=== PATIENT | female | born 1990 | race Caucasian/White ===

== ENCOUNTER → 2024-07-01 | Outpatient (CLI) | payer MEDICARE, SELFPAY ==
[2024-07-01 14:45] LABS: Erythrocyte Sedimentation Rate 20 mm/hr (0-30)
[2024-07-01 14:47] LABS: Absolute Lymphocyte Count 0.88 X10^3/uL (0.83-4.51); Absolute Neutrophil Count 3.1 X10^3/uL (2.0-7.7); Basophil# 0.04 X10^3/uL; Basophil% 0.9 % (0-1); Eosinophil# 0.11 X10^3/uL; Eosinophils% 2.4 % (0-5); Hematocrit 39.8 % (37-47); Hemoglobin 11.9 g/dL (12.0-15.0); Lymphocyte # 0.88 X10^3/ul (0.83-4.51); Lymphocyte % 19.1 % (19-41); Mean Corp Hgb Conc 29.9 g/dL (32-36); Mean Corpuscular Volume 70.3 fL (81-99); Mean Platelet Vol. 9.4 fl (6.2-12.0); Monocyte# 0.49 X10^3/uL; Monocyte% 10.7 % (0-10); NRBC Flagged by Analyzer 0 % (0-5); Neutrophil # 3.06 X10^3/uL (2.7-7.7); Neutrophil % 66.5 % (47-70); Platelet Count 249 K/mm3 (150-450); RBC Distribution Width CV 17.9 % (11.6-14.6); RBC Distribution Width SD 43.8 fl (35.1-43.9); Red Blood Count 5.66 M/mm3 (4.2-5.4); White Blood Count 4.6 K/mm3 (4.4-11.0)
[2024-07-01 15:19] LABS: ALB/GLOB Ratio 0.8 RATIO (0.9-2.4); AST(SGOT) 54 U/L (15-37); Alanine Aminotransfer ALT/SGPT 99 U/L (13-56); Albumin, Serum 3.7 g/dL (3.2-5.0); Alkaline Phosphatase 159 U/L (45-117); Anion Gap 6 (5-15); BUN 7 mg/dL (7-18); BUN/Creat Ratio 9.5 RATIO (10-20); CRP 9.76 mg/L (0.0-3.0); Calcium,Total 8.9 mg/dL (8.5-10.1); Chloride 107 mmol/L (98-107); Creatinine, Serum 0.74 mg/dL (0.55-1.02); EST Glomerular Filtration Rate 95 mL/min (>60); Est Glom Filt Rate - Afr Amer 115 mL/min (>60); Globulin 4.5 g/dL (2.2-4.2); Glucose 96 mg/dL (74-106); LDH 149 U/L (84-246); Potassium 3.4 mmol/L (3.5-5.1); Protein, Total 8.2 g/dL (6.4-8.2); Sodium Level 140 mmol/L (136-145)
--- OUTSIDE RECORDS SUMMARY | 2024-07-01 15:21 | XMS RPT_ITS | CCD ---
Author Organization [facility] Care Team Providers Care Lab Tech Name Role Phone Anita Herrera Bessy Unavailable Unava ilable Keyur, Lucita Escalante Unavailable U navailable FREE, TEXT ENTRY Unavailable Unavailable GLENDA GARCIA Unavailable Unavailable REFERRING, KISHA VERDIN ID Unavailable Unavailable SANDERS, JASON S Unavailable Unavailable PCP, NONE Unavailable Unavailable SANDERS, JASON S Unavailable Unavailable PCP, NONE Unavailable Unavailable SANDERS, JASON S Unavailable Unavailable SANDERS, JASON S Unavailable Unavailable UP, CLARI Unavailable Unavailable UP, CLARI Unavailable Unavailable FREE, TEXT ENTRY Unavailable Unavailable UP, CLARI Unavailable Unavailable UP, CLARI Unavailable Unavailable FREE, TEXT ENTRY Unavailable Unavailable Jonelle Tilley Unavailable Unavailable FREE, TEXT ENTRY Unavailable Unavailable UP, CLARI Unavailable Unavailable UP, CLARI Unavailable Unavailable FREE, TEXT ENTRY Unavailable Unavailable NOEL PERRY Primary Care Physician [phone] Klever Betancourt CNP Terese Primary Care Provi vamsi TERESE PERES Primary Care Physi edgar Klever Betancourt CNP Terese Primary Care Provi vamsi Ana Curiel Primary Care Provider [phone] FANNY GARZA Attending Unavailable KAYLA, JAIMEE Referring Unavailable TERESE ERNST Primary Care Unavailable CORIE GARZAITA Attending Unavailable TERESE ERNST Primary Care Unavailable FANNY GARZA Attending Unavailable TERESE ERNST Primary Care Unavailable FANNY GARZA Attending Unavailable TERESE ERNST Primary Care Unavailable TERESE ERNST Primary Care Unavailable SERGEY TEE Attending Unavailable NOEL WALTERS Referring Unavailable JAIMEE GARZA Attending Unavailable ANA CURIEL Primary Care Unavailable Klever PETROLEUM REFINERY LABORER, Terese A Primary Care Provider Fanny Garza PA-C Unavailable [phone] KLEVER, TERESE A Primary Care Unavailable GONCALVES, KEISHA Referring Unavailable KLEVER, TERESE A Primary Care Unavailable KLEVER, TERESE A Referring Unavailable GONCALVES, KEISHA Attending Unavailable JORGE DEAN Attending Unavailable ANN SOTO (FRESH FOODS CLERK) Referring Unavailabl e KLEVER, TERESE A Primary Care Unavailable JEFF HOWARD Attending Unavailable KLEVER, TERESE A Primary Care Unavailable KLEVER CAR REFINISHER-PETROLEUM REFINERY LABORER, TERESE A Attending Un available KLEVER CAR REFINISHER-PETROLEUM REFINERY LABORER, TERESE A Primary Care Un available KLEVER CAR REFINISHER-PETROLEUM REFINERY LABORER, TERESE A Attending Un available KLEVER CAR REFINISHER-PETROLEUM REFINERY LABORER, TERESE A Primary Care Un available KLEVER CAR REFINISHER-PETROLEUM REFINERY LABORER, TERESE A Primary Care Un available SEFFENS CAR REFINISHER-PETROLEUM REFINERY LABORER, KEVIN Attending Unavai lable RIDJULIO CESAR DO, DR EDILIA Goodman Attending Unavailable KLEVER CAR REFINISHER-PETROLEUM REFINERY LABORER, TERESE A Primary Care Un available LÁZARO WELLS, CHRISTIANO Attending Unavailable KLEVER CAR REFINISHER-PETROLEUM REFINERY LABORER, TERESE A Primary Care Un available TOMMY DO, YIFAN Salazar Attending Unavailable KLEVER CAR REFINISHER-PETROLEUM REFINERY LABORER, TERESE A Primary Care Un available KLEVER CAR REFINISHER-PETROLEUM REFINERY LABORER, TERESE A Primary Care Un available THIAGO PERRY, DR SANTHOSH Roberson Attending Unavai lable KLEVER CAR REFINISHER-PETROLEUM REFINERY LABORER, TERESE A Attending Un available KLEVER CAR REFINISHER-PETROLEUM REFINERY LABORER, ETRESE A Primary Care Un available KLEVER CAR REFINISHER-PETROLEUM REFINERY LABORER, TERESE A Attending Un available KLEVER CAR REFINISHER-PETROLEUM REFINERY LABORER, TERESE A Primary Care Un available KLEVER CAR REFINISHER-PETROLEUM REFINERY LABORER, TERESE A Attending Un available KLEVER CAR REFINISHER-PETROLEUM REFINERY LABORER, TERESE A Primary Care Un available IRIS PERRY, DR RONQUILLO Attending Unavailab le KLEVER CAR REFINISHER-PETROLEUM REFINERY LABORER, TERESE A Primary Care Un available KLEVER CAR REFINISHER-PETROLEUM REFINERY LABORER, TERESE A Primary Care Un available KLEVER CAR REFINISHER-PETROLEUM REFINERY LABORER, TERESE A Attending Un available NORM PETROLEUM REFINERY LABORER, MADAY Hammond Attending Unavailab le KLEVER CAR REFINISHER-PETROLEUM REFINERY LABORER, TERESE A Primary Care Un available KLEVER CAR REFINISHER-PETROLEUM REFINERY LABORER, TERESE A Primary Care Un available TAVO MAHER PA-C Attending Unavailab le MAST CAR REFINISHER-PETROLEUM REFINERY LABORER, SANTA Attending Unavailabl e KLEVER CAR REFINISHER-PETROLEUM REFINERY LABORER, TERESE A Primary Care Un available KLEVER CAR REFINISHER-PETROLEUM REFINERY LABORER, TERESE A Primary Care Un available DELMY PERRY, TANG Lopez Attending Unavail able KLEVER CAR REFINISHER-PETROLEUM REFINERY LABORER, TERESE A Primary Care Un available GABRIEL PERRY, DR BEE Attending Unavailab le KLEVER CAR REFINISHER-PETROLEUM REFINERY LABORER, TERESE A Primary Care Un available SAGAR WELLS, MARY LOU Attending Unavailable MAST CAR REFINISHER-PETROLEUM REFINERY LABORER, SANTA Attending Unavailabl e KLEVER CAR REFINISHER-PETROLEUM REFINERY LABORER, TERESE A Primary Care Un available KLEVER CAR REFINISHER-PETROLEUM REFINERY LABORER, TERESE A Primary Care Un available GABRIEL PERRY, DR BEE Attending Unavailab le NORM PETROLEUM REFINERY LABORER, MADAY Hammond Attending Unavailab le KLEVER CAR REFINISHER-PETROLEUM REFINERY LABORER, TERESE A Primary Care Un available IRIS PERRY, DR RONQUILLO Attending Unavailab le KLEVER CAR REFINISHER-PETROLEUM REFINERY LABORER, TERESE A Primary Care Un available Allergies Allergy Classification Reported Allergen(s) Allergy Type Date of Onset Reaction(s) Facility (20 sources) Ciprofloxacin; Translations: [CIPROFLOXACIN] Drug Allergy 8 [facility] Repository (20 sources) Clindamycin; Translations: [clindamycin] Drug Allergy 3 Weal (disorder), Hives, Other: See Comments [facility] (20 sources) OXcarbazepine; Translations: [oxcarbazepine] Drug Allergy 3 Other: See Clara, [facility] (10 sources) azaTHIOprine; Translations: [AZATHIOPRINE] Drug Allergy 8 Other: See Comments [facility] (9 sources) Lamotrigine; Translations: [LAMOTRIGINE] Propensity to adverse reactions 9 Hives, Rash [facility] (10 sources) Crary; Translations: [LITHIUM] Drug Allergy 3 Hives [facility] (8 sources) Oxcarbazepine Allergy to substance 3 Fever, Hives [facility] (18 sources) lamoTRIgine; Translations: [lamotrigine] Drug Allergy 9 Weal (disorder), Hives, Mental Status Change, Other: See Clara, Alcira Kaur [facility] [place] Medications Current Medications Medication Drug Class(es) Dates Sig (Normalized) Sig (Original) acetaminophen 500 mg oral tablet (9 sources) Start: 06-22-2022 acetaminophen 500 mg oral tablet Dose : 1,000 mg = 2 tab(s), Oral, TID, PRN pain or fever, 0 Refill(s) Start Date: 06/22/22 Status: Ordered acetaminophen 325 mg / HYDROcodone bitartrate 5 mg oral tablet (1 source) Opioid Agonist Start: 08-05-2021 End: 08-08-2021 take 1 tablet by mouth every six hours as needed for pain acetaminophen-hydr ocodone 325 mg-5 mg oral tablet Dose = 1 tab(s), Oral, q6h, PRN for pain, X 3 day(s), # 12 tab(s), 0 Refill(s), Cellulitis, face, 100.8 Start Date: 08/05/21 Stop Date: 08/08/21 Status: Ordered amoxicillin 875 mg oral tablet (4 sources) Penicillin-class Antibacterial Start: 07-22-2023 End: 07-29-2023 amoxicillin 875 mg oral tablet Dose : 875 mg = 1 tab(s), Oral, BID, Take with a probiotic, X 7 day(s), # 14 tab(s), 0 Refill(s), 07/29/23 7:53:00 PM EST Start Date: 07/22/23 Stop Date: 07/29/23 Status: Ordered Start: 08-05-2021 amoxicillin 0 Refill(s), 100.8 Start Date: 08/05/21 Status: Ordered amoxicillin 875 mg / clavulanate 125 mg oral tablet (1 source) Penicillin-class Antibacterial Start: 08-03-2023 End: 08-13-2023 take 1 tablet by mouth every twelve hours amoxicillin-clavulanate 875 mg-125 mg oral tablet 1 tab(s), Oral, q12h, X 10 day(s), # 20 tab(s), 0 Refill(s), 08/13/23 4:23:00 PM EST, Pharmacy: [facility] #[id number], Left otitis media Left otitis externa, 170.2, cm, 08/03/23 15:51:00 EST, Height, 113, kg, 08/03/23 15:51:00 EST, Dosing Weight Start Date: 08/03/23 Stop Date: 08/13/23 Status: Ordered breath-actuated 120 actuat beclomethasone dipropionate 0.04 mg/actuat metered dose inhaler (2 sources) Corticosteroid Start: 03-19-2024 End: 04-18-2024 take 1 dose by inhalation twice daily Qvar Redihaler 40 mcg/inh inhalation aerosol Dose = 1 puff(s), Inhalation, BID, # 10.6 gram(s), 0 Refill(s), Pharmacy: [facility] #[id number], 171.5, cm, 03/19/24 14:48:00 EDT, Height, kg, 03/19/24 14:48:00 EDT, Dosing Weight Start Date: 03/19/24 Stop Date: 04/18/24 Status: Ordered Vraylar (20 sources) Atypical Antipsychotic Start: 05-30-2024 Vraylar Oral, qDay, 0 Refill(s) Start Date: 05/30/24 Status: Ordered Start: 08-22-2023 take 1 capsule by mouth once V RAYLAR 3 mg capsule Take 1 capsule by mouth every afternoon. 0 08/22/2023 Active Start: 06-22-2021 End: 07-22-2021 Vraylar 4.5 mg oral capsule Dose : 4.5 mg = 1 cap(s), Oral, qDay, # 30 cap(s), 0 Refill(s), Pharmacy: [facility] 170.6, cm, 06/22/21 10:26:00 EDT, Height, kg, 06/22/21 10:26:00 EDT, Dosing Weight Start Date: 06/22/21 Stop Date: 07/22/21 Status: Ordered Start: 05-12-2021 End: 11-08-2021 Vraylar 3 mg oral capsule Do se : 3 mg = 1 cap(s), Oral, qDay, # 30 cap(s), 5 Refill(s), Pharmacy: [facility]/pharmacy #[id number], 170, cm, 05/12/21 13:54:00 EDT, Height, kg, 05/12/21 13:54:00 EDT, Dosing Weight Start Date: 05/12/21 Stop Date: 11/08/21 Status: Ordered Comment on above: Take 1 capsule by mo ut every afternoon. Take 4.5 mg by mouth once daily. cephalexin 500 mg oral capsule (4 sources) Cephalosporin Antibacterial Start: 06-22-2024 End: 07-02-2024 cephalexin 500 mg oral capsule Dose : 500 mg = 1 cap(s), Oral, QID, X 10 day(s), # 40 cap(s), 0 Refill(s), 07/02/24 8:00:00 AM EDT, 109.1 Start Date: 06/22/24 Stop Date: 07/02/24 Status: Ordered clindamycin 150 mg oral capsule (1 source) Lincosamide Antibacterial Start: 08-05-2021 End: 08-15-2021 Cleocin HCl 150 mg oral capsule Dose : 300 mg = 2 cap(s), PO, q6hr, X 10 day(s), # 80 cap(s), 0 Refill(s), 08/15/21 15:12:00 EST, 100.8 Start Date: 08/05/21 Stop Date: 08/15/21 Status: Ordered clobetasol propionate 0.5 mg/ml topical solution (20 sources) Corticosteroid Start: 10-15-2023 clobetasol (Temovate) 0.05 % external solution Indications: Seborrheic dermatitis Apply to affected areas on scalp BID x 6 weeks Stop using when clear. Repeat as needed for flares. Do not use on face, armpits, groin. 50 mL 2 10/15/2023 Active Start: 12-13-2022 clobetasol (TE MOVATE) 0.05 % ointment Apply to affected areas BID x 2 weeks Stop using when clear. Repeat as needed for flares. Do not use on face, armpits, groin. 0 12/13/2022 Active Start: 12-13-2022 clobetasol (Te movate) 0.05 % ointment Indications: Subacute cutaneous lupus erythematosus , Seborrheic dermatitis Apply to affected areas BID x 2 weeks Stop using when clear. Repeat as needed for flares. Do not use on face, armpits, groin. 60 g 3 12/13/2022 Active Start: 03-21-2022 Temovate 0.05% topical cream See Instructions, apply a thin film 2-3 times per week., # 45 gram(s), 1 Refill(s), Pharmacy: [facility] [address] Cream, 170.2, cm, 03/13/22 8:04:00 EDT, Height, 109.4 Start Date: 03/21/22 Status: Ordered Start: 03-09-2022 Temovate 0.05% topical cream Apply 1 gifty, Topical, BID, apply a thin film apply twice per day for two weeks Do not apply to open skin, # 15 gram(s), 0 Refill(s), Pharmacy: [facility] [address] Cream, 170.2, cm, 03/09/22 13:49:00 EDT, Height, 108.7 Start Date: 03/09/22 Status: Ordered Comment on above: Apply to affected ar eas BID x 2 weeks Stop using when clear. Repeat as needed for flares. Do not use on face, armpits, groin. doxycycline hyclate 100 mg oral capsule (2 sources) Tetracycline-class Drug Start: 02-02-2023 End: 02-12-2023 doxycycline hyclate 100 mg oral capsule Dose : 100 mg = 1 cap(s), Oral, BID, X 10 day(s), # 20 cap(s), 0 Refill(s), 02/12/23 14:10:00 EDT, Pharmacy: [facility] #[id number], Cutaneous lupus erythematosus, 170.2, cm, 02/02/23 13:28:00 EDT, Height, 114.8 Start Date: 02/02/23 Stop Date: 02/12/23 Status: Ordered take 1 tablet by mouth twice robbi ly Doxycycline Hyclate 100 mg EC tablet Take 100 mg by mouth twice daily. 0 Active Comment on above: Take 100 mg by mouth twice daily. ferrous sulfate 325 mg delayed release oral tablet (12 sources) Start: 4 End: 5 ferrous sulfate 325 mg (65 mg elemental iron) oral delayed release tablet Dose : 325 mg = 1 tab(s), Oral, qDay, # 90 tab(s), 1 Refill(s), Pharmacy: [facility]/pharmacy #[id number], Iron deficiency anemia, 170.2, cm, 04/02/24 9:28:00 EDT, Height, kg, 04/02/24 9:28:00 EDT, Dosing Weight Start Date: 04/02/24 Stop Date: 09/29/24 Status: Ordered fluconazole 100 mg oral tablet (1 source) Azole Antifungal Start: 3 End: 3 fluconazole 100 mg oral tablet Dose : 100 mg = 1 tab(s), Oral, Every other day, X 7 day(s), # 4 tab(s), 0 Refill(s), 02/09/23 14:11:00 EDT, [facility]acy: [id number], Vaginal maikel, 170.2, cm, 02/02/23 13:28:00 EDT, Height, 114.8 Start Date: 02/02/23 Stop Date: 02/09/23 Status: Ordered FLUoxetine 20 mg oral capsule (20 sources) Serotonin Reuptake Inhibitor Start: 3 take 1 capsule by mouth once daily FLUoxetine 20 mg oral capsule take 1 capsule by mouth once daily Start Date: 07/25/23 Status: Ordered Start: 04-05-2022 FLUoxetine 20 mg oral capsule Dose : 60 mg = 3 cap(s), Oral, qDay, # 45 cap(s), 0 Refill(s), Pharmacy: [facility] #[id number], 170.2, cm, 04/03/22 6:39:00 EDT, Height Start Date: 04/05/22 Status: Ordered Start: 05-12-2021 take 1 capsule by mo ut once daily FLUoxetine 40 mg oral capsule take 1 capsule by mouth once daily Start Date: 07/25/23 Status: Ordered hydrocortisone 25 mg/ml topical cream (4 sources) Corticosteroid Start: 06-16-2022 End: 06-29-2022 hydrocortisone 2.5% topical cream See Instructions, Topical BID to affected area x14 days apply in a thin film to the affected skin and rub in gently and completely, # 20 gram(s), 0 Refill(s), [facility]: [facility][id number], 168.91, cm, 06/16/22 11:00:00 EDT, Height, 112.8 Start Date: 06/16/22 Stop Date: 06/29/22 Status: Ordered hydrocortisone 10 mg/ml / neomycin 3.5 mg/ml / polymyxin b 53786 unt/ml otic solution (1 source) Aminoglycoside Antibacterial, Polymyxin-class Antibacterial, Corticosteroid Start: 06-25-2022 End: 07-02-2022 hydrocortisone/neomy shelby/polymyxin B 1%-0.35%-10,000 units/mL otic solution Dose = 4 drop(s), Ear, left, TID, X 7 day(s), # 10 mL, 0 Refill(s) Start Date: 06/25/22 Stop Date: 07/02/22 Status: Ordered hydroxychloroquine sulfate 200 mg oral tablet (13 sources) Antimalarial, Antirheumatic Agent Start: 01-25-2023 Plaquenil 200 mg oral tablet Dose : 400 mg = 2 tab(s), Oral, qDay, # 180 tab(s), 0 Refill(s) Start Date: 01/25/23 Status: Ordered Start: 12-21-2022 hydroxychloroq uine (Plaquenil) 200 MG tablet Indications: Subacute cutaneous lupus erythematosus 400 mg daily 60 tablet 4 12/21/2022 Active levocetirizine dihydrochloride 5 mg oral tablet (2 sources) Histamine-1 Receptor Antagonist Start: 05-24-2022 End: 11-20-2022 levocetirizine 5 mg oral tablet Dose : 2.5 mg = 0.5 tab(s), Oral, qHS, # 45 tab(s), 0 Refill(s) Start Date: 06/24/22 Status: Ordered methylPREDNISolone 4 mg oral tablet (1 source) Corticosteroid Start: 08-15-2021 End: 08-21-2021 Medrol 4 mg oral tablet 6-5-4-3-2-1 tab(s), Oral, Daily, 24mg day 1, 20mg day 2, 16mg day 3, 12 mg day 4, 8mg day 5, 4mg day 6, X 6 day(s), # 21 tab(s), 0 Refill(s), 08/21/21 8:11:00 EST, [facility] 171, cm, 08/15/21 7:51:00 EST, Height, kg, 08/15/21... Start Date: 08/15/21 Stop Date: 08/21/21 Status: Ordered 24 hr metoprolol succinate 50 mg extended release oral tablet (14 sources) beta-Adrenergic Preet Start: 06-27-2024 metoprolol succinate 50 mg oral TABLET extended release Dose : 75 mg = 1.5 tab(s), Oral, qDay, Do not crush or chew (controlled release), # 45 tab(s), 6 Refill(s), [id number], 170.2, cm, 06/27/24 10:40:00 EDT, Height, kg, 06/27/24 10:40:00 EDT, Dosing Weight Start Date: 06/27/24 Status: Ordered Start: 04-02-2024 End: 12-03-2024 Metoprolol Tartrate 25 mg or al tablet Dose : 25 mg = 1 tab(s), Oral, BID, # 180 tab(s), 1 Refill(s), Pharmacy: [facility]/pharmacy #[id number], Tachycardia, 170.2, cm, 06/06/24 13:08:00 EDT, Height, kg, 06/06/24 13:08:00 EDT, Dosing Weight Start Date: 06/06/24 Stop Date: 12/03/24 Status: Ordered Start: 03-21-2024 Metoprolol Tar trate 25 mg oral tablet Dose : 25 mg = 1 tab(s), Oral, BID, # 60 tab(s), 0 Refill(s), Pharmacy: [facility] #[id number], Tachycardia Chest pain, 171.5, cm, 03/21/24 12:59:00 EDT, Height, kg, 03/21/24 12:59:00 EDT, Dosing Weight Start Date: 03/21/24 Status: Ordered Nitrofurantoin (1 source) Nitrofuran Antibacterial Start: 05-30-2024 nitrofurantoin Oral, 0 Refill(s), 111.6 Start Date: 05/30/24 Status: Ordered ofloxacin 3 mg/ml otic solution (1 source) Quinolone Antimicrobial Start: 06-24-2022 End: 07-04-2022 ofloxacin 0.3% otic solution Dose = 5 drop(s), Ear, left, BID, X 10 day(s), # 10 mL, 0 Refill(s), Otitis externa Start Date: 06/24/22 Stop Date: 07/04/22 Status: Ordered Omeprazole (13 sources) Proton Pump Inhibitor Start: 05-30-2024 omeprazo le Oral, qDay, 0 Refill(s) Start Date: 05/30/24 Status: Ordered Start: 12-15-2021 End: 01-14-2022 omeprazole 40 mg oral delaye d release capsule Dose : 40 mg = 1 cap(s), Oral, qDay, # 30 cap(s), 0 Refill(s), [facility] [place] [id number] [address] [facility], 170.6, cm, 12/15/21 8:36:00 EDT, Height Start Date: 12/15/21 Stop Date: 01/14/22 Status: Ordered ondansetron 4 mg disintegrating oral tablet (3 sources) Serotonin-3 Receptor Antagonist Start: 07-21-2023 End: 07-24-2023 take 1 tablet by mouth every eight hours ondansetron 4 mg oral tablet, disintegrating dissolve 1 tablet ON TONGUE every 8 hours if needed Start Date: 07/25/23 Status: Ordered OXcarbazepine 300 mg oral tablet (1 source) Anti-epileptic Agent Start: 04-03-2022 OXcarbazepine 300 mg oral tablet Dose : 300 mg = 1 tab(s), Oral, qHS, 0 Refill(s) Start Date: 04/03/22 Status: Ordered potassium chloride 20 meq oral tablet (11 sources) Start: 06-27-2024 potassium chloride 20 mEq oral tablet, extended release Dose : 20 mEq = 1 tab(s), Oral, qDay, Take with food, # 30 tab(s), 1 Refill(s), Pharmacy: [facility]/pharmacy #[id number], 170.2, cm, 06/27/24 10:40:00 EDT, Height, kg, 06/27/24 10:40:00 EDT, Dosing Weight Start Date: 06/27/24 Status: Ordered Start: 06-06-2024 End: 06-11-2024 potassium chloride 20 mEq or al tablet, extended release Dose : 20 mEq = 1 tab(s), Oral, qDay, # 5 packet(s), 0 Refill(s) Start Date: 06/06/24 Stop Date: 06/11/24 Status: Ordered predniSONE 10 mg oral tablet (6 sources) Start: 08-03-2023 End: 08-15-2023 prednisone 10mg tab (TAPER) Taper 40-30-20-10 x 3 days each dose, Oral, qDay, Take with food/meal, # 30 tab(s), 0 Refill(s), Pharmacy: [facility] #[id number], Left otitis media Left otitis externa, 170.2, cm, 08/03/23 15:51:00 EST, Height, kg, 08/03/23 15:51:00 EST, Dosing Weight Start Date: 08/03/23 Stop Date: 08/15/23 Status: Ordered Start: 02-02-2023 End: 02-14-2023 prednisone 10mg tab (TAPER) Taper 40-30-20-10 x 3 days each dose, Oral, qDay, Take with food/meal, # 30 tab(s), 0 Refill(s), Pharmacy: [facility] #[id number], Cutaneous lupus erythematosus, 170.2, cm, 02/02/23 13:28:00 EDT, Height Start Date: 02/02/23 Stop Date: 02/14/23 Status: Ordered Probiotic (12 sources) Start: 05-30-2024 Probiotic 0 Refill(s) Start Date: 05/30/24 Status: Ordered propranolol hydrochloride 10 mg oral tablet (1 source) beta-Adrenergic Preet Start: 01-12-2022 End: 07-11-2022 propranolol 10 mg oral tablet Dose : 10 mg = 1 tab(s), Oral, BID, # 60 tab(s), 5 Refill(s), [facility]: [facility] 171, cm, 01/12/22 15:01:00 EDT, Height Start Date: 01/12/22 Stop Date: 07/11/22 Status: Ordered QUEtiapine 50 mg oral tablet (5 sources) Atypical Antipsychotic Start: 11-24-2021 QUEtiapine 50 mg oral tablet Dose : 50 mg = 1 tab(s), Oral, BID, # 180 tab(s), 0 Refill(s) Start Date: 11/24/21 Status: Ordered sulfamethoxazole 800 mg / trimethoprim 160 mg oral tablet (3 sources) Dihydrofolate Reductase Inhibitor Antibacterial, Sulfonamide Antimicrobial Start: 06-16-2022 End: 06-23-2022 take 1 tablet by mouth twice daily Bactrim DS 800 mg-160 mg oral tablet Dose = 1 tab(s), Oral, BID, X 7 day(s), # 14 tab(s), 0 Refill(s), [facility]: [facility] #[id number], 168.91, cm, 06/16/22 11:00:00 EDT, Height, 112.8 Start Date: 06/16/22 Stop Date: 06/23/22 Status: Ordered Completed/Discontinued Medications Medication Drug Class(es) Dates Sig (Normalized) Sig (Original) albuterol MDI (90 mcg/inh) CFC free inhalation aerosol (5 sources) Start: 03-19-2024 End: 04-02-2024 take 2 puff(s) by inhalation every six hours as needed for wheezing albuterol MDI (90 mcg/inh) CFC free inhalation aerosol 2 puff(s), Inhalation, q6hr, PRN as needed for wheezing, # 18 gram(s), 0 Refill(s), [facility]: [facility] #[id number], 171.5, cm, 03/19/24 14:48:00 EDT, Height, kg, 03/19/24 14:48:00 EDT, Dosing Weight Start Date: 03/19/24 Stop Date: 04/02/24 Status: Ordered Aquaphor Healing for Baby topical ointment (2 sources) Start: 08-15-2021 End: 08-29-2021 Aquaphor Healing for Baby topical ointment Apply 1 gifty, Topical, BID, PRN as needed for dry skin, # 1 EA, 0 Refill(s), [facility]: [facility] Ointment, 171, cm, 08/15/21 7:51:00 EST, Height, 104.5, kg, 08/15/21 7:51:00 EST, Dosing Weight Start Date: 08/15/21 Stop Date: 08/29/21 Status: Ordered busPIRone hydrochloride 7.5 mg oral tablet (20 sources) Start: 06-22-2021 End: 12-19-2021 busPIRone 7.5 mg oral tablet Dose : 7.5 mg = 1 tab(s), Oral, BID, # 60 tab(s), 5 Refill(s), [facility]: [facility] 170.6, cm, 06/22/21 10:26:00 EDT, Height, kg, 06/22/21 10:26:00 EDT, Dosing Weight Start Date: 06/22/21 Stop Date: 12/19/21 Status: Ordered cholecalciferol 0.025 mg oral capsule (1 source) Vitamin D Cholecalciferol, Vitamin D3, 25 mcg (1,000 unit) cap Take by mouth as directed. 0 Active Comment on above: Take by mouth as dir ected. sugar-free cholestyramine resin 4000 mg powder for oral suspension (1 source) Bile Acid Sequestrant Cholestyramine-As partame (CHOLESTYRAMINE LIGHT) 4 gram powder Take by mouth three times daily with meals. 0 Active Comment on above: Take by mouth three times daily with meals. dicyclomine hydrochloride 10 mg oral capsule (5 sources) Anticholinergic Start: 06-11-2024 End: 06-18-2024 dicyclomine 10 mg oral capsule Dose : 10 mg = 1 cap(s), Oral, QID, # 28 cap(s), 0 Refill(s), Pharmacy: [facility]/pharmacy #[id number], 171, cm, 06/11/24 13:31:00 EDT, Height, kg, 06/11/24 13:31:00 EDT, Dosing Weight Start Date: 06/11/24 Stop Date: 06/18/24 Status: Ordered enteric contrast (will be provided with radiology test) (1 source) Start: 03-07-2018 enteric contrast (will be provided with radiology test) For CT ENTEROGRAPHY W IVCON order Administer, As Directed One Time Only, via Oral, Rectal, both Oral and Rectal, Enteric Tube, Stoma or Indwelling Catheter, Enteric Contrast as designated per enteric contrast guidelines. 1 Each 0 03/07/2018 Active Comment on above: For CT ENTEROGRAPHY W IVCON order Administer, As Directed One Time Only, via Oral, Rectal, both Oral and Rectal, Enteric Tube, Stoma or Indwelling Catheter, Enteric Contrast as designated per enteric contrast guidelines. fluticasone propionate 0.05 mg/actuat metered dose nasal spray (20 sources) Corticosteroid Start: 03-04-2024 End: 04-03-2024 take 100 ug nasal route once daily fluticasone 50 mcg/inh NASAL spray 100 mcg Dose = 2 spray(s), Nostril, each, qDay, shake well before using, # 16 gram(s), 0 Refill(s), Pharmacy: [facility] #[id number], Bilateral serous otitis media, 170.8, cm, 03/04/24 9:54:00 EDT, Height, kg, 03/04/24 9:54:00 EDT, Dosing Weight Start Date: 03/04/24 Stop Date: 04/03/24 Status: Ordered Start: 02-02-2023 fluticasone (F LONASE) 50 mcg/actuation nasal spray Start: 02-02-2023 take 1 dose nasal ro louise once daily in the morning fluticasone proprionate NASAL 50 mcg/ spray Dose = 2 spray(s), Nostril, each, qAM, 0 Refill(s) Start Date: 02/02/23 Status: Ordered gabapentin 300 mg oral capsule (18 sources) Anti-epileptic Agent Start: 06-16-2022 gabapenti n 300 mg oral capsule Dose : 300 mg = 1 cap(s), Oral, BID, 0 Refill(s), 109.8 Start Date: 06/16/22 Status: Ordered iv contrast (will be provided with radiology test) (1 source) Start: 03-07-2018 iv contrast (w ill be provided with radiology test) CT Enterography W Inject, intravenously, once for 1 dose.No IV access, insert saline lock prior to the beginning of sedation, infusion, injection of imaging exam. Discontinue saline lock post exam. If Pt. has a central line or IVAD, may access for administration according to line specific nursing protocol. Once exam is complete flush line and de-access according to line specific nursing protocol in the CT contrast administration guidelines link. 1 Each 0 03/07/2018 Active Comment on above: CT Enterography W In ject, intravenously, once for 1 dose.No IV access, insert saline lock prior to the beginning of sedation, infusion, injection of imaging exam. Discontinue saline lock post exam. If Pt. has a central line or IVAD, may access for administration according to line specific nursing protocol. Once exam is complete flush line and de-access according to line specific nursing protocol in the CT contrast administration guidelines link. ketoconazole 20 mg/ml medicated shampoo (10 sources) Azole Antifungal Start: 12-13-2022 ketoconazole (NIZORAL) 2 % shampoo WASH SCALP 3 TO 4 TIMES PER WEEK. ALLOW TO SIT FOR 3 MINUTES BEFO... (REFER TO PRESCRIPTION NOTES). 0 12/13/2022 Active Start: 12-13-2022 End: 10-15-2023 ketoconazole (NIZOral) 2 % s hampoo Indications: Seborrheic dermatitis Use to wash the scalp 3 to 4 times weekly allowing to sit 3 minutes before rinsing. May use regular shampoo and condition after. 120 mL 3 10/15/2023 Active Comment on above: WASH SCALP 3 TO 4 TI MES PER WEEK. ALLOW TO SIT FOR 3 MINUTES BEFO... (REFER TO PRESCRIPTION NOTES). L. rhamnosus GG/inulin (CULTURELLE PROBIOTICS ORAL) (1 source) L. rhamnosus GG/ inulin (CULTURELLE PROBIOTICS ORAL) Take by mouth. 0 Active Comment on above: Take by mouth. multivit,thx,calcium,iron,m ins (MULTIVITAMIN AND MINERAL ORAL) (1 source) multivit,thx,papito cium,iron, mins (MULTIVITAMIN AND MINERAL ORAL) Take by mouth. 0 Active Comment on above: Take by mouth. Problems Active Problems Problem Classification Problem Date Documented Da te Episodic/Chronic Administrative/social admission (4 sources) Dietary counseling and surveillance; Translations: [Patient encounter status] Onset: 11-21-2022 Episodic Anxiety disorders (20 sources) Anxiety 06-15-2021 Chronic Biliary tract disease (3 sources) Cholecystitis 01-02-2018 Episodic Cardiac dysrhythmias (2 sources) Tachyarrhythmia ; Translations: [Tachycardia, unspecified] Onset: 04-03-2022 Episodic Deficiency and other anemia (12 sources) Iron deficiency anemia 04-02-2024 Episodic Diabetes mellitus without complication (12 sources) Prediabetes 04-02-2024 Episodic E Codes: Adverse effects of medical drugs (1 source) Adverse reaction to biological substance; Translations: [Adverse effect of unspecified drugs, medicaments and biological substances, initial encounter] Onset: 04-03-2022 Episodic Fluid and electrolyte disorders (5 sources) Dehydration; Translations: [Dehydration] Onset: 05-30-2024 Episodic Headache; including migraine (2 sources) Headache; including migraine; Translations: [Headache, unspecified] Onset: 08-03-2023 Immunizations and screening for infectious disease (16 sources) Anti-nuclear factor positive; Translations: [Other specified abnormal immunological findings in serum] Onset: 04-19-2018 06-22-2022 Episodic Mood disorders (20 sources) Bipolar disorder 05-24-2022 Chronic Mood disorders (2 sources) Mood disorders; Translations: [Depression, unspecified] Onset: 11-21-2022 Nonspecific chest pain (20 sources) Chest discomfort; Translations: [Chest pain] Onset: 03-19-2024 01-12-2022 Episodic Nutritional deficiencies (2 sources) Vitamin D deficiency, unspecified; Translations: [Vitamin D deficiency, unspecified] Onset: 11-21-2022 Chronic Other aftercare (1 source) Follow-up status; Translations: [Encounter for follow-up examination after completed treatment for conditions other than malignant neoplasm] Episodic Other ear and sense organ disorders (20 sources) Otitis externa; Translations: [Unspecified otitis externa, unspecified ear] Onset: 06-24-2022 02-22-2022 Chronic Other ear and sense organ disorders (1 source) Chronic eczema of external auditory canal; Translations: [Other otitis externa, bilateral] Onset: 09-03-2023 09-03-2023 Chronic Other ear and sense organ disorders (1 source) Other otitis externa, bilateral; Translations: [Chronic eczematoid otitis externa of both ears] Onset: 08-30-2023 Chronic Other ear and sense organ disorders (16 sources) Eczema of external auditory canal 03-04-2024 Episodic Other gastrointestinal disorders (3 sources) Diarrhea, unspecified; Translations: [Diarrhea, unspecified] Onset: 03-01-2018 Episodic Other gastrointestinal disorders (2 sources) Diarrhea; Translations: [Diarrhea, unspecified] Onset: 06-06-2024 Episodic Other gastrointestinal disorders (1 source) Swollen abdomen; Translations: [Abdominal distension (gaseous)] Episodic Other gastrointestinal disorders (1 source) Abdominal wind pain; Translations: [Gas pain] Episodic Other gastrointestinal disorders (2 sources) Abdominal distension (gaseous); Translations: [Abdominal distension (gaseous)] Onset: 06-12-2024 Episodic Other gastrointestinal disorders (2 sources) Gas pain; Translations: [Gas pain] Onset: 06-12-2024 Episodic Other inflammatory condition of skin (17 sources) Lupus erythematosus 02-22-2022 Chronic Other inflammatory condition of skin (17 sources) Subacute cutaneous lupus erythematosus; Translations: [Subacute cutaneous lupus erythematosus] Onset: 04-19-2018 Chronic Other inflammatory condition of skin (1 source) Subacute cutaneous lupus erythematosus; Translations: [Subacute cutaneous lupus erythematosus] Onset: 06-22-2022 Chronic Other inflammatory condition of skin (13 sources) Cutaneous lupus erythematosus; Translations: [Other local lupus erythematosus] 11-21-2023 Chronic Other inflammatory condition of skin (1 source) Other local lupus erythematosus; Translations: [Cutaneous lupus erythematosus] Onset: 11-21-2023 Chronic Other inflammatory condition of skin (3 sources) Seborrheic dermatitis; Translations: [Seborrheic dermatitis, unspecified] Episodic Other nutritional; endocrine; and metabolic disorders (2 sources) Body mass index (BMI) 40.0-44.9, adult; Translations: [Body mass index (BMI) 40.0-44.9, adult ([facility])] Onset: 11-21-2022 Chronic Other nutritional; endocrine; and metabolic disorders (2 sources) Hypomagnesemia 06-27-2024 Chronic Other nutritional; endocrine; and metabolic disorders (1 source) Abnormal weight loss; Translations: [Abnormal weight loss] Onset: 01-21-2018 Episodic Other skin disorders (10 sources) Eruption; Translations: [Rash and other nonspecific skin eruption] Onset: 03-28-2018 Episodic Other skin disorders (1 source) Rash and other nonspecific skin eruption; Translations: [Rash and nonspecific skin eruption] Onset: 10-15-2023 Episodic Other upper respiratory disease (2 sources) Other specified disorders of nose and nasal sinuses; Translations: [Nasal vestibulitis] Onset: 08-30-2023 Episodic Otitis media and related conditions (19 sources) Otitis media of left ear; Translations: [Otitis media, unspecified, bilateral] Onset: 08-03-2023 08-03-2023 Episodic Residual codes; unclassified (12 sources) Flushing 04-02-2024 Episodic Skin and subcutaneous tissue infections (1 source) Cellulitis of face; Translations: [Cellulitis of face] Onset: 08-05-2021 Episodic Substance-related disorders (2 sources) Cocaine abuse; Translations: [Cocaine abuse, uncomplicated] Onset: 03-19-2024 Chronic Systemic lupus erythematosus and connective tissue disorders (15 sources) Acute systemic lupus erythematosus 02-22-2022 Chronic Unclassified (1 source) Candidiasis of vulva and vagina / B37.3(ICD-10) Onset: 09-29-2017 Unclassified (1 source) Nicotine dependence, unspecified, uncomplicated / F17.200(ICD-10) Onset: 09-29-2017 Unclassified (1 source) Other specified noninflammatory disorders of vagina / N89.8(ICD-10) Onset: 09-29-2017 Unclassified (1 source) Pruritus vulvae / L29.2(ICD-10) Onset: 09-29-2017 Unclassified (1 source) Pelvic and perineal pain / R10.2(ICD-10) Onset: 09-29-2017 Unclassified (2 sources) Acute vaginitis / N76.0(ICD-10) Onset: 09-06-2017 Unclassified (1 source) Dysuria / R30.0(ICD-10) Onset: 09-06-2017 Unclassified (1 source) Person w feared th complaint in whom no diagnosis is made / Z71.1(ICD-10) Onset: 09-06-2017 Unclassified (1 source) Unknown / UNK(Unknown) Onset: 03-19-2017 Unclassified (1 source) Diarrhea, unspecified / R19.7(ICD-10) Onset: 03-22-2018 Unclassified (1 source) Epigastric pain / R10.13(ICD-10) Onset: 01-21-2018 Unclassified (1 source) Abnormal weight loss / R63.4(ICD-10) Onset: 01-21-2018 Unclassified (2 sources) Unspecified abdominal pain / R10.9(ICD-10) Onset: 01-07-2018 Urinary tract infections (2 sources) Urinary tract infectious disease; Translations: [Urinary tract infection, site not specified] Onset: 04-03-2022 Episodic Past or Other Problems Problem Classification Problem Date Documented Da te Episodic/Chronic Abdominal pain (2 sources) Epigastric pain; Translations: [Unspecified abdominal pain] Onset: 01-07-2018 Episodic Malaise and fatigue (2 sources) Other fatigue; Translations: [Other fatigue] Onset: 08-03-2023 Episodic Other inflammatory condition of skin (2 sources) Seborrheic dermatitis, unspecified; Translations: [Seborrheic dermatitis, unspecified] Onset: 12-13-2022 Episodic Other skin disorders (2 sources) Hidradenitis suppurativa; Translations: [Hidradenitis suppurativa] Onset: 12-13-2022 Episodic Unclassified (1 source) ABDOMINAL PAIN WHEN EATING, RADIATING TO BACK Onset: 03-19-2017 Unclassified (1 source) Diarrhea, unspecified; Translations: [Diarrhea, unspecified] Onset: 03-22-2018 Results Test Name Value Interpretation Reference Range Facility .GFRon 06-27-2024 GFR 86 ml/min/1.73sqm Normal [facility] Comment on above: Result Comment: GFR Population mean for , Non- Americans Ages 20-29 = 116 mL/min/1.73 sq.m. Ages 30-39 = 107 mL/min/1.73 sq.m. Ages 40-49 = 99 mL/min/1.73 sq.m. Ages 50-59 = 93 mL/min/1.73 sq.m. Ages 60-69 = 85 mL/min/1.73 sq.m. Ages 70+ = 75 mL/min/1.73 sq.m. Chronic Kidney Disease: Less than 60 mL/min/1.73 square meters End Stage Renal Disease: Less than 15 mL/min/1.73 square meters Performed By: #### B MP, GFR ####[facility] [place] [id number] GFR Non- 71 ml/min/1.73sqm Normal [facility] Comment on above: Result Comment: GFR Population mean for , Non- Americans Ages 20-29 = 116 mL/min/1.73 sq.m. Ages 30-39 = 107 mL/min/1.73 sq.m. Ages 40-49 = 99 mL/min/1.73 sq.m. Ages 50-59 = 93 mL/min/1.73 sq.m. Ages 60-69 = 85 mL/min/1.73 sq.m. Ages 70+ = 75 mL/min/1.73 sq.m. Chronic Kidney Disease: Less than 60 mL/min/1.73 square meters End Stage Renal Disease: Less than 15 mL/min/1.73 square meters Performed By: #### B MP, GFR ####[address] [place], [place] [address] [facility] BUN/Creatinine Ratio 16 ratio Normal 7-27 [facility] Comment on above: Performed By: #### B MP, GFR ####[address] [place], [place] [address] Calcium [Mass/Vol] 8.9 mg/dL Normal 8.4-10.2 [facility] Comment on above: Performed By: #### B MP, GFR ####[place] [address] [place], [place] [address] Chloride [Moles/Vol] 102 mmol/L Normal 98-107 [facility] Comment on above: Performed By: #### B MP, GFR ####[place] [address] [place], [place] [address] CO2 [Moles/Vol] 30 mmol/L High 22-29 [facility] Comment on above: Performed By: #### B MP, GFR ####[place] [address] [place], [place] [address] Creatinine [Mass/Vol] 0.90 mg/dL Normal 0.55-1.02 [facility] Comment on above: Result Comment: Test ing performed on Siemens Dimension EXL analyzer using a modified kinetic Jacki technique. Performed By: #### B MP, GFR ####[place] [address] [place], [place] [address] Electrolyte Balance 8.0 mEq/L Normal 4.0-15.0 [facility] Comment on above: Performed By: #### B MP, GFR ####[place] [address] [place], [place] [address] Glucose [Mass/Vol] 103 mg/dL Normal 70-105 [facility] Comment on above: Performed By: #### B MP, GFR ####[place] [address] [place], [place] [address] Potassium [Moles/Vol] 4.0 mmol/L Normal 3.5-5.1 [facility] Comment on above: Performed By: #### B MP, GFR ####[place] [address] [place], [place] [address] Sodium [Moles/Vol] 140 mmol/L Normal 136-145 [facility] Comment on above: Performed By: #### B MP, GFR ####[place] [address] [place], [place] [address] Urea nitrogen [Mass/Vol] 14 mg/dL Normal 7-18 [facility] Comment on above: Performed By: #### B MP, GFR ####[address] [address] CRPon 06-27-2024 C-Reactive Protein 1.4 mg/dL High 0.0-0.3 [facility] Comment on above: Performed By: #### P HOS, MG, ESR, CRP ####[place] [address] [address] ESRon 06-27-2024 Erythrocyte Sed Rate 33 mm/hr High 0-20 [facility] Comment on above: Performed By: #### P HOS, MG, ESR, CRP ####[place] [address] [place], [place] [address] LABORATORYOrdered By: SYSTEM SYSTEM on 06-27-2024 CRP [Mass/Vol] 1.4 mg/dL High 0.0 - 0.3 mg/dL AO ADM SS Magnesium [Mass/Vol] 2.0 mg/dL Normal 1.8 - 2.4 mg/dL AO ADM SS Phosphate [Mass/Vol] 3.2 mg/dL Normal 2.7 - 4.5 mg/dL AO ADM SS Calcium [Mass/Vol] 8.9 mg/dL Normal 8.4 - 10. 2 mg/dL AO ADM SS Chloride [Moles/Vol] 102 mmol/L Normal 98 - 107 mmol/L AO ADM SS CO2 [Moles/Vol] 30 mmol/L High 22 - 29 mmol/L AO ADM SS Creatinine [Mass/Vol] 0.90 mg/dL Normal 0.55 - 1.02 mg/dL AO ADM SS Comment on above: Interpretive Data: T esting performed on Siemens Dimension EXL analyzer using a modified kinetic Jacki technique. Electrolyte Balance 8.0 mEq/L Normal 4.0 - 15 .0 mEq/L AO ADM SS GFR/1.73 sq M.predicted among blacks MDRD (S/P/Bld) [Vol rate/Area] 86 ml/min/1.73sqm Invalid Interpretation Code AO Chemistry S Comment on above: Interpretive Data: GFR Population mean for , Non- Americans Ages 20-29 = 116 mL/min/1.73 sq.m. Ages 30-39 = 107 mL/min/1.73 sq.m. Ages 40-49 = 99 mL/min/1.73 sq.m. Ages 50-59 = 93 mL/min/1.73 sq.m. Ages 60-69 = 85 mL/min/1.73 sq.m. Ages 70+ = 75 mL/min/1.73 sq.m. Chronic Kidney Disease: Less than 60 mL/min/1.73 square meters End Stage Renal Disease: Less than 15 mL/min/1.73 square meters GFR/1.73 sq M.predicted among non-blacks MDRD (S/P/Bld) [Vol rate/Area] 71 ml/min/1.73sqm Invalid Interpretation Code AO Chemistry S Comment on above: Interpretive Data: GFR Population mean for , Non- Americans Ages 20-29 = 116 mL/min/1.73 sq.m. Ages 30-39 = 107 mL/min/1.73 sq.m. Ages 40-49 = 99 mL/min/1.73 sq.m. Ages 50-59 = 93 mL/min/1.73 sq.m. Ages 60-69 = 85 mL/min/1.73 sq.m. Ages 70+ = 75 mL/min/1.73 sq.m. Chronic Kidney Disease: Less than 60 mL/min/1.73 square meters End Stage Renal Disease: Less than 15 mL/min/1.73 square meters Glucose [Mass/Vol] 103 mg/dL Normal 70 - 105 mg/dL AO ADM SS Potassium [Moles/Vol] 4.0 mmol/L Normal 3.5 - 5.1 mmol/L AO ADM SS Sodium [Moles/Vol] 140 mmol/L Normal 136 - 145 mmol/L AO ADM SS Urea nitrogen [Mass/Vol] 14 mg/dL Normal 7 - 18 mg/dL AO ADM SS Urea nitrogen/Creatinine [Mass ratio] 16 ratio Normal 7 - 27 ratio AO ADM SS LABORATORYOrdered By: Dariusz White on 06-27-2024 ESR Photometric method (Bld) [Velocity] 33 mm/hr High 0 - 20 mm/hr AO Man Heme SS MGon 06-27-2024 Magnesium [Mass/Vol] 2.0 mg/dL Normal 1.8-2.4 [facility] Comment on above: Performed By: #### P HOS, MG, ESR, CRP ####[facility] [place] [address] PHOSon 06-27-2024 Phosphate [Mass/Vol] 3.2 mg/dL Normal 2.7-4.5 [facility] Comment on above: Performed By: #### P HOS, MG, ESR, CRP ####[place] [address] [place] [address] CORTon 06-26-2024 Cortisol Level 21.3 mcg/dL Normal [facility] Comment on above: Result Comment: Massimo isol AM Reference Range 6.5-26.0 mcg/dL Cortisol PM Reference Range 3.5-15.0 mcg/dL Performed By: #### C ORT ####[place] [address] LABORATORYOrdered By: SYSTEM SYSTEM on 06-26-2024 Cortisol [Mass/Vol] 21.3 ug/dL Invalid Interpretation Code AH ADM SS Comment on above: Interpretive Data: C ortisol AM Reference Range 6.5-26.0 mcg/dL Cortisol PM Reference Range 3.5-15.0 mcg/dL .GFRon 06-21-2024 GFR 99 ml/min/1.73sqm Normal [facility] Comment on above: Result Comment: GFR Population mean for , Non- Americans Ages 20-29 = 116 mL/min/1.73 sq.m. Ages 30-39 = 107 mL/min/1.73 sq.m. Ages 40-49 = 99 mL/min/1.73 sq.m. Ages 50-59 = 93 mL/min/1.73 sq.m. Ages 60-69 = 85 mL/min/1.73 sq.m. Ages 70+ = 75 mL/min/1.73 sq.m. Chronic Kidney Disease: Less than 60 mL/min/1.73 square meters End Stage Renal Disease: Less than 15 mL/min/1.73 square meters Performed By: #### D IFF, CBC, MORPH, BMP, LAC, DIMER, MDW, TROPHS, GFR, PBNP ####[place] [address] [place], [place] [address] GFR Non- 82 ml/min/1.73sqm Normal [facility] Comment on above: Result Comment: GFR Population mean for , Non- Americans Ages 20-29 = 116 mL/min/1.73 sq.m. Ages 30-39 = 107 mL/min/1.73 sq.m. Ages 40-49 = 99 mL/min/1.73 sq.m. Ages 50-59 = 93 mL/min/1.73 sq.m. Ages 60-69 = 85 mL/min/1.73 sq.m. Ages 70+ = 75 mL/min/1.73 sq.m. Chronic Kidney Disease: Less than 60 mL/min/1.73 square meters End Stage Renal Disease: Less than 15 mL/min/1.73 square meters Performed By: #### D IFF, CBC, MORPH, BMP, LAC, DIMER, MDW, TROPHS, GFR, PBNP ####[place] [address] [place], [place] [address] .MDWon 06-21-2024 Monocyte Distribution Width 21.04 High 0.00-20.00 [facility] Comment on above: Result Comment: For adults in ED, MDW>20.0 may be associated with a higher risk of sepsis during the first 12hrs of hospital admission Performed By: #### D IFF, CBC, MORPH, BMP, LAC, DIMER, MDW, TROPHS, GFR, PBNP ####[place] [address] [place], [place] [address] .Manual Diffon 06-21-2024 Basophil %, Manual 0.0 % Normal 0.0-2.5 [facility] Comment on above: Performed By: #### D IFF, CBC, MORPH, BMP, LAC, DIMER, MDW, TROPHS, GFR, PBNP ####[place] [address] [place] [address] Basophil, Abs Manual 0.0 10 3/mcL Normal 0.0-0.2 [facility] Comment on above: Performed By: #### D IFF, CBC, MORPH, BMP, LAC, DIMER, MDW, TROPHS, GFR, PBNP ####[place] [address] [place], [place] [address] Eosinophil %, Manual 2.0 % Normal 0.0-7.0 [facility] Comment on above: Performed By: #### D IFF, CBC, MORPH, BMP, LAC, DIMER, MDW, TROPHS, GFR, PBNP ####[place] [address] [place], [place] [address] Eosinophil, Abs Manual 0.1 10 3/mcL Normal 0.0-0.7 [facility] Comment on above: Performed By: #### D IFF, CBC, MORPH, BMP, LAC, DIMER, MDW, TROPHS, GFR, PBNP ####[place] [address] [place] [address] Lymphocyte %, Manual 28.0 % Normal 20.0-40.0 [facility] Comment on above: Performed By: #### D IFF, CBC, MORPH, BMP, LAC, DIMER, MDW, TROPHS, GFR, PBNP ####[place] [address] [place] [address] Lymphocyte, Abs Manual 2.2 10 3/mcL Normal 0.9-4.3 [facility] Comment on above: Performed By: #### D IFF, CBC, MORPH, BMP, LAC, DIMER, MDW, TROPHS, GFR, PBNP ####[place] [address] [place], [place] [address] Monocyte %, Manual 14.0 % High 2.0-13.0 [facility] Comment on above: Performed By: #### D IFF, CBC, MORPH, BMP, LAC, DIMER, MDW, TROPHS, GFR, PBNP ####[place] [address] [place], [place] [address] Monocyte, Abs Manual 1.1 10 3/mcL Normal 0.1-1.4 [facility] Comment on above: Performed By: #### D IFF, CBC, MORPH, BMP, LAC, DIMER, MDW, TROPHS, GFR, PBNP ####[place] [address] [place], [place] [address] Neutrophil %, Manual 56.0 % Normal 50.0-75.0 [facility] Comment on above: Performed By: #### D IFF, CBC, MORPH, BMP, LAC, DIMER, MDW, TROPHS, GFR, PBNP ####[place] [address] [place], [place] [address] Neutrophil, Abs Manual 4.3 10 3/mcL Normal 2.3-8.1 [facility] Comment on above: Performed By: #### D IFF, CBC, MORPH, BMP, LAC, DIMER, MDW, TROPHS, GFR, PBNP ####[place] [address] [place], [place] [address] Nucleated RBC 0.0 /100 WBC Normal [facility] Comment on above: Performed By: #### D IFF, CBC, MORPH, BMP, LAC, DIMER, MDW, TROPHS, GFR, PBNP ####[place] [address] [place], [place] [address] .Morphon 06-21-2024 Anisocytosis Ql (Bld) 1+ Normal [facility] Comment on above: Performed By: #### D IFF, CBC, MORPH, BMP, LAC, DIMER, MDW, TROPHS, GFR, PBNP ####[place] [address] [place] [address] Microcytosis 2+ Normal [facility] Comment on above: Performed By: #### D IFF, CBC, MORPH, BMP, LAC, DIMER, MDW, TROPHS, GFR, PBNP ####[place] [address] [place] [address] Ovalocytes 1+ Normal [facility] Comment on above: Performed By: #### D IFF, CBC, MORPH, BMP, LAC, DIMER, MDW, TROPHS, GFR, PBNP ####[place] [address] [place] [address] Platelet Estimate Normal Normal [facility] Comment on above: Performed By: #### D IFF, CBC, MORPH, BMP, LAC, DIMER, MDW, TROPHS, GFR, PBNP ####[place] [address] [place] [address] .Urinalysis Microscopic (AO) on 06-21-2024 UA Bacteria 2+ /hpf Abnormal [facility] Comment on above: Performed By: #### U A, UAMICAO ####[place] [address] UA RBC 0-5 Abnormal None Seen [facility] Comment on above: Performed By: #### U A, UAMICAO ####[place] [address] UA Squam Epithelial 5-10 Abnormal None Seen [facility] Comment on above: Performed By: #### U A, UAMICAO ####[place] [address] [place] [address] UA WBC LOADED Abnormal None Seen [facility] Comment on above: Performed By: #### U A, UAMICAO ####[place] [address] [place] [address] BMPon 06-21-2024 BUN/Creatinine Ratio 11 ratio Normal 7-27 [facility] Comment on above: Performed By: #### D IFF, CBC, MORPH, BMP, LAC, DIMER, MDW, TROPHS, GFR, PBNP ####[place] [address] [place], [place] [address] Calcium [Mass/Vol] 9.0 mg/dL Normal 8.4-10.2 [facility] Comment on above: Performed By: #### D IFF, CBC, MORPH, BMP, LAC, DIMER, MDW, TROPHS, GFR, PBNP ####[place] [address] [place], [place] [address] Chloride [Moles/Vol] 101 mmol/L Normal 98-107 [facility] Comment on above: Performed By: #### D IFF, CBC, MORPH, BMP, LAC, DIMER, MDW, TROPHS, GFR, PBNP ####[place] [address] [place], [place] [address] CO2 [Moles/Vol] 27 mmol/L Normal 22-29 [facility] Comment on above: Performed By: #### D IFF, CBC, MORPH, BMP, LAC, DIMER, MDW, TROPHS, GFR, PBNP ####[place] [place], [place] [address] Creatinine [Mass/Vol] 0.80 mg/dL Normal 0.55-1.02 [facility] Comment on above: Result Comment: Test ing performed on Siemens Dimension EXL analyzer using a modified kinetic Jacki technique. Performed By: #### D IFF, CBC, MORPH, BMP, LAC, DIMER, MDW, TROPHS, GFR, PBNP ####[address] [place], [place] [address] Electrolyte Balance 8.0 mEq/L Normal 4.0-15.0 [facility] Comment on above: Performed By: #### D IFF, CBC, MORPH, BMP, LAC, DIMER, MDW, TROPHS, GFR, PBNP ####[address] [place], [place] [address] Glucose [Mass/Vol] 141 mg/dL High 70-105 [facility] Comment on above: Performed By: #### D IFF, CBC, MORPH, BMP, LAC, DIMER, MDW, TROPHS, GFR, PBNP ####[address] [place], [place] [address] Potassium [Moles/Vol] 3.1 mmol/L Low 3.5-5.1 [facility] Comment on above: Performed By: #### D IFF, CBC, MORPH, BMP, LAC, DIMER, MDW, TROPHS, GFR, PBNP ####[address] [address] Sodium [Moles/Vol] 136 mmol/L Normal 136-145 [facility] Comment on above: Performed By: #### D IFF, CBC, MORPH, BMP, LAC, DIMER, MDW, TROPHS, GFR, PBNP ####[address] [place], [place] [address] Urea nitrogen [Mass/Vol] 9 mg/dL Normal 7-18 [facility] Comment on above: Performed By: #### D IFF, CBC, MORPH, BMP, LAC, DIMER, MDW, TROPHS, GFR, PBNP ####[address] [address] CBCon 06-21-2024 Erythrocyte distribution width (RBC) [Ratio] 18.6 % High 11.5-15.5 [facility] Comment on above: Performed By: #### D IFF, CBC, MORPH, BMP, LAC, DIMER, MDW, TROPHS, GFR, PBNP ####[address] [address] Hematocrit (Bld) [Volume fraction] 39.1 % Normal 34.0-46.0 [facility] Comment on above: Performed By: #### D IFF, CBC, MORPH, BMP, LAC, DIMER, MDW, TROPHS, GFR, PBNP ####[address] [place], [place] [address] Hgb 12.5 G/dL Normal 12.0-16.0 [facility] Comment on above: Performed By: #### D IFF, CBC, MORPH, BMP, LAC, DIMER, MDW, TROPHS, GFR, PBNP ####[facility] [place], [place] [address] MCH (RBC) [Entitic mass] 21.8 pg Low 27.0-33.0 [facility] Comment on above: Performed By: #### D IFF, CBC, MORPH, BMP, LAC, DIMER, MDW, TROPHS, GFR, PBNP ####[address] [place], [place] [address] MCHC 31.9 G/dL Low 32.0-36.0 [facility] Comment on above: Performed By: #### D IFF, CBC, MORPH, BMP, LAC, DIMER, MDW, TROPHS, GFR, PBNP ####[address] [place], [place] [address] MCV (RBC) [Entitic vol] 68.3 fL Low 80.0-99.0 [facility] Comment on above: Performed By: #### D IFF, CBC, MORPH, BMP, LAC, DIMER, MDW, TROPHS, GFR, PBNP ####[facility] [place], [place] [address] Platelet 265 10 3/mcL Normal 150-450 [facility] Comment on above: Performed By: #### D IFF, CBC, MORPH, BMP, LAC, DIMER, MDW, TROPHS, GFR, PBNP ####[facility] [place], [place] [address] Platelet mean volume (Bld) [Entitic vol] 7.6 fL Normal 6.6-10.5 [facility] Comment on above: Performed By: #### D IFF, CBC, MORPH, BMP, LAC, DIMER, MDW, TROPHS, GFR, PBNP ####[facility] [place], [place] [address] RBC 5.73 10 6/mcL High 4.10-5.30 [facility] Comment on above: Performed By: #### D IFF, CBC, MORPH, BMP, LAC, DIMER, MDW, TROPHS, GFR, PBNP ####[address] [place] [address] WBC 7.7 10 3/mcL Normal 4.5-10.8 [facility] Comment on above: Performed By: #### D IFF, CBC, MORPH, BMP, LAC, DIMER, MDW, TROPHS, GFR, PBNP ####[address] [place] [address] CVFLURVon 06-21-2024 FLU A PCR Negative Normal Negative [facility] Comment on above: Performed By: #### C VFLURV #### [place] [address] FLU B PCR Negative Normal Negative [facility] Comment on above: Performed By: #### C VFLURV #### [place] [address] RSV PCR Negative Normal Negative [facility] Comment on above: Performed By: #### C VFLURV #### [place] [address] SARS-CoV-2 (COVID-19) RNA JESIKA+probe Ql (Unsp spec) Negative Normal Negative [facility] Comment on above: Result Comment: Resu lts from the Xpert Xpress CoV-2/Flu/RSV plus test should be correlated with the clinical history, epidemiological data, and other data available to the clinical evaluating the patient. Performance of the Xpert Xpress CoV-2/Flu/RSV plus test has only been established in nasopharyngeal swab specimen. Erroneous test results might occur from improper specimen collection, failure to follow the recommended sample collection, handling and storage procedures, technical error, or sample mix-up. False negative results may occur if a virus is present at a level below the analytical limit of detection. Viral nucleic acid may persist in vivo, independent of virus viability. Detection of analyte target(s) does not imply that the corresponding virus(es) are infectious or are the causative agents for clinical symptoms. Recent patient exposure to FluMist or other live attenuated influenza vaccines may cause inaccurate positive results. Performed By: #### C VFLURV #### [place] [address] DIMERon 06-21-2024 D-Dimer <200 Normal 0-230 [facility] Comment on above: Result Comment: DDN: Results reported in D-DU ng/mL. Negative for D-dimer. DVT/PE is highly unlikely. Note: False negative results may be seen in patients on anticoagulant therapy. The result of the D-Dimer test should be evaluated in the context of all the clinical and laboratory data available. In those instances where the laboratory result does not agree with the clinical evaluation, additional tests should be performed accordingly. If the D-Dimer result is used to exclude DVT or PE, the recommended cutoff value is less than 230 ng/mL. The D-Dimer result should not be used alone to rule in DVT/PE, but should be used in conjunction with a clinical pretest probability (PTP)assessment model to exclude venous thromboembolism (VTE) in outpatients suspected of deep venous thrombosis (DVT) and pulmonary embolism (PE). Performed By: #### D IFF, CBC, MORPH, BMP, LAC, DIMER, MDW, TROPHS, GFR, PBNP ####[address] [address] LABORATORYOrdered By: SYSTEM SYSTEM on 06-21-2024 Troponin I.cardiac DL <= 0.01 ng/mL [Mass/Vol] ng/L Normal 0 - 51 ng/L AO ADM SS Comment on above: Interpretive Data: H igh Sensitive Troponin I Reference Ranges: Female: 0-51 ng/L Male: 0-76 ng/L Testing performed on [employer] using a homogeneous sandwich chemiluminescent immunoassay based on [facility] technology. Lactate [Moles/Vol] 1.6 mmol/L Normal 0.4 - 2. 0 mmol/L AO ADM SS Anisocytosis Ql (Bld) 1+ *NA* (06/21/24 7:49 PM) Invalid Interpretation Code AO Workflow SS Basophil %, Manual 0.0 % Normal 0.0 - 2.5 % AO Wo rkflow SS Basophils (Bld) [#/Vol] 0.0 103/mcL Normal 0.0 - 0.2 10^3/mcL AO Workflow SS Calcium [Mass/Vol] 9.0 mg/dL Normal 8.4 - 10. 2 mg/dL AO ADM SS Chloride [Moles/Vol] 101 mmol/L Normal 98 - 107 mmol/L AO ADM SS CO2 [Moles/Vol] 27 mmol/L Normal 22 - 29 mmol/L AO ADM SS Creatinine [Mass/Vol] 0.80 mg/dL Normal 0.55 - 1.02 mg/dL AO ADM SS Comment on above: Interpretive Data: T esting performed on Siemens Dimension EXL analyzer using a modified kinetic Jacki technique. Electrolyte Balance 8.0 mEq/L Normal 4.0 - 15 .0 mEq/L AO ADM SS Eosinophil %, Manual 2.0 % Normal 0.0 - 7.0 % AO Workflow SS Eosinophils (Bld) [#/Vol] 0.1 103/mcL Normal 0.0 - 0.7 10^3/mcL AO Workflow SS Erythrocyte distribution width (RBC) [Ratio] 18.6 % High 11.5 - 15.5 % AO Workflow SS Fibrin D-dimer DDU (PPP) [Mass/Vol] ng/mL D-DU Normal 0 - 230 ng/mL D-DU AO [facility] SS Comment on above: Result Comment: DDN: Results reported in D-DU ng/mL. Negative for D-dimer. DVT/PE is highly unlikely. Note: False negative results may be seen in patients on anticoagulant therapy. Interpretive Data: T he result of the D-Dimer test should be evaluated in the context of all the clinical and laboratory data available. In those instances where the laboratory result does not agree with the clinical evaluation, additional tests should be performed accordingly. If the D-Dimer result is used to exclude DVT or PE, the recommended cutoff value is less than 230 ng/mL. The D-Dimer result should not be used alone to rule in DVT/PE, but should be used in conjunction with a clinical pretest probability (PTP)assessment model to exclude venous thromboembolism (VTE) in outpatients suspected of deep venous thrombosis (DVT) and pulmonary embolism (PE). GFR/1.73 sq M.predicted among blacks MDRD (S/P/Bld) [Vol rate/Area] 99 ml/min/1.73sqm Invalid Interpretation Code AO Chemistry S Comment on above: Interpretive Data: GFR Population mean for , Non- Americans Ages 20-29 = 116 mL/min/1.73 sq.m. Ages 30-39 = 107 mL/min/1.73 sq.m. Ages 40-49 = 99 mL/min/1.73 sq.m. Ages 50-59 = 93 mL/min/1.73 sq.m. Ages 60-69 = 85 mL/min/1.73 sq.m. Ages 70+ = 75 mL/min/1.73 sq.m. Chronic Kidney Disease: Less than 60 mL/min/1.73 square meters End Stage Renal Disease: Less than 15 mL/min/1.73 square meters GFR/1.73 sq M.predicted among non-blacks MDRD (S/P/Bld) [Vol rate/Area] 82 ml/min/1.73sqm Invalid Interpretation Code AO Chemistry S Comment on above: Interpretive Data: GFR Population mean for , Non- Americans Ages 20-29 = 116 mL/min/1.73 sq.m. Ages 30-39 = 107 mL/min/1.73 sq.m. Ages 40-49 = 99 mL/min/1.73 sq.m. Ages 50-59 = 93 mL/min/1.73 sq.m. Ages 60-69 = 85 mL/min/1.73 sq.m. Ages 70+ = 75 mL/min/1.73 sq.m. Chronic Kidney Disease: Less than 60 mL/min/1.73 square meters End Stage Renal Disease: Less than 15 mL/min/1.73 square meters Glucose [Mass/Vol] 141 mg/dL High 70 - 105 mg/dL AO ADM SS Hematocrit (Bld) [Volume fraction] 39.1 % Normal 34.0 - 46.0 % AO Workflow SS Hemoglobin (Bld) [Mass/Vol] 12.5 G/dL Normal 12.0 - 16.0 G/dL AO Workflow SS Lymphocytes (Bld) [#/Vol] 2.2 103/mcL Normal 0.9 - 4.3 10^3/mcL AO Workflow SS Lymphocytes/100 WBC (Bld) 28.0 % Normal 20.0 - 40.0 % AO Workflow SS MCH (RBC) [Entitic mass] 21.8 pg Low 27.0 - 33.0 pg AO Workflow SS MCHC 31.9 G/dL Low 32.0 - 36.0 G/dL AO Workflow SS MCV (RBC) [Entitic vol] 68.3 fL Low 80.0 - 99.0 fL AO Workflow SS Microcytes Ql (Bld) 2+ *NA* (06/21/24 7:49 PM) Invalid Interpretation Code AO Workflow SS Monocyte distribution width Auto (Bld) [Entitic vol] 21.04 1 High 0.00 - 20.00 AO Workflow SS Comment on above: Result Comment: For adults in ED, MDW>20.0 may be associated with a higher risk of sepsis during the first 12hrs of hospital admission Monocytes (Bld) [#/Vol] 1.1 103/mcL Normal 0.1 - 1.4 10^3/mcL AO Workflow SS Monocytes/100 WBC (Bld) 14.0 % High 2.0 - 13.0 % AO Workflow SS Natriuretic peptide.B prohormone N-Terminal [Mass/Vol] 33 pg/mL Normal 0 - 125 pg/mL AO ADM SS Comment on above: Interpretive Data: N T-proBNP results of less than 300 pg/mL effectively rules out acute congestive heart failure with 99% negative predictive value. Neutrophils (Bld) [#/Vol] 4.3 103/mcL Normal 2.3 - 8.1 10^3/mcL AO Workflow SS Neutrophils/100 WBC (Bld) 56.0 % Normal 50.0 - 75.0 % AO Workflow SS Nucleated RBC 0.0 /100 WBC Invalid Interpretation Code AO Workflow SS Ovalocytes LM Ql (Bld) 1+ *NA* (06/21/24 7:49 PM) Invalid Interpretation Code AO Workflow SS Platelet mean volume (Bld) [Entitic vol] 7.6 fL Normal 6.6 - 10.5 fL AO Workflow SS Platelets (Bld) [#/Vol] 265 103/mcL Normal 150 - 450 10^3/mcL AO Workflow SS Platelets LM Ql (Bld) Normal *NA* (06/21/24 7:49 PM) Invalid Interpretation Code AO Workflow SS Potassium [Moles/Vol] 3.1 mmol/L Low 3.5 - 5.1 mmol/L AO ADM SS RBC (Bld) [#/Vol] 5.73 106/mcL High 4.10 - 5.3 0 10^6/mcL AO Workflow SS Sodium [Moles/Vol] 136 mmol/L Normal 136 - 145 mmol/L AO ADM SS Troponin I.cardiac DL <= 0.01 ng/mL [Mass/Vol] ng/L Normal 0 - 51 ng/L AO ADM SS Comment on above: Interpretive Data: H igh Sensitive Troponin I Reference Ranges: Female: 0-51 ng/L Male: 0-76 ng/L Testing performed on [employer] using a homogeneous sandwich chemiluminescent immunoassay based on [facility] technology. Urea nitrogen [Mass/Vol] 9 mg/dL Normal 7 - 18 mg/dL AO ADM SS Urea nitrogen/Creatinine [Mass ratio] 11 ratio Normal 7 - 27 ratio AO ADM SS WBC (Bld) [#/Vol] 7.7 103/mcL Normal 4.5 - 10.8 10^3/mcL AO Workflow SS LABORATORYOrdered By: Poonam Kerr on 06-21-2024 Appearance (U) Slightly Cloudy *ABN* (06/21/24 8:14 PM) Invalid Interpretation Code Clear AO Auto Urine SS Bacteria LM.HPF (Urine sed) [#/Area] 2 /[HPF] Invalid Interpretation Code AO Auto Urine SS Bilirubin Ql (U) Negative (06/21/24 8:14 PM) Normal Negative AO Auto Urine SS Color (U) Yellow (06/21/24 8:14 PM) Normal AO Auto Urine SS Glucose Test strip (U) [Mass/Vol] Negative Normal Negative AO Auto Urine SS HCG ( test) Ql Negative (06/21/24 8:14 PM) Normal AO Manual Urine SS Hemoglobin Auto test strip (U) [Mass/Vol] Trace *ABN* (06/21/24 8:14 PM) Invalid Interpretation Code Negative AO Auto Urine SS Ketones Ql (U) Negative Normal Negative AO Auto Ur ine SS test (u) int Not detected Invalid Interpretation Code AO Manual Urine SS UA Leuk Est Moderate *ABN* (06/21/24 8:14 PM) Invalid Interpretation Code Negative AO Auto Urine SS UA Nitrite Negative (06/21/24 8:14 PM) Normal Negative AO Auto Urine SS UA pH 6.0 (06/21/24 8:14 PM) Normal 5.0 - 8.0 AO Auto Urine SS UA Protein Negative Normal Negative AO Auto Urine SS UA RBC 0-5 /HPF Invalid Interpretation Code None Seen AO Auto Urine SS UA Spec Grav >=1.030 *ABN* (06/21/24 8:14 PM) Invalid Interpretation Code 1.015-1.025 AO Auto Urine SS UA Specimen Type Clean Catch (06/21/24 8:14 PM) Normal AO Auto Urine SS UA Squam Epithelial 5-10 /HPF Invalid Interpretation Code None Seen AO Auto Urine SS UA Urobilinogen 0.2 E.U./dL Normal 0.2-1.0 AO Auto Urine SS WBC LM.HPF (Urine sed) [#/Area] LOADED /HPF Invalid Interpretation Code None Seen AO Auto Urine SS FLUAV RNA JESIKA+probe Ql (Resp) Negative (06/21/24 7:56 PM) Normal Negative AO Auto Urine SS FLUBV RNA JESIKA+probe Ql (Resp) Negative (06/21/24 7:56 PM) Normal Negative AO Auto Urine SS RSV RNA JESIKA+probe Ql (Resp) Negative (06/21/24 7:56 PM) Normal Negative AO Auto Urine SS SARS-CoV-2 (COVID-19) RNA JESIKA+probe Ql (Resp) Negative 8 (06/21/24 7:56 PM) Normal Negative AO Auto Urine SS Comment on above: Interpretive Data: R esults from the Xpert Xpress CoV-2/Flu/RSV plus test should be correlated with the clinical history, epidemiological data, and other data available to the clinical evaluating the patient. Performance of the Xpert Xpress CoV-2/Flu/RSV plus test has only been established in nasopharyngeal swab specimen. Erroneous test results might occur from improper specimen collection, failure to follow the recommended sample collection, handling and storage procedures, technical error, or sample mix-up. False negative results may occur if a virus is present at a level below the analytical limit of detection. Viral nucleic acid may persist in vivo, independent of virus viability. Detection of analyte target(s) does not imply that the corresponding virus(es) are infectious or are the causative agents for clinical symptoms. Recent patient exposure to FluMist or other live attenuated influenza vaccines may cause inaccurate positive results. LACon 06-21-2024 Lactic Acid Lvl 1.6 mmol/L Normal 0.4-2.0 [facility] Comment on above: Performed By: #### D IFF, CBC, MORPH, BMP, LAC, DIMER, MDW, TROPHS, GFR, PBNP ####[facility] [place], [place] [address] PBNPon 06-21-2024 Natriuretic peptide B (Bld) [Mass/Vol] 33 pg/mL Normal 0-125 [facility] Comment on above: Result Comment: NT-p roBNP results of less than 300 pg/mL effectively rules out acute congestive heart failure with 99% negative predictive value. Performed By: #### D IFF, CBC, MORPH, BMP, LAC, DIMER, MDW, TROPHS, GFR, PBNP ####[address] [place], [place] [address] PREGUon 06-21-2024 HCG ( test) Ql (U) Negative Normal [facility] Comment on above: Performed By: #### P REGU ####[address] [place], [place] [address] test (u) int Not detected Invalid Interpretation Code [facility] Comment on above: Performed By: #### P REGU ####[address] [place], [place] [address] TROPHSon 06-21-2024 High Sensitivity Troponin I <4 Normal [address] [place] [address] Comment on above: Result Comment: High Sensitive Troponin I Reference Ranges: Female: 0-51 ng/L Male: 0-76 ng/L Testing performed on [employer] using a homogeneous sandwich chemiluminescent immunoassay based on [facility] technology. Performed By: #### T ROPHS ####[address] [place] [address] High Sensitivity Troponin I <4 Normal [address] [place] [address] Comment on above: Result Comment: High Sensitive Troponin I Reference Ranges: Female: 0-51 ng/L Male: 0-76 ng/L Testing performed on [employer] using a homogeneous sandwich chemiluminescent immunoassay based on [facility] technology. Performed By: #### D IFF, CBC, MORPH, BMP, LAC, DIMER, MDW, TROPHS, GFR, PBNP ####[address] [place], [place] [address] UAon 06-21-2024 Color (U) Yellow Normal [facility] Comment on above: Performed By: #### U A, UAMICAO ####[address] [place], [place] [address] Glucose (U) [Mass/Vol] Negative Normal Negative [facility] Comment on above: Performed By: #### U A, UAMICAO ####[address] [place] [address] Ketones Ql (U) Negative Normal Negative [facility] Comment on above: Performed By: #### U A, UAMICAO ####[address] [place] [address] UA Appear Slightly Cloudy Abnormal Clear [facility] Comment on above: Performed By: #### U A, UAMICAO ####[address] [place] [address] UA Blood Trace Abnormal Negative [facility] Comment on above: Performed By: #### U A, UAMICAO ####[address] [place] [address] UA Leuk Est Moderate Abnormal Negative [facility] Comment on above: Performed By: #### U A, UAMICAO ####[address] [place] [address] UA Nitrite Negative Normal Negative [facility] Comment on above: Performed By: #### U A, UAMICAO ####[address] [place] [address] UA pH 6.0 Normal 5.0 - 8.0 [facility] Comment on above: Performed By: #### U A, UAMICAO ####[address] [place] [address] UA Protein Negative Normal Negative [facility] Comment on above: Performed By: #### U A, UAMICAO ####[address] [place] [address] UA Spec Grav >=1.030 Abnormal 1.015-1.025 [facility] Comment on above: Performed By: #### U A, UAMICAO ####[address] [place] [address] UA Specimen Type Clean Catch Normal [facility] Comment on above: Performed By: #### U A, UAMICAO ####[address] [place] [address] UA Urobilinogen 0.2 E.U./dL Normal 0.2-1.0 [facility] Comment on above: Performed By: #### U JOHN Hammond ####[address] [place], [place] [address] Urobilinogen (U) [Mass/Vol] Negative Normal Negative [facility] Comment on above: Performed By: #### U JOHN Hammond ####[address] [place], [place] [address] XR CHEST 1 VIEWon 06-21-2024 XR CHEST 1 VIEW ORIGINAL EXAMINATION: ONE XRAY VIEW OF THE CHEST06/21/2024 8:37 pm CHEST ONE VIEW AP/PA EXAM DESCRIPTION: COMPARISON: Chest, March 27, 2024 HISTORY: ORDERING SYSTEM PROVIDED HISTORY: Reason for Exam: chest pain FINDINGS: Single AP radiograph of the chest was obtained. The lungs are clear without evidence of focal consolidation, mass, pleural effusion, or pneumothorax. The cardiomediastinal silhouette is unremarkable. The bones and soft tissues are unremarkable. IMPRESSION: No radiographic evidence of acute cardiopulmonary disease. Interpreted by: Darren Abbott MD Preliminary Report By: Darren Abbott MD Electronically signed By Darren Abbott MD Dictated Date: 06/21/2024 8:41:55 PM Prelim Date: 06/21/2024 8:42:07 PM Sign Date: 06/21/2024 8:42:07 PM Ordering Provider: MARY LOU KEITH [facility] .O and P [id number] 06-17-2024 O and P 1 Comment Normal [facility] Comment on above: Result Comment: No o va, cysts, or parasites seen. One negative specimen does not rule out the possibility of a parasitic infection. Performed At: [facility] [address] [place], [place] [id number] Rah Rodírguez PhD Ph:[phone] Performed By: #### [facility], [id number] ####[address] [address]#### [id number] ####[address] [place], [place] [address] OVAPon 06-17-2024 Ova + Parasite Status Final report [facility] Comment on above: Result Comment: Thes e results were obtained using wet preparation(s) and trichrome stained smear. This test does not include testing for Cryptosporidium parvum, Cyclospora, or Microsporidia. Performed At: [address] [id number] Rah Rodríguez PhD Ph:[phone] Performed By: #### S TGIP, [id number] ####[address] [address]#### [id number] ####[place] [address] CDIFPCRon 06-12-2024 Clostridium difficile PCR Negative Normal Negative [facility] Comment on above: Performed By: #### C DIFPCR #### [place] [address] Clostridium difficile PCR Int Normal [facility] Comment on above: Result Comment: No t cdB gene DNA detected. Negative test results may occur from improper collection, handling or storage of specimen, technical error, or extremely low levels of target below the limit of detection of the assay. See Below Performed By: #### C DIFPCR #### [place] [address] LABORATORYOrdered By: Esteban Crow on 06-12-2024 Clostridium difficile PCR Negative (06/12/24 8:15 AM) Normal Negative AO Auto Urine SS Clostridium difficile PCR Int No tcdB gene DNA detected. Negative test results may occur from improper collection, handling or storage of specimen, technical error, or extremely low levels of target below the limit of detection of the assay. Invalid Interpretation Code AO Auto Urine SS Trever 06-11-2024 Potassium [Moles/Vol] 4.3 mmol/L Normal 3.5-5.1 [facility] Comment on above: Performed By: #### K #### [place] [address] LABORATORYOrdered By: SYSTEM SYSTEM on 06-11-2024 Potassium [Moles/Vol] 4.3 mmol/L Normal 3.5 - 5.1 mmol/L AO ADM SS FT4on 06-09-2024 Free T4 [Mass/Vol] 0.88 ng/dL Normal 0.76-1.46 [facility] Comment on above: Performed By: #### T , FT4 ####[address] [address] LABORATORYOrdered By: Ewelina Chávez on 06-09-2024 Cholesterol [Mass/Vol] 164 mg/dL Normal 0 - 200 mg/dL AO ADM SS Comment on above: Interpretive Data: C holesterol Reference Interval: Less than 200 Desirable 200-239 Borderline high risk 240 and above High risk Cholesterol in HDL [Mass/Vol] 44 mg/dL Normal 40 - 60 mg/dL AO ADM SS Cholesterol in LDL [Mass/Vol] 98 mg/dL Normal 0 - 130 mg/dL AO ADM SS Triglyceride [Mass/Vol] 109 mg/dL Normal 0 - 150 mg/dL AO ADM SS Comment on above: Interpretive Data: T riglyceride Reference Interval: Less than 150 Normal 150-199 Borderline high risk 200-499 High risk 500 or higher Very high risk LABORATORYOrdered By: SYSTEM SYSTEM on 06-09-2024 Free T4 [Mass/Vol] 0.88 ng/dL Normal 0.76 - 1. 46 ng/dL AO ADM SS TSH Qn 1.83 m[IU]/L Normal 0.36 - 3.74 mcIU/mL AO ADM SS LIPIDon 06-09-2024 Cholesterol [Mass/Vol] 164 mg/dL Normal 0-200 [facility] Comment on above: Result Comment: Chol esterol Reference Interval: Less than 200 Desirable 200-239 Borderline high risk 240 and above High risk Performed By: #### L IPID #### [address] [address] Cholesterol in HDL [Mass/Vol] 44 mg/dL Normal 40-60 [facility] Comment on above: Performed By: #### L IPID #### [address] [address] Cholesterol in LDL [Mass/Vol] 98 mg/dL Normal 0-130 [facility] Comment on above: Performed By: #### L IPID #### [address] [address] Triglyceride [Mass/Vol] 109 mg/dL Normal 0-150 [facility] Comment on above: Result Comment: Trig lyceride Reference Interval: Less than 150 Normal 150-199 Borderline high risk 200-499 High risk 500 or higher Very high risk Performed By: #### L IPID #### [facility] [address] [place], [place] [address] TSHon 06-09-2024 TSH Qn 1.83 m[IU]/L Normal 0.36-3.74 [facility] Comment on above: Performed By: #### T SH, FT4 ####[facility] [place], [place] [address] US ABDOMEN COMPLETEon 2023 US ABDOMEN COMPLETE ORIGINAL EXAMINATION: COMPLETE ABDOMINAL ULTRASOUND 06/09/2024 7:11 am COMPARISON: None. HISTORY: ORDERING SYSTEM PROVIDED HISTORY: Reason for Exam: chronic diarrhea, nausea, elevated heart rate and blood pressures. FINDINGS: LIVER: The liver demonstrates diffuse increased echogenicity without evidence of intrahepatic biliary ductal dilatation. BILIARY SYSTEM: The gallbladder surgically absent. Common bile duct is within normal limits measuring 4.0 mm. KIDNEYS: The kidneys are unremarkable in appearance without evidence of hydronephrosis. Right and left kidneys measure 10.7 x 5.7 x 4.2 cm, and 11.8 x 5.3 x 5.3 cm respectively. There is appropriate renal cortical thickness and echotexture without shadowing stone or hydronephrosis. PANCREAS: Visualized portions of the pancreas are unremarkable. SPLEEN: The spleen is unremarkable in appearance. Spleen is within normal limits in size. IVC: The IVC is patent. AORTA: Aorta is patent without aneurysm. OTHER: No evidence of ascites. IMPRESSION: 1. Previous cholecystectomy. 2. Fatty infiltration of the liver. Interpreted by: Sam Dodge DO Preliminary Report By: Sam Dodge DO Electronically signed By Sam Dodge DO Dictated Date: 06/09/2024 10:38:56 AM Prelim Date: 06/09/2024 10:40:14 AM Sign Date: 06/09/2024 10:40:14 AM Ordering Provider: TERESE ERNST Normal [facility] LABORATORYOrdered By: Ewelina Grant on 06-07-2024 Adenovirus 40+41 DNA JESIKA+non-probe Ql (Stl) Not Detected *NA* (06/07/24 11:33 AM) Invalid Interpretation Code Auto Microbiology GL SS Astrovirus subtypes 1-8 RNA JESIKA+non-probe Ql (Stl) Not Detected *NA* (06/07/24 11:33 AM) Invalid Interpretation Code Auto Microbiology GL SS C. cayetanensis DNA JESIKA+non-probe Ql (Stl) Not Detected *NA* (06/07/24 11:33 AM) Invalid Interpretation Code Auto Microbiology GL SS C. coli+jejuni+upsalie nsis DNA JESIKA+non-probe Ql (Stl) Not Detected *NA* (06/07/24 11:33 AM) Invalid Interpretation Code Auto Microbiology GL SS Cryptosporidium sp DNA JESIKA+non-probe Ql (Stl) Not Detected *NA* (06/07/24 11:33 AM) Invalid Interpretation Code [facility] Microbiology GL SS E. coli enteroaggregative Bibi plasmid aggR+aatA genes JESIKA+non-probe Ql (Stl) Not Detected *NA* (06/07/24 11:33 AM) Invalid Interpretation Code Auto Microbiology GL SS E. coli enteropathogenic eae gene JESIKA+non-probe Ql (Stl) Not Detected *NA* (06/07/24 11:33 AM) Invalid Interpretation Code Auto Microbiology GL SS E. coli enterotoxigenic ltA+st1a+st1b genes JESIKA+non-probe Ql (Stl) Not Detected *NA* (06/07/24 11:33 AM) Invalid Interpretation Code Auto Microbiology GL SS E. coli O157 DNA JESIKA+non-probe Ql (Stl) Not Applicable (06/07/24 11:33 AM) Normal Auto Microbiology GL SS E. coli stx1+stx2 genes JESIKA+non-probe Ql (Stl) Not Detected *NA* (06/07/24 11:33 AM) Invalid Interpretation Code Auto Microbiology GL SS E. histolytica DNA JESIKA+non-probe Ql (Stl) Not Detected *NA* (06/07/24 11:33 AM) Invalid Interpretation Code Auto Microbiology GL SS G. lamblia DNA JESIKA+non-probe Ql (Stl) Not Detected *NA* (06/07/24 11:33 AM) Invalid Interpretation Code Auto Microbiology GL SS Norovirus genogroup I+II RNA JESIKA+non-probe Ql (Stl) see below Invalid Interpretation Code [facility] Microbiology [facility] Comment on above: Result Comment: T he hoop flaring machine operator helper of the Stool GI PCR panel has identified an increase of potential false positive results for Norovirus. A Norovirus positive result should correlate with the patient s clinical history and presentation, along with travel history and disease severity. Plesiomonas shigelloides Not Detected *NA* (06/07/24 11:33 AM) Invalid Interpretation Code [facility] Microbiology [facility] Rotavirus A RNA JESIKA+non-probe Ql (Stl) Not Detected *NA* (06/07/24 11:33 AM) Invalid Interpretation Code [facility] Microbiology [facility] S. enterica+bongori DNA JESIKA+non-probe Ql (Stl) Not Detected *NA* (06/07/24 11:33 AM) Invalid Interpretation Code [facility] Sapovirus genogroups I+II+IV+V RNA JESIKA+non-probe Ql (Stl) Not Detected *NA* (06/07/24 11:33 AM) Invalid Interpretation Code [facility] Shigella species+EIEC invasion plasmid antigen H ipaH gene JESIKA+non-probe Ql (Stl) Not Detected *NA* (06/07/24 11:33 AM) Invalid Interpretation Code [facility] Microbiology [facility] Stool GI Comment See Comment 2 (06/07/24 11:33 AM) Normal [facility] Microbiology [facility] Comment on above: Interpretive Data: V irus, bacteria, and parasite nucleic acid may persist in vivo independently of organism viability. Negative Film Array GI panel results in the setting of clinical illness compatible with gastroenteritis may be due to infection by pathogens that are not detected by this test. False negatives may occur due to genetic variability in the region targeted by the primers. V. cholerae DNA JESIKA+non-probe Ql (Stl) Not Detected *NA* (06/07/24 11:33 AM) Invalid Interpretation Code [facility] Microbiology [facility] V. cholerae+parahaemol yticus+vulnificus DNA JESIKA+non-probe Ql (Stl) Not Detected *NA* (06/07/24 11:33 AM) Invalid Interpretation Code [facility] Microbiology [facility] Y. enterocolitica DNA JESIKA+non-probe Ql (Stl) Not Detected *NA* (06/07/24 11:33 AM) Invalid Interpretation Code AH Auto Microbiology GL SS No Panel Informationon 06-07 Fecal Leukocytes Microscopy: Fecal Leukocytes Absent From our data, approximately 50% of enteroinvasive bacterial pathogens will not be associated with stool WBC's. [facility] STGIPCRon 06-07-2024 Adenovirus F 40/41 Not detected Normal Not Detected [facility] Comment on above: Performed By: #### S TGIPCR, [id number] ####[place] [address]#### [id number] ####[place] [address] Astrovirus Not detected Normal Not Detected [facility] Comment on above: Performed By: #### S TGIPCR, [id number] ####[place] [address]#### [id number] ####[place] [address] Campy (jejuni/coli/ups) Not detected Normal Not Detected [facility] Comment on above: Performed By: #### S TGIPCR, [id number] ####[place] [address]#### [id number] ####[place] [address] Cryptosporidium Not detected Normal Not Detected [facility] Comment on above: Performed By: #### S TGIPCR, [id number] ####[place] [address]#### [id number] ####[place] [address] Cyclospora Not detected Normal Not Detected [facility] Comment on above: Performed By: #### S TGIPCR, [id number] ####[place] [address]#### [id number] ####[place] [address] [place] [address] E. coli (ETEC) Not detected Normal Not Detected [facility] Comment on above: Performed By: #### S TGIPCR, [id number] ####[place] [address] [place] [address]#### [id number] ####[facility] [place], [place] [address] E. coli O157 Not Applicable Normal Not Detected [facility] Comment on above: Performed By: #### S TGIPCR, [id number] ####[place] [address]#### [id number] ####[facility] [place], [place] [address] Entamoeba histolytica Not detected Normal Not Detected [facility] Comment on above: Performed By: #### S TGIPCR, [id number] ####[place] [address]#### [id number] ####[facility] [place] [address] Enteroaggregative E. coli (EAEC) Not detected Normal Not Detected [facility] Comment on above: Performed By: #### S TGIPCR, [id number] ####[place] [address]#### [id number] ####[facility] [place], [place] [address] Enteropathogenic E. coli (EPEC) Not detected Normal Not Detected [facility] Comment on above: Performed By: #### S TGIPCR, [id number] ####[place] [address]#### [id number] ####[facility] [place], [place] [address] Giardia lamblia Not detected Normal Not Detected [facility] Comment on above: Performed By: #### S TGIPCR, [id number] ####[place] [address]#### [id number] ####[facility] [place], [place] [address] Norovirus GI/GII see below Normal Not Detected [facility] Comment on above: Result Comment: T he hoop flaring machine operator helper of the Stool GI PCR panel has identified an increase of potential false positive results for Norovirus. A Norovirus positive result should correlate with the patient?s clinical history and presentation, along with travel history and disease severity. Performed By: #### S TGIPCR, [id number] ####[place] [address]#### [id number] ####[place] [address] Plesiomonas shigelloides Not detected Normal Not Detected [facility] Comment on above: Performed By: #### S TGIPCR, [id number] ####[place] [address]#### [id number] ####[place] [address] Rotavirus A Not detected Normal Not Detected [facility] Comment on above: Performed By: #### S TGIPCR, [id number] ####[place] [address]#### [id number] ####[place] [address] [place] [address] Salmonella species, stool Not detected Normal Not Detected [facility] Comment on above: Performed By: #### S TGIPCR, [id number] ####[place] [address]#### [id number] ####[place] [address] [place] [address] Sapovirus I,II,IV,V Not detected Normal Not Detected A [facility] Comment on above: Performed By: #### S TGIPCR, [id number] ####[place] [address]#### [id number] ####[place] [address] [place] [address] Shig Tox E. coli (STEC) Not detected Normal Not Detected [facility] Comment on above: Performed By: #### S TGIPCR, [id number] ####[place] [address]#### [id number] ####[place] [address] Shigella/Enteroinva sive E. coli (EIEC) Not detected Normal Not Detected [facility] Comment on above: Performed By: #### S TGIPCR, [id number] ####[place] [address]#### [id number] ####[place] [address] Stool GI Comment See Comment Normal [facility] Comment on above: Result Comment: Viru s, bacteria, and parasite nucleic acid may persist in vivo independently of organism viability. Negative Film Array GI panel results in the setting of clinical illness compatible with gastroenteritis may be due to infection by pathogens that are not detected by this test. False negatives may occur due to genetic variability in the region targeted by the primers. Performed By: #### S TGIPCR, [id number] ####[place] [address]#### [id number] ####[place] [address] Vibrio cholerae Not detected Normal Not Detected [facility] Comment on above: Performed By: #### S TGIPCR, [id number] ####[place] [address]#### [id number] ####[place] [address] [place] [address] Vibrio par/vul/chol Not detected Normal Not Detected A [facility] Comment on above: Performed By: #### S TGIPCR, [id number] ####[place] [address]#### [id number] ####[place] [address] [place] [address] Yersinia enterocolitica Not detected Normal Not Detected [facility] Comment on above: Performed By: #### S TGIPCR, [id number] ####[place] [address]#### [id number] ####[place] [address] [place], [place] [address] .GFRon 06-06-2024 GFR 108 ml/min/1.73sqm Normal [facility] Comment on above: Result Comment: GFR Population mean for , Non- Americans Ages 20-29 = 116 mL/min/1.73 sq.m. Ages 30-39 = 107 mL/min/1.73 sq.m. Ages 40-49 = 99 mL/min/1.73 sq.m. Ages 50-59 = 93 mL/min/1.73 sq.m. Ages 60-69 = 85 mL/min/1.73 sq.m. Ages 70+ = 75 mL/min/1.73 sq.m. Chronic Kidney Disease: Less than 60 mL/min/1.73 square meters End Stage Renal Disease: Less than 15 mL/min/1.73 square meters Performed By: #### C MP, MORPH, CBC, DIFF, LIP, GFR, MDW ####[place] [place], [place] [address] GFR Non- 89 ml/min/1.73sqm Normal [facility] Comment on above: Result Comment: GFR Population mean for , Non- Americans Ages 20-29 = 116 mL/min/1.73 sq.m. Ages 30-39 = 107 mL/min/1.73 sq.m. Ages 40-49 = 99 mL/min/1.73 sq.m. Ages 50-59 = 93 mL/min/1.73 sq.m. Ages 60-69 = 85 mL/min/1.73 sq.m. Ages 70+ = 75 mL/min/1.73 sq.m. Chronic Kidney Disease: Less than 60 mL/min/1.73 square meters End Stage Renal Disease: Less than 15 mL/min/1.73 square meters Performed By: #### C MP, MORPH, CBC, DIFF, LIP, GFR, MDW ####[place] [place], [place] [address] .MDWon 06-06-2024 Monocyte Distribution Width 17.60 Normal 0.00-20.00 [facility] Comment on above: Result Comment: For ED adult patients suspected of sepsis, MDW<=20.0 does not rule out sepsis or risk of sepsis Performed By: #### C MP, MORPH, CBC, DIFF, LIP, GFR, W ####[place] [address] [place], [place] [address] .Manual Diffon 06-06-2024 Bands 1.0 % Normal 0.0-5.0 [facility] Comment on above: Performed By: #### C MP, MORPH, CBC, DIFF, LIP, GFR, MDW ####[place] [address] [place], [place] [address] Basophil %, Manual 0.0 % Normal 0.0-2.5 [facility] Comment on above: Performed By: #### C MP, MORPH, CBC, DIFF, LIP, GFR, MDW ####[place] [address] [place], [place] [address] Basophil, Abs Manual 0.0 10 3/mcL Normal 0.0-0.2 [facility] Comment on above: Performed By: #### C MP, MORPH, CBC, DIFF, LIP, GFR, MDW ####[place] [place], [place] [address] Eosinophil %, Manual 1.0 % Normal 0.0-7.0 [facility] Comment on above: Performed By: #### C MP, MORPH, CBC, DIFF, LIP, GFR, MDW ####[place] [place], [place] [address] Eosinophil, Abs Manual 0.1 10 3/mcL Normal 0.0-0.7 [facility] Comment on above: Performed By: #### C MP, MORPH, CBC, DIFF, LIP, GFR, MDW ####[place] [place], [place] [address] Lymphocyte %, Manual 24.0 % Normal 20.0-40.0 [facility] Comment on above: Performed By: #### C MP, MORPH, CBC, DIFF, LIP, GFR, MDW ####[place] [place] [address] Lymphocyte, Abs Manual 1.6 10 3/mcL Normal 0.9-4.3 [facility] Comment on above: Performed By: #### C MP, MORPH, CBC, DIFF, LIP, GFR, MDW ####[place] [place], [place] [address] Monocyte %, Manual 4.0 % Normal 2.0-13.0 [facility] Comment on above: Performed By: #### C MP, MORPH, CBC, DIFF, LIP, GFR, MDW ####[place] [address] [place], [place] [address] Monocyte, Abs Manual 0.2 10 3/mcL Normal 0.1-1.4 [facility] Comment on above: Performed By: #### C MP, MORPH, CBC, DIFF, LIP, GFR, MDW ####[place] [place], [place] [address] Neutrophil %, Manual 70.0 % Normal 50.0-75.0 [facility] Comment on above: Performed By: #### C MP, MORPH, CBC, DIFF, LIP, GFR, MDW ####[place] [address] [place], [place] [address] Neutrophil, Abs Manual 4.6 10 3/mcL Normal 2.3-8.1 [facility] Comment on above: Performed By: #### C MP, MORPH, CBC, DIFF, LIP, GFR, MDW ####[place] [address] [place], [place] [address] Nucleated RBC 0.0 /100 WBC Normal [facility] Comment on above: Performed By: #### C MP, MORPH, CBC, DIFF, LIP, GFR, MDW ####[place] [address] [place], [place] [address] .Morphon 06-06-2024 Anisocytosis Ql (Bld) 1+ Normal [facility] Comment on above: Performed By: #### C MP, MORPH, CBC, DIFF, LIP, GFR, MDW ####[place] [address] [place], [place] [address] Microcytosis 1+ Normal [facility] Comment on above: Performed By: #### C MP, MORPH, CBC, DIFF, LIP, GFR, MDW ####[place] [address] [place] [address] Ovalocytes 1+ Normal [facility] Comment on above: Performed By: #### C MP, MORPH, CBC, DIFF, LIP, GFR, MDW ####[place] [address] [place], [place] [address] Platelet Estimate Normal Normal [facility] Comment on above: Performed By: #### C MP, MORPH, CBC, DIFF, LIP, GFR, MDW ####[place] [address] [place], [place] [address] .Urinalysis Microscopic (AO) on 06-06-2024 UA RBC 0-5 Abnormal None Seen [facility] Comment on above: Performed By: #### U AMICAO, UA, PREGU ####[place] [address] [place] [address] UA Squam Epithelial 0-5 Abnormal None Seen [facility] Comment on above: Performed By: #### U AMICAO, UA, PREGU ####[place] [address] [place] [address] UA WBC 0-5 Abnormal None Seen [facility] Comment on above: Performed By: #### U AMICAO, UA, PREGU ####[place] [address] [place] [address] CBCon 06-06-2024 Erythrocyte distribution width (RBC) [Ratio] 18.0 % High 11.5-15.5 [facility] Comment on above: Performed By: #### C MP, MORPH, CBC, DIFF, LIP, GFR, MDW ####[place] [address] [place] [address] Hematocrit (Bld) [Volume fraction] 36.9 % Normal 34.0-46.0 [facility] Comment on above: Performed By: #### C MP, MORPH, CBC, DIFF, LIP, GFR, MDW ####[place] [address] [place] [address] Hgb 11.7 G/dL Low 12.0-16.0 [facility] Comment on above: Performed By: #### C MP, MORPH, CBC, DIFF, LIP, GFR, MDW ####[place] [address] [place], [place] [address] MCH (RBC) [Entitic mass] 21.4 pg Low 27.0-33.0 [facility] Comment on above: Performed By: #### C MP, MORPH, CBC, DIFF, LIP, GFR, MDW ####[place] [address] [place], [place] [address] MCHC 31.8 G/dL Low 32.0-36.0 [facility] Comment on above: Performed By: #### C MP, MORPH, CBC, DIFF, LIP, GFR, MDW ####[place] [place], [place] [address] MCV (RBC) [Entitic vol] 67.4 fL Low 80.0-99.0 [facility] Comment on above: Performed By: #### C MP, MORPH, CBC, DIFF, LIP, GFR, MDW ####[place] [address] [place], [place] [address] Platelet 261 10 3/mcL Normal 150-450 [facility] Comment on above: Performed By: #### C MP, MORPH, CBC, DIFF, LIP, GFR, MDW ####[place] [address] [place], [place] [address] Platelet mean volume (Bld) [Entitic vol] 7.1 fL Normal 6.6-10.5 [facility] Comment on above: Performed By: #### C MP, MORPH, CBC, DIFF, LIP, GFR, MDW ####[facility] [place], [place] [address] RBC 5.47 10 6/mcL High 4.10-5.30 [facility] Comment on above: Performed By: #### C MP, MORPH, CBC, DIFF, LIP, GFR, MDW ####[place] [address] [place], [place] [address] WBC 6.5 10 3/mcL Normal 4.5-10.8 [facility] Comment on above: Performed By: #### C MP, MORPH, CBC, DIFF, LIP, GFR, W ####[place] [address] [place], [place] [address] CMPon 06-06-2024 Albumin Level 3.5 G/dL Normal 3.5-5.0 [facility] Comment on above: Performed By: #### C MP, MORPH, CBC, DIFF, LIP, GFR, MDW ####[place] [place], [place] [address] Albumin/Globulin [Mass ratio] 0.9 {ratio} Low 1.1-2.5 [facility] Comment on above: Performed By: #### C MP, MORPH, CBC, DIFF, LIP, GFR, MDW ####[place] [place], [place] [address] ALP [Catalytic activity/Vol] 127 U/L Normal 40-135 [facility] Comment on above: Performed By: #### C MP, MORPH, CBC, DIFF, LIP, GFR, MDW ####[place] [address] [place], [place] [address] ALT [Catalytic activity/Vol] 39 U/L Normal 14-59 [facility] Comment on above: Performed By: #### C MP, MORPH, CBC, DIFF, LIP, GFR, MDW ####[place] [address] [place], [place] [address] AST [Catalytic activity/Vol] 21 U/L Normal 10-40 [facility] Comment on above: Performed By: #### C MP, MORPH, CBC, DIFF, LIP, GFR, MDW ####[place] [address] [place], [place] [address] Bili Total 0.2 mg/dL Normal 0.2-1.0 [facility] Comment on above: Result Comment: Use of this assay is not recommended for patients undergoing treatment with eltrombopag due to the potential for falsely elevated results. Performed By: #### C MP, MORPH, CBC, DIFF, LIP, GFR, MDW ####[place] [address] [place], [place] [address] BUN/Creatinine Ratio 11 ratio Normal 7-27 [facility] Comment on above: Performed By: #### C MP, MORPH, CBC, DIFF, LIP, GFR, MDW ####[place] [place], [place] [address] Calcium [Mass/Vol] 8.4 mg/dL Normal 8.4-10.2 [facility] Comment on above: Performed By: #### C MP, MORPH, CBC, DIFF, LIP, GFR, MDW ####[place] [place], [place] [address] Chloride [Moles/Vol] 100 mmol/L Normal 98-107 [facility] Comment on above: Performed By: #### C MP, MORPH, CBC, DIFF, LIP, GFR, MDW ####[place] [address] [place] [address] CO2 [Moles/Vol] 28 mmol/L Normal 22-29 [facility] Comment on above: Performed By: #### C MP, MORPH, CBC, DIFF, LIP, GFR, MDW ####[place] [address] [place] [id number] Creatinine [Mass/Vol] 0.74 mg/dL Normal 0.55-1.02 [facility] Comment on above: Result Comment: Test ing performed on Siemens Dimension EXL analyzer using a modified kinetic Jacki technique. Performed By: #### C MP, MORPH, CBC, DIFF, LIP, GFR, W ####[place] [address] [place], [place] [address] Electrolyte Balance 8.0 mEq/L Normal 4.0-15.0 [facility] Comment on above: Performed By: #### C MP, MORPH, CBC, DIFF, LIP, GFR, W ####[place] [address] [place], [place] [address] Globulin 3.9 G/dL Normal [facility] Comment on above: Performed By: #### C MP, MORPH, CBC, DIFF, LIP, GFR, W ####[facility] [place], [place] [address] Glucose [Mass/Vol] 131 mg/dL High 70-105 [facility] Comment on above: Performed By: #### C MP, MORPH, CBC, DIFF, LIP, GFR, MDW ####[place] [address] [place], [place] [address] Potassium [Moles/Vol] 3.1 mmol/L Low 3.5-5.1 [facility] Comment on above: Performed By: #### C MP, MORPH, CBC, DIFF, LIP, GFR, MDW ####[place] [address] [place], [place] [address] Sodium [Moles/Vol] 136 mmol/L Normal 136-145 [facility] Comment on above: Performed By: #### C MP, MORPH, CBC, DIFF, LIP, GFR, MDW ####[facility] [place], [place] [address] Total Protein 7.4 G/dL Normal 6.4-8.2 [facility] Comment on above: Performed By: #### C MP, MORPH, CBC, DIFF, LIP, GFR, MDW ####[facility] [place], [place] [address] Urea nitrogen [Mass/Vol] 8 mg/dL Normal 7-18 [facility] Comment on above: Performed By: #### C MP, MORPH, CBC, DIFF, LIP, GFR, MDW ####[facility] [place], [place] [address] CT ABD/PELVIS W/ IV CONTRAST ONLYon 06-06-2024 CT ABD/PELVIS W/ IV CONTRAST ONLY ORIGINAL EXAMINATION: CT OF THE ABDOMEN AND PELVIS WITH CONTRAST 06/06/2024 10:09 pm TECHNIQUE: CT of the abdomen and pelvis was performed with the administration of intravenous contrast. Multiplanar reformatted images are provided for review. Automated exposure control, iterative reconstruction, and/or weight based adjustment of the mA/kV was utilized to reduce the radiation dose to as low as reasonably achievable. COMPARISON: None. HISTORY: ORDERING SYSTEM PROVIDED HISTORY: Reason for Exam: Tachycardia, fever, diarrhea, abdominal discomfort pain FINDINGS: Lower Chest: No focal consolidation. Organs: No acute findings. Cholecystectomy. GI/Bowel: Fluid in the proximal colon. Nondilated appendix. Pelvis: Unremarkable. Peritoneum/Retroperitoneum : Nonaneurysmal abdominal aorta. No enlarged lymph nodes. Bones/Soft Tissues: No acute osseous abnormality. IMPRESSION: Fluid in the proximal colon, which can be seen in diarrhea. Interpreted by: Abdiaziz Blanchard Preliminary Report By: Abdiaziz Blanchard Electronically signed By Abdiaziz Blanchard Dictated Date: 06/06/2024 10:20:12 PM Prelim Date: 06/06/2024 10:24:18 PM Sign Date: 06/06/2024 10:24:18 PM Ordering Provider: ROHIT Melendez [facility] LABORATORYOrdered By: SYSTEM SYSTEM on 06-06-2024 Albumin BCP dye [Mass/Vol] 3.5 G/dL Normal 3.5 - 5.0 G/dL AO ADM SS Albumin/Globulin [Mass ratio] 0.9 {ratio} Low 1.1 - 2.5 ratio AO ADM SS ALP [Catalytic activity/Vol] 127 U/L Normal 40 - 135 U/L AO ADM SS ALT With P-5'-P [Catalytic activity/Vol] 39 U/L Normal 14 - 59 U/L AO ADM SS Anisocytosis Ql (Bld) 1+ *NA* (06/06/24 9:36 PM) Invalid Interpretation Code AO Workflow SS AST With P-5'-P [Catalytic activity/Vol] 21 U/L Normal 10 - 40 U/L AO ADM SS Band form neutrophils/100 WBC (Bld) 1.0 % Normal 0.0 - 5.0 % AO Workflow SS Basophil %, Manual 0.0 % Normal 0.0 - 2.5 % AO Wo rkflow SS Basophils (Bld) [#/Vol] 0.0 103/mcL Normal 0.0 - 0.2 10^3/mcL AO Workflow SS Bilirubin [Mass/Vol] 0.2 mg/dL Normal 0.2 - 1.0 mg/dL AO ADM SS Comment on above: Interpretive Data: U se of this assay is not recommended for patients undergoing treatment with eltrombopag due to the potential for falsely elevated results. Calcium [Mass/Vol] 8.4 mg/dL Normal 8.4 - 10. 2 mg/dL AO ADM SS Chloride [Moles/Vol] 100 mmol/L Normal 98 - 107 mmol/L AO ADM SS CO2 [Moles/Vol] 28 mmol/L Normal 22 - 29 mmol/L AO ADM SS Creatinine [Mass/Vol] 0.74 mg/dL Normal 0.55 - 1.02 mg/dL AO ADM SS Comment on above: Interpretive Data: T esting performed on Siemens Dimension EXL analyzer using a modified kinetic Jacki technique. Electrolyte Balance 8.0 mEq/L Normal 4.0 - 15 .0 mEq/L AO ADM SS Eosinophil %, Manual 1.0 % Normal 0.0 - 7.0 % AO Workflow SS Eosinophils (Bld) [#/Vol] 0.1 103/mcL Normal 0.0 - 0.7 10^3/mcL AO Workflow SS Erythrocyte distribution width (RBC) [Ratio] 18.0 % High 11.5 - 15.5 % AO Workflow SS GFR/1.73 sq M.predicted among blacks MDRD (S/P/Bld) [Vol rate/Area] 108 ml/min/1.73sqm Invalid Interpretation Code AO Chemistry S Comment on above: Interpretive Data: GFR Population mean for , Non- Americans Ages 20-29 = 116 mL/min/1.73 sq.m. Ages 30-39 = 107 mL/min/1.73 sq.m. Ages 40-49 = 99 mL/min/1.73 sq.m. Ages 50-59 = 93 mL/min/1.73 sq.m. Ages 60-69 = 85 mL/min/1.73 sq.m. Ages 70+ = 75 mL/min/1.73 sq.m. Chronic Kidney Disease: Less than 60 mL/min/1.73 square meters End Stage Renal Disease: Less than 15 mL/min/1.73 square meters GFR/1.73 sq M.predicted among non-blacks MDRD (S/P/Bld) [Vol rate/Area] 89 ml/min/1.73sqm Invalid Interpretation Code AO Chemistry S Comment on above: Interpretive Data: GFR Population mean for , Non- Americans Ages 20-29 = 116 mL/min/1.73 sq.m. Ages 30-39 = 107 mL/min/1.73 sq.m. Ages 40-49 = 99 mL/min/1.73 sq.m. Ages 50-59 = 93 mL/min/1.73 sq.m. Ages 60-69 = 85 mL/min/1.73 sq.m. Ages 70+ = 75 mL/min/1.73 sq.m. Chronic Kidney Disease: Less than 60 mL/min/1.73 square meters End Stage Renal Disease: Less than 15 mL/min/1.73 square meters Globulin 3.9 G/dL Invalid Interpretation Code AO ADM SS Glucose [Mass/Vol] 131 mg/dL High 70 - 105 mg/dL AO ADM SS Hematocrit (Bld) [Volume fraction] 36.9 % Normal 34.0 - 46.0 % AO Workflow SS Hemoglobin (Bld) [Mass/Vol] 11.7 G/dL Low 12.0 - 16.0 G/dL AO Workflow SS Lipase [Catalytic activity/Vol] 25 U/L Normal 16 - 77 U/L AO ADM SS Lymphocytes (Bld) [#/Vol] 1.6 103/mcL Normal 0.9 - 4.3 10^3/mcL AO Workflow SS Lymphocytes/100 WBC (Bld) 24.0 % Normal 20.0 - 40.0 % AO Workflow SS MCH (RBC) [Entitic mass] 21.4 pg Low 27.0 - 33.0 pg AO Workflow SS MCHC 31.8 G/dL Low 32.0 - 36.0 G/dL AO Workflow SS MCV (RBC) [Entitic vol] 67.4 fL Low 80.0 - 99.0 fL AO Workflow SS Microcytes Ql (Bld) 1+ *NA* (06/06/24 9:36 PM) Invalid Interpretation Code AO Workflow SS Monocyte distribution width Auto (Bld) [Entitic vol] 17.60 1 Normal 0.00 - 20.00 AO Workflow SS Comment on above: Result Comment: For ED adult patients suspected of sepsis, MDW<=20.0 does not rule out sepsis or risk of sepsis Monocytes (Bld) [#/Vol] 0.2 103/mcL Normal 0.1 - 1.4 10^3/mcL AO Workflow SS Monocytes/100 WBC (Bld) 4.0 % Normal 2.0 - 13.0 % AO Workflow SS Neutrophils (Bld) [#/Vol] 4.6 103/mcL Normal 2.3 - 8.1 10^3/mcL AO Workflow SS Neutrophils/100 WBC (Bld) 70.0 % Normal 50.0 - 75.0 % AO Workflow SS Nucleated RBC 0.0 /100 WBC Invalid Interpretation Code AO Workflow SS Ovalocytes LM Ql (Bld) 1+ *NA* (06/06/24 9:36 PM) Invalid Interpretation Code AO Workflow SS Platelet mean volume (Bld) [Entitic vol] 7.1 fL Normal 6.6 - 10.5 fL AO Workflow SS Platelets (Bld) [#/Vol] 261 103/mcL Normal 150 - 450 10^3/mcL AO Workflow SS Platelets LM Ql (Bld) Normal *NA* (06/06/24 9:36 PM) Invalid Interpretation Code AO Workflow SS Potassium [Moles/Vol] 3.1 mmol/L Low 3.5 - 5.1 mmol/L AO ADM SS Protein [Mass/Vol] 7.4 G/dL Normal 6.4 - 8.2 G/dL AO ADM SS RBC (Bld) [#/Vol] 5.47 106/mcL High 4.10 - 5.3 0 10^6/mcL AO Workflow SS Sodium [Moles/Vol] 136 mmol/L Normal 136 - 145 mmol/L AO ADM SS Urea nitrogen [Mass/Vol] 8 mg/dL Normal 7 - 18 mg/dL AO ADM SS Urea nitrogen/Creatinine [Mass ratio] 11 ratio Normal 7 - 27 ratio AO ADM SS WBC (Bld) [#/Vol] 6.5 103/mcL Normal 4.5 - 10.8 10^3/mcL AO Workflow SS LABORATORYOrdered By: Bertrand Gilbert on 06-06-2024 Appearance (U) Slightly Cloudy *ABN* (06/06/24 9:36 PM) Invalid Interpretation Code Clear AO Auto Urine SS Bilirubin Ql (U) Negative (06/06/24 9:36 PM) Normal Negative AO Auto Urine SS Color (U) Yellow (06/06/24 9:36 PM) Normal AO Auto Urine SS Glucose Test strip (U) [Mass/Vol] Negative Normal Negative AO Auto Urine SS HCG ( test) Ql Negative (06/06/24 9:36 PM) Normal AO Manual Urine SS Hemoglobin Auto test strip (U) [Mass/Vol] Trace *ABN* (06/06/24 9:36 PM) Invalid Interpretation Code Negative AO Auto Urine SS Ketones Ql (U) Negative Normal Negative AO Auto Ur ine SS test (u) int Not detected Invalid Interpretation Code AO Manual Urine SS UA Leuk Est Small *ABN* (06/06/24 9:36 PM) Invalid Interpretation Code Negative AO Auto Urine SS UA Nitrite Negative (06/06/24 9:36 PM) Normal Negative AO Auto Urine SS UA pH 6.0 (06/06/24 9:36 PM) Normal 5.0 - 8.0 AO Auto Urine SS UA Protein Negative Normal Negative AO Auto Urine SS UA RBC 0-5 /HPF Invalid Interpretation Code None Seen AO Auto Urine SS UA Spec Grav 1.025 (06/06/24 9:36 PM) Normal 1.015-1.025 AO Auto Urine SS UA Specimen Type Clean Catch (06/06/24 9:36 PM) Normal AO Auto Urine SS UA Squam Epithelial 0-5 /HPF Invalid Interpretation Code None Seen AO Auto Urine SS UA Urobilinogen 0.2 E.U./dL Normal 0.2-1.0 AO Auto Urine SS WBC LM.HPF (Urine sed) [#/Area] 0-5 /HPF Invalid Interpretation Code None Seen AO Auto Urine SS LIPon 06-06-2024 Lipase Level 25 U/L Normal 16-77 [facility] Comment on above: Performed By: #### C MP, MORPH, CBC, DIFF, LIP, GFR, MDW ####[address] [place], [place] [address] PREGUon 06-06-2024 HCG ( test) Ql (U) Negative Normal [facility] Comment on above: Performed By: #### U AMICAO, UA, PREGU ####[address] [place], [place] [address] test (u) int Not detected Invalid Interpretation Code [facility] Comment on above: Performed By: #### U AMICAO, UA, PREGU ####[address] [place], [place] [address] UAon 06-06-2024 Color (U) Yellow Normal [facility] Comment on above: Performed By: #### U AMICAO, UA, PREGU ####[address] [place], [place] [address] Glucose (U) [Mass/Vol] Negative Normal Negative [facility] Comment on above: Performed By: #### U AMICAO, UA, PREGU ####[address] [place] [address] Ketones Ql (U) Negative Normal Negative [facility] Comment on above: Performed By: #### U AMICAO, UA, PREGU ####[address] [place] [address] UA Appear Slightly Cloudy Abnormal Clear [facility] Comment on above: Performed By: #### U AMICAO, UA, PREGU ####[address] [place] [address] UA Blood Trace Abnormal Negative [facility] Comment on above: Performed By: #### U AMICAO, UA, PREGU ####[address] [place] [address] UA Leuk Est Small Abnormal Negative [facility] Comment on above: Performed By: #### U AMICAO, UA, PREGU ####[address] [place] [address] UA Nitrite Negative Normal Negative [facility] Comment on above: Performed By: #### U AMICAO, UA, PREGU ####[address] [place] [address] UA pH 6.0 Normal 5.0 - 8.0 [facility] Comment on above: Performed By: #### U AMICAO, UA, PREGU ####[address] [place] [address] UA Protein Negative Normal Negative [facility] Comment on above: Performed By: #### U AMICAO, UA, PREGU ####[address] [place] [address] UA Spec Grav 1.025 Normal 1.015-1.025 [facility] Comment on above: Performed By: #### U AMICAO, UA, PREGU ####[address] [place] [address] UA Specimen Type Clean Catch Normal [facility] Comment on above: Performed By: #### U AMICAHowie UA, PREGU ####[address] [place], [place] [address] UA Urobilinogen 0.2 E.U./dL Normal 0.2-1.0 [facility] Comment on above: Performed By: #### U AMICAO UA, PREGU ####[address] [place], [place] [address] Urobilinogen (U) [Mass/Vol] Negative Normal Negative [facility] Comment on above: Performed By: #### U SEBASTIAN UA, PREGU ####[address] [place], [place] [address] .Auto Diffon 05-30-2024 Basophil, Absolute 0.0 10 3/mcL Normal 0.0-0.2 [facility] Comment on above: Performed By: #### M ORPH, CBC, MDW, TROPHS, GFR, BMP, ADIFF, ANEU ####[address] [place], [place] [address] Basophils/100 WBC (Bld) 0.3 % Normal 0.0-2.5 [facility] Comment on above: Performed By: #### M ORPH, CBC, MDW, TROPHS, GFR, BMP, ADIFF, ANEU ####[address] [place], [place] [address] Eosinophil, Absolute 0.0 10 3/mcL Normal 0.0-0.7 [facility] Comment on above: Performed By: #### M ORPH, CBC, MDW, TROPHS, GFR, BMP, ADIFF, ANEU ####[address] [place], [place] [address] Eosinophils/100 WBC (Bld) 0.3 % Normal 0.0-7.0 [facility] Comment on above: Performed By: #### M ORPH, CBC, MDW, TROPHS, GFR, BMP, ADIFF, ANEU ####[address] [place], [place] [address] Lymphocyte, Absolute 0.9 10 3/mcL Normal 0.9-4.3 [facility] Comment on above: Performed By: #### M ORPH, CBC, MDW, TROPHS, GFR, BMP, ADIFF, ANEU ####[place] [address] [place], [place] [address] Lymphocytes/100 WBC (Bld) 10.3 % Low 20.0-40.0 [facility] Comment on above: Performed By: #### M ORPH, CBC, MDW, TROPHS, GFR, BMP, ADIFF, ANEU ####[facility] [place], [place] [address] Monocyte, Absolute 0.6 10 3/mcL Normal 0.1-1.4 [facility] Comment on above: Performed By: #### M ORPH, CBC, MDW, TROPHS, GFR, BMP, ADIFF, ANEU ####[address] [place], [place] [address] Monocytes/100 WBC (Bld) 6.7 % Normal 2.0-13.0 [facility] Comment on above: Performed By: #### M ORPH, CBC, MDW, TROPHS, GFR, BMP, ADIFF, ANEU ####[address] [place], [place] [address] Neutrophils/100 WBC (Bld) 82.4 % High 50.0-75.0 [facility] Comment on above: Performed By: #### M ORPH, CBC, MDW, TROPHS, GFR, BMP, ADIFF, ANEU ####[facility] [place], [place] [address] .GFRon 05-30-2024 GFR 96 ml/min/1.73sqm Normal [facility] Comment on above: Result Comment: GFR Population mean for , Non- Americans Ages 20-29 = 116 mL/min/1.73 sq.m. Ages 30-39 = 107 mL/min/1.73 sq.m. Ages 40-49 = 99 mL/min/1.73 sq.m. Ages 50-59 = 93 mL/min/1.73 sq.m. Ages 60-69 = 85 mL/min/1.73 sq.m. Ages 70+ = 75 mL/min/1.73 sq.m. Chronic Kidney Disease: Less than 60 mL/min/1.73 square meters End Stage Renal Disease: Less than 15 mL/min/1.73 square meters Performed By: #### M ORPH, CBC, MDW, TROPHS, GFR, BMP, ADIFF, ANEU ####[address] [place], [place] [address] GFR Non- 79 ml/min/1.73sqm Normal [facility] Comment on above: Result Comment: GFR Population mean for , Non- Americans Ages 20-29 = 116 mL/min/1.73 sq.m. Ages 30-39 = 107 mL/min/1.73 sq.m. Ages 40-49 = 99 mL/min/1.73 sq.m. Ages 50-59 = 93 mL/min/1.73 sq.m. Ages 60-69 = 85 mL/min/1.73 sq.m. Ages 70+ = 75 mL/min/1.73 sq.m. Chronic Kidney Disease: Less than 60 mL/min/1.73 square meters End Stage Renal Disease: Less than 15 mL/min/1.73 square meters Performed By: #### M ORPH, CBC, MDW, TROPHS, GFR, BMP, ADIFF, ANEU ####[address] [place], [place] [address] .MDWon 05-30-2024 Monocyte Distribution Width 19.58 Normal 0.00-20.00 [facility] Comment on above: Result Comment: For ED adult patients suspected of sepsis, MDW<=20.0 does not rule out sepsis or risk of sepsis Performed By: #### M ORPH, CBC, MDW, TROPHS, GFR, BMP, ADIFF, ANEU ####[address] [place], [place] [address] .Morphon 05-30-2024 Anisocytosis Ql (Bld) 1+ Normal [facility] Comment on above: Performed By: #### M ORPH, CBC, MDW, TROPHS, GFR, BMP, ADIFF, ANEU ####[address] [place], [place] [address] Microcytosis 1+ Normal [facility] Comment on above: Performed By: #### M ORPH, CBC, MDW, TROPHS, GFR, BMP, ADIFF, ANEU ####[address] [place], [place] [address] Ovalocytes 1+ Normal [facility] Comment on above: Performed By: #### M ORPH, CBC, MDW, TROPHS, GFR, BMP, ADIFF, ANEU ####[address] [place], [place] [address] Platelet Estimate Normal Normal [facility] Comment on above: Performed By: #### M ORPH, CBC, MDW, TROPHS, GFR, BMP, ADIFF, ANEU ####[place] [address] [place], [place] [address] .NEUABSon 05-30-2024 Neutrophil, Absolute 7.6 10 3/mcL Normal 2.3-8.1 [facility] Comment on above: Performed By: #### M ORPH, CBC, MDW, TROPHS, GFR, BMP, ADIFF, ANEU ####[address] [place], [place] [address] BMPon 05-30-2024 BUN/Creatinine Ratio 10 ratio Normal 7-27 [facility] Comment on above: Performed By: #### M ORPH, CBC, MDW, TROPHS, GFR, BMP, ADIFF, ANEU ####[place] [address] [place], [place] [address] Calcium [Mass/Vol] 9.0 mg/dL Normal 8.4-10.2 [facility] Comment on above: Performed By: #### M ORPH, CBC, MDW, TROPHS, GFR, BMP, ADIFF, ANEU ####[address] [place], [place] [address] Chloride [Moles/Vol] 103 mmol/L Normal 98-107 [facility] Comment on above: Performed By: #### M ORPH, CBC, MDW, TROPHS, GFR, BMP, ADIFF, ANEU ####[facility] [place], [place] [address] CO2 [Moles/Vol] 26 mmol/L Normal 22-29 [facility] Comment on above: Performed By: #### M ORPH, CBC, MDW, TROPHS, GFR, BMP, ADIFF, ANEU ####[facility] [place], [place] [address] Creatinine [Mass/Vol] 0.82 mg/dL Normal 0.55-1.02 [facility] Comment on above: Result Comment: Test ing performed on Siemens Dimension EXL analyzer using a modified kinetic Jacki technique. Performed By: #### M ORPH, CBC, MDW, TROPHS, GFR, BMP, ADIFF, ANEU ####[address] [place], [place] [address] Electrolyte Balance 12.0 mEq/L Normal 4.0-15.0 [facility] Comment on above: Performed By: #### M ORPH, CBC, MDW, TROPHS, GFR, BMP, ADIFF, ANEU ####[place] [address] [place], [place] [address] Glucose [Mass/Vol] 168 mg/dL High 70-105 [facility] Comment on above: Performed By: #### M ORPH, CBC, MDW, TROPHS, GFR, BMP, ADIFF, ANEU ####[place] [address] [place], [place] [address] Potassium [Moles/Vol] 3.9 mmol/L Normal 3.5-5.1 [facility] Comment on above: Performed By: #### M ORPH, CBC, MDW, TROPHS, GFR, BMP, ADIFF, ANEU ####[facility] [place], [place] [address] Sodium [Moles/Vol] 141 mmol/L Normal 136-145 [facility] Comment on above: Performed By: #### M ORPH, CBC, MDW, TROPHS, GFR, BMP, ADIFF, ANEU ####[place] [address] [place], [place] [address] Urea nitrogen [Mass/Vol] 8 mg/dL Normal 7-18 [facility] Comment on above: Performed By: #### M ORPH, CBC, MDW, TROPHS, GFR, BMP, ADIFF, ANEU ####[address] [place] [address] CBCon 05-30-2024 Erythrocyte distribution width (RBC) [Ratio] 17.6 % High 11.5-15.5 [facility] Comment on above: Performed By: #### M ORPH, CBC, MDW, TROPHS, GFR, BMP, ADIFF, ANEU ####[place] [place] [address] Hematocrit (Bld) [Volume fraction] 37.4 % Normal 34.0-46.0 [facility] Comment on above: Performed By: #### M ORPH, CBC, MDW, TROPHS, GFR, BMP, ADIFF, ANEU ####[place] [address] Hgb 11.8 G/dL Low 12.0-16.0 [facility] Comment on above: Performed By: #### M ORPH, CBC, MDW, TROPHS, GFR, BMP, ADIFF, ANEU ####[place] [address] MCH (RBC) [Entitic mass] 21.2 pg Low 27.0-33.0 [facility] Comment on above: Performed By: #### M ORPH, CBC, MDW, TROPHS, GFR, BMP, ADIFF, ANEU ####[place] [address] [address] MCHC 31.5 G/dL Low 32.0-36.0 [facility] Comment on above: Performed By: #### M ORPH, CBC, MDW, TROPHS, GFR, BMP, ADIFF, ANEU ####[place] [place] [address] MCV (RBC) [Entitic vol] 67.3 fL Low 80.0-99.0 [facility] Comment on above: Performed By: #### M ORPH, CBC, MDW, TROPHS, GFR, BMP, ADIFF, ANEU ####[address] [place], [place] [address] Platelet 264 10 3/mcL Normal 150-450 [facility] Comment on above: Performed By: #### M ORPH, CBC, MDW, TROPHS, GFR, BMP, ADIFF, ANEU ####[place] [address] [place], [place] [address] Platelet mean volume (Bld) [Entitic vol] 7.1 fL Normal 6.6-10.5 [facility] Comment on above: Performed By: #### M ORPH, CBC, MDW, TROPHS, GFR, BMP, ADIFF, ANEU ####[address] [place], [place] [address] RBC 5.56 10 6/mcL High 4.10-5.30 [facility] Comment on above: Performed By: #### M ORPH, CBC, MDW, TROPHS, GFR, BMP, ADIFF, ANEU ####[place] [address] [place], [place] [address] WBC 9.2 10 3/mcL Normal 4.5-10.8 [facility] Comment on above: Performed By: #### M ORPH, CBC, MDW, TROPHS, GFR, BMP, ADIFF, ANEU ####[place] [address] [place], [place] [address] LABORATORYOrdered By: Dariusz White on 05-30-2024 Amphetamines Screen Ql (U) Negative *NA* (05/30/24 2:05 PM) Invalid Interpretation Code Negative AO ADM SS Barbiturates Screen Ql (U) Negative *NA* (05/30/24 2:05 PM) Invalid Interpretation Code Negative AO ADM SS Benzodiazepines Ql (U) Negative *NA* (05/30/24 2:05 PM) Invalid Interpretation Code Negative AO ADM SS Benzoylecgonine Screen Ql (U) Negative *NA* (05/30/24 2:05 PM) Invalid Interpretation Code Negative AO ADM SS Cannabinoids Screen Ql (U) Negative *NA* (05/30/24 2:05 PM) Invalid Interpretation Code Negative AO ADM SS Methadone Screen Ql (U) Negative *NA* (05/30/24 2:05 PM) Invalid Interpretation Code Negative AO ADM SS Opiates Screen Ql (U) Negative *NA* (05/30/24 2:05 PM) Invalid Interpretation Code Negative AO ADM SS Phencyclidine Ql (U) Negative *NA* (05/30/24 2:05 PM) Invalid Interpretation Code Negative AO ADM SS Urine Drugs screened: See Below 4 (05/30/24 2:05 PM) Normal AO Chemistry S Comment on above: Interpretive Data: T his drug screen is a presumptive screening only. No confirmation will be performed unless requested. Drugs screened include: Threshold Amphetamines/Methamphetamines 1,000 ng/mL Barbiturates 200 ng/mL Benzodiazepine metabolites 200 ng/mL Cannabinoids (THC metabolites) 50 ng/mL Cocaine 300 ng/mL Opiates 300 ng/mL Methadone 300 ng/mL Phencyclidine (PCP) 25 ng/mL Testing has been performed FOR MEDICAL PURPOSES ONLY. LABORATORYOrdered By: SYSTEM SYSTEM on 05-30-2024 Anisocytosis Ql (Bld) 1+ *NA* (05/30/24 1:13 PM) Invalid Interpretation Code AO Workflow SS Basophils (Bld) [#/Vol] 0.0 103/mcL Normal 0.0 - 0.2 10^3/mcL AO Workflow SS Basophils/100 WBC (Bld) 0.3 % Normal 0.0 - 2.5 % AO Workflow SS Calcium [Mass/Vol] 9.0 mg/dL Normal 8.4 - 10. 2 mg/dL AO ADM SS Chloride [Moles/Vol] 103 mmol/L Normal 98 - 107 mmol/L AO ADM SS CO2 [Moles/Vol] 26 mmol/L Normal 22 - 29 mmol/L AO ADM SS Creatinine [Mass/Vol] 0.82 mg/dL Normal 0.55 - 1.02 mg/dL AO ADM SS Comment on above: Interpretive Data: T esting performed on [employer] Dimension EXL analyzer using a modified kinetic Jacki technique. Electrolyte Balance 12.0 mEq/L Normal 4.0 - 15 .0 mEq/L AO ADM SS Eosinophil, Absolute 0.0 103/mcL Normal 0.0 - 0.7 10^3/mcL AO Workflow SS Eosinophils/100 WBC (Bld) 0.3 % Normal 0.0 - 7.0 % AO Workflow SS Erythrocyte distribution width (RBC) [Ratio] 17.6 % High 11.5 - 15.5 % AO Workflow SS GFR/1.73 sq M.predicted among blacks MDRD (S/P/Bld) [Vol rate/Area] 96 ml/min/1.73sqm Invalid Interpretation Code AO Chemistry S Comment on above: Interpretive Data: GFR Population mean for , Non- Americans Ages 20-29 = 116 mL/min/1.73 sq.m. Ages 30-39 = 107 mL/min/1.73 sq.m. Ages 40-49 = 99 mL/min/1.73 sq.m. Ages 50-59 = 93 mL/min/1.73 sq.m. Ages 60-69 = 85 mL/min/1.73 sq.m. Ages 70+ = 75 mL/min/1.73 sq.m. Chronic Kidney Disease: Less than 60 mL/min/1.73 square meters End Stage Renal Disease: Less than 15 mL/min/1.73 square meters GFR/1.73 sq M.predicted among non-blacks MDRD (S/P/Bld) [Vol rate/Area] 79 ml/min/1.73sqm Invalid Interpretation Code AO Chemistry S Comment on above: Interpretive Data: GFR Population mean for , Non- Americans Ages 20-29 = 116 mL/min/1.73 sq.m. Ages 30-39 = 107 mL/min/1.73 sq.m. Ages 40-49 = 99 mL/min/1.73 sq.m. Ages 50-59 = 93 mL/min/1.73 sq.m. Ages 60-69 = 85 mL/min/1.73 sq.m. Ages 70+ = 75 mL/min/1.73 sq.m. Chronic Kidney Disease: Less than 60 mL/min/1.73 square meters End Stage Renal Disease: Less than 15 mL/min/1.73 square meters Glucose [Mass/Vol] 168 mg/dL High 70 - 105 mg/dL AO ADM SS Hematocrit (Bld) [Volume fraction] 37.4 % Normal 34.0 - 46.0 % AO Workflow SS Hemoglobin (Bld) [Mass/Vol] 11.8 G/dL Low 12.0 - 16.0 G/dL AO Workflow SS Lymphocytes (Bld) [#/Vol] 0.9 103/mcL Normal 0.9 - 4.3 10^3/mcL AO Workflow SS Lymphocytes/100 WBC (Bld) 10.3 % Low 20.0 - 40.0 % AO Workflow SS MCH (RBC) [Entitic mass] 21.2 pg Low 27.0 - 33.0 pg AO Workflow SS MCHC 31.5 G/dL Low 32.0 - 36.0 G/dL AO Workflow SS MCV (RBC) [Entitic vol] 67.3 fL Low 80.0 - 99.0 fL AO Workflow SS Microcytes Ql (Bld) 1+ *NA* (05/30/24 1:13 PM) Invalid Interpretation Code AO Workflow SS Monocyte distribution width Auto (Bld) [Entitic vol] 19.58 1 Normal 0.00 - 20.00 AO Workflow SS Comment on above: Result Comment: For ED adult patients suspected of sepsis, MDW<=20.0 does not rule out sepsis or risk of sepsis Monocytes (Bld) [#/Vol] 0.6 103/mcL Normal 0.1 - 1.4 10^3/mcL AO Workflow SS Monocytes/100 WBC (Bld) 6.7 % Normal 2.0 - 13.0 % AO Workflow SS Neutrophils (Bld) [#/Vol] 7.6 103/mcL Normal 2.3 - 8.1 10^3/mcL AO Workflow SS Neutrophils/100 WBC (Bld) 82.4 % High 50.0 - 75.0 % AO Workflow SS Ovalocytes LM Ql (Bld) 1+ *NA* (05/30/24 1:13 PM) Invalid Interpretation Code AO Workflow SS Platelet mean volume (Bld) [Entitic vol] 7.1 fL Normal 6.6 - 10.5 fL AO Workflow SS Platelets (Bld) [#/Vol] 264 103/mcL Normal 150 - 450 10^3/mcL AO Workflow SS Platelets LM Ql (Bld) Normal *NA* (05/30/24 1:13 PM) Invalid Interpretation Code AO Workflow SS Potassium [Moles/Vol] 3.9 mmol/L Normal 3.5 - 5.1 mmol/L AO ADM SS RBC (Bld) [#/Vol] 5.56 106/mcL High 4.10 - 5.3 0 10^6/mcL AO Workflow SS Sodium [Moles/Vol] 141 mmol/L Normal 136 - 145 mmol/L AO ADM SS Troponin I.cardiac DL <= 0.01 ng/mL [Mass/Vol] ng/L Normal 0 - 51 ng/L AO ADM SS Comment on above: Interpretive Data: H igh Sensitive Troponin I Reference Ranges: Female: 0-51 ng/L Male: 0-76 ng/L Testing performed on [employer] using a homogeneous sandwich chemiluminescent immunoassay based on [facility] technology. Urea nitrogen [Mass/Vol] 8 mg/dL Normal 7 - 18 mg/dL AO ADM SS Urea nitrogen/Creatinine [Mass ratio] 10 ratio Normal 7 - 27 ratio AO ADM SS WBC (Bld) [#/Vol] 9.2 103/mcL Normal 4.5 - 10.8 10^3/mcL AO Workflow SS [facility] High Sensitivity Troponin I <4 Normal 0-51 [facility] Comment on above: Result Comment: High Sensitive Troponin I Reference Ranges: Female: 0-51 ng/L Male: 0-76 ng/L Testing performed on [employer] using a homogeneous sandwich chemiluminescent immunoassay based on [facility] technology. Performed By: #### M ORPH, CBC, MDW, TROPHS, GFR, BMP, ADIFF, ANEU ####[address] [place], [place] [address] UDRUGon 05-30-2024 Amphetamine (u) Negative Normal Negative [facility] Comment on above: Performed By: #### U DRUG ####[address] [place], [place] [address] Barbiturate (u) Negative Normal Negative [facility] Comment on above: Performed By: #### U DRUG ####[address] [place], [place] [address] Benzodiazepine (u) Negative Normal Negative [facility] Comment on above: Performed By: #### U DRUG ####[address] [place], [place] [address] Cannabinoid (u) Negative Normal Negative [facility] Comment on above: Performed By: #### U DRUG ####[address] [place], [place] [address] Cocaine Ql (U) Negative Normal Negative [facility] Comment on above: Performed By: #### U DRUG ####[address] [place], [place] [address] Methadone Ql (U) Negative Normal Negative [facility] Comment on above: Performed By: #### U DRUG ####[address] [place], [place] [address] Opiate (u) Negative Normal Negative [facility] Comment on above: Performed By: #### U DRUG ####[address] [place], [place] [address] PCP (u) Negative Normal Negative [facility] Comment on above: Performed By: #### U DRUG ####[address] [place], [place] [address] Urine Drugs screened: See Below Normal [facility] Comment on above: Result Comment: This drug screen is a presumptive screening only. No confirmation will be performed unless requested. Drugs screened include: Threshold Amphetamines/Methamphetamines 1,000 ng/mL Barbiturates 200 ng/mL Benzodiazepine metabolites 200 ng/mL Cannabinoids (THC metabolites) 50 ng/mL Cocaine 300 ng/mL Opiates 300 ng/mL Methadone 300 ng/mL Phencyclidine (PCP) 25 ng/mL Testing has been performed FOR MEDICAL PURPOSES ONLY. Performed By: #### U DRUG ####[address] [place], [place] [address] .GFRon 03-27-2024 GFR 87 ml/min/1.73sqm Normal [facility] ([place] Comment on above: Result Comment: GFR Population mean for , Non- Americans Ages 20-29 = 116 mL/min/1.73 sq.m. Ages 30-39 = 107 mL/min/1.73 sq.m. Ages 40-49 = 99 mL/min/1.73 sq.m. Ages 50-59 = 93 mL/min/1.73 sq.m. Ages 60-69 = 85 mL/min/1.73 sq.m. Ages 70+ = 75 mL/min/1.73 sq.m. Chronic Kidney Disease: Less than 60 mL/min/1.73 square meters End Stage Renal Disease: Less than 15 mL/min/1.73 square meters Performed By: #### T SKIP #### [address] [address] GFR Non- 72 ml/min/1.73sqm Normal [facility] ([place] Comment on above: Result Comment: GFR Population mean for , Non- Americans Ages 20-29 = 116 mL/min/1.73 sq.m. Ages 30-39 = 107 mL/min/1.73 sq.m. Ages 40-49 = 99 mL/min/1.73 sq.m. Ages 50-59 = 93 mL/min/1.73 sq.m. Ages 60-69 = 85 mL/min/1.73 sq.m. Ages 70+ = 75 mL/min/1.73 sq.m. Chronic Kidney Disease: Less than 60 mL/min/1.73 square meters End Stage Renal Disease: Less than 15 mL/min/1.73 square meters Performed By: #### T SKIP #### [place] [address] .MDWon 03-27-2024 Monocyte Distribution Width 19.85 Normal 0.00-20.00 [facility] ([place] Comment on above: Result Comment: For ED adult patients suspected of sepsis, MDW<=20.0 does not rule out sepsis or risk of sepsis Performed By: #### T SKIP #### [address] [address] .Manual Diffon 03-27-2024 Basophil %, Manual 0.0 % Normal 0.0-2.5 [facility] Comment on above: Performed By: #### T SKIP #### [address] [address] Basophil, Abs Manual 0.0 10 3/mcL Normal 0.0-0.2 [facility] ([place] Comment on above: Performed By: #### T SKIP #### [place] [address] Eosinophil %, Manual 1.0 % Normal 0.0-7.0 [facility] [place] Comment on above: Performed By: #### T SKIP #### [address] [address] Eosinophil, Abs Manual 0.1 10 3/mcL Normal 0.0-0.4 [facility] ([place] Comment on above: Performed By: #### T SKIP #### [address] [address] Lymphocyte %, Manual 40.0 % Normal 10.0-50.0 [facility] [place] Comment on above: Performed By: #### T SKIP #### [address] [address] Lymphocyte, Abs Manual 2.0 10 3/mcL Normal 0.8-3.9 [facility] ([place] Comment on above: Performed By: #### T SKIP #### [address] [address] Monocyte %, Manual 2.0 % Normal 1.7-13.0 [facility] Comment on above: Performed By: #### T SKIP #### [address] [address] Monocyte, Abs Manual 0.1 10 3/mcL Low 0.2-1.0 [facility] [place] Comment on above: Performed By: #### T SKIP #### [address] [address] Neutrophil %, Manual 57.0 % Normal 37.0-80.0 [facility] [place] Comment on above: Performed By: #### T SKIP #### [address] [address] Neutrophil, Abs Manual 2.8 10 3/mcL Low 2.9-6.2 [facility] [place] Comment on above: Performed By: #### T SKIP #### [address] [address] Nucleated RBC 0.0 /100 WBC Normal [facility] ([place] Comment on above: Performed By: #### T SKIP #### [address] [address] .Morphon 03-27-2024 Microcytosis 1+ Normal [facility] ([place] Comment on above: Performed By: #### T SKIP #### Mar[address] [address] Ovalocytes 1+ Normal [facility] ([place] Comment on above: Performed By: #### T SKIP #### [address] [address] Platelet Estimate Normal Normal [facility] ([place] Comment on above: Performed By: #### T SKIP #### [address] [address] BMPon 03-27-2024 BUN/Creatinine Ratio 11 ratio Normal 7-27 [facility] [place] Comment on above: Performed By: #### T SKIP #### [address] [address] Calcium [Mass/Vol] 8.9 mg/dL Normal 8.4-10.2 [facility] Comment on above: Performed By: #### T SKIP #### [address] [address] Chloride [Moles/Vol] 101 mmol/L Normal 98-107 [facility] [place] Comment on above: Performed By: #### T SKIP #### [address] [address] CO2 [Moles/Vol] 31 mmol/L High 22-29 [facility] [place] Comment on above: Performed By: #### T SKIP #### [address] [address] Creatinine [Mass/Vol] 0.89 mg/dL Normal 0.55-1.02 [facility] ([place] Comment on above: Performed By: #### T SKIP #### [address] [address] Electrolyte Balance 8.0 mEq/L Normal 4.0-15.0 [facility] ([place] Comment on above: Performed By: #### T SKIP #### [address] [address] Glucose [Mass/Vol] 116 mg/dL High 70-105 [facility] [place] Comment on above: Performed By: #### T SKIP #### [address] [address] Potassium [Moles/Vol] 3.6 mmol/L Normal 3.5-5.1 [facility] ([place] Comment on above: Performed By: #### T SKIP #### [address] [address] Sodium [Moles/Vol] 140 mmol/L Normal 136-145 [facility] [place] Comment on above: Performed By: #### T SKIP #### [address] [address] Urea nitrogen [Mass/Vol] 10 mg/dL Normal 7-18 [facility] ([place] Comment on above: Performed By: #### T SKIP #### [address] [address] CBCon 03-27-2024 Erythrocyte distribution width (RBC) [Ratio] 17.0 % High 11.5-14.5 [facility] ([place] Comment on above: Performed By: #### T SKIP #### [address] [address] Hematocrit (Bld) [Volume fraction] 36.3 % Low 37.0-47.0 [facility] [place] Comment on above: Performed By: #### T SKIP #### [address] [address] Hgb 11.7 G/dL Low 12.0-16.0 [facility] [place] Comment on above: Performed By: #### T SKIP #### [address] [address] MCH (RBC) [Entitic mass] 21.4 pg Low 27.0-31.2 [facility] ([place] Comment on above: Performed By: #### T SKIP #### [address] [address] MCHC 32.1 G/dL Low 33.0-37.0 [facility] ([place] Comment on above: Performed By: #### T SKIP #### [address] [address] MCV (RBC) [Entitic vol] 66.8 fL Low 80.0-94.0 [facility] ([place] Comment on above: Performed By: #### T SKIP #### [address] [address] Platelet 247 10 3/mcL Normal 130-400 [facility] ([place] Comment on above: Performed By: #### T SKIP #### [address] [address] Platelet mean volume (Bld) [Entitic vol] 7.0 fL Low 7.4-10.4 [facility] [place] Comment on above: Performed By: #### T SKIP #### [address] [address] RBC 5.44 10 6/mcL High 4.20-5.40 [facility] ([place] Comment on above: Performed By: #### T SKIP #### [address] [address] WBC 5.0 10 3/mcL Normal 4.6-10.8 [facility] ([place] Comment on above: Performed By: #### Ana VALDIVIA #### [address] [address] LABORATORYOrdered By: SYSTEM SYSTEM on 03-27-2024 Troponin I.cardiac DL <= 0.01 ng/mL [Mass/Vol] ng/L Normal 0 - 51 ng/L AO ADM SS Comment on above: Interpretive Data: H igh Sensitive Troponin I Reference Ranges: Female: 0-51 ng/L Male: 0-76 ng/L Testing performed on [employer] using a homogeneous sandwich chemiluminescent immunoassay based on [facility] technology. Basophil %, Manual 0.0 % Normal 0.0 - 2.5 % AO Wo rkflow SS Basophil, Abs Manual 0.0 103/mcL Normal 0.0 - 0.2 10^3/mcL AO Workflow SS Calcium [Mass/Vol] 8.9 mg/dL Normal 8.4 - 10. 2 mg/dL AO ADM SS Chloride [Moles/Vol] 101 mmol/L Normal 98 - 107 mmol/L AO ADM SS CO2 [Moles/Vol] 31 mmol/L High 22 - 29 mmol/L AO ADM SS Creatinine [Mass/Vol] 0.89 mg/dL Normal 0.55 - 1.02 mg/dL AO ADM SS Electrolyte Balance 8.0 mEq/L Normal 4.0 - 15 .0 mEq/L AO ADM SS Eosinophil %, Manual 1.0 % Normal 0.0 - 7.0 % AO Workflow SS Eosinophils (Bld) [#/Vol] 0.1 103/mcL Normal 0.0 - 0.4 10^3/mcL AO Workflow SS Erythrocyte distribution width (RBC) [Ratio] 17.0 % High 11.5 - 14.5 % AO Workflow SS GFR/1.73 sq M.predicted among blacks MDRD (S/P/Bld) [Vol rate/Area] 87 ml/min/1.73sqm Invalid Interpretation Code AO Chemistry S Comment on above: Interpretive Data: GFR Population mean for , Non- Americans Ages 20-29 = 116 mL/min/1.73 sq.m. Ages 30-39 = 107 mL/min/1.73 sq.m. Ages 40-49 = 99 mL/min/1.73 sq.m. Ages 50-59 = 93 mL/min/1.73 sq.m. Ages 60-69 = 85 mL/min/1.73 sq.m. Ages 70+ = 75 mL/min/1.73 sq.m. Chronic Kidney Disease: Less than 60 mL/min/1.73 square meters End Stage Renal Disease: Less than 15 mL/min/1.73 square meters GFR/1.73 sq M.predicted among non-blacks MDRD (S/P/Bld) [Vol rate/Area] 72 ml/min/1.73sqm Invalid Interpretation Code AO Chemistry S Comment on above: Interpretive Data: GFR Population mean for , Non- Americans Ages 20-29 = 116 mL/min/1.73 sq.m. Ages 30-39 = 107 mL/min/1.73 sq.m. Ages 40-49 = 99 mL/min/1.73 sq.m. Ages 50-59 = 93 mL/min/1.73 sq.m. Ages 60-69 = 85 mL/min/1.73 sq.m. Ages 70+ = 75 mL/min/1.73 sq.m. Chronic Kidney Disease: Less than 60 mL/min/1.73 square meters End Stage Renal Disease: Less than 15 mL/min/1.73 square meters Glucose [Mass/Vol] 116 mg/dL High 70 - 105 mg/dL AO ADM SS Hematocrit (Bld) [Volume fraction] 36.3 % Low 37.0 - 47.0 % AO Workflow SS Hemoglobin (Bld) [Mass/Vol] 11.7 G/dL Low 12.0 - 16.0 G/dL AO Workflow SS Lymphocyte %, Manual 40.0 % Normal 10.0 - 50.0 % AO Workflow SS Lymphocyte, Abs Manual 2.0 103/mcL Normal 0.8 - 3.9 10^3/mcL AO Workflow SS MCH (RBC) [Entitic mass] 21.4 pg Low 27.0 - 31.2 pg AO Workflow SS MCHC 32.1 G/dL Low 33.0 - 37.0 G/dL AO Workflow SS MCV (RBC) [Entitic vol] 66.8 fL Low 80.0 - 94.0 fL AO Workflow SS Microcytes Ql (Bld) 1+ *NA* (03/27/24 1:16 AM) Invalid Interpretation Code AO Workflow SS Monocyte %, Manual 2.0 % Normal 1.7 - 13.0 % AO W orkflow SS Monocyte distribution width Auto (Bld) [Entitic vol] 19.85 1 Normal 0.00 - 20.00 AO Workflow SS Comment on above: Result Comment: For ED adult patients suspected of sepsis, MDW<=20.0 does not rule out sepsis or risk of sepsis Monocyte, Abs Manual 0.1 103/mcL Low 0.2 - 1.0 10^3/mcL AO Workflow SS Neutrophil %, Manual 57.0 % Normal 37.0 - 80.0 % AO Workflow SS Neutrophil, Abs Manual 2.8 103/mcL Low 2.9 - 6.2 10^3/mcL AO Workflow SS Nucleated RBC 0.0 /100 WBC Invalid Interpretation Code AO Workflow SS Ovalocytes LM Ql (Bld) 1+ *NA* (03/27/24 1:16 AM) Invalid Interpretation Code AO Workflow SS Platelet Estimate Normal *NA* (03/27/24 1:16 AM) Invalid Interpretation Code AO Workflow SS Platelet mean volume (Bld) [Entitic vol] 7.0 fL Low 7.4 - 10.4 fL AO Workflow SS Platelets (Bld) [#/Vol] 247 103/mcL Normal 130 - 400 10^3/mcL AO Workflow SS Potassium [Moles/Vol] 3.6 mmol/L Normal 3.5 - 5.1 mmol/L AO ADM SS RBC (Bld) [#/Vol] 5.44 106/mcL High 4.20 - 5.4 0 10^6/mcL AO Workflow SS Sodium [Moles/Vol] 140 mmol/L Normal 136 - 145 mmol/L AO ADM SS Troponin I.cardiac DL <= 0.01 ng/mL [Mass/Vol] ng/L Normal 0 - 51 ng/L AO ADM SS Comment on above: Interpretive Data: H igh Sensitive Troponin I Reference Ranges: Female: 0-51 ng/L Male: 0-76 ng/L Testing performed on [employer] using a homogeneous sandwich chemiluminescent immunoassay based on [facility] technology. Urea nitrogen [Mass/Vol] 10 mg/dL Normal 7 - 18 mg/dL AO ADM SS Urea nitrogen/Creatinine [Mass ratio] 11 ratio Normal 7 - 27 ratio AO ADM SS WBC (Bld) [#/Vol] 5.0 103/mcL Normal 4.6 - 10.8 10^3/mcL AO Workflow SS TROPHSon 03-27-2024 High Sensitivity Troponin I <4 Normal 0-51 [facility] [place] Comment on above: Result Comment: High Sensitive Troponin I Reference Ranges: Female: 0-51 ng/L Male: 0-76 ng/L Testing performed on [employer] using a homogeneous sandwich chemiluminescent immunoassay based on [facility] technology. Performed By: #### T [facility] #### [address] [address] High Sensitivity Troponin I <4 Normal 0-51 [facility] ([place] Comment on above: Result Comment: High Sensitive Troponin I Reference Ranges: Female: 0-51 ng/L Male: 0-76 ng/L Testing performed on [employer] using a homogeneous sandwich chemiluminescent immunoassay based on [facility] technology. Performed By: #### T [facility] #### [address] [address] XR CHEST 1 VIEWon 03-27-2024 XR CHEST 1 VIEW ORIGINAL EXAMINATION: ONE XRAY VIEW OF THE CHEST03/27/2024 2:15 am COMPARISON: Chest x-ray 03/19/2024 HISTORY: ORDERING SYSTEM PROVIDED HISTORY: Reason for Exam: chest pain FINDINGS: The cardiomediastinal silhouette is within normal limits. No focal consolidation or pulmonary edema. No pleural effusion or visible pneumothorax. No acute osseous abnormality. IMPRESSION: No acute radiographic finding. Preliminary Report was Dictated by a Resident Interpreted by: Farshad Mitchell MD Preliminary Report By: Diego Blake Electronically signed By Farshad Mitchell MD Dictated Date: 03/27/2024 2:20:44 AM Prelim Date: 03/27/2024 2:21:30 AM Sign Date: 03/27/2024 3:15:47 AM Ordering Provider: YIFAN SANDERS [facility] ([place]) .GFRon 03-19-2024 GFR 115 ml/min/1.73sqm Normal [facility] ([place] Comment on above: Result Comment: GFR Population mean for , Non- Americans Ages 20-29 = 116 mL/min/1.73 sq.m. Ages 30-39 = 107 mL/min/1.73 sq.m. Ages 40-49 = 99 mL/min/1.73 sq.m. Ages 50-59 = 93 mL/min/1.73 sq.m. Ages 60-69 = 85 mL/min/1.73 sq.m. Ages 70+ = 75 mL/min/1.73 sq.m. Chronic Kidney Disease: Less than 60 mL/min/1.73 square meters End Stage Renal Disease: Less than 15 mL/min/1.73 square meters Performed By: #### C MP, MORPH, DIFF, GFR, CBC, DIMER #### [address] [id number] [place], [place] [address] GFR Non- 95 ml/min/1.73sqm Normal [facility] ([place] Comment on above: Result Comment: GFR Population mean for , Non- Americans Ages 20-29 = 116 mL/min/1.73 sq.m. Ages 30-39 = 107 mL/min/1.73 sq.m. Ages 40-49 = 99 mL/min/1.73 sq.m. Ages 50-59 = 93 mL/min/1.73 sq.m. Ages 60-69 = 85 mL/min/1.73 sq.m. Ages 70+ = 75 mL/min/1.73 sq.m. Chronic Kidney Disease: Less than 60 mL/min/1.73 square meters End Stage Renal Disease: Less than 15 mL/min/1.73 square meters Performed By: #### C MP, MORPH, DIFF, GFR, CBC, DIMER #### [address] [address] .Manual Diffon 03-19-2024 Basophil %, Manual 0.0 % Normal 0.0-2.5 [facility] [place] Comment on above: Performed By: #### C MP, MORPH, DIFF, GFR, CBC, DIMER #### [address] [address] Basophil, Abs Manual 0.0 10 3/mcL Normal 0.0-0.2 [facility] ([place] Comment on above: Performed By: #### C MP, MORPH, DIFF, GFR, CBC, DIMER #### [address] [address] Eosinophil %, Manual 2.0 % Normal 0.0-7.0 [facility] ([place] Comment on above: Performed By: #### C MP, MORPH, DIFF, GFR, CBC, DIMER #### [address] [address] Eosinophil, Abs Manual 0.1 10 3/mcL Normal 0.0-0.4 [facility] ([place] Comment on above: Performed By: #### C MP, MORPH, DIFF, GFR, CBC, DIMER #### [address] [address] Lymphocyte %, Manual 21.0 % Normal 10.0-50.0 [facility] ([place] Comment on above: Performed By: #### C MP, MORPH, DIFF, GFR, CBC, DIMER #### [address] [address] Lymphocyte, Abs Manual 1.4 10 3/mcL Normal 0.8-3.9 [facility] ([place] Comment on above: Performed By: #### C MP, MORPH, DIFF, GFR, CBC, DIMER #### [address] [address] Monocyte %, Manual 13.0 % Normal 1.7-13.0 [facility] [place] Comment on above: Performed By: #### C MP, MORPH, DIFF, GFR, CBC, DIMER #### [address] [address] Monocyte, Abs Manual 0.9 10 3/mcL Normal 0.2-1.0 [facility] [place] Comment on above: Performed By: #### C MP, MORPH, DIFF, GFR, CBC, DIMER #### [address] [address] Neutrophil %, Manual 64.0 % Normal 37.0-80.0 [facility] [place] Comment on above: Performed By: #### C MP, MORPH, DIFF, GFR, CBC, DIMER #### [address] [address] Neutrophil, Abs Manual 4.2 10 3/mcL Normal 2.9-6.2 [facility] [place] Comment on above: Performed By: #### C MP, MORPH, DIFF, GFR, CBC, DIMER #### [address] [address] Nucleated RBC 0.0 /100 WBC Normal [facility] ([place] Comment on above: Performed By: #### C MP, MORPH, DIFF, GFR, CBC, DIMER #### [address] [address] .Morphon 03-19-2024 Anisocytosis Ql (Bld) 2+ Normal [facility] ([place] Comment on above: Performed By: #### C MP, MORPH, DIFF, GFR, CBC, DIMER #### [address] [address] Microcytosis 2+ Normal [facility] ([place] Comment on above: Performed By: #### C MP, MORPH, DIFF, GFR, CBC, DIMER #### [address] [address] Ovalocytes 1+ Normal [facility] ([place] Comment on above: Performed By: #### C MP, MORPH, DIFF, GFR, CBC, DIMER #### [address] [address] Platelet Estimate Normal Normal [facility] ([place] Comment on above: Performed By: #### C MP, MORPH, DIFF, GFR, CBC, DIMER #### [address] [address] CBCon 03-19-2024 Erythrocyte distribution width (RBC) [Ratio] 17.4 % High 11.5-14.5 [facility] ([place] Comment on above: Performed By: #### T SKIP #### [address] [address] Hematocrit (Bld) [Volume fraction] 37.3 % Normal 37.0-47.0 [facility] [place] Comment on above: Performed By: #### T SKIP #### [address] [address] Hgb 11.9 G/dL Low 12.0-16.0 [facility] [place] Comment on above: Performed By: #### T SKIP #### [address] [address] MCH (RBC) [Entitic mass] 21.5 pg Low 27.0-31.2 [facility] [place] Comment on above: Performed By: #### T SKIP #### [address] [address] MCHC 31.9 G/dL Low 33.0-37.0 [facility] [place] Comment on above: Performed By: #### T SKIP #### [address] [address] MCV (RBC) [Entitic vol] 67.3 fL Low 80.0-94.0 [facility] [place] Comment on above: Performed By: #### T SKIP #### [address] [address] Platelet 285 10 3/mcL Normal 130-400 [facility] [place] Comment on above: Performed By: #### T SKIP #### [address] [address] Platelet mean volume (Bld) [Entitic vol] 7.8 fL Normal 7.4-10.4 [facility] [place] Comment on above: Performed By: #### T SKIP #### [address] [address] RBC 5.54 10 6/mcL High 4.20-5.40 [facility] [place] Comment on above: Performed By: #### T SKIP #### [address] [address] WBC 6.7 10 3/mcL Normal 4.6-10.8 [facility] [place] Comment on above: Performed By: #### T SKIP #### [address] [address] CMPon 03-19-2024 Albumin Level 3.5 G/dL Normal 3.5-5.0 [facility] [place] Comment on above: Performed By: #### C MP, MORPH, DIFF, GFR, CBC, DIMER #### [address] [address] Albumin/Globulin [Mass ratio] 0.8 {ratio} Low 1.1-2.5 [facility] ([place] Comment on above: Performed By: #### C MP, MORPH, DIFF, GFR, CBC, DIMER #### [address] [address] ALP [Catalytic activity/Vol] 114 U/L Normal 40-135 [facility] ([place] Comment on above: Performed By: #### C MP, MORPH, DIFF, GFR, CBC, DIMER #### [address] [address] ALT [Catalytic activity/Vol] 32 U/L Normal 14-59 [facility] [place] Comment on above: Performed By: #### C MP, MORPH, DIFF, GFR, CBC, DIMER #### [address] [address] AST [Catalytic activity/Vol] 23 U/L Normal 10-40 [facility] [place] Comment on above: Performed By: #### C MP, MORPH, DIFF, GFR, CBC, DIMER #### [address] [address] Bili Total 0.2 mg/dL Normal 0.2-1.0 [facility] ([place] Comment on above: Result Comment: Use of this assay is not recommended for patients undergoing treatment with eltrombopag due to the potential for falsely elevated results. Performed By: #### C MP, MORPH, DIFF, GFR, CBC, DIMER #### [address] [address] BUN/Creatinine Ratio 10 ratio Normal 7-27 [facility] ([place] Comment on above: Performed By: #### C MP, MORPH, DIFF, GFR, CBC, DIMER #### [address] [address] Calcium [Mass/Vol] 9.0 mg/dL Normal 8.4-10.2 [facility] Comment on above: Performed By: #### C MP, MORPH, DIFF, GFR, CBC, DIMER #### [address] [address] Chloride [Moles/Vol] 102 mmol/L Normal 98-107 [facility] ([place] Comment on above: Performed By: #### C MP, MORPH, DIFF, GFR, CBC, DIMER #### [address] [address] CO2 [Moles/Vol] 30 mmol/L High 22-29 [facility] [place] Comment on above: Performed By: #### C MP, MORPH, DIFF, GFR, CBC, DIMER #### [address] [address] Creatinine [Mass/Vol] 0.70 mg/dL Normal 0.55-1.02 [facility] ([place] Comment on above: Performed By: #### C MP, MORPH, DIFF, GFR, CBC, DIMER #### [address] [address] Electrolyte Balance 8.0 mEq/L Normal 4.0-15.0 [facility] ([place]) Comment on above: Performed By: #### C MP, MORPH, DIFF, GFR, CBC, DIMER #### [address] [address] Globulin 4.2 G/dL Normal [facility] [place] Comment on above: Performed By: #### C MP, MORPH, DIFF, GFR, CBC, DIMER #### [address] [address] Glucose [Mass/Vol] 110 mg/dL High 70-105 [facility] [place] Comment on above: Performed By: #### C MP, MORPH, DIFF, GFR, CBC, DIMER #### [address] [address] Potassium [Moles/Vol] 3.9 mmol/L Normal 3.5-5.1 [facility] [place] Comment on above: Performed By: #### C MP, MORPH, DIFF, GFR, CBC, DIMER #### [address] [address] Sodium [Moles/Vol] 140 mmol/L Normal 136-145 [facility] [place] Comment on above: Performed By: #### C MP, MORPH, DIFF, GFR, CBC, DIMER #### [address] [address] Total Protein 7.7 G/dL Normal 6.4-8.2 [facility] [place] Comment on above: Performed By: #### C MP, MORPH, DIFF, GFR, CBC, DIMER #### [address] [place], [place] [address] Urea nitrogen [Mass/Vol] 7 mg/dL Normal 7-18 [facility] [place] Comment on above: Performed By: #### C MP, MORPH, DIFF, GFR, CBC, DIMER #### [address] [place], [place] [address] DIMERon 03-19-2024 D-Dimer <200 Normal 0-230 [facility] ([place] Comment on above: Result Comment: DDN: Results reported in D-DU ng/mL. Negative for D-dimer. DVT/PE is highly unlikely. Note: False negative results may be seen in patients on anticoagulant therapy. The result of the D-Dimer test should be evaluated in the context of all the clinical and laboratory data available. In those instances where the laboratory result does not agree with the clinical evaluation, additional tests should be performed accordingly. If the D-Dimer result is used to exclude DVT or PE, the recommended cutoff value is less than 230 ng/mL. The D-Dimer result should not be used alone to rule in DVT/PE, but should be used in conjunction with a clinical pretest probability (PTP)assessment model to exclude venous thromboembolism (VTE) in outpatients suspected of deep venous thrombosis (DVT) and pulmonary embolism (PE). Performed By: #### C MP, MORPH, DIFF, GFR, CBC, DIMER #### [address] [place], [place] [address] LABORATORYOrdered By: SYSTEM SYSTEM on 03-19-2024 Troponin I.cardiac DL <= 0.01 ng/mL [Mass/Vol] ng/L Normal 0 - 51 ng/L AO ADM SS Comment on above: Interpretive Data: H igh Sensitive Troponin I Reference Ranges: Female: 0-51 ng/L Male: 0-76 ng/L Testing performed on [employer] using a homogeneous sandwich chemiluminescent immunoassay based on [facility] technology. Troponin I.cardiac DL <= 0.01 ng/mL [Mass/Vol] ng/L Normal 0 - 51 ng/L AO ADM SS Comment on above: Interpretive Data: H igh Sensitive Troponin I Reference Ranges: Female: 0-51 ng/L Male: 0-76 ng/L Testing performed on [employer] using a homogeneous sandwich chemiluminescent immunoassay based on [facility] technology. Albumin BCP dye [Mass/Vol] 3.5 G/dL Normal 3.5 - 5.0 G/dL AO ADM SS Albumin/Globulin [Mass ratio] 0.8 {ratio} Low 1.1 - 2.5 ratio AO ADM SS ALP [Catalytic activity/Vol] 114 U/L Normal 40 - 135 U/L AO ADM SS ALT With P-5'-P [Catalytic activity/Vol] 32 U/L Normal 14 - 59 U/L AO ADM SS Anisocytosis Ql (Bld) 2+ *NA* (03/19/24 4:22 PM) Invalid Interpretation Code AO Workflow SS AST With P-5'-P [Catalytic activity/Vol] 23 U/L Normal 10 - 40 U/L AO ADM SS Basophil %, Manual 0.0 % Normal 0.0 - 2.5 % AO Wo rkflow SS Basophil, Abs Manual 0.0 103/mcL Normal 0.0 - 0.2 10^3/mcL AO Workflow SS Bilirubin [Mass/Vol] 0.2 mg/dL Normal 0.2 - 1.0 mg/dL AO ADM SS Comment on above: Interpretive Data: U se of this assay is not recommended for patients undergoing treatment with eltrombopag due to the potential for falsely elevated results. Calcium [Mass/Vol] 9.0 mg/dL Normal 8.4 - 10. 2 mg/dL AO ADM SS Chloride [Moles/Vol] 102 mmol/L Normal 98 - 107 mmol/L AO ADM SS CO2 [Moles/Vol] 30 mmol/L High 22 - 29 mmol/L AO ADM SS Creatinine [Mass/Vol] 0.70 mg/dL Normal 0.55 - 1.02 mg/dL AO ADM SS Electrolyte Balance 8.0 mEq/L Normal 4.0 - 15 .0 mEq/L AO ADM SS Eosinophil %, Manual 2.0 % Normal 0.0 - 7.0 % AO Workflow SS Eosinophils (Bld) [#/Vol] 0.1 103/mcL Normal 0.0 - 0.4 10^3/mcL AO Workflow SS Erythrocyte distribution width (RBC) [Ratio] 17.4 % High 11.5 - 14.5 % AO Workflow SS GFR/1.73 sq M.predicted among blacks MDRD (S/P/Bld) [Vol rate/Area] 115 ml/min/1.73sqm Invalid Interpretation Code AO Chemistry S Comment on above: Interpretive Data: GFR Population mean for , Non- Americans Ages 20-29 = 116 mL/min/1.73 sq.m. Ages 30-39 = 107 mL/min/1.73 sq.m. Ages 40-49 = 99 mL/min/1.73 sq.m. Ages 50-59 = 93 mL/min/1.73 sq.m. Ages 60-69 = 85 mL/min/1.73 sq.m. Ages 70+ = 75 mL/min/1.73 sq.m. Chronic Kidney Disease: Less than 60 mL/min/1.73 square meters End Stage Renal Disease: Less than 15 mL/min/1.73 square meters GFR/1.73 sq M.predicted among non-blacks MDRD (S/P/Bld) [Vol rate/Area] 95 ml/min/1.73sqm Invalid Interpretation Code AO Chemistry S Comment on above: Interpretive Data: GFR Population mean for , Non- Americans Ages 20-29 = 116 mL/min/1.73 sq.m. Ages 30-39 = 107 mL/min/1.73 sq.m. Ages 40-49 = 99 mL/min/1.73 sq.m. Ages 50-59 = 93 mL/min/1.73 sq.m. Ages 60-69 = 85 mL/min/1.73 sq.m. Ages 70+ = 75 mL/min/1.73 sq.m. Chronic Kidney Disease: Less than 60 mL/min/1.73 square meters End Stage Renal Disease: Less than 15 mL/min/1.73 square meters Globulin 4.2 G/dL Invalid Interpretation Code AO ADM SS Glucose [Mass/Vol] 110 mg/dL High 70 - 105 mg/dL AO ADM SS Hematocrit (Bld) [Volume fraction] 37.3 % Normal 37.0 - 47.0 % AO Workflow SS Hemoglobin (Bld) [Mass/Vol] 11.9 G/dL Low 12.0 - 16.0 G/dL AO Workflow SS Lymphocyte %, Manual 21.0 % Normal 10.0 - 50.0 % AO Workflow SS Lymphocyte, Abs Manual 1.4 103/mcL Normal 0.8 - 3.9 10^3/mcL AO Workflow SS MCH (RBC) [Entitic mass] 21.5 pg Low 27.0 - 31.2 pg AO Workflow SS MCHC 31.9 G/dL Low 33.0 - 37.0 G/dL AO Workflow SS MCV (RBC) [Entitic vol] 67.3 fL Low 80.0 - 94.0 fL AO Workflow SS Microcytes Ql (Bld) 2+ *NA* (03/19/24 4:22 PM) Invalid Interpretation Code AO Workflow SS Monocyte %, Manual 13.0 % Normal 1.7 - 13.0 % AO W orkflow SS Monocyte, Abs Manual 0.9 103/mcL Normal 0.2 - 1.0 10^3/mcL AO Workflow SS Neutrophil %, Manual 64.0 % Normal 37.0 - 80.0 % AO Workflow SS Neutrophil, Abs Manual 4.2 103/mcL Normal 2.9 - 6.2 10^3/mcL AO Workflow SS Nucleated RBC 0.0 /100 WBC Invalid Interpretation Code AO Workflow SS Ovalocytes LM Ql (Bld) 1+ *NA* (03/19/24 4:22 PM) Invalid Interpretation Code AO Workflow SS Platelet Estimate Normal *NA* (03/19/24 4:22 PM) Invalid Interpretation Code AO Workflow SS Platelet mean volume (Bld) [Entitic vol] 7.8 fL Normal 7.4 - 10.4 fL AO Workflow SS Platelets (Bld) [#/Vol] 285 103/mcL Normal 130 - 400 10^3/mcL AO Workflow SS Potassium [Moles/Vol] 3.9 mmol/L Normal 3.5 - 5.1 mmol/L AO ADM SS Protein [Mass/Vol] 7.7 G/dL Normal 6.4 - 8.2 G/dL AO ADM SS RBC (Bld) [#/Vol] 5.54 106/mcL High 4.20 - 5.4 0 10^6/mcL AO Workflow SS Sodium [Moles/Vol] 140 mmol/L Normal 136 - 145 mmol/L AO ADM SS Urea nitrogen [Mass/Vol] 7 mg/dL Normal 7 - 18 mg/dL AO ADM SS Urea nitrogen/Creatinine [Mass ratio] 10 ratio Normal 7 - 27 ratio AO ADM SS WBC (Bld) [#/Vol] 6.7 103/mcL Normal 4.6 - 10.8 10^3/mcL AO Workflow SS LABORATORYOrdered By: Yisel Escoto on 03-19-2024 Fibrin D-dimer DDU (PPP) [Mass/Vol] ng/mL D-DU Normal 0 - 230 ng/mL D-DU AO [facility] SS Comment on above: Result Comment: DDN: Results reported in D-DU ng/mL. Negative for D-dimer. DVT/PE is highly unlikely. Note: False negative results may be seen in patients on anticoagulant therapy. Interpretive Data: T he result of the D-Dimer test should be evaluated in the context of all the clinical and laboratory data available. In those instances where the laboratory result does not agree with the clinical evaluation, additional tests should be performed accordingly. If the D-Dimer result is used to exclude DVT or PE, the recommended cutoff value is less than 230 ng/mL. The D-Dimer result should not be used alone to rule in DVT/PE, but should be used in conjunction with a clinical pretest probability (PTP)assessment model to exclude venous thromboembolism (VTE) in outpatients suspected of deep venous thrombosis (DVT) and pulmonary embolism (PE). [facility] 03-19-2024 High Sensitivity Troponin I <4 Normal 0-51 [facility] ([place] Comment on above: Result Comment: High Sensitive Troponin I Reference Ranges: Female: 0-51 ng/L Male: 0-76 ng/L Testing performed on [employer] using a homogeneous sandwich chemiluminescent immunoassay based on [facility] technology. Performed By: #### F DENISE RUFF #### [place] [address] [address] High Sensitivity Troponin I <4 Normal 0-51 [facility] ([place] Comment on above: Result Comment: High Sensitive Troponin I Reference Ranges: Female: 0-51 ng/L Male: 0-76 ng/L Testing performed on [employer] using a homogeneous sandwich chemiluminescent immunoassay based on [facility] technology. Performed By: #### T DANAY #### [place] [address] [address] XR CHEST 2 VIEWSon XR CHEST 2 VIEWS ORIGINAL EXAMINATION: TWO XRAY VIEWS OF THE CHEST03/19/2024 4:10 pm COMPARISON: 04/03/2022 HISTORY: ORDERING SYSTEM PROVIDED HISTORY: Reason for Exam: cough, left chest pain post Covid FINDINGS: Cardiomediastinal contours are within normal limits. No focal consolidation or pulmonary edema. No pneumothorax or pleural effusion. No acute osseous abnormalities. IMPRESSION: No acute radiographic findings. I have personally reviewed the images of this examination and agree with the resident's findings and interpretation. Interpreted by: Sam Gar MD Preliminary Report By: Honey Valentin Electronically signed By Sam Gar MD Dictated Date: 03/19/2024 4:17:20 PM Prelim Date: 03/19/2024 4:23:34 PM Sign Date: 03/19/2024 4:23:34 PM Ordering Provider: KEVIN TATE [facility] ([place]) CNOVon 11-21-2023 CNOV Office Visit (RHBATH ) -- SANTA TAYLOR ([id number]) 1990 F Date Time Provider Department 11/21/23 9:00 AM JEFF HOWARD During your visit today, we recorded the following information about you: Temperature Pulse Respiration Blood pressure 97.9 degrees 89/minute 14/minute 131/69 Weight Height Last Period 112 kg 1.702 m 11/14/23 Jeff Howard PA-C 11/21/2023 9:41 AM Signed [facility] Jeff Howard [address] [place] [address] Subjective Last OV: 10/02/23 HPI: Santa Taylor is a 33 year old female who presents for follow up of rash, +REMA. She continues to see dermatology at [facility]. Previously was seeing [facility] rheum, but didn't like seeing them - had a bad experience there. On topical therapy with dermatology. Does help some, but doesn't control it. Has been okay over the last month or two. She is off Plaquenil, has been off for at least 6 months. She has no rashes today. Still with skin irritation, but no rashes. Redness from her very first rash on her arms resolved. Patient denies intermittent history of serositis, Raynaud?s, lymphadenopathy, pleurisy, pericarditis, inflammatory joint disease, miscarriages, DVTs, hematuria, hemoptysis, chondritis, dry eyes/mouth/vagina, ocular/oral/nasal ulcers. Rheumatologic disease history: 10/02/23 virtual Seen by jamie cortez. Diagnosed with lupus 2018 (presented with rash which started with sun burn) and been on Plaquenil. Issues with nose, scalp, groin, given steroid creams. Photosensitive. She had a skin biopsy. Not sure of the results but was told once she had SCLE. She had another biopsy in groin area inflammation . Notes reviewed from derm which also mentions - Hidradenitis suppurativa , seborrheic dermatitis. Recurrent ear infections. External usually. Saw ENT. Was told she has eczema and leads to ear infections. Denies joint pain. Other than right foot plantar fasciitis. Low vit d Family h/o autoimmune disease - grandmother and father with arthritis, father with raynaud's phenomenon, possible psoriasis Smoking - active Interval Review of Systems CONSTITUTIONAL: Recent Weight change: No Fever: No EENT: Dryness in eyes: No Dryness of mouth: No Oral ulcers: No CARDIOVASCULAR: Pain in chest: No RESPIRATORY: Shortness of breath: No Cough: No GASTROINTESTINAL: Nausea: No Vomiting: No Changes in bowel movements: No Heartburn: No MUSCULOSKELETAL: Per HPI INTEGUMENTARY: Rash: No NEUROLOGICAL SYSTEM: Headaches: No All other ROS reviewed, pertinent positives in HPI PAST MEDICAL HISTORY Diagnosis Date Depression PAST SURGICAL HISTORY Procedure Laterality Date CHOLECYSTECTOMY TONSILLECTOMY HX History Review: I have reviewed and modified as needed, the following during this visit: Allergies, Past Medical History, Past Surgical History, Past Family History, Past Social History. Physical Exam BP 131/69 Pulse 89 Temp 36.6 ?C (97.9 ?F) (Temporal) Resp 14 Ht 170.2 cm (5' 7 ) Wt 112 kg (247 lb) LMP 11/14/2023 (Approximate) BMI 38.69 kg/m? GENERAL: Well appearing, alert, comfortable, in no acute distress, well-hydrated, well nourished. HEENT: Negative for external ears normal. Canals are clear. Eye Exam normal. External nose normal, no nasal ulcer or throat ulcer. NECK: NECK Supple, no adenopathy CARDIAC: regular rate and rhythm, No murmur asculated., and Equal peripheral pulses RESPIRATORY: Lungs clear to auscultation. No wheezing, rhonchi, rales NEURO: Motor and sensory exam normal MOTOR: Normal; including tone, gait, stressed gait, power and coordination. SKIN: Negative for alopecia, skin rash, malar rash, skin lesion, skin ulcer, pits, thickening, color changes, telangiectasias, nail changes, nail ridging, nail pitting, onycholysis MUSCULOSKELETAL: no synovitis or swelling, no tenderness, full ROM of extremities Recent Lab Results: Serologies / biopsy: 10/15/2023 G6PD: 15.6 TPMT: 27.3 Hep B and Hep C - negative REMA 1:160, SSA 7.1 Neg anti ds DNA, Sm, BUSINESS SUPPORT LIAISON, C3, C4, khoa-1, APLS, QIG, hep C, ANCA, RF, CCP 06/2019 Rheum consult [facility] note: SKIN, LEFT FOREARM, PUNCH - VACUOLAR INTERFACE DERMATITIS WITH INCREASED DERMAL MUCIN Comment: This cutaneous pattern of injury is most supportive of a connective tissue disease such as systemic lupus erythematosus, subacute cutaneous lupus erythematosus, or dermatomyositis. Classic histologic features of polymorphous light eruption including a deep perivascular inflammatory infiltrate and prominent papillary dermal edema are not identified. Morphological features of porphyria are not identified. If the patient's symptoms persist or worsen, a repeat biopsy is recommended. 03/2022: [facility] [employer]AD [employer]LECT[employer] ENGINEER DIAG (more content not included)... Normal [facility] CNPNon 11-13-2023 CNPN Telephone (RHBATH) -- SANTA TAYLOR ([id number]) 1990 F Date Time Provider Department 11/13/23 KEISHA GONCALVES RHBSAMSON During your visit today, we recorded the following information about you: Keisha Goncalves MD 11/13/2023 2:36 PM Signed Just following up to see if we received her 2 skin biopsy results Lucita Clark LPN 11/21/2023 12:44 PM Signed Patient was evaluated in office today by Jeff. She was able to find the results in Care Everywhere. One of the results is cut and pasted to today's note. Lucita Clark LPN Allergies As of Date: 11/13/2023 Noted Allergy Reaction LAMOTRIGINE 04/07/2019 4 - Hives 1 - Mental Status Change 14 - Other: See Comments 2 - Rash Comments: Developed full body rash/hives 7 days after starting medication Developed full body rash/hives 7 days after starting medication AZATHIOPRINE 06/07/2018 14 - Other: See Comments Comments: Other reaction(s): Other (See Comments) Severe pain/flu like sx Severe pain/flu like sx Severe pain/flu like sx Severe pain/flu like sx CIPROFLOXACIN 01/18/2018 4 - Hives CLINDAMYCIN 11/21/2022 4 - Hives 14 - Other: See Comments Comments: Other reaction(s): Hives LITHIUM 11/21/2022 4 - Hives OXCARBAZEPINE 11/21/2022 14 - Other: See Comments 4 - Hives Date Reviewed: 08/30/2023 Reviewed by: Jorge Dean MD - Fully Assessed Reason for Visit: Results [95] Prescriptions as of 11/21/2023 - cariprazine (VRAYLAR) 4.5 mg capsule Take 4.5 mg by mouth once daily. - VRAYLAR 3 mg capsule Take 1 capsule by mouth every afternoon. - Cholecalciferol, Vitamin D3, 25 mcg (1,000 unit) cap Take by mouth as directed. - clobetasol (TEMOVATE) 0.05 % ointment Apply to affected areas BID x 2 weeks Stop using when clear. Repeat as needed for flares. Do not use on face, armpits, groin. - fluticasone (FLONASE) 50 mcg/actuation nasal spray - ketoconazole (NIZORAL) 2 % shampoo WASH SCALP 3 TO 4 TIMES PER WEEK. ALLOW TO SIT FOR 3 MINUTES BEFO... (REFER TO PRESCRIPTION NOTES). - multivit,thx,calcium,iron, mins (MULTIVITAMIN AND MINERAL ORAL) Take by mouth. Problem List As Of Date 11/13/2023 Noted Resolved Chronic eczematoid otitis externa of both ears *09/03/2023 Encounter Status:Closed by KEISHA GONCALVES on 11/13/23 Normal [facility] G-6-PD QUANTITATIVEon 2023 G6PD (RBC) [Catalytic activity/Mass] 15.6 U/g Hb High 9.8-15.5 [facility] Comment on above: Order Comment: Jyoti moreno Type: BLOOD SPECIMEN Ordering Facility: [facility] Address: [address] [place] [address] Result Comment: Ther e is no known clinical significance of G6PD activity results above the reference interval. This test was developed and its performance characteristics determined by [facility] [place] ([facility]). It has not been cleared or approved by the FDA. [facility] is regulated under CLIA as qualified to perform high-complexity testing. This test is used for clinical purposes. It should not be regarded as investigational or for research. Performed By: #### Q TG6PD #### [facility] CLIA [id number] [address] [place] [address] [place] HBV core Ab Ser Qlon 024 HBV core Ab Ql (S) Negative Normal Negative [facility] Comment on above: Order Comment: Jyoti moreno Type: BLOOD SPECIMEN Ordering Facility: [facility] Address: [address] [place] [address] Result Comment: No e vidence of current or past infection with Hepatitis B virus. Should recent infection be suspected, repeat testing may be considered 3-4 weeks after this draw. Performed By: #### 1 6933-4 #### [facility] CLIA [id number] [address] [place] [address] [place] HBV surface Ab Ql (S)on HBV surface Ab Qn (S) 3.50 mIU/mL Normal [facility] Comment on above: Order Comment: Speci men Type: BLOOD SPECIMENOrdering Facility: [facility] Address: [address] [place] [address] Result Comment: <8.5 mIU/mL: No serological evidence of immunity to Hepatitis B Virus. >/= 8.5 to <11.5 mIU/mL: No serological evidence of immunity to Hepatitis B Virus. >/= 11.5 mIU/mL: Consistent with serological evidence of immunity to Hepatitis B Virus. Performed By: #### 2 2322-2 ####[facility] LABORATORYCLIA [id number] [address] HBV surface Ab Ser Qlon HBV surface Ab Ql (S) Negative Normal [facility] Comment on above: Order Comment: [facility] Type: BLOOD SPECIMENOrdering Facility: [facility] Address: [address] [place] [address] Result Comment: No s erological evidence of immunity to Hepatitis B Virus. Performed By: #### 2 2322-2 ####[facility] [id number] [address] OF [facility] HBV surface Ag Ser Qlon HBV surface Ag Ql (S) Non-Reactive Normal Nonreactive [facility] Comment on above: Order Comment: Jyoti [facility] Type: BLOOD SPECIMENOrdering Facility: [facility] Address: [address] [place] [address] Performed By: #### 5 195-3 ####[facility] LABORATORYCLIA [id number] [address] HCV Ab Ser Qlon 10-15-2023 HCV Ab Ql (S) Non-Reactive Normal Nonreactive [facility] Comment on above: [facility]: BLOOD [facility]CIMEN Ordering Facility: [facility] Address: [address] [place] [address] Result Comment: The result suggests no evidence of active infection with Hepatitis C virus. Should recent infection be suspected, repeat testing may be considered 4-6 weeks after this draw. Performed By: #### 1 6128-1 #### [facility] CLIA [id number] [address] [place] [address] [place] Office Visiton 10-15-2023 Follow-up visit [id number] Santa Taylor 1990 F Date Provider Department Center 10/15/2023 [id number] [facility] None Family History Problem Relation Age of Onset Hearing loss Brother Family Status - Relation Status Age at Mother Alive Father Alive Brother Alive Brother Alive Level of Service:00179 HI OFFICE/OUTPATIENT ESTABLISHED MOD MDM 30 MIN Reason for Visit and Comments: Seborrheic Dermatitis [[id number]] - (LMS) [facility] Progress Noteon 10-15-2023 Progress Note DATE OF SERVICE: 10/15 PATIENT NAME: Santa Taylor : 1990 AGE: 32 y.o. CLINIC NUMBER: [id number] Visit type: Established patient Chief Complaint Patient presents with Seborrheic Dermatitis (LMS) Subjective HISTORY OF PRESENT ILLNESS: This is a 32 y.o. female who presents for evaluation of Lupus; last seen 04/12/23. Tx: Clobetasol ointment BID/prn flares and Flonase prn flares for issues inside nose. Pt was also currently taking Plaquenil 400 mg daily-Pt states she is seeing a different Client Engagement Manager who states she does not think her skin issues are Lupus, so she had her stop this a couple months ago. Pt states her skin flares come and go. Pt states her Rheum mentioned possibly starting methotrexate. Skin is currently under control with no flaring. Elan derm of scalp. Tx: Ketoconazole shampoo 3x week. Pt states she ran out if this, but feels this does help when she has it. Pt states she has been having recurrent ear infections that start on the outside of the ear and leads to an actual ear infection. Pt states she does see ENT for this who prescribed Clobetasol ointment with improvement of symptoms. Review of Systems Orders Placed This Encounter Medications ketoconazole (NIZOral) 2 % shampoo Sig: Use to wash the scalp 3 to 4 times weekly allowing to sit 3 minutes before rinsing. May use regular shampoo and condition after. Dispense: 120 mL Refill: 3 clobetasol (Temovate) 0.05 % external solution Sig: Apply to affected areas on scalp BID x 6 weeks Stop using when clear. Repeat as needed for flares. Do not use on face, armpits, groin. Dispense: 50 mL Refill: 2 There were no vitals filed for this visit. PHYSICAL EXAM GENERAL APPEARANCE: Alert & oriented x3, pleasant. Well developed, well nourished. PSYCH: appropriate mood and affect DERMATOLOGY: (all measurements are in cm, unless otherwise noted) 1. Seborrheic dermatitis Scalp No current flares [x]Chronic []Acute [x]Stable []Flaring/Exacerbation - Educated and reassured. Treatment options, risks, benefits, and expectations reviewed. Start: - Ketoconazole 2% shampoo- Use to wash the scalp 3 to 4 times weekly allowing to sit 3 minutes before rinsing. May use regular shampoo and condition after. - Clobetasol 0.05% solution- Apply to affected areas on scalp BID x 6 weeks Stop using when clear. Repeat as needed for flares. Do not use on face, armpits, groin. Related Medications clobetasol (Temovate) 0.05 % ointment Apply to affected areas BID x 2 weeks Stop using when clear. Repeat as needed for flares. Do not use on face, armpits, groin. ketoconazole (NIZOral) 2 % shampoo Use to wash the scalp 3 to 4 times weekly allowing to sit 3 minutes before rinsing. May use regular shampoo and condition after. clobetasol (Temovate) 0.05 % external solution Apply to affected areas on scalp BID x 6 weeks Stop using when clear. Repeat as needed for flares. Do not use on face, armpits, groin. 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 Treatment options, risks, benefits, and expectations reviewed. Patient advised to contact office if skin flares before next follow up in order to re-biopsy and confirm diagnosis. Recommend continuing to follow with rheumatology. Patient expresses understanding and is agreeable to plan. Continue: - Clobetasol 0.05% ointment BID/PRN flares - Flonase PRN for flares to the nostrils. Related Medications clobetasol (Temovate) 0.05 % ointment Apply to affected areas BID x 2 weeks Stop using when clear. Repeat as needed for flares. Do not use on face, armpits, groin. hydroxychloroquine (Plaquenil) 200 MG tablet 400 mg daily Follow up in about 6 months (around 04/14/2024) for Lupus f/u. Fanny Garza PA-C 10/15/23 1:58 PM REFERRING MD: [facility] TPMT PHENOTYPE/ENZYME ACTIVI Cheng 10-15-2023 TPMT ACTIVITY 27.3 U/mL Normal 24.0-44.0 [facility] Comment on above: Order Comment: Speci men Type: BLOOD SPECIMEN Ordering Facility: [facility] Address: [address] [place] [address] Result Comment: INTE RPRETIVE INFORMATION: Thiopurine Methyltransferase, RBC Normal TPMT activity: 24.0-44.0 U/mL................Individuals are predicted to be at low risk of bone marrow toxicity (myelosuppression) as a consequence of standard thiopurine therapy; no dose adjustment is recommended. Intermediate TPMT activity: 17.0-23.9 U/mL................Individuals are predicted to be at intermediate risk of bone marrow toxicity (myelosuppression) as a consequence of standard thiopurine therapy; a dose reduction and therapeutic drug management is recommended. Low TPMT activity: less than 17.0 U/mL...........Individuals are predicted to be at high risk of bone marrow toxicity (myelosuppression) as a consequence of standard thiopurine dosing. It is recommended to avoid the use of thiopurine drugs. High TPMT activity: greater than 44.0 U/mL........Individuals are not predicted to be at risk for bone marrow toxicity (myelosuppression) as a consequence of standard thiopurine dosing, but may be at risk for therapeutic failure due to excessive inactivation of thiopurine drugs. Individuals may require higher than the normal standard dose. Therapeutic drug management is recommended. The TPMT, RBC assay is used as a screen to detect individuals with low and intermediate TPMT activity who may be at risk for myelosuppression when exposed to standard doses of thiopurines, including azathioprine (Imuran) and 6-mercaptopurine (Purinethol). TPMT is the primary metabolic route for inactivation of thiopurine drugs in the bone marrow. When TPMT activity is low, it is predicted that proportionately more 6-mercaptopurine can be converted into the cytotoxic 6-thioguanine nucleotides that accumulate in the bone marrow causing excessive toxicity. The activity of TPMT is measured by the nanomoles of 6-methylmercaptopurine (inactive metabolite) produced per 1 mL of packed red blood cells, (U/mL). TPMT phenotype testing does not replace the need for clinical monitoring of patients treated with thiopurine drugs. Genotype for TPMT cannot be inferred from TPMT activity (phenotype). Phenotype testing should not be requested for patients currently treated with thiopurine drugs. Current TPMT phenotype may not reflect future TPMT phenotype, particularly in patients who received blood transfusion within 30-60 days of testing. TPMT enzyme activity can be inhibited by several drugs such as: naproxen (Aleve), ibuprofen (Advil, Motrin), ketoprofen (Orudis), furosemide (Lasix), sulfasalazine (Azulfidine), mesalamine (Asacol), olsalazine (Dipentum), mefenamic acid (Ponstel), thiazide diuretics, and benzoic acid inhibitors. TPMT inhibitors may contribute to falsely low results; patients should abstain from these drugs for at least 48 hours prior to TPMT testing. Falsely low results may also occur as a result of inappropriate specimen handling and hemolysis. This test was developed and its performance characteristics determined by [facility] It has not been cleared or approved by the [place] Food and Drug Administration. This test was performed in a CLIA certified laboratory and is intended for clinical purposes. Performed By: [facility] [address] [place] [address] Windows Software Engineer: Jaswinder Sarmiento MD, PhD CLIA Number: [id number] Performed By: #### T PMT #### [facility] [employer] CLIA [id number] [address] [place], [place] [id number] [facility] 08-30-2023 [facility] Office Visit (OTFGFL ) -- SANTA TAYLOR ([id number]) 1990 F Date Time Provider Department 08/30/23 3:15 PM JORGE DEAN OTFGFL During your visit today, we recorded the following information about you: Pulse Respiration Blood pressure Weight 112/minute 16/minute 136/88 112.9 kg Height 1.702 m Jorge Dean MD 08/30/2023 3:55 PM Addendum Use a small amount of the clobetasol ointment you have at home daily in the ears and in the nostrils. You may stop using it in the nostrils when they feel better. If the ears feel better consider using it only once a week. Use nasal saline gel and nasal saline spray for the dry nose. Jorge Dean MD 09/03/2023 4:53 PM Signed [place]: Santa Masha Krishnanazaninalexy is a 32 year old, White, female who presents, I am here about my ears . She has a couple of years of ear problems. She was seen at Dr. Brown's office and had a normal audiogram. She describes getting dry, irritated skin and sometimes fluid leakage from both ear canals. She has a similar problem with dry cracked skin in her nostrils (intermittently). She has been treated with oral antibiotics, oral steroids and occasionally eardrops. Her PCP has diagnosed her with acute otitis media. She does not have general bleeding or bruising problems and does not use aspirin or blood thinners. SUBJECTIVE: I reviewed the allergies, medications, problem list, PMH/PSH, FmHx and SocHx as documented in Epic chart. PHYSICAL EXAM: VS: BP 136/88 Pulse 112 Resp 16 Ht 170.2 cm (5' 7 ) Wt 112.9 kg (249 lb) LMP 01/14/2018 (Exact Date) BMI 39.00 kg/m? CONST/MS: The patient appears to be in NAD and has a normal voice quality. H/F/N: The facial strength is normal. There are no palpable salivary gland, thyroid or neck masses. Ears: The external ears and canals are without lesions, but the left erin has red dry skin and the left canal has red dry skin while the right canal has slightly dry skin. Each TM is intact and mobile on pneumatic otoscopy. Nose: The external nose has both nostrils with red dry cracked skin. The nasal mucosa appears slightly dry on nasal speculum exam. The septum is nonobstructive. The IT are not hypertrophic. OC/OP: The upper lip has a benign-appearing nevus. The gums are without lesions. The tongue/oral mucosa is healthy. The hard/soft palate, tonsil fossa and posterior pharynx are without lesions. The teeth have some crowns and fillings. FRESH FOODS CLERK: The mirror exam is without obvious lesion. HP/LX: The mirror exam is without obvious lesion hypopharynx but the epiglottis blocked view of the larynx. OBJECTIVE: I reviewed the PCP notes. ASSESSMENT AND PLAN: I counseled the patient about the differential diagnosis, natural course, treatment options and answered their questions for 1. Chronic eczematoid otitis externa of both ears - ICD9: 380.23, ICD10: H60.8X3 (primary diagnosis) 2. Nasal vestibulitis - ICD9: 478.19, ICD10: J34.89 3. Dry nose - ICD9: 478.19, ICD10: J34.89 She was counseled to use nasal saline gel and nasal saline spray for the dry mucosa. She was counseled to use a small amount of the clobetasol ointment she has at home daily in the ears and in the nostrils. She may stop using it in the nostrils once they feel better but should continue to use it in the ears once a week. Return in about 2 months (around 10/31/2023) for Ears, Nose. Jorge Dean MD 50 minutes Total time including preparation, obtaining/reviewing history, exam, interpreting results, ordering, counseling/education, referring/communicating and documentation. Created using voice recognition software, some errors may have occurred. Corrections may be performed at a later date. Referring Provider: ANN SOTO (FRESH FOODS CLERK) [[id number]] Allergies As of Date: 08/30/2023 Noted Allergy Reaction LAMOTRIGINE 04/07/2019 4 - Hives 1 - Mental Status Change 14 - Other: See Comments 2 - Rash Comments: Developed full body rash/hives 7 days after starting medication Developed full body rash/hives 7 days after starting medication AZATHIOPRINE 06/07/2018 14 - Other: See Comments Comments: Other reaction(s): Other (See Comments) Severe pain/flu like sx Severe pain/flu like sx Severe pain/flu like sx Severe pain/flu like sx CIPROFLOXACIN 01/18/2018 4 - Hives CLINDAMYCIN 11/21/2022 4 - Hives 14 - Other: See Comments Comments: Other reaction(s): Hives LITHIUM 11/21/2022 4 - Hives OXCARBAZEPINE 11/21/2022 14 - Other: See Comments 4 - Hives Date Reviewed: 08/30/2023 Reviewed by: Jorge Dean MD - Fully Assessed Reason for Visit: Ear Problem [38] Cmt: Reoccurring ear infections Primary Visit Diagnosis:Chronic eczematoid otitis externa of both ears [H60.8X3] Other Visit Diagnoses:Nasal vestibulitis [J34.89] Dry nose [J34.89] Prescriptions as of 09/03/2023 - VRAYLAR 3 mg capsule (more content not included)... Normal [facility] -- SANTA TAYLOR ([id number]) 1990 F Date Time Provider Department 08/17/23 ULYSSES PURVIS During your visit today, we recorded the following information about you: Ana Ontiveros 08/17/2023 1:37 PM Signed ----- Message from Sylvia Guadarrama sent at 08/17/2023 1:10 PM EST ----- Regarding: Rheu/NEW/ Lupus / wants a second opinion Contact: Patient has been identified by name and Date of (Y/N): y Patient: Santa Taylor Date of : 1990 Provider for this encounter: NEW Reason for the call/escalation: Patient Diagnosed with Lupus would like a second opinion currently a [facility] Patient / Per question we ask I am unable to schedule/ Please reach out Was Patient Referred to [facility]/Seek Emergency Treatment (Y/N): n Did Patient Agree (Y/N): n Was An Attempt Made To Transfer The Patient To The Office (Y/N): n Were You Able To Reach Someone At The Office (Y/N): n If Yes - Patient Was Transferred To (Caregivers Name): n If No - Which [facility] Leadership Lab Tech Did You Speak With Regarding This Patient: n Was an appointment scheduled (Y/N): n Reason patient was requesting visit (RFV/signs and symptoms/diagnosis) : Diagnosed with Lupus would like a second opinion Person calling if other than patient: n Return call to if other than patient: n Best contact number: [phone] Thank you, Sylvia Guadarrama August 17, 2023 1:10 PM Ana Ontiveros 08/17/2023 1:38 PM Signed Called patient and left message to call back. Ana Conner Allergies As of Date: 08/17/2023 Noted Allergy Reaction CIPROFLOXACIN 01/18/2018 4 - Hives Date Reviewed: 03/01/2018 Reviewed by: Jason Sanders - Fully Assessed Reason for Visit: Appointment [186] Prescriptions as of 08/17/2023 - iv contrast (will be provided with radiology test) CT Enterography W Inject, intravenously, once for 1 dose.No IV access, insert saline lock prior to the beginning of sedation, infusion, injection of imaging exam. Discontinue saline lock post exam. If Pt. has a central line or IVAD, may access for administration according to line specific nursing protocol. Once exam is complete flush line and de-access according to line specific nursing protocol in the CT contrast administration guidelines link. - enteric contrast (will be provided with radiology test) For CT ENTEROGRAPHY W IVCON order Administer, As Directed One Time Only, via Oral, Rectal, both Oral and Rectal, Enteric Tube, Stoma or Indwelling Catheter,? Enteric Contrast as designated per enteric contrast guidelines. - Cholestyramine-Aspartame (CHOLESTYRAMINE LIGHT) 4 gram powder Take by mouth three times daily with meals. - Doxycycline Hyclate 100 mg EC tablet Take 100 mg by mouth twice daily. - L. rhamnosus GG/inulin (CULTURELLE PROBIOTICS ORAL) Take by mouth. Problem List As Of Date: 08/17/2023 (None) Encounter Status:Closed by ANA ONTIVEROS on 08/17/23 Normal [facility] MRI BRAIN W/ + W/O CONTRASTo n 08-09-2023 MRI BRAIN W/ + W/O CONTRAST ORIGINAL EXAMINATION: MRI OF THE BRAIN WITHOUT AND WITH CONTRAST 08/09/2023 3:21 pm TECHNIQUE: Multiplanar multisequence MRI of the head/brain was performed without and with the administration of intravenous contrast. COMPARISON: CT facial 02/27/2021, CT sinuses 02/08/2023. HISTORY: ORDERING SYSTEM PROVIDED HISTORY: Reason for Exam: Worst headache of life, persistent headaches x 1 months FINDINGS: INTRACRANIAL STRUCTURES/VENTRICLES: There is no acute infarct. No mass effect or midline shift. No evidence of an acute intracranial hemorrhage. The ventricles and sulci are normal in size and configuration. The sellar/suprasellar regions appear unremarkable. The normal signal voids within the major intracranial vessels appear maintained. No abnormal focus of enhancement is seen within the brain. ORBITS: The visualized portion of the orbits demonstrate no acute abnormality. SINUSES: Mild mucosal thickening of the maxillary sinuses and ethmoidal air cells. Nonspecific opacification of the bilateral mastoid air cells, right greater than left. BONES/SOFT TISSUES: The bone marrow signal intensity appears normal. The soft tissues demonstrate no acute abnormality. IMPRESSION: No acute intracranial abnormality. Right greater than left bilateral mastoid air cell effusion. I have personally reviewed the images of this examination and agree with the resident's findings and interpretation. Interpreted by: Han Chambers MD Preliminary Report By: Arash Edmond Electronically signed By Han Chambers MD Dictated Date: 08/09/2023 3:23:34 PM Prelim Date: 08/09/2023 3:56:43 PM Sign Date: 08/09/2023 3:56:43 PM Ordering Provider: TERESE Melendez [facility] [place] .Auto Diffon 08-03-2023 Basophil, Absolute 0.0 10 3/mcL Normal 0.0-0.2 [facility] ([place] Comment on above: Performed By: #### T SKIP #### [address] [address] Basophils/100 WBC (Bld) 0.5 % Normal 0.0-2.5 [facility] [place] Comment on above: Performed By: #### T SKIP #### [address] [address] Eosinophil, Absolute 0.2 10 3/mcL Normal 0.0-0.4 [facility] [place] Comment on above: Performed By: #### T SKIP #### [address] [address] Eosinophils/100 WBC (Bld) 3.6 % Normal 0.0-7.0 [facility] [place] Comment on above: Performed By: #### T ROPMELISSA #### [address] [address] Lymphocyte, Absolute 1.8 10 3/mcL Normal 0.8-3.9 [facility] [place] Comment on above: Performed By: #### T SKIP #### [address] [address] Lymphocytes/100 WBC (Bld) 27.4 % Normal 10.0-50.0 [facility] [place] Comment on above: Performed By: #### T ROPMELISSA #### [address] [address] Monocyte, Absolute 0.7 10 3/mcL Normal 0.2-1.0 [facility] ([place] Comment on above: Performed By: #### T ROPMELISSA #### [address] [address] Monocytes/100 WBC (Bld) 10.9 % Normal 1.7-13.0 [facility] [place] Comment on above: Performed By: #### T SKIP #### [place] [address] [address] Neutrophils/100 WBC (Bld) 57.6 % Normal 37.0-80.0 [facility] [place] Comment on above: Performed By: #### T SKIP #### [place] [address] [address] .GFRon 08-03-2023 GFR Non- 83 ml/min/1.73sqm Normal [facility] [place] Comment on above: Result Comment: GFR Population mean for , Non- Americans Ages 20-29 = 116 mL/min/1.73 sq.m. Ages 30-39 = 107 mL/min/1.73 sq.m. Ages 40-49 = 99 mL/min/1.73 sq.m. Ages 50-59 = 93 mL/min/1.73 sq.m. Ages 60-69 = 85 mL/min/1.73 sq.m. Ages 70+ = 75 mL/min/1.73 sq.m. Chronic Kidney Disease: Less than 60 mL/min/1.73 square meters End Stage Renal Disease: Less than 15 mL/min/1.73 square meters Performed By: #### T SKIP #### [place] [address] [address] GFR 101 ml/min/1.73sqm Normal [facility] [place] Comment on above: Result Comment: GFR Population mean for , Non- Americans Ages 20-29 = 116 mL/min/1.73 sq.m. Ages 30-39 = 107 mL/min/1.73 sq.m. Ages 40-49 = 99 mL/min/1.73 sq.m. Ages 50-59 = 93 mL/min/1.73 sq.m. Ages 60-69 = 85 mL/min/1.73 sq.m. Ages 70+ = 75 mL/min/1.73 sq.m. Chronic Kidney Disease: Less than 60 mL/min/1.73 square meters End Stage Renal Disease: Less than 15 mL/min/1.73 square meters Performed By: #### T SKIP #### [address] [address] .Morphon 08-03-2023 Microcytosis 1+ Normal [facility] [place] Comment on above: Performed By: #### T SKIP #### [place] [address] [address] Ovalocytes 1+ Normal [facility] [place] Comment on above: Performed By: #### Ana VALDIVIA #### [address] [address] Platelet Estimate Normal Normal [facility] [place] Comment on above: Performed By: #### T SKIP #### [address] [address] .NEUABSon 08-03-2023 Neutrophil, Absolute 3.8 10 3/mcL Normal 2.9-6.2 [facility] [place] Comment on above: Performed By: #### DENISE AGUILAR #### [address] [address] A1Con 08-03-2023 HbA1c (Bld) [Mass fraction] 6.3 % Normal 4.3-6.4 [facility] [place] Comment on above: Performed By: #### T SKIP #### [address] [address] B12on 08-03-2023 Cobalamin (Vitamin B12) [Mass/Vol] 339 pg/mL Normal 211-911 [facility] [place] Comment on above: Performed By: #### T SKIP #### [address] [address] CBCon 08-03-2023 Erythrocyte distribution width (RBC) [Ratio] 18.1 % High 11.5-14.5 [facility] [place] Comment on above: Performed By: #### Ana VALDIVIA #### [address] [address] Hematocrit (Bld) [Volume fraction] 36.9 % Low 37.0-47.0 [facility] [place] Comment on above: Performed By: #### T SKIP #### [address] [address] Hgb 11.6 G/dL Low 12.0-16.0 [facility] [place] Comment on above: Performed By: #### T SKIP #### [place] [address] [address] MCH (RBC) [Entitic mass] 21.2 pg Low 27.0-31.2 [facility] [place] Comment on above: Performed By: #### T SKIP #### [place] [address] [address] MCHC 31.5 G/dL Low 33.0-37.0 [facility] [place] Comment on above: Performed By: #### T SKIP #### [place] [address] [address] MCV (RBC) [Entitic vol] 67.3 fL Low 80.0-94.0 [facility] [place] Comment on above: Performed By: #### T SKIP #### [address] [address] Platelet 298 10 3/mcL Normal 130-400 [facility] [place] Comment on above: Performed By: #### T SKIP #### [address] [address] Platelet mean volume (Bld) [Entitic vol] 7.7 fL Normal 7.4-10.4 [facility] [place] Comment on above: Performed By: #### T SKIP #### [place] [address] [address] RBC 5.48 10 6/mcL High 4.20-5.40 [facility] [place] Comment on above: Performed By: #### T SKIP #### [place] [address] [address] WBC 6.6 10 3/mcL Normal 4.6-10.8 [facility] [place] Comment on above: Performed By: #### T SKIP #### [address] [address] CMPon 08-03-2023 Albumin Level 1.7 G/dL Low 3.5-5.0 [facility] [place] Comment on above: Performed By: #### T KSIP #### [address] [address] Albumin/Globulin [Mass ratio] 0.3 {ratio} Low 1.1-2.5 [facility] [place] Comment on above: Performed By: #### T SKIP #### [address] [address] ALP [Catalytic activity/Vol] 137 U/L High 40-135 [facility] [place] Comment on above: Performed By: #### T SKIP #### [address] [address] ALT [Catalytic activity/Vol] 32 U/L Normal 14-59 [facility] [place] Comment on above: Performed By: #### T SKIP #### [address] [address] AST [Catalytic activity/Vol] 18 U/L Normal 10-40 [facility] [place] Comment on above: Performed By: #### T SKIP #### [address] [address] Bili Total 0.3 mg/dL Normal 0.2-1.0 [facility] [place] Comment on above: Result Comment: Use of this assay is not recommended for patients undergoing treatment with eltrombopag due to the potential for falsely elevated results. Performed By: #### T SKIP #### [address] [address] BUN/Creatinine Ratio 15 ratio Normal 7-27 [facility] [place] Comment on above: Performed By: #### T SKIP #### [address] [address] Calcium [Mass/Vol] 8.6 mg/dL Normal 8.4-10.2 [facility] [place] Comment on above: Performed By: #### T SKIP #### [address] [address] Chloride [Moles/Vol] 103 mmol/L Normal 98-107 [facility] [place] Comment on above: Performed By: #### T SKIP #### [address] [address] CO2 [Moles/Vol] 26 mmol/L Normal 22-29 [facility] [place] Comment on above: Performed By: #### T SKIP #### [place] [address] [address] Creatinine [Mass/Vol] 0.79 mg/dL Normal 0.55-1.02 [facility] [place] Comment on above: Performed By: #### T SKIP #### [address] [address] Electrolyte Balance 10.0 mEq/L Normal 4.0-15.0 [facility] ([place] Comment on above: Performed By: #### T SKIP #### [address] [address] Globulin 6.2 G/dL Normal [facility] [place] Comment on above: Performed By: #### T SKIP #### [address] [address] Glucose [Mass/Vol] 125 mg/dL High 70-105 [facility] [place] Comment on above: Performed By: #### T SKIP #### [address] [address] Potassium [Moles/Vol] 3.4 mmol/L Low 3.5-5.1 [facility] [place] Comment on above: Performed By: #### T SKIP #### [address] [address] Sodium [Moles/Vol] 139 mmol/L Normal 136-145 [facility] [place] Comment on above: Performed By: #### T SKIP #### [address] [address] Total Protein 7.9 G/dL Normal 6.4-8.2 [facility] [place] Comment on above: Performed By: #### T SKIP #### [address] [address] Urea nitrogen [Mass/Vol] 12 mg/dL Normal 7-18 [facility] [place] Comment on above: Performed By: #### T SKIP #### [address] [address] CRPon 08-03-2023 C-Reactive Protein 1.4 mg/dL High 0.0-0.3 [facility] [place] Comment on above: Performed By: #### T SKIP #### [address] [address] ESRon 08-03-2023 Erythrocyte Sed Rate 40 mm/hr High 0-20 [facility] ([place]) Comment on above: Performed By: #### T SKIP #### [address] [address] FOLon 08-03-2023 Folate 9.16 ng/mL Normal 5.38-24.00 [facility] ([place] Comment on above: Performed By: #### T SKIP #### [address] [address] FT4on 08-03-2023 Free T4 [Mass/Vol] 0.82 ng/dL Normal [facility]76[facility] Comment on above: Performed By: #### T SKIP #### [address] [address] TSHon 08-03-2023 TSH Qn 1.14 m[IU]/L Normal 0.36-3.74 [facility] ([place] Comment on above: Performed By: #### Ana VALDIVIA #### Mar[place] [address] [address] [id number] 07-21-2023 SARS-CoV-2 (COVID-19) RNA JESIKA+probe Ql (Unsp spec) Negative Normal Negative [facility] ([place]) Comment on above: Performed By: #### F ELZBIETA COVD19 #### [id number] [place], [place] [address] SARS-CoV-2 (COVID-19) RNA JESIKA+probe Ql (Unsp spec) Normal [facility] ([place] Comment on above: Result Comment: Nega tive results do not preclude SARS-CoV-2 infection and should not be used as the sole basis for patient management decisions. Negative results must be combined with clinical observations, patient history, and epidemiological information. There is a risk of false negative values resulting from improperly collected, transported, or handled specimens. There is a risk of false negative values due to the presence of sequence variants in the pathogen targets of the assay, procedural errors, amplification inhibitors in specimens, or inadequate numbers of organisms for amplification. NIKHIL SARS-CoV-2 Assay is a Real-Time reverse-transcriptase polymerase chain reaction (RT-PCR) based qualitative in vitro diagnostic test intended for the qualitative detection of nucleic acid from the SARS-CoV-2 in nasopharyngeal swab specimens collected from individuals suspected of COVID-19 by their healthcare provider. Testing is limited to laboratories certified under the Clinical Laboratory Improvement Amendments of 1988 (CLIA), 42 U.S.C. ?263a, to perform moderate and high complexity tests. COVID-19 Int Performed By: #### Madai ELZBIETA COVD19 #### [address] [address] FLURSVon 07-21-2023 Flu A PCR (AO) Negative Normal Negative [facility] ([place] Comment on above: Result Comment: Posi tive Results: Positive Flu A/B or RSV for by PCR. Positive test results do not rule out bacterial infection or co-infection with other pathogens. Test results should be interpreted in conjunction with other laboratory and clinical data. Negative Results: Negative for by PCR. Negative test results do not preclude influenza virus or RSV infection and should not be used as the sole basis for diagnosis, treatment, or other management decisions. There is a risk of false negative RSV results when at low concentration and in the presence of co-infection with high concentration of influenza A. Invalid Results: An Invalid result (INV) was obtained. The test was repeated with similar results. REPEAT COLLECTION AND TESTING IS RECOMMENDED. The [employer] Flu A/B & RSV Assay is a real-time polymerase chain reaction (PCR) based qualitative in vitro diagnostic test for the direct detection and differentiation of influenza A virus, influenza B virus, and respiratory syncytial virus (RSV) nucleic acid in nasopharyngeal swab (SENIOR ASIC ENGINEER) specimens from patients with signs and symptoms of respiratory infection in conjunction with clinical and laboratory findings. The test is intended for use as an aid in the differential diagnosis of influenza A virus, influenza B virus, and RSV in humans and is not intended to detect influenza C. Performed By: #### F ELZBIETA COVD19 #### [address] [address] Flu B PCR (AO) Negative Normal Negative [facility] ([place] Comment on above: Result Comment: Posi tive Results: Positive Flu A/B or RSV for by PCR. Positive test results do not rule out bacterial infection or co-infection with other pathogens. Test results should be interpreted in conjunction with other laboratory and clinical data. Negative Results: Negative for by PCR. Negative test results do not preclude influenza virus or RSV infection and should not be used as the sole basis for diagnosis, treatment, or other management decisions. There is a risk of false negative RSV results when at low concentration and in the presence of co-infection with high concentration of influenza A. Invalid Results: An Invalid result (INV) was obtained. The test was repeated with similar results. REPEAT COLLECTION AND TESTING IS RECOMMENDED. The Nikhil Flu A/B & RSV Assay is a real-time polymerase chain reaction (PCR) based qualitative in vitro diagnostic test for the direct detection and differentiation of influenza A virus, influenza B virus, and respiratory syncytial virus (RSV) nucleic acid in nasopharyngeal swab (SENIOR ASIC ENGINEER) specimens from patients with signs and symptoms of respiratory infection in conjunction with clinical and laboratory findings. The test is intended for use as an aid in the differential diagnosis of influenza A virus, influenza B virus, and RSV in humans and is not intended to detect influenza C. Performed By: #### F ELZBIETA COVD19 #### [id number] [place], [place] [address] RSV PCR (AO) Negative Normal Negative [facility] ([place] Comment on above: Result Comment: Posi tive Results: Positive Flu A/B or RSV for by PCR. Positive test results do not rule out bacterial infection or co-infection with other pathogens. Test results should be interpreted in conjunction with other laboratory and clinical data. Negative Results: Negative for by PCR. Negative test results do not preclude influenza virus or RSV infection and should not be used as the sole basis for diagnosis, treatment, or other management decisions. There is a risk of false negative RSV results when at low concentration and in the presence of co-infection with high concentration of influenza A. Invalid Results: An Invalid result (INV) was obtained. The test was repeated with similar results. REPEAT COLLECTION AND TESTING IS RECOMMENDED. The [employer] Flu A/B & RSV Assay is a real-time polymerase chain reaction (PCR) based qualitative in vitro diagnostic test for the direct detection and differentiation of influenza A virus, influenza B virus, and respiratory syncytial virus (RSV) nucleic acid in nasopharyngeal swab (SENIOR ASIC ENGINEER) specimens from patients with signs and symptoms of respiratory infection in conjunction with clinical and laboratory findings. The test is intended for use as an aid in the differential diagnosis of influenza A virus, influenza B virus, and RSV in humans and is not intended to detect influenza C. Performed By: #### F LURSV, COVD19 #### [address] [address] LABORATORYOrdered By: Bertrand Gilbert on 07-21-2023 FLUAV RNA JESIKA+probe Ql (Upper resp) Negative 1 (07/21/23 6:01 PM) Invalid Interpretation Code Negative AO Auto Urine SS Comment on above: Interpretive Data: P ositive Results: Positive Flu A/B or RSV for by PCR. Positive test results do not rule out bacterial infection or co-infection with other pathogens. Test results should be interpreted in conjunction with other laboratory and clinical data. Negative Results: Negative for by PCR. Negative test results do not preclude influenza virus or RSV infection and should not be used as the sole basis for diagnosis, treatment, or other management decisions. There is a risk of false negative RSV results when at low concentration and in the presence of co-infection with high concentration of influenza A. Invalid Results: An Invalid result (INV) was obtained. The test was repeated with similar results. REPEAT COLLECTION AND TESTING IS RECOMMENDED. The Nikhil Flu A/B & RSV Assay is a real-time polymerase chain reaction (PCR) based qualitative in vitro diagnostic test for the direct detection and differentiation of influenza A virus, influenza B virus, and respiratory syncytial virus (RSV) nucleic acid in nasopharyngeal swab (SENIOR ASIC ENGINEER) specimens from patients with signs and symptoms of respiratory infection in conjunction with clinical and laboratory findings. The test is intended for use as an aid in the differential diagnosis of influenza A virus, influenza B virus, and RSV in humans and is not intended to detect influenza C. FLUBV RNA JESIKA+probe Ql (Upper resp) Negative 2 (07/21/23 6:01 PM) Invalid Interpretation Code Negative AO Auto Urine SS Comment on above: Interpretive Data: P ositive Results: Positive Flu A/B or RSV for by PCR. Positive test results do not rule out bacterial infection or co-infection with other pathogens. Test results should be interpreted in conjunction with other laboratory and clinical data. Negative Results: Negative for by PCR. Negative test results do not preclude influenza virus or RSV infection and should not be used as the sole basis for diagnosis, treatment, or other management decisions. There is a risk of false negative RSV results when at low concentration and in the presence of co-infection with high concentration of influenza A. Invalid Results: An Invalid result (INV) was obtained. The test was repeated with similar results. REPEAT COLLECTION AND TESTING IS RECOMMENDED. The [employer] Flu A/B & RSV Assay is a real-time polymerase chain reaction (PCR) based qualitative in vitro diagnostic test for the direct detection and differentiation of influenza A virus, influenza B virus, and respiratory syncytial virus (RSV) nucleic acid in nasopharyngeal swab (SENIOR ASIC ENGINEER) specimens from patients with signs and symptoms of respiratory infection in conjunction with clinical and laboratory findings. The test is intended for use as an aid in the differential diagnosis of influenza A virus, influenza B virus, and RSV in humans and is not intended to detect influenza C. RSV RNA JESIKA+probe Ql (Upper resp) Negative 3 (07/21/23 6:01 PM) Invalid Interpretation Code Negative AO Auto Urine SS Comment on above: Interpretive Data: P ositive Results: Positive Flu A/B or RSV for by PCR. Positive test results do not rule out bacterial infection or co-infection with other pathogens. Test results should be interpreted in conjunction with other laboratory and clinical data. Negative Results: Negative for by PCR. Negative test results do not preclude influenza virus or RSV infection and should not be used as the sole basis for diagnosis, treatment, or other management decisions. There is a risk of false negative RSV results when at low concentration and in the presence of co-infection with high concentration of influenza A. Invalid Results: An Invalid result (INV) was obtained. The test was repeated with similar results. REPEAT COLLECTION AND TESTING IS RECOMMENDED. The [employer] Flu A/B & RSV Assay is a real-time polymerase chain reaction (PCR) based qualitative in vitro diagnostic test for the direct detection and differentiation of influenza A virus, influenza B virus, and respiratory syncytial virus (RSV) nucleic acid in nasopharyngeal swab (SENIOR ASIC ENGINEER) specimens from patients with signs and symptoms of respiratory infection in conjunction with clinical and laboratory findings. The test is intended for use as an aid in the differential diagnosis of influenza A virus, influenza B virus, and RSV in humans and is not intended to detect influenza C. SARS-CoV-2 (COVID-19) RNA JESIKA+probe Ql (Resp) Negative results do not preclude SARS-CoV-2 infection and should not be used as the sole basis for patient management decisions. Negative results must be combined with clinical observations, patient history, and epidemiological information.There is a risk of false negative values resulting from improperly collected, transported, or handled specimens.There is a risk of false negative values due to the presence of sequence variants in the pathogen targets of the assay, procedural errors, amplification inhibitors in specimens, or inadequate numbers of organisms for amplification.NIKHIL SARS-CoV-2 Assay is a Real-Time reverse-transcriptase polymerase chain reaction (RT-PCR) based qualitative in vitro diagnostic test intended for the qualitative detection of nucleic acid from the SARS-CoV-2 in nasopharyngeal swab specimens collected from individuals suspected of COVID-19 by their healthcare provider. Testing is limited to laboratories certified under the Clinical Laboratory Improvement Amendments of 1988 (CLIA), 42 U.S.C. 263a, to perform moderate and high complexity tests. Invalid Interpretation Code AO Auto Urine SS 36on 06-19-2023 36 Medication: hcq 200m g 2 tab qd Refills: 12/21/22 60 + 4 kayla ALBINO: 05/24/23 inna/ continue NOV: 6 months/ 11/13/23 Eye exam: med started 12/21/22, nothing on file Called, left voice message; did pt have eye exam done someplace other than [facility], we have not received results. 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 Mychart message also sent. Refill request refused. Normal [facility] 36on 05-25-2023 36 Orders entered. Normal [facility] 36 Please submit order for repeat ESR, CRP in 6 weeks Normal [facility] C-reactive proteinon 023 CRP [Mass/Vol] 28.9 mg/L High NINF - 8.0 mg/L [facility] CRP [Mass/Vol]on 05-25-2023 Interpretation and review of laboratory results Abnormal [facility] No Panel Informationon 05-25 [facility] Sedimentation rate, automate don 05-25-2023 ESR (Bld) [Velocity] 14 mm/h < OR = 20 [facility] Office Visiton 05-24-2023 Follow-up visit [id number] Santa Taylor 1990 F Date Provider Department Center 05/24/2023 [id number]-ZDURBUSERGEY TEE [facility] RHEUMAT None Family History Problem Relation Age of Onset Hearing loss Brother Family Status - Relation Status Age at Mother Alive Father Alive Brother Alive Brother Alive Level of Service:84506 HI OFFICE/OUTPATIENT ESTABLISHED MOD [facility] 30-39 MIN Reason for Visit and Comments: Follow-up [[id number]] Normal [facility] Progress Noteon 05-24-2023 Progress Note 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 Recurrent sinusitis, requiring frequent antibiotics and steroids; CT reportedly nondiagnostic and previous ANCA neg; 2. Vulvar irritation, not ulcers and not related to hidradenitis suppurativa; LE[employer] E[employer] ENGINEER evaluation negative for infection, treated with topical corticosteroids; 3. Pain/swelling lower leg and rt heel; Doppler negative for DVT ROS: + depression and anxiety Allergies Allergen Reactions Lamotrigine Hives and Rash Developed full body rash/hives 7 days after starting medication Azathioprine Other reaction(s): Other (See Comments) Severe pain/flu like sx Severe pain/flu like sx Ciprofloxacin Hives Other reaction(s): AOF Clindamycin Other reaction(s): Hives Crary Hives Oxcarbazepine Fever and Hives Current Outpatient Medications Medication Sig Dispense Refill busPIRone (Buspar) 7.5 MG tablet Take by mouth 2 times daily. Cariprazine HCl (Vraylar) 4.5 MG capsule Take by mouth daily. clobetasol (Temovate) 0.05 % ointment Apply to affected areas BID x 2 weeks Stop using when clear. Repeat as needed for flares. Do not use on face, armpits, groin. 60 g 3 FLUoxetine (PROzac) 20 MG capsule Take 20 mg by mouth daily. W/ 40mg =60mg FLUoxetine (PROzac) 40 MG capsule Take 40 mg by mouth daily. W/ 20mg = 60mg gabapentin (Neurontin) 300 MG capsule Take 300 mg by mouth 2 times daily. hydroxychloroquine (Plaquenil) 200 MG tablet 400 mg daily 60 tablet 4 ketoconazole (NIZOral) 2 % shampoo Use to wash the scalp 3 to 4 times weekly allowing to sit 3 minutes before rinsing. May use regular shampoo and condition after. 120 mL 3 No current facility-administered medications for this visit. OBJECTIVE: WT 239 lbs; no malar rash; no alopecia; no oral/nasal lesions; no parotid enlargement; no cervical lymphadenopathy; joints without swelling; rt heel is tender ; no Achilles tenderness Visit Vitals BP 137/85 (BP Location: Right arm, Patient Position: Sitting, BP Cuff Size: Large adult long) Pulse (!) 125 ASSESSMENT: 1. Subacute cutaneous lupus; extensive evaluation for systemic lupus erythematosus and other connective tissue disease markers March was negative 2. Recurrent sinusitis; ANCA negative 3. Vulvar irritation; doubt Behcet's 4. Hidradenitis suppurativa; pt reports lesions much improved 5. Rt heel pain c/w plantar fasciitis PLAN: discussed stretching and icing for plantar fasciitis; discussed good arch support; no flip flops Orders Placed This Encounter Procedures C-reactive protein Standing Status: Future Number of Occurrences: 1 Standing Expiration Date: 05/24/2024 Sedimentation rate, automated Standing Status: Future Number of Occurrences: 1 Standing Expiration Date: 05/24/2024 Normal [facility] Office Visiton 04-12-2023 Follow-up visit [id number] Santa Taylor 1990 F Date Provider Department Center 04/12/2023 [id number]-AEEBAFANNY LÓPEZ [facility] None Family History Problem Relation Age of Onset Hearing loss Brother Family Status - Relation Status Age at Mother Alive Father Alive Brother Alive Brother Alive Level of Service:35121 HI OFFICE/OUTPATIENT ESTABLISHED MOD MDM 30-39 MIN Reason for Visit and Comments: Seborrheic Dermatitis [[id number]] - (PKN) [facility] Progress Noteon 04-12-2023 Progress Note DATE OF SERVICE: 04/12 PATIENT NAME: Santa Taylor : 1990 AGE: 32 y.o. CLINIC NUMBER: [id number] Visit type: Established patient Chief Complaint Patient presents with Seborrheic Dermatitis (PKN) Subjective HISTORY OF PRESENT ILLNESS: This is a 32 y.o. female who presents for evaluation of seborrheic dermatitis; last seen 12/13/2022. F/u-seborrheic dermatitis to the scalp; Improved since last visit. Currently treating with: ketoconazole 2% shampoo 3x/week. Denies current or recent flares. Denies redness, flaking, scaling. Denies itching, burning, pain. Denies needing refills at this time. Follow up subacute cutaneous lupus erythematosus; slightly improved since last visit. Currently treating with clobetasol 0.05% ointment BID PRN. Pt states the medication helps initially when she gets a flare but the flares continue to come and go. Admits flare to the groin area. Pt is also currently taking Plaquenil 400 mg daily. C/o irritation to the bilateral nostrils x 8 months. Pt states that it becomes dry and sometimes scabs over. Pt expresses previous treatment with mupirocin ointment, oral antihistamine, clobetasol ointment with no improvement. Pt states the clobetasol calmed it down the most but it never goes away. Pt has had oral steroids in the past that temporarily clears it up. Are you , trying to become or ? No History of pacemaker/ defibrillator? No History of HIV/ Hep C? No Allergies to Lidocaine, Epinephrine, Latex or Adhesive? No Review of Systems There were no vitals filed for this visit. PHYSICAL EXAM GENERAL APPEARANCE: Alert & oriented x3, pleasant. Well developed, well nourished. PSYCH: appropriate mood and affect DERMATOLOGY: (all measurements are in cm, unless otherwise noted) 1. Subacute cutaneous lupus erythematosus Generalized, Left Nasal Vestibule, Pubic, Right Nasal Vestibule No current flaring [x]Chronic []Acute [x]Stable []Flaring/Exacerbation Educated and reassured. Treatment options, risks, benefits, and expectations reviewed. No current flaring but continues to flare frequently. Discussed possible low dose oral prednisone daily in order to better control symptoms. Will discuss with rheumatology/ PCP to initiate. Patient expresses understanding and is agreeable to plan. Continue: -clobetasol 0.05% ointment BID PRN -Flonase PRN for flares to the nostrils. Patient is already prescribed this by another provider. Related Medications clobetasol (Temovate) 0.05 % ointment Apply to affected areas BID x 2 weeks Stop using when clear. Repeat as needed for flares. Do not use on face, armpits, groin. hydroxychloroquine (Plaquenil) 200 MG tablet 400 mg daily 2. Seborrheic dermatitis Generalized, Scalp Clear on exam today [x]Chronic []Acute [x]Stable []Flaring/Exacerbation Educated and reassured. Treatment options, risks, benefits, and expectations reviewed. Continue: -ketoconazole 2% shampoo 3x/week Related Medications ketoconazole (NIZOral) 2 % shampoo Use to wash the scalp 3 to 4 times weekly allowing to sit 3 minutes before rinsing. May use regular shampoo and condition after. clobetasol (Temovate) 0.05 % ointment Apply to affected areas BID x 2 weeks Stop using when clear. Repeat as needed for flares. Do not use on face, armpits, groin. Follow up in about 6 months (around 10/13/2023) for cutaneous lupus and elan derm f/u. Fanny Garza PA-C 04/12/23 8:22 AM REFERRING MD: [facility] LABORATORYOrdered By: Bertrand Gilbert on 02-27-2023 Albumin DL <= 20 mg/L (U) [Mass/Vol] 1500 mcg/dL Invalid Interpretation Code AO ADM SS Albumin/Creatinine DL <= 20 mg/L (U) [Mass ratio] 9 mcg/mg Invalid Interpretation Code 0 - 30 mcg/mg AO ADM SS Appearance (U) Slightly Cloudy *ABN* (02/27/23 3:13 PM) Invalid Interpretation Code Clear AO Auto Urine SS Bacteria LM.HPF (Urine sed) [#/Area] Trace /HPF Invalid Interpretation Code AO Auto Urine SS Bilirubin Ql (U) Negative (02/27/23 3:13 PM) Invalid Interpretation Code Negative AO Auto Urine SS Color (U) Dark yellow Invalid Interpretation Code AO Auto Urine SS Creatinine (U) [Mass/Vol] 170.5 mg/dL Invalid Interpretation Code 28.0 - 117.0 mg/dL AO ADM SS Glucose Test strip (U) [Mass/Vol] Negative Invalid Interpretation Code Negativemg/d L AO Auto Urine SS Hemoglobin Auto test strip (U) [Mass/Vol] Trace *ABN* (02/27/23 3:13 PM) Invalid Interpretation Code Negative AO Auto Urine SS Ketones Ql (U) Negative Invalid Interpretation Code Negativemg/d L AO Auto Urine SS UA Leuk Est Large *ABN* (02/27/23 3:13 PM) Invalid Interpretation Code Negative AO Auto Urine SS UA Mucous 1+ /HPF Invalid Interpretation Code AO Auto Urine SS UA Nitrite Negative (02/27/23 3:13 PM) Invalid Interpretation Code Negative AO Auto Urine SS UA pH 6.0 (02/27/23 3:13 PM) Invalid Interpretation Code 5.0 - 8.0 AO Auto Urine SS UA Protein Trace mg/dL Invalid Interpretation Code Negativemg/d L AO Auto Urine SS UA RBC 5-10 /HPF Invalid Interpretation Code None Seen/HPF AO Auto Urine SS UA Renal Epithelial 0-5 /HPF Invalid Interpretation Code AO Auto Urine SS UA Spec Grav >=1.030 *ABN* (02/27/23 3:13 PM) Invalid Interpretation Code 1.015-1.025 AO Auto Urine SS UA Specimen Type Clean Catch (02/27/23 3:13 PM) Invalid Interpretation Code AO Auto Urine SS UA Squam Epithelial 5-10 /HPF Invalid Interpretation Code None Seen/HPF AO Auto Urine SS UA Urobilinogen 0.2 E.U./dL Invalid Interpretation Code 0.2-1.0E.U./ dL AO Auto Urine SS WBC LM.HPF (Urine sed) [#/Area] LOADED /HPF Invalid Interpretation Code None Seen/HPF AO Auto Urine SS ESR Photometric method (Bld) [Velocity] 56 mm/hr Invalid Interpretation Code 0 - 20 mm/hr AO Man Heme SS LABORATORYOrdered By: SYSTEM SYSTEM on 02-27-2023 Albumin BCP dye [Mass/Vol] 3.4 G/dL Invalid Interpretation Code 3.5 - 5.0 G/dL AO ADM SS Albumin/Globulin [Mass ratio] 0.9 {ratio} Invalid Interpretation Code 1.1 - 2.5 ratio AO ADM SS ALP [Catalytic activity/Vol] 113 U/L Invalid Interpretation Code 40 - 135 U/L AO ADM SS ALT With P-5'-P [Catalytic activity/Vol] 24 U/L Invalid Interpretation Code 14 - 59 U/L AO ADM SS AST With P-5'-P [Catalytic activity/Vol] 17 U/L Invalid Interpretation Code 10 - 40 U/L AO ADM SS Bilirubin [Mass/Vol] 0.2 mg/dL Invalid Interpretation Code 0.2 - 1.0 mg/dL AO ADM SS Calcium [Mass/Vol] 9.0 mg/dL Invalid Interpretation Code 8.4 - 10.2 mg/dL AO ADM SS Chloride [Moles/Vol] 104 mmol/L Invalid Interpretation Code 98 - 107 mmol/L AO ADM SS CO2 [Moles/Vol] 28 mmol/L Invalid Interpretation Code 22 - 29 mmol/L AO ADM SS Creatinine [Mass/Vol] 0.78 mg/dL Invalid Interpretation Code 0.55 - 1.02 mg/dL AO ADM SS CRP [Mass/Vol] 2.6 mg/dL Invalid Interpretation Code 0.0 - 0.9 mg/dL AO ADM SS Electrolyte Balance 7.0 mEq/L Invalid Interpretation Code 4.0 - 15.0 mEq/L AO ADM SS GFR/1.73 sq M.predicted among blacks MDRD (S/P/Bld) [Vol rate/Area] 102 ml/min/1.73sqm Invalid Interpretation Code AO Chemistry S GFR/1.73 sq M.predicted among non-blacks MDRD (S/P/Bld) [Vol rate/Area] 85 ml/min/1.73sqm Invalid Interpretation Code AO Chemistry S Globulin 3.8 G/dL Invalid Interpretation Code AO ADM SS Glucose [Mass/Vol] 111 mg/dL Invalid Interpretation Code 70 - 105 mg/dL AO ADM SS Potassium [Moles/Vol] 4.2 mmol/L Invalid Interpretation Code 3.5 - 5.1 mmol/L AO ADM SS Protein [Mass/Vol] 7.2 G/dL Invalid Interpretation Code 6.4 - 8.2 G/dL AO ADM SS Sodium [Moles/Vol] 139 mmol/L Invalid Interpretation Code 136 - 145 mmol/L AO ADM SS Urea nitrogen [Mass/Vol] 6 mg/dL Invalid Interpretation Code 7 - 18 mg/dL AO ADM SS Urea nitrogen/Creatinine [Mass ratio] 8 ratio Invalid Interpretation Code 7 - 27 ratio AO ADM SS LABORATORYOrdered By: Ewelina Chávez on 02-27-2023 Basophil, Absolute 0.0 103/mcL Invalid Interpretation Code 0.0 - 0.2 10^3/mcL AO Workflow SS Basophils/100 WBC (Bld) 0.6 % Invalid Interpretation Code 0.0 - 2.5 % AO Workflow SS Eosinophil, Absolute 0.3 103/mcL Invalid Interpretation Code 0.0 - 0.4 10^3/mcL AO Workflow SS Eosinophils/100 WBC (Bld) 4.0 % Invalid Interpretation Code 0.0 - 7.0 % AO Workflow SS Erythrocyte distribution width (RBC) [Ratio] 18.9 % Invalid Interpretation Code 11.5 - 14.5 % AO Workflow SS Hematocrit (Bld) [Volume fraction] 36.7 % Invalid Interpretation Code 37.0 - 47.0 % AO Workflow SS Hemoglobin (Bld) [Mass/Vol] 11.5 G/dL Invalid Interpretation Code 12.0 - 16.0 G/dL AO Workflow SS Lymphocyte, Absolute 1.9 103/mcL Invalid Interpretation Code 0.8 - 3.9 10^3/mcL AO Workflow SS Lymphocytes/100 WBC (Bld) 26.4 % Invalid Interpretation Code 10.0 - 50.0 % AO Workflow SS MCH (RBC) [Entitic mass] 20.4 pg Invalid Interpretation Code 27.0 - 31.2 pg AO Workflow SS MCHC 31.3 G/dL Invalid Interpretation Code 33.0 - 37.0 G/dL AO Workflow SS MCV (RBC) [Entitic vol] 65.2 fL Invalid Interpretation Code 80.0 - 94.0 fL AO Workflow SS Microcytes Ql (Bld) 1+ (02/27/23 3:04 PM) Invalid Interpretation Code AO Hematology S Monocyte, Absolute 0.8 103/mcL Invalid Interpretation Code 0.2 - 1.0 10^3/mcL AO Workflow SS Monocytes/100 WBC (Bld) 11.2 % Invalid Interpretation Code 1.7 - 13.0 % AO Workflow SS Neutrophil, Absolute 4.1 103/mcL Invalid Interpretation Code 2.9 - 6.2 10^3/mcL AO Workflow SS Neutrophils/100 WBC (Bld) 57.8 % Invalid Interpretation Code 37.0 - 80.0 % AO Workflow SS Ovalocytes LM Ql (Bld) 1+ (02/27/23 3:04 PM) Invalid Interpretation Code AO Hematology S Platelet Estimate Normal (02/27/23 3:04 PM) Invalid Interpretation Code AO Hematology S Platelet mean volume (Bld) [Entitic vol] 8.3 fL Invalid Interpretation Code 7.4 - 10.4 fL AO Workflow SS Platelets (Bld) [#/Vol] 285 103/mcL Invalid Interpretation Code 130 - 400 10^3/mcL AO Workflow SS RBC (Bld) [#/Vol] 5.63 106/mcL Invalid Interpretation Code 4.20 - 5.40 10^6/mcL AO Workflow SS WBC (Bld) [#/Vol] 7.0 103/mcL Invalid Interpretation Code 4.6 - 10.8 10^3/mcL AO Workflow SS Office Visiton 12-21-2022 Follow-up visit [id number] Santa Taylor 1990 F Date Provider Department Center 12/21/2022 [id number] GARZA [facility] RHEUMAT None Family History Problem Relation Age of Onset Hearing loss Brother Family Status - Relation Status Age at Mother Alive Father Alive Brother Alive Brother Alive Level of Service:37736 HI OFFICE/OUTPATIENT ESTABLISHED LOW MDM 20-29 MIN Reason for Visit and Comments: Follow-up [[id number]] - Discuss tx options [facility] PATINSon 12-21-2022 PATINS Start hydroxychloroq uine 2 tablets daily Schedule eye exam in 6 months, let your eye doctor know that you are back on the hydroxychloroquine so they can do the extra retina testing # Plaquenil counseling possible side effects of plaquenil (hydroxychloroquine). Possible side effects include: headaches, dizziness, rash, decreased appetite, cardiac arrhythmia, nausea/vomiting/diarrhea, low blood counts, liver dysfunction, allergic reaction, arrhythmia, myopathy (muscle weakness), ear ringing, eye cornea changes, eye retinal toxicity (<1% risk, this is dose related and we dose the medication safely based on patient's weight, we also recommend annual eye exams to screen for any eye changes). [facility] Progress Noteon 12-21-2022 Progress Note [facility]OLOGY[facility] Visit type: New patient Reason for Visit: Follow-up (Discuss tx options) Assessment and Plan Santa Taylor is a 32 y.o. female patient with a history of subacute cutaneous lupus, hidradenitis suppurativa, bipolar who presents for evaluation of autoimmune disease. Patient established care with me on 11-21-2022 Patient developed a skin rash in 2018. 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 The cutaneous pattern of injury is most part of connective tissue disease. I referred the patient to dermatology. she does have some signs of active cutaneous lupus on the face, especially since getting a sunburn this week. I explained to her that photoprotection is the #1 treatment for cutaneous lupus, prevention is luciano. She should be using sunblock every 2 hours. She should use sunblock even when inside and in the car when UV radiation is coming through the windows. Today I discussed with the patient about the risks and benefits of starting hydroxychloroquine Start hydroxychloroquine 400 mg daily Blood counts show mild anemia. Hemoglobin 11.5, normal is 12.0. White blood cell count and platelets normal. Kidney, liver function, normal. Vitamin D is low, patient should take 4000 units daily over the counter. REMA 1-1 60 and SSA 7.1 markers are positive, these ones are commonly associated with cutaneous lupus. Patient currently does not fulfill signs of systemic lupus though. Leal, Leal BUSINESS SUPPORT LIAISON, SSB, SCL 70, centromere, dsDNA, RF, CCP, ANCA, C3, C4 chromatin negative, Khoa 1, antiphospholipid antibodies #nutrition counseling - eat mostly whole foods and plant based foods # Plaquenil counseling possible side effects of plaquenil (hydroxychloroquine). Possible side effects include: headaches, dizziness, rash, decreased appetite, cardiac arrhythmia, nausea/vomiting/diarrhea, low blood counts, liver dysfunction, allergic reaction, arrhythmia, myopathy (muscle weakness), ear ringing, eye cornea changes, eye retinal toxicity (<1% risk, this is dose related and we dose the medication safely based on patient's weight, we also recommend annual eye exams to screen for any eye changes). Schedule eye exam in 6 months, let your eye doctor know that you are back on the hydroxychloroquine so they can do the extra retina testing Follow up Keep May follow-up. The encounter diagnosis was Subacute cutaneous lupus erythematosus. No orders of the defined types were placed in this encounter. All results were reviewed with the patient. All questions were answered. Patient stated understanding of assessment and plan. Patient in agreement with plan. Risks, benefits, treatment options discussed. Subjective HPI Patient states she went out in the sun recently got a sunburn. She was not good about the photoprotection. She has redness on her face, arms. I told her to use organic aloe vera. I discussed the importance of sun protection as the #1 treatment for cutaneous lupus. She states her heart rate has been fast since getting the sunburn. I told her it important to also use sunblock even when inside, because UV radiation comes through the windows. Patient states in the past she has been on CellCept and azathioprine, but has had side effects to those. She has previously tolerated hydroxychloroquine very well. Patient states in middle school she was told she had a murmur, an echo was normal Allergies Allergen Reactions Lamotrigine Hives and Rash Developed full body rash/hives 7 days after starting medication Azathioprine Other reaction(s): Other (See Comments) Severe pain/flu like sx Severe pain/flu like sx Ciprofloxacin Hives Other reaction(s): AOF Clindamycin Other reaction(s): Hives Crary Hives Oxcarbazepine Fever and Hives Outpatient Medications Prior to Visit Medication Sig Dispense Refill busPIRone (Buspar) 7.5 MG tablet Take by mouth 2 times daily. Cariprazine HCl (Vraylar) 4.5 MG capsule Take by mouth daily. clobetasol (Temovate) 0.05 % ointment Apply to affected areas BID x 2 weeks Stop using when clear. Repeat as needed for flares. Do not use on face, armpits, groin. 60 g 3 FLUoxetine (PROzac) 20 MG capsule Take 20 mg by mouth daily. FLUoxetine (PROzac) 40 MG capsule Take 40 mg by mouth daily. gabapentin (Neurontin) 300 MG capsule Take 300 mg by mouth 2 times daily. ketoconazole (NIZOral) 2 % shampoo Use to wash the scalp 3 to 4 times weekly allowing to sit 3 minutes before rinsing. May use regular shampoo and condition after. 120 mL 3 No facility-administered medications prior to visit. Past Medical History: Diagnosis Date Anemia Desquamative dermatitis Hidradenitis suppurativa Social History Tobacco Use Smoking status: Every Day Packs/day: 1.00 Types: Cigarettes Start date: 2006 Smokeless tobacco: Never Substance Use Topics Alcohol use: Yes Comment: (more content not included)... [facility] 36on 12-20-2022 36 Called/ spoke w/ pt to move appt up from cx list, appt skd. [facility] 36on 12-19-2022 36 Attempted to call pt from cx list. Voice mail picked up. No message left. [facility] 36 Left voice message; notified per Dr. Garza's orders. Requested a call/mychart message re: starting hcq. [facility] 36on 12-18-2022 36 Clint Perez, Please let patient know that I did speak with the physician fish hatchery assistant in dermatology. I asked if they saw any signs of cutaneous lupus, she states they did see some signs of cutaneous lupus and seborrheic dermatitis. They were concerned there may be some cutaneous lupus in the groin and nose. This would make patient a candidate for hydroxychloroquine. I am not sure if she has ever been on this before. We would recommend that she take it 2 tablets daily -it would only help with the cutaneous lupus though, not the seborrheic dermatitis. Please review potential side effects with her and see if she would like to start it. If she would like to talk about risks and benefits of the medication in person, please place her on the high-priority cancellation list # Plaquenil counseling possible side effects of plaquenil (hydroxychloroquine). Possible side effects include: headaches, dizziness, rash, decreased appetite, cardiac arrhythmia, nausea/vomiting/diarrhea, low blood counts, liver dysfunction, allergic reaction, arrhythmia, myopathy (muscle weakness), ear ringing, eye cornea changes, eye retinal toxicity (<1% risk, this is dose related and we dose the medication safely based on patient's weight, we also recommend annual eye exams to screen for any eye changes). Thank you, Dr. 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 CLINIC NUMBER: [id number] Visit type: New Chief Complaint Patient presents with 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) Subjective HISTORY OF PRESENT ILLNESS: This is a 32 y.o. female who presents for evaluation of a skin lesion. C/o-rash located on the nose and groin x one year. Patient states the rash is dry, crusty, and painful on the inside of her nostrils. It also happens to her ears, but denies flares to the ears today. Admits itching to the ears only- not flared today. Admits bleeding, pain to nose, denies itching. Denies changes in size, shape, color. Admits previous treatment- doxycyline 100 mg, mupirocin ointment, PO prednisone tapers, clobetasol ointment. Pt admits some improvement with all but it continues to come back. Pt has also tried antifungals with no improvement. Pt has biopsy proven subacute cutaneous lupus in 2018, follows with [facility] Rheumatology. Are you , trying to become or ? No History of pacemaker/ defibrillator? No History of HIV/ Hep C? No Allergies to Lidocaine, Epinephrine, Latex or Adhesive? No Social History: Born/raised in [facility]/[place]. Excessive sun exposure: Yes Boated regularly: No Worked on farmed or life skills instructor: No Used tanning beds: No Patient does wear SPF. Patient does use additional sun protection measures. REVIEW OF SYSTEMS: General/Constitutional Feels well; denies h/o fatigue, weight change, night sweats, fevers or chills. Lymphatic Denies swollen lymph nodes. Dermatologic As per HPI; denies new rashes, itching, hair loss, skin or nail changes. There were no vitals filed for this visit. GENERAL APPEARANCE:?Alert & oriented x3, pleasant. Well developed, well nourished. PSYCH: appropriate mood and affect 1. Seborrheic dermatitis Diffuse scaling [x]Chronic []Acute []Stable [x]Flaring/Exacerbation Educated and reassured. Treatment options, risks, benefits, and expectations reviewed. Start: -ketoconazole 2% shampoo: Use to wash the scalp 3 to 4 times weekly allowing to sit 3 minutes before rinsing. May use regular shampoo and condition after. Related Medications ketoconazole (NIZOral) 2 % shampoo Use to wash the scalp 3 to 4 times weekly allowing to sit 3 minutes before rinsing. May use regular shampoo and condition after. clobetasol (Temovate) 0.05 % ointment Apply to affected areas BID x 2 weeks Stop using when clear. Repeat as needed for flares. Do not use on face, armpits, groin. 2. Subacute cutaneous lupus erythematosus Erythematous patch [x]Chronic []Acute []Stable [x]Flaring/Exacerbation Educated and reassured. Treatment options, risks, benefits, and expectations reviewed. Start: -clobetasol 0.05% ointment: Apply to affected areas BID x 2 weeks Stop using when clear. Repeat as needed for flares. Do not use on face, armpits, groin. Related Procedures [facility] Dermatology Related Medications clobetasol (Temovate) 0.05 % ointment Apply to affected areas BID x 2 weeks Stop using when clear. Repeat as needed for flares. Do not use on face, armpits, groin. Orders Placed This Encounter Medications ketoconazole (NIZOral) 2 % shampoo Sig: Use to wash the scalp 3 to 4 times weekly allowing to sit 3 minutes before rinsing. May use regular shampoo and condition after. Dispense: 120 mL Refill: 3 clobetasol (Temovate) 0.05 % ointment Sig: Apply to affected areas BID x 2 weeks Stop using when clear. Repeat as needed for flares. Do not use on face, armpits, groin. Dispense: 60 g Refill: 3 Follow up in about 3 months (around 03/14/2023) for cutaneous lupus, elan derm f/u. Fanny Garza PA-C 12/13/22 4:49 PM REFERRING MD: [address] / [place] [address] [facility] 36on 12-03-2022 36 Patient will be establishing care with [facility] dermatology December 13 [facility] 36on 11-28-2022 36 Left voice message notifying pt re: test results, per Dr. Garza's orders. Please call [phone], ask for Ana if any questions. [facility] 36 ----- Message from A dilshad Garza MD sent at 11/27/2022 5:17 AM EDT ----- Blood counts show mild anemia. Hemoglobin 11.5, normal is 12.0. White blood cell count and platelets normal. Kidney, liver function, normal. Vitamin D is low, patient should take 4000 units daily over the counter. REMA and SSA markers are positive, these ones are commonly associated with cutaneous lupus, which she has a history of. I have already referred her to dermatology to see which rashes are active, and to help with treatment. After she sees dermatology, she will need to be reassessed by Rheumatology. She does have a follow up scheduled. Dr Kayla Melendez [facility] Office Visiton 11-21-2022 Follow-up visit [id number] Santa Taylor 1990 F Date Provider Department Center 11/21/2022 [id number]-HXEPRJAIMEE GARZA [facility] RHEUMAT None Family History Problem Relation Age of Onset Hearing loss Brother Family Status - Relation Status Age at Mother Alive Father Alive Brother Alive Brother Alive Level of Service:61477 HI OFFICE/OUTPATIENT NEW MODERATE MDM 45-59 MINUTES Reason for Visit and Comments: Consult [484] - SLE, [address] Jessica [facility] Progress Noteon 11-21-2022 Progress Note [facility]ATOLOGY[facility] Visit type: New patient Reason for Visit: Consult (SLE, [address] Jessica) Assessment and Plan Santa Taylor is a 32 y.o. female patient with a history of subacute cutaneous lupus, hidradenitis suppurativa, bipolar who presents for evaluation of autoimmune disease. Patient established care with me on 11-21-2022 Patient developed a skin rash in 2018. 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 The cutaneous pattern of injury is most part of connective tissue disease. I do not have the results of the skin biopsies from gynecology in summer 2021. Patient has not seen dermatology since 2018. Patient states she also has a diagnosis of hidradenitis suppurativa. Today on exam, she does have a few lesions along the groin, and redness around the right ear. I told the patient she is to reestablish care with dermatology, so she can be reassessed as to which rashes are active, which will then guide treatment plan. Referral to [facility] dermatology placed. Patient does not have any signs or symptoms of systemic autoimmune disease on history and physical, to be thorough I will recheck her full autoimmune profile. #nutrition counseling - eat mostly whole foods and plant based foods I discussed a plant based non-processed diet with the patient to decrease inflammation in all organ systems and to help minimize medications IT IS VERY IMPORTANT TO incorporate fruits, vegetables, beans, lentils, flaxseed and Miguel A seeds, whole grains such as oats and quinoa on a daily basis Avoid processed foods, and inflammatory animal products such as cow, pig, cheese 3-4 small meals a day, no snacking except fruits/veggies, and the patient should also meal prep. Patient was provided with information about plant based diet. Follow up in about 6 months (around 05/24/2023). The primary encounter diagnosis was Subacute cutaneous lupus erythematosus. Diagnoses of Positive REMA (antinuclear antibody), Hidradenitis suppurativa, BMI 40.0-44.9, adult (HCC), Dietary counseling, Vitamin D insufficiency, Depression, unspecified depression type, Special screening examination for viral disease, and Blood tests prior to treatment or procedure were also pertinent to this visit. Orders Placed This Encounter Procedures CBC auto differential Standing Status: Future Number of Occurrences: 1 Standing Expiration Date: 11/22/2023 Comprehensive metabolic panel Standing Status: Future Number of Occurrences: 1 Standing Expiration Date: 11/22/2023 Timl-0-Johabshmghzq I Antibodies (IgG, IgA, IgM) - Miscellaneous Test Luoi-3-Hvizrzwzjtve I Antibodies (IgG, IgA, IgM) Test Code 77920 Standing Status: Future Number of Occurrences: 1 Standing Expiration Date: 11/22/2023 Order Specific Question: What is the name of the test you wish to perform? Answer: Hzio-5-Ferawtvtnjud I Antibodies (IgG, IgA, IgM) Cardiolipin AB (IGG,IGM) ([facility]) Cardiolipin Antibodies (IgG, IgM) Test Code 24449 Standing Status: Future Number of Occurrences: 1 Standing Expiration Date: 11/22/2023 Lupus anticoagulant Lupus Anticoagulant Evaluation with Reflex Test Code 7079 Standing Status: Future Number of Occurrences: 1 Standing Expiration Date: 11/22/2023 REMA REMA Screen,IFA, with Reflex to Titer and Pattern Test Code 249 Standing Status: Future Number of Occurrences: 1 Standing Expiration Date: 11/22/2023 Anti-Khoa 1 antibody, IgG Standing Status: Future Number of Occurrences: 1 Standing Expiration Date: 11/22/2023 C3 complement Standing Status: Future Number of Occurrences: 1 Standing Expiration Date: 11/22/2023 C4 complement Standing Status: Future Number of Occurrences: 1 Standing Expiration Date: 11/22/2023 Centromere B Antibody ([facility]) Centromere B Antibody Test Code 71167 Standing Status: Future Number of Occurrences: 1 Standing Expiration Date: 11/22/2023 Chromatin (Nucleosomal) Antibody - Miscellaneous Test Chromatin (Nucleosomal) Antibody Test Code 19896 Standing Status: Future Number of Occurrences: 1 Standing Expiration Date: 11/22/2023 Order Specific Question: What is the name of the test you wish to perform? Answer: Chromatin (Nucleosomal) Antibody Anti-DNA antibody, double-stranded DNA (ds) Antibody Test Code 255 Standing Status: Future Number of Occurrences: 1 Standing Expiration Date: 11/22/2023 Immunoglobulins Panel, Serum - Miscellaneous Test Immunoglobulins Panel, Serum Test Code 7083 Standing Status: Future Number of Occurrences: 1 Standing Expiration Date: 11/22/2023 Order Specific Question: What is the name of the test you wish to perform? Answer: Immunoglobulins Panel, Serum BUSINESS SUPPORT LIAISON Antibody - Miscellaneous Test BUSINESS SUPPORT LIAISON Antibody Test Code 45168 Standing Status: Future Number of Occurrences: 1 Standing Expiration Date: 11/22/2023 Order Specific Question: What is the (more content not included)... [facility] 11-20-2022 36 Called/ spoke w/ pt to move appt up from cx list, appt r/s'd. [facility] 11-16-2022 36 Attempted to call pt from cx list. Voice mail picked up. No message left. [facility] 11-14-2022 36 Attempted to call pt from cx list. Voice mail picked up. No message left. [facility] 10-19-2022 36 Attempted to call pt from cx list. Voice mail picked up. No message left. [facility] 10-18-2022 36 Attempted to call pt from cx list. Voice mail picked up. No message left. [facility] LABORATORYOrdered By: Ewelina Jean Baptiste on 06-24-2022 Anisocytosis Ql (Bld) 1+ *NA* (06/24/22 4:00 AM) Invalid Interpretation Code AO Workflow SS Basophil, Absolute 0.0 103/mcL Invalid Interpretation Code 0.0 - 0.2 10^3/mcL AO Workflow SS Basophils/100 WBC (Bld) 0.5 % Invalid Interpretation Code 0.0 - 2.5 % AO Workflow SS Calcium [Mass/Vol] 8.0 mg/dL Invalid Interpretation Code 8.4 - 10.2 mg/dL AO ADM SS Chloride [Moles/Vol] 98 mmol/L Invalid Interpretation Code 98 - 107 mmol/L AO ADM SS CO2 [Moles/Vol] 27 mmol/L Invalid Interpretation Code 22 - 29 mmol/L AO ADM SS Creatinine [Mass/Vol] 1.09 mg/dL Invalid Interpretation Code 0.55 - 1.02 mg/dL AO ADM SS Electrolyte Balance 7.0 mEq/L Invalid Interpretation Code 4.0 - 15.0 mEq/L AO ADM SS Eosinophil, Absolute 0.1 103/mcL Invalid Interpretation Code 0.0 - 0.4 10^3/mcL AO Workflow SS Eosinophils/100 WBC (Bld) 3.5 % Invalid Interpretation Code 0.0 - 7.0 % AO Workflow SS Erythrocyte distribution width (RBC) [Ratio] 17.2 % Invalid Interpretation Code 11.5 - 14.5 % AO Workflow SS Glucose [Mass/Vol] 122 mg/dL Invalid Interpretation Code 70 - 105 mg/dL AO ADM SS Hematocrit (Bld) [Volume fraction] 36.3 % Invalid Interpretation Code 37.0 - 47.0 % AO Workflow SS Hemoglobin (Bld) [Mass/Vol] 12.0 G/dL Invalid Interpretation Code 12.0 - 16.0 G/dL AO Workflow SS Lymphocyte, Absolute 0.4 103/mcL Invalid Interpretation Code 0.8 - 3.9 10^3/mcL AO Workflow SS Lymphocytes/100 WBC (Bld) 11.4 % Invalid Interpretation Code 10.0 - 50.0 % AO Workflow SS MCH (RBC) [Entitic mass] 22.0 pg Invalid Interpretation Code 27.0 - 31.2 pg AO Workflow SS MCHC 33.0 G/dL Invalid Interpretation Code 33.0 - 37.0 G/dL AO Workflow SS MCV (RBC) [Entitic vol] 66.6 fL Invalid Interpretation Code 80.0 - 94.0 fL AO Workflow SS Microcytes Ql (Bld) 1+ *NA* (06/24/22 4:00 AM) Invalid Interpretation Code AO Workflow SS Monocyte distribution width Auto (Bld) [Entitic vol] 29.74 Invalid Interpretation Code 0.00 - 20.00 AO Workflow SS Comment on above: Result Comment: For adults in ED, MDW>20.0 may be associated with a higher risk of sepsis during the first 12hrs of hospital admission Monocyte, Absolute 0.4 103/mcL Invalid Interpretation Code 0.2 - 1.0 10^3/mcL AO Workflow SS Monocytes/100 WBC (Bld) 11.7 % Invalid Interpretation Code 1.7 - 13.0 % AO Workflow SS Neutrophil, Absolute 2.5 103/mcL Invalid Interpretation Code 2.9 - 6.2 10^3/mcL AO Workflow SS Neutrophils/100 WBC (Bld) 72.9 % Invalid Interpretation Code 37.0 - 80.0 % AO Workflow SS Ovalocytes LM Ql (Bld) 1+ *NA* (06/24/22 4:00 AM) Invalid Interpretation Code AO Workflow SS Platelet Estimate Normal *NA* (06/24/22 4:00 AM) Invalid Interpretation Code AO Workflow SS Platelet mean volume (Bld) [Entitic vol] 8.7 fL Invalid Interpretation Code 7.4 - 10.4 fL AO Workflow SS Platelets (Bld) [#/Vol] 147 103/mcL Invalid Interpretation Code 130 - 400 10^3/mcL AO Workflow SS Potassium [Moles/Vol] 3.4 mmol/L Invalid Interpretation Code 3.5 - 5.1 mmol/L AO ADM SS RBC (Bld) [#/Vol] 5.45 106/mcL Invalid Interpretation Code 4.20 - 5.40 10^6/mcL AO Workflow SS Sodium [Moles/Vol] 132 mmol/L Invalid Interpretation Code 136 - 145 mmol/L AO ADM SS Urea nitrogen [Mass/Vol] 10 mg/dL Invalid Interpretation Code 7 - 18 mg/dL AO ADM SS Urea nitrogen/Creatinine [Mass ratio] 9 ratio Invalid Interpretation Code 7 - 27 ratio AO ADM SS WBC (Bld) [#/Vol] 3.4 103/mcL Invalid Interpretation Code 4.6 - 10.8 10^3/mcL AO Workflow SS LABORATORYOrdered By: SYSTEM SYSTEM on 06-24-2022 GFR 70 ml/min/1.73sqm Invalid Interpretation Code AO Chemistry S GFR Non- 58 ml/min/1.73sqm Invalid Interpretation Code AO Chemistry S LABORATORYOrdered By: Antonina Wallace on 06-22-2022 Adenovirus DNA JESIKA+non-probe Ql (Nph) Not Detected *NA* (06/22/22 12:55 PM) Invalid Interpretation Code Not Detected AH Auto Viro/Sero SS ADMITTED TO INTENSIVE CARE UNIT FOR CONDITION OF INTEREST:FIND:PT:^P ATIENT:ORD: No (06/22/22 12:55 PM) Invalid Interpretation Code AH Auto Viro/Sero SS B. parapertussis [id number] DNA JESIKA+non-probe Ql (Nph) Not Detected *NA* (06/22/22 12:55 PM) Invalid Interpretation Code Not Detected AH Auto Viro/Sero SS B. pertussis toxin promoter region JESIKA+non-probe Ql (Nph) Not Detected *NA* (06/22/22 12:55 PM) Invalid Interpretation Code Not Detected AH Auto Viro/Sero SS C. pneumoniae DNA JESIKA+non-probe Ql (Nph) Not Detected *NA* (06/22/22 12:55 PM) Invalid Interpretation Code Not Detected AH Auto Viro/Sero SS EMPLOYED IN A HEALTHCARE SETTING:FIND:PT:^PA TIENT:ORD: No (06/22/22 12:55 PM) Invalid Interpretation Code AH Auto Viro/Sero SS FIRST TEST FOR CONDITION OF INTEREST:FIND:PT:^P ATIENT:ORD: No (06/22/22 12:55 PM) Invalid Interpretation Code Auto Viro/Sero SS FLUAV RNA JESIKA+non-probe Ql (Nph) Not Detected *NA* (06/22/22 12:55 PM) Invalid Interpretation Code Not Detected Auto Viro/Sero SS FLUBV RNA JESIKA+non-probe Ql (Nph) Not Detected *NA* (06/22/22 12:55 PM) Invalid Interpretation Code Not Detected AH Auto Viro/Sero SS HAS SYMPTOMS RELATED TO CONDITION OF INTEREST:FIND:PT:^P ATIENT:ORD: Yes (06/22/22 12:55 PM) Invalid Interpretation Code Auto Viro/Sero SS hMPV RNA JESIKA+non-probe Ql (Nph) Not Detected *NA* (06/22/22 12:55 PM) Invalid Interpretation Code Not Detected Auto Viro/Sero SS Illness or injury onset date and time [id number] Invalid Interpretation Code Auto Viro/Sero SS M. pneumoniae DNA JESIKA+non-probe Ql (Nph) Not Detected *NA* (06/22/22 12:55 PM) Invalid Interpretation Code Not Detected Auto Viro/Sero SS Parainfluenza virus 1 RNA JESIKA+non-probe Ql (Nph) Not Detected *NA* (06/22/22 12:55 PM) Invalid Interpretation Code Not Detected Auto Viro/Sero SS Parainfluenza virus 2 RNA JESIKA+non-probe Ql (Nph) Not Detected *NA* (06/22/22 12:55 PM) Invalid Interpretation Code Not Detected Auto Viro/Sero SS Parainfluenza virus 3 RNA JESIKA+non-probe Ql (Nph) Not Detected *NA* (06/22/22 12:55 PM) Invalid Interpretation Code Not Detected Auto Viro/Sero SS Parainfluenza virus 4 RNA JESIKA+non-probe Ql (Nph) Not Detected *NA* (06/22/22 12:55 PM) Invalid Interpretation Code Not Detected AH Auto Viro/Sero SS Patient was hospitalized because of this condition No (06/22/22 12:55 PM) Invalid Interpretation Code AH Auto Viro/Sero SS status Not (06/22/22 12:55 PM) Invalid Interpretation Code AH Auto Viro/Sero SS RESIDES IN A CONGREGATE CARE SETTING:FIND:PT:^ZHAO TIENT:ORD: No (06/22/22 12:55 PM) Invalid Interpretation Code AH Auto Viro/Sero SS Rhinovirus+Enterovi courtney RNA JESIKA+non-probe Ql (Nph) Not Detected *NA* (06/22/22 12:55 PM) Invalid Interpretation Code Not Detected AH Auto Viro/Sero SS RSV RNA JESIKA+non-probe Ql (Nph) Not Detected *NA* (06/22/22 12:55 PM) Invalid Interpretation Code Not Detected AH Auto Viro/Sero SS SARS-CoV-2 (COVID-19) RNA JESIKA+probe Ql (Resp) Not Detected *NA* (06/22/22 12:55 PM) Invalid Interpretation Code Not Detected AH Auto Viro/Sero SS LABORATORYOrdered By: Ewelina Chávez on 06-22-2022 Albumin BCP dye [Mass/Vol] 3.6 G/dL Invalid Interpretation Code 3.5 - 5.0 G/dL AO ADM SS Albumin/Globulin [Mass ratio] 0.9 {ratio} Invalid Interpretation Code 1.1 - 2.5 ratio AO ADM SS ALP [Catalytic activity/Vol] 129 U/L Invalid Interpretation Code 40 - 135 U/L AO ADM SS ALT With P-5'-P [Catalytic activity/Vol] 25 U/L Invalid Interpretation Code 14 - 59 U/L AO ADM SS AST With P-5'-P [Catalytic activity/Vol] 20 U/L Invalid Interpretation Code 10 - 40 U/L AO ADM SS Bilirubin [Mass/Vol] 0.2 mg/dL Invalid Interpretation Code 0.2 - 1.0 mg/dL AO ADM SS Calcium [Mass/Vol] 8.7 mg/dL Invalid Interpretation Code 8.4 - 10.2 mg/dL AO ADM SS Chloride [Moles/Vol] 101 mmol/L Invalid Interpretation Code 98 - 107 mmol/L AO ADM SS CO2 [Moles/Vol] 24 mmol/L Invalid Interpretation Code 22 - 29 mmol/L AO ADM SS Creatinine [Mass/Vol] 0.92 mg/dL Invalid Interpretation Code 0.55 - 1.02 mg/dL AO ADM SS Electrolyte Balance 12.0 mEq/L Invalid Interpretation Code 4.0 - 15.0 mEq/L AO ADM SS Globulin 3.9 G/dL Invalid Interpretation Code AO ADM SS Glucose [Mass/Vol] 96 mg/dL Invalid Interpretation Code 70 - 105 mg/dL AO ADM SS Potassium [Moles/Vol] 4.0 mmol/L Invalid Interpretation Code 3.5 - 5.1 mmol/L AO ADM SS Protein [Mass/Vol] 7.5 G/dL Invalid Interpretation Code 6.4 - 8.2 G/dL AO ADM SS Sodium [Moles/Vol] 137 mmol/L Invalid Interpretation Code 136 - 145 mmol/L AO ADM SS Urea nitrogen [Mass/Vol] 8 mg/dL Invalid Interpretation Code 7 - 18 mg/dL AO ADM SS Urea nitrogen/Creatinine [Mass ratio] 9 ratio Invalid Interpretation Code 7 - 27 ratio AO ADM SS LABORATORYOrdered By: Ewelina Jean Baptiste on 06-22-2022 Anisocytosis Ql (Bld) 1+ *NA* (06/22/22 12:32 PM) Invalid Interpretation Code AO Workflow SS Basophil, Absolute 0.0 103/mcL Invalid Interpretation Code 0.0 - 0.2 10^3/mcL AO Workflow SS Basophils/100 WBC (Bld) 0.7 % Invalid Interpretation Code 0.0 - 2.5 % AO Workflow SS Eosinophil, Absolute 0.0 103/mcL Invalid Interpretation Code 0.0 - 0.4 10^3/mcL AO Workflow SS Eosinophils/100 WBC (Bld) 1.0 % Invalid Interpretation Code 0.0 - 7.0 % AO Workflow SS Erythrocyte distribution width (RBC) [Ratio] 17.4 % Invalid Interpretation Code 11.5 - 14.5 % AO Workflow SS Hematocrit (Bld) [Volume fraction] 36.4 % Invalid Interpretation Code 37.0 - 47.0 % AO Workflow SS Hemoglobin (Bld) [Mass/Vol] 11.8 G/dL Invalid Interpretation Code 12.0 - 16.0 G/dL AO Workflow SS Lymphocyte, Absolute 0.5 103/mcL Invalid Interpretation Code 0.8 - 3.9 10^3/mcL AO Workflow SS Lymphocytes/100 WBC (Bld) 12.8 % Invalid Interpretation Code 10.0 - 50.0 % AO Workflow SS MCH (RBC) [Entitic mass] 22.1 pg Invalid Interpretation Code 27.0 - 31.2 pg AO Workflow SS MCHC 32.4 G/dL Invalid Interpretation Code 33.0 - 37.0 G/dL AO Workflow SS MCV (RBC) [Entitic vol] 68.1 fL Invalid Interpretation Code 80.0 - 94.0 fL AO Workflow SS Monocyte, Absolute 0.6 103/mcL Invalid Interpretation Code 0.2 - 1.0 10^3/mcL AO Workflow SS Monocytes/100 WBC (Bld) 15.7 % Invalid Interpretation Code 1.7 - 13.0 % AO Workflow SS Neutrophil, Absolute 2.8 103/mcL Invalid Interpretation Code 2.9 - 6.2 10^3/mcL AO Workflow SS Neutrophils/100 WBC (Bld) 69.8 % Invalid Interpretation Code 37.0 - 80.0 % AO Workflow SS Ovalocytes LM Ql (Bld) 1+ *NA* (06/22/22 12:32 PM) Invalid Interpretation Code AO Workflow SS Platelet Estimate Normal *NA* (06/22/22 12:32 PM) Invalid Interpretation Code AO Workflow SS Platelet mean volume (Bld) [Entitic vol] 7.8 fL Invalid Interpretation Code 7.4 - 10.4 fL AO Workflow SS Platelets (Bld) [#/Vol] 227 103/mcL Invalid Interpretation Code 130 - 400 10^3/mcL AO Workflow SS Poikilocytosis LM Ql (Bld) 1+ *NA* (06/22/22 12:32 PM) Invalid Interpretation Code AO Workflow SS RBC (Bld) [#/Vol] 5.34 106/mcL Invalid Interpretation Code 4.20 - 5.40 10^6/mcL AO Workflow SS WBC (Bld) [#/Vol] 3.9 103/mcL Invalid Interpretation Code 4.6 - 10.8 10^3/mcL AO Workflow SS LABORATORYOrdered By: SYSTEM SYSTEM on 06-22-2022 GFR 85 ml/min/1.73sqm Invalid Interpretation Code AO Chemistry S GFR Non- 70 ml/min/1.73sqm Invalid Interpretation Code AO Chemistry S CLINDAMYCIN:SUSC:PT:ISOLATE: ORDQN:MICon 06-16-2022 Clindamycin SANDEEP [Susc] Light Staphylococcus aureus This staphylococci does not demonstrate inducible clindamycin resistance in vitro. Light Group B Beta Hemolytic Strep (Strep agalactiae) Sensitivity testing is not recommended for one of the following reasons: 1. Established susceptibility patterns are available or 2. Interpretative criteria are not available. 4 colonies Acinetobacter ursingii [facility] Clindamycin SANDEEP [[facility]]on Acinetobacter ursingii Acinetobacter ursingii [facility] GS Rare Red Blood Cells Rare White Blood Cells 1+ Gram Positive Cocci [facility] Staphylococcus aureus Staphylococcus aureus [facility] No Panel Informationon 06-16 Culture Urine 50,000 - 100,000 cfu /ml Multiple bacterial morphotypes present. Probable Contamination. Suggest recollection if clinically indicated. [facility] LABORATORYOrdered By: Eve Orellana on 04-03-2022 CPK 111 1 Invalid Interpretation Code 26 - 192 U/L AO ADM SS Lactate [Moles/Vol] 1.1 mmol/L Invalid Interpretation Code 0.4 - 2.0 mmol/L AO ADM SS Lactate [Moles/Vol] 1.1 mmol/L Invalid Interpretation Code 0.4 - 2.0 mmol/L AO ADM SS Appearance (U) Cloudy *ABN* (04/03/22 12:16 AM) Invalid Interpretation Code Clear AO Auto Urine SS Bacteria LM.HPF (Urine sed) [#/Area] 3 /[HPF] Invalid Interpretation Code AO Auto Urine SS Bilirubin Ql (U) Negative (04/03/22 12:16 AM) Invalid Interpretation Code Negative AO Auto Urine SS Color (U) Yellow (04/03/22 12:16 AM) Invalid Interpretation Code AO Auto Urine SS Glucose Test strip (U) [Mass/Vol] Negative Invalid Interpretation Code Negativemg/d L AO Auto Urine SS Hemoglobin Auto test strip (U) [Mass/Vol] Small *ABN* (04/03/22 12:16 AM) Invalid Interpretation Code Negative AO Auto Urine SS Ketones Ql (U) Negative Invalid Interpretation Code Negativemg/d L AO Auto Urine SS UA Leuk Est Large *ABN* (04/03/22 12:16 AM) Invalid Interpretation Code Negative AO Auto Urine SS UA Mucous 1+ /HPF Invalid Interpretation Code AO Auto Urine SS UA Nitrite Negative (04/03/22 12:16 AM) Invalid Interpretation Code Negative AO Auto Urine SS UA pH 5.5 (04/03/22 12:16 AM) Invalid Interpretation Code 5.0 - 8.0 AO Auto Urine SS UA Protein Negative Invalid Interpretation Code Negativemg/d L AO Auto Urine SS UA RBC 5-10 /HPF Invalid Interpretation Code None Seen/HPF AO Auto Urine SS UA Spec Grav >=1.030 *ABN* (04/03/22 12:16 AM) Invalid Interpretation Code 1.015-1.025 AO Auto Urine SS UA Specimen Type Clean Catch (04/03/22 12:16 AM) Invalid Interpretation Code AO Auto Urine SS UA Squam Epithelial 10-15 /HPF Invalid Interpretation Code None Seen/HPF AO Auto Urine SS UA Urobilinogen 0.2 E.U./dL Invalid Interpretation Code 0.2-1.0E.U./ dL AO Auto Urine SS WBC LM.HPF (Urine sed) [#/Area] LOADED /HPF Invalid Interpretation Code None Seen/HPF AO Auto Urine SS Albumin BCP dye [Mass/Vol] 3.6 G/dL Invalid Interpretation Code 3.5 - 5.0 G/dL AO ADM SS Albumin/Globulin [Mass ratio] 0.9 {ratio} Invalid Interpretation Code 1.1 - 2.5 ratio AO ADM SS ALP [Catalytic activity/Vol] 126 U/L Invalid Interpretation Code 40 - 135 U/L AO ADM SS ALT With P-5'-P [Catalytic activity/Vol] 34 U/L Invalid Interpretation Code 14 - 59 U/L AO ADM SS AST With P-5'-P [Catalytic activity/Vol] 26 U/L Invalid Interpretation Code 10 - 40 U/L AO ADM SS Basophil, Absolute 0.1 103/mcL Invalid Interpretation Code 0.0 - 0.2 10^3/mcL AO Workflow SS Basophils/100 WBC (Bld) 0.6 % Invalid Interpretation Code 0.0 - 2.5 % AO Workflow SS Bilirubin [Mass/Vol] 0.4 mg/dL Invalid Interpretation Code 0.2 - 1.0 mg/dL AO ADM SS Calcium [Mass/Vol] 8.5 mg/dL Invalid Interpretation Code 8.4 - 10.2 mg/dL AO ADM SS Chloride [Moles/Vol] 102 mmol/L Invalid Interpretation Code 98 - 107 mmol/L AO ADM SS CO2 [Moles/Vol] 30 mmol/L Invalid Interpretation Code 22 - 29 mmol/L AO ADM SS CPK 114 1 Invalid Interpretation Code 26 - 192 U/L AO ADM SS Creatinine [Mass/Vol] 1.05 mg/dL Invalid Interpretation Code 0.55 - 1.02 mg/dL AO ADM SS Electrolyte Balance 6.0 mEq/L Invalid Interpretation Code 4.0 - 15.0 mEq/L AO ADM SS Eosinophil, Absolute 0.1 103/mcL Invalid Interpretation Code 0.0 - 0.4 10^3/mcL AO Workflow SS Eosinophils/100 WBC (Bld) 0.6 % Invalid Interpretation Code 0.0 - 7.0 % AO Workflow SS Erythrocyte distribution width (RBC) [Ratio] 16.4 % Invalid Interpretation Code 11.5 - 14.5 % AO Workflow SS Globulin 4.0 G/dL Invalid Interpretation Code AO ADM SS Glucose [Mass/Vol] 120 mg/dL Invalid Interpretation Code 70 - 105 mg/dL AO ADM SS Hematocrit (Bld) [Volume fraction] 37.1 % Invalid Interpretation Code 37.0 - 47.0 % AO Workflow SS Hemoglobin (Bld) [Mass/Vol] 12.0 G/dL Invalid Interpretation Code 12.0 - 16.0 G/dL AO Workflow SS Lymphocyte, Absolute 0.2 103/mcL Invalid Interpretation Code 0.8 - 3.9 10^3/mcL AO Workflow SS Lymphocytes/100 WBC (Bld) 2.2 % Invalid Interpretation Code 10.0 - 50.0 % AO Workflow SS Magnesium [Mass/Vol] 1.8 mg/dL Invalid Interpretation Code 1.8 - 2.4 mg/dL AO ADM SS MCH (RBC) [Entitic mass] 22.3 pg Invalid Interpretation Code 27.0 - 31.2 pg AO Workflow SS MCHC 32.3 G/dL Invalid Interpretation Code 33.0 - 37.0 G/dL AO Workflow SS MCV (RBC) [Entitic vol] 69.1 fL Invalid Interpretation Code 80.0 - 94.0 fL AO Workflow SS Monocyte distribution width Auto (Bld) [Entitic vol] 21.79 Invalid Interpretation Code 0.00 - 20.00 AO Workflow SS Comment on above: Result Comment: For adults in ED, MDW>20.0 may be associated with a higher risk of sepsis during the first 12hrs of hospital admission Monocyte, Absolute 0.5 103/mcL Invalid Interpretation Code 0.2 - 1.0 10^3/mcL AO Workflow SS Monocytes/100 WBC (Bld) 5.6 % Invalid Interpretation Code 1.7 - 13.0 % AO Workflow SS Neutrophil, Absolute 7.5 103/mcL Invalid Interpretation Code 2.9 - 6.2 10^3/mcL AO Workflow SS Neutrophils/100 WBC (Bld) 91.0 % Invalid Interpretation Code 37.0 - 80.0 % AO Workflow SS Platelet mean volume (Bld) [Entitic vol] 7.1 fL Invalid Interpretation Code 7.4 - 10.4 fL AO Workflow SS Platelets (Bld) [#/Vol] 255 103/mcL Invalid Interpretation Code 130 - 400 10^3/mcL AO Workflow SS Potassium [Moles/Vol] 3.4 mmol/L Invalid Interpretation Code 3.5 - 5.1 mmol/L AO ADM SS Protein [Mass/Vol] 7.6 G/dL Invalid Interpretation Code 6.4 - 8.2 G/dL AO ADM SS RBC (Bld) [#/Vol] 5.37 106/mcL Invalid Interpretation Code 4.20 - 5.40 10^6/mcL AO Workflow SS Sodium [Moles/Vol] 138 mmol/L Invalid Interpretation Code 136 - 145 mmol/L AO ADM SS Troponin I.cardiac DL <= 0.01 ng/mL [Mass/Vol] 5.2 ng/L Invalid Interpretation Code 0.0 - 51.4 ng/L AO ADM SS TSH Qn 0.54 m[IU]/L Invalid Interpretation Code 0.36 - 3.74 mcIU/mL AO ADM SS Urea nitrogen [Mass/Vol] 8 mg/dL Invalid Interpretation Code 7 - 18 mg/dL AO ADM SS Urea nitrogen/Creatinine [Mass ratio] 8 ratio Invalid Interpretation Code 7 - 27 ratio AO ADM SS WBC 8.2 103/mcL Invalid Interpretation Code 4.6 - 10.8 10^3/mcL AO Workflow SS LABORATORYOrdered By: SYSTEM SYSTEM on 04-03-2022 GFR 73 ml/min/1.73sqm Invalid Interpretation Code AO Chemistry S GFR Non- 60 ml/min/1.73sqm Invalid Interpretation Code AO Chemistry S No Panel Informationon 04-03 Microscopic examination of blood, culture Culture has been received in lab and is no growth to date. Routine cultures are held for 5 days. [facility] LABORATORYOrdered By: Eve Orellana on 04-02-2022 ADMITTED TO INTENSIVE CARE UNIT FOR CONDITION OF INTEREST:FIND:PT:^P ATIENT:ORD: No (04/02/22 11:52 PM) Invalid Interpretation Code AO Auto Urine SS EMPLOYED IN A HEALTHCARE SETTING:FIND:PT:^PA TIENT:ORD: No (04/02/22 11:52 PM) Invalid Interpretation Code AO Auto Urine SS FIRST TEST FOR CONDITION OF INTEREST:FIND:PT:^P ATIENT:ORD: No (04/02/22 11:52 PM) Invalid Interpretation Code AO Auto Urine SS HAS SYMPTOMS RELATED TO CONDITION OF INTEREST:FIND:PT:^P ATIENT:ORD: Yes (04/02/22 11:52 PM) Invalid Interpretation Code AO Auto Urine SS Illness or injury onset date and time [id number] Invalid Interpretation Code AO Auto Urine SS Patient was hospitalized because of this condition No (04/02/22 11:52 PM) Invalid Interpretation Code AO Auto Urine SS status Not (04/02/22 11:52 PM) Invalid Interpretation Code AO Auto Urine SS RESIDES IN A CONGREGATE CARE SETTING:FIND:PT:^PA TIENT:ORD: No (04/02/22 11:52 PM) Invalid Interpretation Code AO Auto Urine SS SARS-CoV-2 (COVID-19) RNA JESIKA+probe Ql (Unsp spec) Negative results do not preclude SARS-CoV-2 infection and should not be used as the sole basis for patient management decisions. Negative results must be combined with clinical observations, patient history, and epidemiological information.There is a risk of false negative values resulting from improperly collected, transported, or handled specimens.There is a risk of false negative values due to the presence of sequence variants in the pathogen targets of the assay, procedural errors, amplification inhibitors in specimens, or inadequate numbers of organisms for amplification.NIKHIL SARS-CoV-2 Assay is a Real-Time reverse-transcriptase polymerase chain reaction (RT-PCR) based qualitative in vitro diagnostic test intended for the qualitative detection of nucleic acid from the SARS-CoV-2 in nasopharyngeal swab specimens collected from individuals suspected of COVID-19 by their healthcare provider. Testing is limited to laboratories certified under the Clinical Laboratory Improvement Amendments of 1988 (CLIA), 42 U.S.C. 263a, to perform moderate and high complexity tests. Invalid Interpretation Code AO Auto Urine SS No Panel InformationOrdered By: Jeff Thomas on 03-09-2022 Affirm Pathogens DNA Direct Probe Maikel species DNA Probe Negative Gardnerella vaginalis DNA Probe Negative Trichomonas vaginalis DNA Probe Negative [facility] LABORATORYOrdered By: Ewelina Jean Baptiste on 11-24-2021 Albumin BCP dye [Mass/Vol] 3.8 G/dL Invalid Interpretation Code 3.5 - 5.0 G/dL AO ADM SS Albumin/Globulin [Mass ratio] 1.0 {ratio} Invalid Interpretation Code 1.1 - 2.5 ratio AO ADM SS ALP [Catalytic activity/Vol] 180 U/L Invalid Interpretation Code 40 - 135 U/L AO ADM SS ALT With P-5'-P [Catalytic activity/Vol] 52 U/L Invalid Interpretation Code 14 - 59 U/L AO ADM SS AST With P-5'-P [Catalytic activity/Vol] 31 U/L Invalid Interpretation Code 10 - 40 U/L AO ADM SS Bilirubin [Mass/Vol] 0.3 mg/dL Invalid Interpretation Code 0.2 - 1.0 mg/dL AO ADM SS Calcium [Mass/Vol] 9.3 mg/dL Invalid Interpretation Code 8.4 - 10.2 mg/dL AO ADM SS Chloride [Moles/Vol] 104 mmol/L Invalid Interpretation Code 98 - 107 mmol/L AO ADM SS CO2 [Moles/Vol] 26 mmol/L Invalid Interpretation Code 22 - 29 mmol/L AO ADM SS Creatinine [Mass/Vol] 0.79 mg/dL Invalid Interpretation Code 0.55 - 1.02 mg/dL AO ADM SS Electrolyte Balance 10.0 mEq/L Invalid Interpretation Code 4.0 - 15.0 mEq/L AO ADM SS Globulin 4.0 G/dL Invalid Interpretation Code AO ADM SS Glucose [Mass/Vol] 92 mg/dL Invalid Interpretation Code 70 - 105 mg/dL AO ADM SS Potassium [Moles/Vol] 3.6 mmol/L Invalid Interpretation Code 3.5 - 5.1 mmol/L AO ADM SS Protein [Mass/Vol] 7.8 G/dL Invalid Interpretation Code 6.4 - 8.2 G/dL AO ADM SS Sodium [Moles/Vol] 140 mmol/L Invalid Interpretation Code 136 - 145 mmol/L AO ADM SS Troponin I.cardiac DL <= 0.01 ng/mL [Mass/Vol] ng/L Invalid Interpretation Code 0.0 - 51.4 ng/L AO ADM SS Urea nitrogen [Mass/Vol] 6 mg/dL Invalid Interpretation Code 7 - 18 mg/dL AO ADM SS Urea nitrogen/Creatinine [Mass ratio] 8 ratio Invalid Interpretation Code 7 - 27 ratio AO ADM SS LABORATORYOrdered By: Ewelina Chávez on 11-24-2021 Basophil, Absolute 0.00 103/mcL Invalid Interpretation Code 0.00 - 0.19 10^3/mcL AO Auto Heme SS Basophils/100 WBC (Bld) 1.0 % Invalid Interpretation Code 0.0 - 2.5 % AO Auto Heme SS Eosinophil, Absolute 0.30 103/mcL Invalid Interpretation Code 0.00 - 0.40 10^3/mcL AO Auto Heme SS Eosinophils/100 WBC (Bld) 5.7 % Invalid Interpretation Code 0.0 - 7.0 % AO Auto Heme SS Erythrocyte distribution width (RBC) [Ratio] 18.0 % Invalid Interpretation Code 11.5 - 14.5 % AO Auto Heme SS Hematocrit (Bld) [Volume fraction] 37.5 % Invalid Interpretation Code 37.0 - 47.0 % AO Auto Heme SS Hemoglobin (Bld) [Mass/Vol] 12.0 G/dL Invalid Interpretation Code 12.0 - 16.0 G/dL AO Auto Heme SS Lymphocyte, Absolute 1.10 103/mcL Invalid Interpretation Code 0.77 - 3.85 10^3/mcL AO Auto Heme SS Lymphocytes/100 WBC (Bld) 24.4 % Invalid Interpretation Code 10.0 - 50.0 % AO Auto Heme SS MCH (RBC) [Entitic mass] 21.9 pg Invalid Interpretation Code 27.0 - 31.2 pg AO Auto Heme SS MCHC (RBC) [Mass/Vol] 32.0 G/dL Invalid Interpretation Code 33.0 - 37.0 G/dL AO Auto Heme SS MCV (RBC) [Entitic vol] 68.4 fL Invalid Interpretation Code 80.0 - 94.0 fL AO Auto Heme SS Microcytes Ql (Bld) Slight (11/24/21 4:20 PM) Invalid Interpretation Code AO Auto Heme SS Monocyte, Absolute 0.60 103/mcL Invalid Interpretation Code 0.15 - 1.00 10^3/mcL AO Auto Heme SS Monocytes/100 WBC (Bld) 12.8 % Invalid Interpretation Code 1.7 - 13.0 % AO Auto Heme SS Neutrophil, Absolute 2.60 103/mcL Invalid Interpretation Code 2.85 - 6.16 10^3/mcL AO Auto Heme SS Neutrophils/100 WBC (Bld) 56.1 % Invalid Interpretation Code 37.0 - 80.0 % AO Auto Heme SS Ovalocytes LM Ql (Bld) Few (11/24/21 4:20 PM) Invalid Interpretation Code AO Auto Heme SS Platelet Estimate Normal (11/24/21 4:20 PM) Invalid Interpretation Code AO Auto Heme SS Platelet mean volume (Bld) [Entitic vol] 8.1 fL Invalid Interpretation Code 7.4 - 10.4 fL AO Auto Heme SS Platelets (Bld) [#/Vol] 289 103/mcL Invalid Interpretation Code 130 - 400 10^3/mcL AO Auto Heme SS RBC (Bld) [#/Vol] 5.48 106/mcL Invalid Interpretation Code 4.20 - 5.40 10^6/mcL AO Auto Heme SS WBC (Bld) [#/Vol] 4.70 103/mcL Invalid Interpretation Code 4.60 - 10.80 10^3/mcL AO Auto Heme SS LABORATORYOrdered By: SYSTEM SYSTEM on 11-24-2021 GFR 102 ml/min/1.73sqm Invalid Interpretation Code AO Chemistry S GFR Non- 84 ml/min/1.73sqm Invalid Interpretation Code AO Chemistry S LABORATORYOrdered By: Eve Orellana on 08-15-2021 Albumin BCP dye [Mass/Vol] 3.6 G/dL Invalid Interpretation Code 3.5 - 5.0 G/dL AO ADM SS Albumin/Globulin [Mass ratio] 0.9 {ratio} Invalid Interpretation Code 1.1 - 2.5 ratio AO ADM SS ALP [Catalytic activity/Vol] 133 U/L Invalid Interpretation Code 40 - 135 U/L AO ADM SS ALT With P-5'-P [Catalytic activity/Vol] 40 U/L Invalid Interpretation Code 14 - 59 U/L AO ADM SS AST With P-5'-P [Catalytic activity/Vol] 23 U/L Invalid Interpretation Code 10 - 40 U/L AO ADM SS Bilirubin [Mass/Vol] 0.2 mg/dL Invalid Interpretation Code 0.2 - 1.0 mg/dL AO ADM SS Calcium [Mass/Vol] 8.8 mg/dL Invalid Interpretation Code 8.4 - 10.2 mg/dL AO ADM SS Chloride [Moles/Vol] 103 mmol/L Invalid Interpretation Code 98 - 107 mmol/L AO ADM SS CO2 [Moles/Vol] 28 mmol/L Invalid Interpretation Code 22 - 29 mmol/L AO ADM SS Creatinine [Mass/Vol] 0.75 mg/dL Invalid Interpretation Code 0.55 - 1.02 mg/dL AO ADM SS Electrolyte Balance 11.0 mEq/L Invalid Interpretation Code AO ADM SS Globulin 3.9 G/dL Invalid Interpretation Code AO ADM SS Glucose [Mass/Vol] 128 mg/dL Invalid Interpretation Code 70 - 105 mg/dL AO ADM SS Potassium [Moles/Vol] 3.7 mmol/L Invalid Interpretation Code 3.5 - 5.1 mmol/L AO ADM SS Protein [Mass/Vol] 7.5 G/dL Invalid Interpretation Code 6.4 - 8.2 G/dL AO ADM SS Sodium [Moles/Vol] 142 mmol/L Invalid Interpretation Code 136 - 145 mmol/L AO ADM SS Urea nitrogen [Mass/Vol] 11 mg/dL Invalid Interpretation Code 7 - 18 mg/dL AO ADM SS Urea nitrogen/Creatinine [Mass ratio] 15 ratio Invalid Interpretation Code 7 - 27 ratio AO ADM SS LABORATORYOrdered By: Ewelina Chávez on 08-15-2021 Basophil, Absolute 0.00 103/mcL Invalid Interpretation Code 0.00 - 0.19 10^3/mcL AO Auto Heme SS Basophils/100 WBC (Bld) 0.3 % Invalid Interpretation Code 0.0 - 2.5 % AO Auto Heme SS Eosinophil, Absolute 0.20 103/mcL Invalid Interpretation Code 0.00 - 0.40 10^3/mcL AO Auto Heme SS Eosinophils/100 WBC (Bld) 3.5 % Invalid Interpretation Code 0.0 - 7.0 % AO Auto Heme SS Erythrocyte distribution width (RBC) [Ratio] 16.4 % Invalid Interpretation Code 11.5 - 14.5 % AO Auto Heme SS Hematocrit (Bld) [Volume fraction] 35.9 % Invalid Interpretation Code 37.0 - 47.0 % AO Auto Heme SS Hemoglobin (Bld) [Mass/Vol] 11.7 G/dL Invalid Interpretation Code 12.0 - 16.0 G/dL AO Auto Heme SS Lymphocyte, Absolute 0.80 103/mcL Invalid Interpretation Code 0.77 - 3.85 10^3/mcL AO Auto Heme SS Lymphocytes/100 WBC (Bld) 16.3 % Invalid Interpretation Code 10.0 - 50.0 % AO Auto Heme SS MCH (RBC) [Entitic mass] 22.6 pg Invalid Interpretation Code 27.0 - 31.2 pg AO Auto Heme SS MCHC (RBC) [Mass/Vol] 32.6 G/dL Invalid Interpretation Code 33.0 - 37.0 G/dL AO Auto Heme SS MCV (RBC) [Entitic vol] 69.3 fL Invalid Interpretation Code 80.0 - 94.0 fL AO Auto Heme SS Monocyte, Absolute 0.50 103/mcL Invalid Interpretation Code 0.15 - 1.00 10^3/mcL AO Auto Heme SS Monocytes/100 WBC (Bld) 9.5 % Invalid Interpretation Code 1.7 - 13.0 % AO Auto Heme SS Neutrophil, Absolute 3.50 103/mcL Invalid Interpretation Code 2.85 - 6.16 10^3/mcL AO Auto Heme SS Neutrophils/100 WBC (Bld) 70.4 % Invalid Interpretation Code 37.0 - 80.0 % AO Auto Heme SS Ovalocytes LM Ql (Bld) Few (08/15/21 8:45 AM) Invalid Interpretation Code AO Auto Heme SS Platelet Estimate Normal (08/15/21 8:45 AM) Invalid Interpretation Code AO Auto Heme SS Platelet mean volume (Bld) [Entitic vol] 7.6 fL Invalid Interpretation Code 7.4 - 10.4 fL AO Auto Heme SS Platelets (Bld) [#/Vol] 297 103/mcL Invalid Interpretation Code 130 - 400 10^3/mcL AO Auto Heme SS Poikilocytosis LM Ql (Bld) Slight (08/15/21 8:45 AM) Invalid Interpretation Code AO Auto Heme SS RBC (Bld) [#/Vol] 5.17 106/mcL Invalid Interpretation Code 4.20 - 5.40 10^6/mcL AO Auto Heme SS WBC (Bld) [#/Vol] 5.00 103/mcL Invalid Interpretation Code 4.60 - 10.80 10^3/mcL AO Auto Heme SS LABORATORYOrdered By: SYSTEM SYSTEM on 08-15-2021 GFR 109 ml/min/1.73sqm Invalid Interpretation Code AO Chemistry S GFR Non- 90 ml/min/1.73sqm Invalid Interpretation Code AO Chemistry S BACTERIAL VAGINOSIS PANELon 08-22-2018 MAIKEL SPECIES DETECTED Abnormal Not Detected [facility] Comment on above: Result Comment: DETE CTED BY DNA PROBE Performed By: #### V AG ####[id number] [place] [address] GARDNERELLA VAGINALIS DETECTED Abnormal Not Detected [facility] Comment on above: Result Comment: DETE CTED BY DNA PROBE Performed By: #### V AG ####[id number] [id number] TRICHOMONAS VAGINALIS Not Detected Normal Not Detected [facility] Comment on above: Result Comment: NOT DETECTED BY DNA PROBE Performed By: #### V AG ####[id number] [id number] OPTOELECTRONIC TECHNICIAN - Office Visiton 08-10 OPTOELECTRONIC TECHNICIAN - Office Visit Chief ComplaintGYN History of Present IllnessVAGINAL [id number]-pnaa-cio G0 female here for a gynecology visit.She was last seen in November 2017 for follow-up of vaginal symptoms.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 She had enterococcus found on culture of the vagina.She was treated with a 6 week course of daily clindamycin cream and her symptoms did improve.Today she is complaining of a return of symptoms.She was diagnosed with Lupus in about February. Given prednisone for a skin rash and is on immunosuppressants. Symptoms started again several months ago:Heavy discharge, itching and irritation. No odor. Always uncomfortable, burning, pain with intercourse.Says that she has found that going on the Prednisone really helped. Her symptoms are not bad when she is taking it, but as soon as she tries to stop it the discharge and discomfort return again.She hasn't told her specialist she is still taking the prednisone, was maybe just supposed to use it for a short time. Active Problems Acute vaginitis (616.10) (N76.0) Concern about STD in female without diagnosis (V65.5) (Z71.1) Dysuria (788.1) (R30.0) Female pelvic pain (625.9) (R10.2) Subacute vaginitis (616.10) (N76.1) Tick bite of buttock, initial encounter (911.4,E906.4) (S30.860A,W57.XXXA) Vaginal discharge (623.5) (N89.8) Vaginal itching (698.1) (N89.8) Vaginal pain (625.9) (R10.2) Vulvar boil (616.4) (N76.4) Past Medical History History of Varicella without complication (052.9) (B01.9) Surgical History History of Cholecystectomy 2012 History of Tonsillectomy 2014 Family History Family history of Controlled type 2 diabetes mellitus with complication, with long-termcurrent use of insulin Family history of Alzheimer's disease (V17.2) (Z82.0) Family history of hypertension (V17.49) (Z82.49) Family history of myocardial infarction (V17.3) (Z82.49) Family history of Controlled type 2 diabetes mellitus with complication, with long-termcurrent use of insulin Social History Current smoker (305.1) (F17.200) Exercise: Walking Occasional alcohol use Single Allergies Cipro TABS Hives;; Updated By: Shanthi Enriquez; 10/03/2017 1:09:49 PM Current Meds Clindamycin Phosphate 2 % Vaginal Cream; INSERT ONE 4 GRAM APPLICATORFULINTRAVAGINALL Y DAILY FOR 2 WEEKS;Therapy: 03Oct2017 to (Last Rx:14Nov2017) Requested for: 14Nov2017 Ordered Rx By: Clari Up; Dispense: 0 Days ; #:1 X 40 GM Tube; Refill: 1;For: Subacute vaginitis; KENA = N; Verified Transmission to [id number]; Last Updated By: Yvrose Crenshaw; 08/21/2018 1:05:15 PM Doxycycline Hyclate 100 MG Oral Capsule; 2 capsules po x 1 now;Therapy: 17Jan2018 to (Last Rx:17Jan2018) Ordered Rx By: Jan Olivares; Dispense: 0 Days ; #:2 Capsule; Refill: 0;For: Tick bite of buttock, initial encounter; KENA = N; Print Rx Cholestyramine 4 GM Oral Packet;Therapy: 28Sep2017 to Recorded Dispense: 30 Days ; #:60; Refill: 0; KENA = N; Record; Last Updated By: Shanthi Enriquez; 08/21/2018 1:05:15 PM Probiotic CAPS;Therapy: (Recorded:14Nov2017) to Recorded Dispense: 0 Days ; #: Sufficient; Refill: 0; KENA = N; Record; Last Updated By: Shanthi Enriquez; 11/14/2017 11:13:14 AM Physical ExamConstitutional: Alert and in no acute distress. Well developed, well nourished. Head and Face: Head and face: Normal. Pulmonary: No respiratory distress. Genitourinary: External genitalia: Normal. Palpation of lymph nodes in groin: No inguinal lymphadenopathy. Bartholin's Urethral and Skenes Glands: Normal. Urethra: Normal. Vagina: Thin, cloudy discharge present. No odor. The vaginal alcala are somewhat erythematous. Minimal discomfort with placement of the speculum. Cervix: Mild erythema. No pain. Psychiatric: Alert and oriented x 3. Affect normal to patient baseline. Mood: Appropriate. Diagnoses/Problems Vaginal discharge (623.5) (N89.8) Vaginal itching (698.1) (N89.8) Vaginal pain (625.9) (R10.2) Orders Bacterial Vaginosis Panel; Specimen Source:Vaginal Swab; Status:In Progress -Specimen/Data Collected,Retrospective Authorization; Done: [id number] Perform:Lab Services - Lab To Draw (Non-Blood Test); Due:19Nov2018; Last Updated By:Ana Michael; 08/21/2018 1:29:43 PM;Ordered; For:Vaginal discharge; Ordered By:Clari Up; Patient Discussion/SummaryThe patient is here today for a gynecology visit.She has had a recurrence of vaginal discharge and discomfort.It is possible she has a return of the previous vaginitis, but first I would rule out basic infections with yeast and bacterial vaginosis. Testing done today and I will call her with the result. We will then discuss the best long-term approach to treatment.If appropriate she may need to resume a long-term course of the clindamycin again.I would also recommend that she stop the prednisone. In spite of the fact that she thinks it is helping, I do not believe that she has been meant to be taking it daily, particularly as a solution her vaginal symptoms. Signatures Electronically signed by : Clari Up MD; Aug 21 2018 1:50PM EST (Author) Normal Ines CNCOon 08-06-2018 CNCO Letter Rose Sanders M.D.[address] [place], [place] [address] office: Patient: Santa Krishnanazaninalexy [id number] August 06, 2018Department of Gastroenterology Page [place] [address] [facility] [address]Beds Santa,As always your health is of primary concern to our practice. Our recordsindicate you are due to have a follow up appointment.We have attemped to reach you by phone. Please contact our office toschedule your follow up appointment.Please feel free to contact us at anytime with any concerns or questions.Sincerely.Jayesh Sanders M.D.(Signed electronically to expedite mailing) [facility] [place] 07-19-2018 CNPN Telephone (GSTCON) LUIS FERNANDO TAYLOR ([id number]) 1990 [facility] Time Provider Ncsjosxfxp56/9/18 JASON SANDERS GSTMARCIA During your visit today, we recorded the following information about you:Radha January Flower Maker 07/19/2018 10:12 AM Signed3-4 month follow up due end of julDue: 1 week ago Received: 1 week ago Call patientMessage ContentsBrandi January Flower Maker Cameron Sanders Clinical PoolI called patient and left message to call backBjanuary Admin AsstBrandi January Flower Maker 08/06/2018 7:42 AM SignedI mailed patient a reminder letterBrandjanuary Admin AsstAllergies As of Date: 07/19/2018 Noted Allergy ReactionCIPROFLOXACIN 01/18/2018 4 - HivesDate Reviewed: 03/01/2018Reviewed by: Jason Sanders - Fully AssessedReason for Visit: Appointment [186]Prescriptions as of 07/19/2018 Sig: IV CONTRAST (RADIOLOGY PROCED* CT Enterography W Inject, int* ENTERIC CONTRAST (RADIOLOGY P* For CT ENTEROGRAPHY W IVCON o* CHOLESTYRAMINE-ASPARTAME 4 GR* Take by mouth three times robbi* DOXYCYCLINE HYCLATE 100 MG TA* Take 100 mg by mouth twice da* CULTURELLE PROBIOTICS ORAL Take by mouth.Problem List As Of Date: 07/19/2018(None) Status:Closed by JANUARY INSPECTOR BALL POINTSRADHA LAKE on 07/19/18 [facility] 03-27-2018 CNPN Telephone (ASCLBK) LUIS FERNANDO TAYLOR ([id number]) 1990 [facility] Time Provider Department03/27/18 JASON SANDERS ASCLBK During your visit today, we recorded the following information about you:Jason Sanders MD 03/27/2018 7:32 PM SignedCT enterography reviewed.Left voicemail that I will send [employer] Mobile[employer] message.Jason Sanders [phone](This note may have been partially generated using [employer] voice recognitionsystem and could be subject to dictation errors. If clarification is neededregarding the context or content of this note please contact me).Radha January Flower Maker 03/29/2018 11:34 AM AddendumPatient is returning your call, she can be reached at [phone] January Admin AsstBed January Flower Maker 04/15/2018 3:05 PM [id number] message given to Dr. Sanders for him to call Rubio January Admin KeilatGanshul Sanders MD 04/23/2018 9:11 PM SignedLeft voicemailNeed to discuss capsule.Jason Sanders [phone](This note may have been partially generated using [employer] voice recognitionsystem and could be subject to dictation errors. 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 She is also on imuran.Initially on plaquenil rash didn't improve.Steroids were just started last Sunday.Last month gi symptoms have improved mostly after the colonoscopy (sibo?) andprior to starting the steroids and imuran.Will hold on the video capsule endoscopy for now. Plan for follow up in 3-4months or sooner as needed.Jason Sanders [phone](This note may have been partially generated using [employer] recognitionsystem and could be subject to dictation errors. If clarification is neededregarding the context or content of this note please contact me).Radha May Flower Maker 04/29/2018 11:15 AM Signed Reminder placed for 3-4 month follow upBrandi Judith Admin AsstAllergies As of Date: 03/27/2018 Noted Allergy ReactionCIPROFLOXACIN 01/18/2018 4 - HivesDate Reviewed: 03/01/2018Reviewed by: Jason Sanders - Fully AssessedReason for Visit: Clinical Update [8196]Prescriptions as of 03/27/2018 Sig: IV CONTRAST (RADIOLOGY PROCED* CT Enterography W Inject, int* ENTERIC CONTRAST (RADIOLOGY P* For CT ENTEROGRAPHY W IVCON o* CHOLESTYRAMINE-ASPARTAME 4 GR* Take by mouth three times robbi* DOXYCYCLINE HYCLATE 100 MG TA* Take 100 mg by mouth twice da* CULTURELLE PROBIOTICS ORAL Take by mouth.Problem List As Of Date: 03/27/2018(None) Status:Closed by JASON SANDERS MD on 04/25/18 Normal [facility] ABDOMEN PELVIS VOLUMENon ABDOMEN PELVIS VOLUMEN *FINALDate of Service: 03/22/2018 11:30 Adm #: [id number] Dr:MARIANNA LOPEZ Signoff Dr: MRAIANNA MCCLUNGPROCEDURE: ABDOMEN PELVIS VOLUMEN - ICT 3498REASON FOR EXAM: Diarrhea, unspecified RESULT: CLINICAL HISTORY: Diarrhea/right upper quadrant pain after eating 30 minutes to one hour later/ duration of symptoms for years/9 out of 10 symptoms/chronic smoker weight loss/epigastric pain COMPARISON: None TECHNIQUE:Volumen oral contrast was administered. 120 ml Omnipaque 350 was injected intravenously. A biphasic examination performed through the abdomen and pelvis. PATIENT RADIATION EXPOSURE DATA: CTDI (mGy): 3.70 mGy,14.50 mGy,9.30 mGy,9.30 mGy DLP (mGy/cm): 1027 mGycm PATIENT RADIATION EXPOSURE DATA: CTDI: 3.70 mGy,14.50 mGy,9.30 mGy,9.30 mGy DLP: 1027 mGycm FINDINGS: The liver, common bile duct, pancreas, spleen, and adrenal glands are unremarkable. The gallbladder surgically absent. The kidneys enhance symmetrically. No urolithiasis is seen. No hydroureteronephrosis is seen. The visualized aorta is unremarkable. The small bowel is not dilated. No secondary signs of appendicitis are identified. There is minimal thickening of the small bowel wall seen involving the proximal jejunum. No mesenteric masses or soft tissue stranding is seen surrounding the bowel. No free intraperitoneal air or fluid is seen. The bladder is well distended with no gross wall thickening. Right corpus luteal cyst is seen measuring 2.0 cm. The visualized osseous structures are intact. Limited images of the lower thorax are unremarkable. IMPRESSION: 1. Mild nonspecific enteritis.2. Right corpus cyst. Otherwise unremarkable study.3. Gallbladder surgically absent. This report has been produced using speech recognition. This exam is available in DICOM format to non-affiliated healthcare facilities on a secure media free searchable basis with prior patient authorization. The patient exposure is reported to a radiation dose index registry. All CT examinations are performed with one or more of the following dose reduction techniques: Automated Exposure Control, Adjustment of mA and/or KV according to patient size, or use of iterative reconstruction techniques. Original Interpreting Physician: MARIANNA LOPEZ MDOriginal Transcribed by/Date: PSCB Mar 22 2018 5:18POriginal Electronically Signed by/Date: MARIANNA LOPEZ MD Mar 22 2018 5:18P Addendum Interpreting Physician: Addendum Transcribed by/Date: NO ADDENDUMAddendum Electronically Signed by/Date: [facility] PROGRESSon 03-07-2018 Protein mass conc HNO ID: [id number] thor: Jason Hadleyice: (none)Author Type: PhysicianType: Progress NotesFiled: 03/07/2018 9:06 PMNote Text:ResultsNormal biopsies. No cause for diarrhea as yet.Would check ct enterography as next step to look for crohns elsewhere inthe small bowell.Patient notified via Zebra Mobilehart.Jason Sanders MD [facility] PROGRESSon 03-01-2018 Protein mass conc HNO ID: [id number] thor: Jason Hadleyice: (none)Author Type: PhysicianType: Progress NotesFiled: 03/01/2018 4:13 PMNote Text:Time of Service: 3:37 PMSee also Provation procedure report for additional documentation.HISTORY AND PHYSICALKrista Masha Taylor, 27 year old femaleCurrent history and physical on file: NoIs a new History and Physical required for today's visit? YesIndication for procedure: DiarrheaPROCEDURE(S) SCHEDULED FOR: Colonoscopy with or without biopsies and with or without removal ofpolyps or lesions, dilation (any means), treatment of bleeding (anymeans), based on clinical findings.BASELINE BEHAVIOR: CalmBASELINE ORIENTATION: A AND O x3All medications and allergies reviewed: YesSkin Assessment: Warm dry muscus membranes pinkAirway/Respiratory Assessment:Airway: visualization of the uvula- YesMouth: opening greater than 2 fingerbreadths- YesNeck: full range of motion- YesBreath sounds clear/equal- YesCardiac Assessment: Regular rate and rhythm without murmurAbdominal Assessment: Abdomen soft, non-tender, no masses or organomegaly.Sedation Plan: ModerateAdditional Comments: NoneJason Sanders MD [facility] SURGICAL PATHOLOGYon 018 SURGICAL PATHOLOGY [facility]: [id number] Physician: JASON SANDERS MD FI NAL DIAGNOSIS1. Random right and left colon, biopsies (A, B) - Colonic mucosa with nodiagnostic abnormality.2. Rectal polyp, biopsy (C) - Hyperplastic polyp.JEL/mohsen 03/05/2018 COMMENT1. There is no evidence of chronic or active colitis, including lymphocyticor collagenous colitis. Han Poe M.D.(Electronic Signature) S PECIMEN SUBMITTEDA: RANDOM RIGHT COLON NORMAL , BIOPSY B: RANDOM LEFT COLON NORMAL ,BIOPSY C: RECTAL POLYP CLINICAL DATA4 YEARS OF DIARRHEA ABDOMINAL PAINA-B: CBX, R/O MICROSCOPIC COLITISC: CBX POLYPGROSS DESCRIPTIONA. Received in formalin are five pieces of limon, soft tissue aggregating to1.5 x 0.1 x 0.1 cm. Totally submitted in one cassette.B. Received in formalin are two pieces of limno, soft tissue aggregating to0.4 x 0.2 x 0.1 cm. Totally submitted in one cassette.C. Received in formalin is one piece of limon, soft tissue measuring 0.3 x0.2 x 0.2 cm. Totally submitted in one cassette.Gross examination performed at [facility], [address] [place] [id number] 03/04/2018 4:44:08 PMPatient ID #: [id number] of Report: 03/05/2018Date of Procedure: 03/01/2018Date of Receipt: 03/04/2018Submitted by: JASON SANDERS MDLocation: TESSA.Diagnostic interpretation performed at [facility], [address] [place] [address]. Normal [facility] 02-05-2018 FASTING TIME (CAR) Normal [facility] Comment on above: Result Comment: INFO RMATION NOT REPORTED TO LABORATORYPerformed at [address] [address] Performed By: #### I P ####[address] [address] Vitamin B1,Whole Bldon 01-27 Vitamin B1,Whole Bld [facility] Comment on above: Result Comment: 86Re ference range: 70 to 180 Unit: nmol/LINTERPRETIVE INFORMATION: Vitamin B1, Whole BloodThis assay measures the concentration of thiamine diphosphate(TDP), the primary active form of vitamin B1. Approximately 90percent of vitamin B1 present in whole blood is TDP. Thiamine andthiamine monophosphate, which comprise the remaining 10 percent,are not measured.Test developed and characteristics determined by [employer]. See Compliance Statement B: [employer]/CSPerformed by [employer] [place] [address] rng.[employer], Fabio Hall MD, Lab. DirectorTest performed by: [employer], [address] [place] [id number], unless otherwise specified.Performed at the [facility] unlessotherwise noted. Performed By: #### I P ####[address] [address] CELIAC SEROLOGYon 01-26-2018 REF LAB RESULT [facility] Comment on above: Result Comment: SEE REFERENCE LAB REPORTPerformed at [address] [address] Performed By: #### I P ####[address] [address] VITAMIN B6on 01-26-2018 VITAMIN B-6 [facility] Comment on above: Result Comment: 6.8R eference range: 20.0 to 125.0 Unit: nmol/LINTERPRETIVE INFORMATION: Vitamin B6 (Pyridoxal 5-Phosphate)Pyridoxal 5'-phosphate measured in a specimen collected followingan 8-hour or overnight fast accurately indicates vitamin E6oyfcsllmmex status. Non-fasting specimen concentration reflectsrecent vitamin intake.Test developed and characteristics determined by [employer]. See Compliance Statement B: [employer]/CSPerformed by [employer] [place] [id number] gfr.[employer], Fabio Hall MD, Lab. DirectorTest performed by: [facility] [employer], [address] [place] [address], unless otherwise specified.Performed at the [facility] unlessotherwise noted. Performed By: #### I P ####[address] [address] [facility] Comment on above: Result Comment: 22Un it: ug/dLReference range: 60 to 200Performed by [employer],[address] [place] [id number] vbf.[employer], Fabio Hall MD, Lab. DirectorTest performed by: [employer], [address] [place] [address], unless otherwise specified.Performed at the [facility] Laboratory unlessotherwise noted. Performed By: #### I P ####[address] [address] COPPERon 01-23-2018 [facility] Comment on above: Result Comment: 105R eference range: 85 to 155Unit: ug/dLThis test was developed and its performance characteristicsdetermined by [facility] [place] ([facility]). Ithas not been cleared or approved by the FDA. [facility] isregulated under CLIA as qualified to performhigh-complexity testing. This test is used for clinicalpurposes. It should not be regarded as investigational orfor research.Performed at the [facility] unlessotherwise noted. Performed By: #### C OPS ####[address] [address] VITAMIN Aon 01-23-2018 VITAMIN A RESULT Normal [facility] Comment on above: Result Comment: 0.42 Reference range: 0.30 to 1.20Unit: mg/LThis test was developed and its performance characteristicsdetermined by [facility] [place] ([facility]). Ithas not been cleared or approved by the FDA. [employer] isregulated under CLIA as qualified to performhigh-complexity testing. This test is used for clinicalpurposes. It should not be regarded as investigational orfor research.Performed at the [facility] unlessotherwise noted. Performed By: #### V IZABEL ####[address] [address] [place] [address] VITAMIN Jerod 01-23-2018 Vitamin E-alpha Normal [facility] Comment on above: Result Comment: 7.5R eference range: 6.0 to 23.0Unit: mg/L Performed By: #### I P ####[address] [address] [place] [address] Vitamin E-gamma Normal [facility] Comment on above: Result Comment: 1.2R eference range: 0.3 to 3.2Unit: mg/LThis test was developed and its performance characteristicsdetermined by [facility] [place] ([facility]). Ithas not been cleared or approved by the FDA. [facility] isregulated under CLIA as qualified to performhigh-complexity testing. This test is used for clinicalpurposes. It should not be regarded as investigational orfor research.Performed at the [facility] unlessotherwise noted. Performed By: #### I P ####[address] [address] [place] [address] ZINC LEVELon 01-23-2018 ZINC [facility] Comment on above: Result Comment: 62Re ference range: 55 to 150Unit: ug/dLThis test was developed and its performance characteristicsdetermined by [facility] [place] ([facility]). Ithas not been cleared or approved by the FDA. RT-[facility] isregulated under CLIA as qualified to performhigh-complexity testing. This test is used for clinicalpurposes. It should not be regarded as investigational orfor research.Performed at the [facility] unlessotherwise noted. Performed By: #### Z INC ####[address] [address] C DIFF AMPLIFICATIONon 01-22 C DIFF AMPLIFICATION Specimen source XXX: STOOL Performed at [facility] [address] [place] [address] [place] [address]Nhldmqe Cmnt XXX-Imp: NONE Performed at [address] [place] [address]Iqmubqyzled observation: NEGATIVE TEST: NO TOXIGENIC C. DIFFICILE STRAIN DETECTED BY DNA AMPLIFICATION Performed at [address] [address]: FINAL 01/22/2018 Normal [facility] Comment on above: Performed By: #### C DAMP ####[address] [address] [address] MISCELLANEOUS TESTon 018 REF LAB RESULT Normal [facility] Comment on above: Result Comment: SEE REFERENCE LAB REPORTPerformed at [address] [place] [address] Performed By: #### M T ####[address] [address] B12on 01-21-2018 Cobalamins (Vitamin B12) Normal 211-946 [facility] Comment on above: Result Comment: 233D eficient=<174 pg/mtVgbfmituardft=680-118 pg/mlPerformed at [address] [place] [address] Performed By: #### B 12 ####[address] [address] FERRITINon 01-21-2018 FERRITIN Normal 13-150 [facility] Comment on above: Result Comment: 16Pe rformed at [address] [place] [address] Performed By: #### F ER ####[address] [address] FOLIC ACIDon 01-21-2018 FOLIC ACID Normal 4.2-19.9 [facility] Comment on above: Result Comment: 5.0D eficient=<2.1 ng/mlIndeterminate=2.2-4.1 ng/mlPerformed at [address] [place] [address] Performed By: #### F A ####[address] [address] [place] [facility]dep[facility] [place] [address] IRON PANELon 01-21-2018 Iron 35 ug/dL Normal 30-160 [facility] Comment on above: Performed By: #### I P ####[address] [address] [place] HackerHANDdep[facility] veterans [facility] [place] [address] TOT.IRON BIND.CAP. 386 MCG/DL Normal 228-428 [facility] Comment on above: Performed By: #### I P ####[address] [address] [place] [employer] [facility] Corporation[place] [address] TRANSFERRIN % SAT. Low 12-50 [facility] Comment on above: Result Comment: 9.1P erformed at [address] [place] [address] Performed By: #### I P ####[address] [address] [address] [place] [address] [facility] Corporation[place] [address] MAGNESIUMon 01-21-2018 Magnesium Normal 1.6-3.1 [facility] Comment on above: Result Comment: 2.4P erformed at [address] [place] [address] Performed By: #### M G ####[address] [address] [address] [place] [address] [place] [address] MISCELLANEOUS TESTon 018 MT TEST NAME SELENIUM BLOOD Normal [facility] Comment on above: Performed By: #### M T ####[address] [address] [address] [place] [address] [employer] Corporation[place] [address] CNCOon 01-18-2018 CNCO Letter TextColonoschowie py (MIRALAX - SPLIT DOSE) Douglas GouldowberniceeAppointarlette Date: Facility : _Arrive At: Special Instructions: WHAT YOU NEED TO OBTAIN NOW:1. You must arrange to have a minibus driver who can stay at the facility to driveyou home. You will be given sedatives during the procedure. You cannotdrive or operate machinery for the rest of the day.2. Purchase Miralax 238 gm bottle from the pharmacy. Everything is purchasedover the counter.3. Purchase 4 Dulcolax laxative tablets.4. Purchase one 64 oz bottle Gatorade, Propel, Powerade (not red, orange, orpurple).5. If you take blood thinners, (eg. Coumadin (Warfarin), Ticlid(Ticlopidine), Effient, Aggrenox (dipyridamole, persantine),Plavix (clopidrogel), Pletal (cilostazol), Pradaxa, or if you areDiabetic, please check with us to make special arrangements regardingyour procedure.6. Please make sure that your procedure facility is in your insurancenetwork. If your procedure is scheduled at [facility] or [facility] facility will be under [address], [place] [address].7. Please notify us if you may need antibiotics before your procedure (heartvalve replacement).BEFORE YOUR EXAM:1. Do not take iron one week prior to the exam.2. Depending on your procedure facility, you may receive a confirmation call. Your Arrival Time May Change.THE DAY BEFORE YOUR EXAM:1. You may drink only clear liquids. No solid food. Drink one glass of clearliquid every hour until bedtime or midnight, whichever comes first. Clear liquidexamples: water, fruit juices (apple,/white/grape), coffee, tea (without milk), Gatoradeor other sports drinks, soda (cola, carroll betina, Sprite, 7-Up), Lanre-Aid or otherflavored drinks, Jello, popsicles and bouillon. NOTHING RED, ORANGE OR PURPLE.2. In the morning, mix in a pitcher: 64 oz sports drink and the entire bottleof Miralax powder and refrigerate.3. At 3:00 PM: Take the 4 Dulcolax tablets.4. At 5:00 PM: start drinking the Miralax /sports prep, one large (8 oz)glass every 20-30 minutes until you drink 1/2 of the container. Drinkrapidly, with a straw.5. Bowel movements should begin within one hour. Your stool should becomeclear.6. Continue to follow a clear liquid diet throughout the day (until bedtimeor midnight)THE DAY OF YOUR PROCEDURE:1. At (3 hours before your procedure): drink the rest of the Miralax/Sports drink prep in the bottle.2. Nothing to eat or drink, except the rest of your prep.3. Please take your usual medications with a sufficient amount of water atleast 2 hours before your procedure.4. Please bring your photo ID, insurance card(s) and facility co-pay to yourappointment.5. Please leave all jewelry and valuables at home. We are not responsible forlost items.6. All females, except for those who have had a hysterectomy or have beenpost-menopausal for >2 years, will have a mandatory urine testperformed upon admission to the endoscopy unit.If you have any questions or concerns, please call [phone]. Normal [facility] CNOVon 01-18-2018 CNOV Office Visit (GSTCON) LUIS FERNANDO TAYLOR ([id number]) 1990 [facility] Time Provider Department01/18/18 10:00 AM JASON SANDERS GSTCON During your visit today, we recorded the following information about you: Pulse Blood pressure Weight Height 92/minute 129/79 89.8 kg 1.702 m Last Period 01/14/18Jason Sanders 01/18/2018 11:36 PM SignedASSESSMENT/PLAN:1. Epigastric pain - ICD9: 789.06, ICD10: R10.13 (primary diagnosis)- IV START- LB PT ED DIGESTIVE DISEASES- C. DIFFICILE PCR- CELIAC SCREEN WITH REFLEX- ZINC BLD- VITAMIN B6/PYRIDOXIN- CAROTENE BLD- COPPER BLOOD- VITAMIN E/TOCOPHEROL- VITAMIN A/RETINOL- MAGNESIUM BLD- VITAMIN B1/THIAMINE, WHOLE BLD- SELENIUM BLOOD- IRON + TIBC- FERRITIN BLD- VITAMIN B12 BLOOD- FOLATE SERUM2. Diarrhea, unspecified type - ICD9: 787.91, ICD10: R19.73. Abnormal weight loss - ICD9: 783.21, ICD10: R63.4Must evaluate for celiac.Will obtain prior EGD/path results. Patient does not think biopsies were donefor celiacAt first galmarjane I am unable to explain the paresthesia she gerts in her upperextremities during these episodes unless it is a nutritional deficiency relatedto malabsorption in the setting of weight loss or a more systemic problem suchas porphyria though that seems less likely.Await labsPlan for colonoscopy and potentially repeat EGD if additional biopsies needed.The risks, benefits and anticipated outcomes of the procedure,as well as thealternatives to the procedure were discussed with the patient. Potential formissed lesion was discussed. All questions were answered. The patient consentsto the procedure and agrees to proceed.Approximate date of last Colonoscopy: First Time ColonoscopyRisk for Colon Cancer: Average RiskASA class - II. Mild to moderate systemic diseaseAntiplatelet or anticoag use: no>45min face to face time spent with patient discussing the plan, differentialdiagnosis, questions, and reviewing previous results. All questions answered.Jason Sanders MDNo Follow-up on file.This note was partially generated using [employer] voice recognition system, andthere may be some incorrect words, spellings, and punctuation that were notnoted in checking the note before saving.Subjective:Ms. Taylor is a 27 year old female is here today for Stomach Issues.Cholecystectomy 2013 - gallstones. No change in symptoms. If anything it madeissues worse.[place] last [place]. Bile in stomach. Diagnosed with bile reflux.Does not have heartburn esque symptoms.Pcp thought SOD -> HIDA - normal.Increasing frequency and intensity of pain. Hands and arms numb. 4 episodessince the beginning of the year.Last was 2 weeks ago. She is most concerned about the hands and arms go numb.Diarrhea since the cholecystectomy. Questran twice daily helped a little.Issues with certain foods. High fiber and raw vegetables cause problems, citrusfruits, eggs, possibly nuts.Conversely cheeseburger seems to do just fine.20-30#; avoids eating. Appetite is decreased.No obvious steatorrhea.Cant remember when normal bm.Bit by tic yesterday and started doxyBeing treated for vaginosis and has been on various treatments for that. Was onclinda for a month. Seemed to help with vaginal symptoms. Did not notice anychange in gi symptoms with the clinda.Current Outpatient Prescriptions:Cholestyrami ne-Aspartame (CHOLESTYRAMINE LIGHT) 4 gram powder Take by mouththree times daily with meals. Disp: Rfl:Doxycycline Hyclate 100 mg EC tablet Take 100 mg by mouth twice daily. Disp:Rfl:L. rhamnosus GG/inulin (CULTURELLE PROBIOTICS ORAL) Take by mouth. Disp: Rfl:No current facility-administered medications for this visit.ALLERGIES:ALLERGIESA llergen Reactions- Ciprofloxacin HivesPAST MEDICAL HISTORYDiagnosis Date- DepressionPAST SURGICAL HISTORYProcedure Laterality Date- CHOLECYSTECTOMY- TONSILLECTOMY HXFAMILY HISTORYProblem Relation Age of Onset- No Family History No Family History Colon Cancer/PolypsSocial History Marital status: Single Spouse name: Years of education: Number of children: 0Occupational HistoryOccupation Employer Comment StudentSocial History Main Topics Smoking status: Current Every Day Smoker Packs/day: 0.00 Years: 0.00 Smokeless tobacco: Never Used Alcohol use: Yes Drug use: NoReview of Systems:Gastrointestinal: Negative for-nausea, vomiting, heartburn, food sticking inthroat, painful swallowing, vomiting blood, black stool, red blood in stool,constipation and loss of appetite. Positive for-abdominal pain, diarrhea, earlysatiety (feeling full fast) and bloating.Constitutional: Negative for-recent weight gain and fever . Positive for-recentweight loss # of pounds 20 and fatigue.HEENT: Negative for-Sore throat and hoarseness. Positive for-none.Cardiovascular: Negative for-abnormal heart rhythm, chest pain andpalpitations. Positive for-none.Respiratory: Negative for- cough, shortness of breath on exertion, shortness ofbreath at rest and wheezing. Positive for-none.Genitourinary: Negative for-frequent urination, kidney failure/dialysis andpainful urination. Positive for-none.Neurological: Negative for-seizures and headaches. Positive for-none.Dermatology: Negative for-RASH Positive for-none.Musculoskeletal: Negative for-joint pain and arthritis. Positive for-none.Psychiatric: Negative for-dementia, depression and anxiety. Positive for-none.Where do you currently reside? IndependentlyAre you taking any blood thinners? NoPHYSICAL EXAM:BP 129/79 Pulse 92 Ht 5' 7 (1.70m) Wt 198 lb (89.8kg) LMP 01/14/2018 BMI 31.00 kg/(m2).GENERAL:alert, no distress, cooperativeHEAD: Normal Normocephalic, AtraumaticEYES: Sclera: AnictericOROPHARYNX: Mucous membranes moistNECK: suppleCARDIAC: Regular rhythm rateLUNGS: Lungs clear to auscultation, Good diaphragmatic excursionABDOMEN: Abdomen soft, non-tender, BS normal, No masses or organomegalyRECTAL: DeferredEXTREMITIES: No Edema, No Cyanosis, No ClubbingNEURO: Alert and OrientedSKIN: No JaundiceThe remainder of the physical exam is noncontributoryDATA:Diagno stic tests reviewed for today's visit:Most recent labsAttending Note:I have personally performed a face to face assessment of this Patient, whichincluded an interview, physical exam and Assessment and Plan. I have reviewedand confirmed the history and luciano findings as documented by the MedicalAssistant and edited as appropriate.Signature: KYAW Phillipsate: 01/18/2018Time: 10:09 Jason Dumont 01/18/2018 11:18 AM SignedColonoscopy ProcedureWhat is a colonoscopy?A colonoscopy is an outpatient procedure in which the inside of the largeintestine (colon and rectum) is examined. A colonoscopy is commonly used toevaluate gastrointestinal symptoms, such as rectal and intestinal bleeding,abdominal pain, or changes in bowel habits. Colonoscopies are also performed inindividuals without symptoms to check for colorectal polyps or cancer. Ascreening colonoscopy is recommended for anyone 50 years of age and older, andfor anyone with parents, siblings or children with a history of colorectalcancer or polyps.What happens before a colonoscopy?To have a successful colonoscopy, your bowel must be empty so that your doctorcan clearly view the colon. It is very important that you read and follow allof the instructions given to you for your bowel preparation well in advance ofthe procedure. If your bowel is not empty, your colonoscopy will not besuccessful and may have to be repeated.To empty your bowel, you will drink a bowel prep solution. Here are some tipsfor handling possible nausea/vomiting and for reducing skin irritation aroundthe anus.To reduce nausea or vomiting. If you feel nauseated or vomit while taking thebowel preparation, wait 30 minutes before drinking more fluid and start withsmall sips of solution. Some activity (such as walking) or a few soda crackersmay help decrease the nausea you are feeling. If the nausea persists, call yourdoctor.To prevent skin irritation. You may experience skin irritation around the anusdue to the passage of liquid stools. To prevent and treat skin irritation, youshould:Apply vaseline or Desitin? ointment to the skin around the anus before drinkingthe bowel preparation medications. These products can be purchased at any [employer].Wipe the skin after each bowel movement with disposable wet wipes instead oftoilet paper. These are found in the toilet paper area of the store.Sit in a bathtub filled with warm water for 10 to 15 minutes after you finishpassing a stool. After soaking, blot the skin dry with a soft cloth. Then applyvaseline or Desitin? ointment to the anal area, and place a cotton ball justoutside your anus to absorb leaking fluid.What happens during a colonoscopyDuring a colonoscopy, an experienced doctor uses a colonoscope (a long,flexible instrument about 1/2 inch in diameter) to view the lining of thecolon. The colonoscope is inserted into the rectum and advanced through thelarge intestine. If necessary during a colonoscopy, small amounts of tissue canbe removed for analysis (a biopsy) and polyps can be identified and entirelyremoved. In many cases, a colonoscopy allows accurate diagnosis and treatmentof colorectal problems without the need for a major operation.How much time is needed to perform a colonoscopy?The procedure typically lasts from 30 minutes to 1 hour.What should I expect after a colonoscopy?You may feel some cramping or a sensation of having gas, but this quicklypasses.If a biopsy was taken or a polyp was removed, you may notice light rectalbleeding for one to two days after the procedure. If you have a large amount ofrectal bleeding, high or persistent fevers, or severe abdominal pain within thenext 2 weeks, please go to your local emergency room and call the doctor whoperformed your exam.If polyps were removed or a biopsy was taken, the doctor performing yourcolonoscopy will tell you when it is safe to resume taking your blood thinners.You will also be told if you need to stop taking medications such asnonsteroidal anti-inflammatory drugs (NSAIDs), which include aspirin, ibuprofen(Motrin?, Advil?) and naproxen (Aleve?).Note: To follow are other important questions to ask your doctor. Keep in mindthat each doctor and/or his or her health care facility has their own uniqueset of instructions for their patients. Most doctors/health care facilities arein general agreement with the following answers. However, ALWAYS ask yourdoctor for his/her specific instructions.Driving home. If sedation has been given, a responsible adult (a family memberor friend) must drive you home.Being alone when home. For safety reasons, you probably shouldn't be alone. Askyour doctor how long you should remain with family or friends.Returning to normal diet and activities. Unless otherwise instructed, mostpatients can return to their normal diet immediately following the colonoscopy.Other typical advice is to avoid alcohol, driving, regular activities, andoperating machinery for 24 hours following the procedure.? Copyright 7294-3910 [facility]. All rights reservedReferring Provider: SELF [200]Allergies As of Date: 01/18/2018 Noted Allergy ReactionCIPROFLOXACIN 01/18/2018 4 - HivesDate Reviewed: 01/18/2018Reviewed by: Bebe Yanes Ma - Fully AssessedReason for Visit: Stomach Issues [Other]Primary Visit Diagnosis:Epigastric pain [R10.13] Other Visit Diagnoses:Diarrhea, unspecified type [R19.7] Abnormal weight loss [R63.4]Order(s):IV START [8507186] Order #: [id number]: 1 FUTURE LB PT ED DIGESTIVE DISEASES [6000938] Order #: [id number]. #:[id number]: 1 C. DIFFICILE PCR [SQCDPCR] Order #: [id number] CELIAC SCREEN WITH REFLEX [SQCELSCR] Order #: [id number] FUTURE ZINC BLD [SQZINC] Order #: [id number] FUTURE VITAMIN B6/PYRIDOXIN [SQVITB6] Order #: [id number] FUTURE CAROTENE BLD [SQCAROT] Order #: [id number] FUTURE COPPER BLOOD [SQCOPPER] Order #: [id number] FUTURE VITAMIN E/TOCOPHEROL [SQVITE] Order #: [id number] FUTURE VITAMIN A/RETINOL [SQVITA] Order #: [id number] FUTURE MAGNESIUM BLD [SQMG1] Order #: [id number] FUTURE VITAMIN B1/THIAMINE, WHOLE BLD [NSQ4XIX] Order #: [id number] FUTURE SELENIUM BLOOD [SQSELEN] Order #: [id number] FUTURE IRON + TIBC [SQIRON] Order #: [id number] FUTURE FERRITIN BLD [SQFERR] Order #: [id number] FUTURE VITAMIN B12 BLOOD [SQB12] Order #: [id number] FUTURE FOLATE SERUM [SQSERFOL] Order #: [id number] FUTUREPrescriptions as of 01/18/2018 Sig: CHOLESTYRAMINE-ASPARTAME 4 GR* Take by mouth three times robbi* DOXYCYCLINE HYCLATE 100 MG TA* Take 100 mg by mouth twice da* CULTURELLE PROBIOTICS ORAL Take by mouth.Problem List As Of Date: 01/18/2018(None) Other instructions from your clinician: Colonoscopy Procedure What is a colonoscopy? A colonoscopy is an outpatient procedure in which the inside of the large intestine (colon and rectum) is examined. A colonoscopy is commonly used to evaluate gastrointestinal symptoms, such as rectal and intestinal bleeding, abdominal pain, or changes in bowel habits. Colonoscopies are also performed in individuals without symptoms to check for colorectal polyps or cancer. A screening colonoscopy is recommended for anyone 50 years of age and older, and for anyone with parents, siblings or children with a history of colorectal cancer or polyps. What happens before a colonoscopy? To have a successful colonoscopy, your bowel must be empty so that your doctor can clearly view the colon. It is very important that you read and follow all of the instructions given to you for your bowel preparation well in advance of the procedure. If your bowel is not empty, your colonoscopy will not be successful and may have to be repeated. To empty your bowel, you will drink a bowel prep solution. Here are some tips for handling possible nausea/vomiting and for reducing skin irritation around the anus. To reduce nausea or vomiting. If you feel nauseated or vomit while taking the bowel preparation, wait 30 minutes before drinking more fluid and start with small sips of solution. Some activity (such as walking) or a few soda crackers may help decrease the nausea you are feeling. If the nausea persists, call your doctor. To prevent skin irritation. You may experience skin irritation around the anus due to the passage of liquid stools. To prevent and treat skin irritation, you should: Apply vaseline or Desitin? ointment to the skin around the anus before drinking the bowel preparation medications. These products can be purchased at any drug store. Wipe the skin after each bowel movement with disposable wet wipes instead of toilet paper. These are found in the toilet paper area of the store. Sit in a bathtub filled with warm water for 10 to 15 minutes after you finish passing a stool. After soaking, blot the skin dry with a soft cloth. Then apply vaseline or Desitin? ointment to the anal area, and place a cotton ball just outside your anus to absorb leaking fluid. What happens during a colonoscopy During a colonoscopy, an experienced doctor uses a colonoscope (a long, flexible instrument about 1/2 inch in diameter) to view the lining of the colon. The colonoscope is inserted into the rectum and advanced through the large intestine. If necessary during a colonoscopy, small amounts of tissue can be removed for analysis (a biopsy) and polyps can be identified and entirely removed. In many cases, a colonoscopy allows accurate diagnosis and treatment of colorectal problems without the need for a major operation. How much time is needed to perform a colonoscopy? The procedure typically lasts from 30 minutes to 1 hour. What should I expect after a colonoscopy? You may feel some cramping or a sensation of having gas, but this quickly passes. If a biopsy was taken or a polyp was removed, you may notice light rectal bleeding for one to two days after the procedure. If you have a large amount of rectal bleeding, high or persistent fevers, or severe abdominal pain within the next 2 weeks, please go to your local emergency room and call the doctor who performed your exam. If polyps were removed or a biopsy was taken, the doctor performing your colonoscopy will tell you when it is safe to resume taking your blood thinners. You will also be told if you need to stop taking medications such as nonsteroidal anti-inflammatory drugs (NSAIDs), which include aspirin, ibuprofen (Motrin?, Advil?) and naproxen (Aleve?). Note: To follow are other important questions to ask your doctor. Keep in mind that each doctor and/or his or her health care facility has their own unique set of instructions for their patients. Most doctors/health care facilities are in general agreement with the following answers. However, ALWAYS ask your doctor for his/her specific instructions. Driving home. If sedation has been given, a responsible adult (a family member or friend) must drive you home. Being alone when home. For safety reasons, you probably shouldn't be alone. Ask your doctor how long you should remain with family or friends. Returning to normal diet and activities. Unless otherwise instructed, most patients can return to their normal diet immediately following the colonoscopy. Other typical advice is to avoid alcohol, driving, regular activities, and operating machinery for 24 hours following the procedure. ? Copyright [id number] [facility]. All rights reservedEncounter Number: [id number] Status:Closed by JASON SANDERS MD on 01/18/18 Normal [facility] PROGRESSon 01-18-2018 Protein mass conc HNO ID: [id number] thor: Jason Sanders SService: (none)Author Type: PhysicianType: Progress NotesFiled: 01/18/2018 11:36 PMNote Text:ASSESSMENT/PLAN:1. Epigastric pain - ICD9: 789.06, ICD10: R10.13 (primary diagnosis)- IV START- LB PT ED DIGESTIVE DISEASES- C. DIFFICILE PCR- CELIAC SCREEN WITH REFLEX- ZINC BLD- VITAMIN B6/PYRIDOXIN- CAROTENE BLD- COPPER BLOOD- VITAMIN E/TOCOPHEROL- VITAMIN A/RETINOL- MAGNESIUM BLD- VITAMIN B1/THIAMINE, WHOLE BLD- SELENIUM BLOOD- IRON + TIBC- FERRITIN BLD- VITAMIN B12 BLOOD- FOLATE SERUM2. Diarrhea, unspecified type - ICD9: 787.91, ICD10: R19.73. Abnormal weight loss - ICD9: 783.21, ICD10: R63.4Must evaluate for celiac.Will obtain prior EGD/path results. Patient does not think biopsies weredone for celiacAt first galnce I am unable to explain the paresthesia she gerts in herupper extremities during these episodes unless it is a nutritionaldeficiency related to malabsorption in the setting of weight loss or ghulam systemic problem such as porphyria though that seems less likely.Await labsPlan for colonoscopy and potentially repeat EGD if additional biopsiesneeded.The risks, benefits and anticipated outcomes of the procedure,as well asthe alternatives to the procedure were discussed with the patient.Potential for missed lesion was discussed. All questions were answered.The patient consents to the procedure and agrees to proceed.Approximate date of last Colonoscopy: First Time ColonoscopyRisk for Colon Cancer: Average RiskASA class - II. Mild to moderate systemic diseaseAntiplatelet or anticoag use: no>45min face to face time spent with patient discussing the plan,differential diagnosis, questions, and reviewing previous results. Allquestions answered.Jason Sanders MDNo Follow-up on file.This note was partially generated using [employer] voice recognition system,and there may be some incorrect words, spellings, and punctuation thatwere not noted in checking the note before saving.Subjective:Ms. Taylor is a 27 year old female is here today for Stomach Issues.Cholecystectomy 2013 - gallstones. No change in symptoms. If anything itmade issues worse.[place]EGD last fall. Bile in stomach. Diagnosed with bile reflux.Does not have heartburn esque symptoms.Pcp thought SOD -> HIDA - normal.Increasing frequency and intensity of pain. Hands and arms numb. 4episodes since the beginning of the year.Last was 2 weeks ago. She is most concerned about the hands and arms gonumb. Diarrhea since the cholecystectomy. Questran twice daily helped alittle.Issues with certain foods. High fiber and raw vegetables cause problems,citrus fruits, eggs, possibly nuts.Conversely cheeseburger seems to do just fine.20-30#; avoids eating. Appetite is decreased.No obvious steatorrhea.Cant remember when normal bm.Bit by tic yesterday and started doxyBeing treated for vaginosis and has been on various treatments for that.Was on clinda for a month. Seemed to help with vaginal symptoms. Did notnotice any change in gi symptoms with the clinda.Current Outpatient Prescriptions:Cholestyrami ne-Aspartame (CHOLESTYRAMINE LIGHT) 4 gram powder Take bymouth three times daily with meals. Disp: Rfl:Doxycycline Hyclate 100 mg EC tablet Take 100 mg by mouth twice daily.Disp: Rfl:L. rhamnosus GG/inulin (CULTURELLE PROBIOTICS ORAL) Take by mouth. Disp:Rfl:No current facility-administered medications for this visit.ALLERGIES:ALLERGIESA llergen Reactions- Ciprofloxacin HivesPAST MEDICAL HISTORYDiagnosis Date- DepressionPAST SURGICAL HISTORYProcedure Laterality Date- CHOLECYSTECTOMY- TONSILLECTOMY HXFAMILY HISTORYProblem Relation Age of Onset- No Family History No Family History Colon Cancer/PolypsSocial History Marital status: Single Spouse name: Years of education: Number of children: 0Occupational HistoryOccupation Employer Comment StudentSocial History Main Topics Smoking status: Current Every Day Smoker Packs/day: 0.00 Years: 0.00 Smokeless tobacco: Never Used Alcohol use: Yes Drug use: NoReview of Systems:Gastrointestinal: Negative for-nausea, vomiting, heartburn, food stickingin throat, painful swallowing, vomiting blood, black stool, red blood instool, constipation and loss of appetite. Positive for-abdominal pain,diarrhea, early satiety (feeling full fast) and bloating.Constitutional: Negative for-recent weight gain and fever . Positivefor-recent weight loss # of pounds 20 and fatigue.HEENT: Negative for-Sore throat and hoarseness. Positive for-none.Cardiovascular: Negative for-abnormal heart rhythm, chest pain andpalpitations. Positive for-none.Respiratory: Negative for- cough, shortness of breath on exertion,shortness of breath at rest and wheezing. Positive for-none.Genitourinary: Negative for-frequent urination, kidney failure/dialysisand painful urination. Positive for-none.Neurological: Negative for-seizures and headaches. Positive for-none.Dermatology: Negative for-RASH Positive for-none.Musculoskeletal: Negative for-joint pain and arthritis. Positive for-none.Psychiatric: Negative for-dementia, depression and anxiety. Positivefor-none.Where do you currently reside? IndependentlyAre you taking any blood thinners? NoPHYSICAL EXAM:BP 129/79 Pulse 92 Ht 5' 7 (1.70m) Wt 198 lb (89.8kg) LMP01/14/2018 BMI 31.00 kg/(m2).GENERAL:alert, no distress, cooperativeHEAD: Normal Normocephalic, AtraumaticEYES: Sclera: AnictericOROPHARYNX: Mucous membranes moistNECK: suppleCARDIAC: Regular rhythm rateLUNGS: Lungs clear to auscultation, Good diaphragmatic excursionABDOMEN: Abdomen soft, non-tender, BS normal, No masses or organomegalyRECTAL: DeferredEXTREMITIES: No Edema, No Cyanosis, No ClubbingNEURO: Alert and OrientedSKIN: No JaundiceThe remainder of the physical exam is noncontributoryDATA:Diagno stic tests reviewed for today's visit:Most recent labsAttending Note:I have personally performed a face to face assessment of this Patient,which included an interview, physical exam and Assessment and Plan. Ihave reviewed and confirmed the history and luciano findings as documented bythe Ornamental Metal Erector Apprentice and edited as appropriate.Signature: Alfonso Sanders, MDDate: 01/18/2018Time: 10:[address] [facility] LIVERon 01-07-2018 US LIVER Name: SANTA TAYLOR STUDY:US LIVER; 01/07/2018 10:04 am INDICATION:Unspecified abdominal pain. COMPARISON:None. ORDERING CLINICIAN:JONELLE TILLEY TECHNIQUE:Multiple grayscale and color static images of the right upperquadrant were obtained, as well as dynamic images. This [facility]. FINDINGS:LIVER:The visualized portions of the liver are grossly unremarkable andfree of any focal lesions. The liver measures up to 16 cm incraniocaudad dimensions. GALLBLADDER:The gallbladder is surgically absent. BILIARY TREE:No intra or extrahepatic biliary dilatation is identified. The commonbile duct measures 2.1 mm. PANCREAS:The visualized pancreas is unremarkable in appearance. RIGHT KIDNEY:The right kidney is normal in size, measuring 10.5 cm in craniocaudaldimension. The renal cortical echogenicity and thickness are withinnormal limits. No hydronephrosis or renal calculi are seen. IMPRESSION:Status post cholecystectomy, otherwise unremarkable ultrasound of theright upper quadrant. I personally reviewed the images/study and resident interpretationand I agree with the findings as stated. This study was performed,analyzed, and interpreted at [place], [place].Electronically signed by: ANA GRAY MD Normal [facility] GROUP A STREP SCREENon 10-03 GROUP A STREP SCREEN PATIENT: SANTA TAYLOR [place]ATION[place] [facility] [place]#: [id number] : 86 AGE: SEX: F ORDERED BY: DAVIN UPE: Throat/Pharynx COLLECTED: 10/03/17 14:22ANTIBIOTICS AT ENID.: RECEIVED : 10/03/17 23:32SITE: THOAT R E S U L T S GROUP A STREP SCREEN FINAL 10/05/17 12:11 NEGATIVE FOR GROUP A BETA STREP. Normal [facility] Comment on above: Performed By: #### G ASCR ####[facility] [place] [address] HSV BY PCR QUAL SKIN/MUCOSAo n 10-01-2017 HSV-1 SKIN/MUCOSA INDETERMINATE Abnormal Not Detected [facility] Comment on above: Order Comment: HSV C LALED TO YRN AT EW, 10/01/2017 12:07 Performed By: #### H SVSS ####[facility] [place] [address] HSV-2 SKIN/MUCOSA INDETERMINATE Abnormal Not Detected [facility] Comment on above: Order Comment: HSV C LALED TO YRN AT EW, 10/01/2017 12:07 Result Comment: The HSV 1+2 Assay is an FDA approved in vitro diagnostic nucleic acid amplification test for the direct, qualitative detection and differentiation of Herpes Simplex Virus 1 (HSV-1) and Herpes Simplex Virus 2 (HSV-2) DNA in cutaneous or mucocutaneous lesion specimens from symptomatic patients. The test is intended for use as an aid in diagnosis of HSV infection in symptomatic patients. The test is not FDA-cleared for use with cerebrospinal fluid (CSF), screening or screening. Viral culture or other PCR tests are recommended for these purposes. HSV viability and/or infectivity cannot be inferred from a positive test result since target DNA may persist in the absence of infectious virus. A negative test does not exclude the possibility of infection because test results may be affected by improper specimen collection/transport/handling, presence of inhibitor(s), technical error, concurrent antiviral therapy, or the presence of insufficient DNA for detection. Performed By: #### H SVSS ####[facility] [id number] TRICHOMONAS,NUCLEIC ACID DET ECTIONon 10-01-2017 TRICHOMONAS VAGINALIS Negative Normal Negative [facility] Comment on above: Result Comment: Perf ormance characteristics for Trichomonas Vaginalis testing on urinesamples has been validated by [facility]. Testing onthis sample type is not FDA-approved, but such approval is not necessary.This laboratory is certified by CLIA to perform high complexity testing. Performed By: #### T ABBE ####[facility] [place] [address] GC + CHLAMYDIA BY AMPLIFIED DETECTIONon 09-30-2017 CHLAMYDIA TRACH.,AMPLIFIED Negative Normal NEGATIVE [facility] Comment on above: Result Comment: Perf ormance characteristics for Chlamydia trachomatis testing on femaleurine samples has been validated by [facility].Testing on this sample type is not FDA-approved, but such approval is notnecessary. This laboratory is certified by CLIA to perform high complexitytesting. Performed By: #### G CCHA ####[facility] [id number] N.GONORRHEA,AMPLIFI ED Negative Normal NEGATIVE [facility] Comment on above: Result Comment: Perf ormance characteristics for Neisseria gonorrhoeae testing on femaleurine samples has been validated by [facility].Testing on this sample type is not FDA-approved, but such approval is notnecessary. This laboratory is certified by CLIA to perform high complexitytesting. Performed By: #### G CCHA ####[facility] [place] [address] EMR ADDONon 09-29-2017 ADDON CONFIRMATION REQUEST REC'D Normal [facility] Comment on above: Performed By: #### E MRAD ####[facility] [id number] [place] [address] HSV BY PCR QUAL SKIN/MUCOSAo n 09-29-2017 Lab Specimen Source Genital Normal [facility] Comment on above: Order Comment: HSV C LALED TO YRN AT EW, 10/01/2017 12:07 Performed By: #### H SVSS ####[facility] [place] [address] TRICHOMONAS,NUCLEIC ACID DET ECTIONon 09-29-2017 Lab Specimen Source Urine Normal [facility] Comment on above: Performed By: #### T ABBE ####[facility] [place] [address] Performed By: #### G CCHA ####[facility] [place] [address] UA MICROSCOPICon 09-29-2017 Erythrocytes (RBC) 0-5 Normal 0-5 [facility] Comment on above: Performed By: #### U AMIC ####[facility] [id number] [place] [address] SQUAMOUS EPITH. CELLS 1+ /HPF Normal [facility] Comment on above: Performed By: #### U AMIC ####[facility] [id number] [place] [address] Urine, bacteria in sediment 1+ /HPF Abnormal [facility] Comment on above: Performed By: #### U AMIC ####[facility] [id number] [place] [address] Urine, mucus presence in sediment 1+ /LPF Normal [facility] Comment on above: Performed By: #### U AMIC ####[facility] [id number] [place] [address] WBC (Leukocytes) 0-5 Normal 0-5 [facility] Comment on above: Performed By: #### U AMIC ####[facility] [id number] [place] [address] URINALYSISon 09-29-2017 Bilirubin (total) Negative Normal NEGATIVE [facility] Comment on above: Performed By: #### U A ####[facility] [id number] [place] [address] BLOOD SMALL(1+) Abnormal NEGATIVE [facility] Comment on above: Performed By: #### U A ####[facility] [id number] [place] [address] Glucose mass conc Negative Normal NEGATIVE [facility] Comment on above: Performed By: #### U A ####[facility] [id number] [place] [address] pH of blood 6.0 [pH] Normal 5.0 - 8.0 [facility] Comment on above: Performed By: #### U A ####[facility] [id number] [place] [address] Protein Negative Normal NEGATIVE [facility] Comment on above: Performed By: #### U A ####[facility] [id number] [place] [address] Urine, ketones presence Negative Normal NEGATIVE [facility] Comment on above: Performed By: #### U A ####[facility] [id number] [place] [address] Urine, leukocyte esterase presence LARGE(3+) Abnormal NEGATIVE [facility] Comment on above: Performed By: #### U A ####[facility] [id number] [place] [address] Urine, nitrite presence Negative Normal NEGATIVE [facility] Comment on above: Performed By: #### U A ####[facility] [id number] [place] [address] Urine, specific gravity 1.015 Normal 1.005 - 1.035 [facility] Comment on above: Performed By: #### U A ####[facility] [id number] [place] [address] Urine, urobilinogen 4.0 mg/dL High 0.0 - 1.9 [facility] Comment on above: Result Comment: SOME PIGMENTS AND MEDICATIONS MAY CAUSE AFALSE POSITIVE UROBILINOGEN Performed By: #### U A ####[facility] [id number] [place] [address] Urine, appearance CLEAR Normal CLEAR [facility] Comment on above: Performed By: #### U A ####[facility] [place] [address] Urine, color YELLOW Normal STRAW,YELLOW [facility] Comment on above: Performed By: #### U A ####[facility] [id number] [place] [address] URINE CULTURE,BACTERIALon URINE CULTURE,BACTERIAL PATIENT: SANTA TAYLOR LOCATION: [address]#: [id number] : 86 AGE: SEX: F ORDERED BY: KAMILA QUACH: URINE COLLECTED: 09/29/17 19:13ANTIBIOTICS AT ENID.: RECEIVED : 09/30/17 10:42SITE: Unspecified R E S U L T S URINE CULTURE,BACTERIAL FINAL 10/01/17 08:34 NO SIGNIFICANT GROWTH. Normal [facility] Comment on above: Performed By: #### U RIN ####[facility] [place] [address] VIRAL CULTUREon 09-29-2017 VIRAL CULTURE Viral culture will s upport the growth of the following viruses:Adenovirus, CMV, Enteroviruses, HSV, Influenza,Metapneumovirus, Parainfluenza,RSV, and VZV.Culture for Mumps,Rhinovirus,Rubella, and Rubeola virus requirea specific request.EBV,BK virus,ELENA virus, and Arboviruses likeWest Nile do not grow in culture.PCR is recommended for the detection of all Herpes family viruses in CSF.PATIENT: SANTA TAYLOR LOCATION: [address]#: [id number] : 86 AGE: SEX: F ORDERED BY: KAMILA QUACH: MISC COLLECTED: 09/29/17 19:42ANTIBIOTICS AT ENID.: RECEIVED : 10/01/17 11:41SITE: skin mucosa R E S U L T S VIRAL CULTURE FINAL 10/06/17 08:13 NO VIRUS DETECTED. Viral culture will support the growth of the following viruses: Adenovirus, CMV, Enteroviruses, HSV, Influenza,Metapneumovirus, Parainfluenza,RSV, and VZV. Culture for Mumps,Rhinovirus,Rubella, and Rubeola virus require a specific request.EBV,BK virus,ELENA virus, and Arboviruses like West Nile do not grow in culture. PCR is recommended for the detection of all Herpes family viruses in CSF. Normal [facility] Comment on above: Performed By: #### G [facility] ####[facility] [place] [address] WET PREP W/ TRICHOMONAS REFL EX IF NEGon 09-29-2017 CLUE CELLS NONE SEEN Normal [facility] Comment on above: Performed By: #### W ETPX ####[id number] [place] [address] COMMENT SEE COMMENT Normal [facility] Comment on above: Result Comment: TRIC HOMONAS WAS NOT SEEN BY WET PREP REFLEXED TO TRICHOMONAS VAGINALIS BY AMPLIFIED DETECTION. Performed By: #### W ETPX ####[facility] [place] [address] TRICHOMONAS NONE SEEN Normal Negative [facility] Comment on above: Performed By: #### W ETPX ####[facility] [id number] [facility] [address] Urine, yeast presence in sediment NONE SEEN Normal [facility] Comment on above: Performed By: #### W ETPX ####[facility] [id number] [place] [address] WBC (Leukocytes) 21-50 Normal [facility] Comment on above: Performed By: #### W ETPX ####[facility] [id number] [place] [address] Lab Specimen Source Genital vaginal Normal [facility] Comment on above: Performed By: #### W ETPX ####[facility] [id number] [place] [address] GC + CHLAMYDIA BY AMPLIFIED DETECTIONon 09-08-2017 CHLAMYDIA TRACH.,AMPLIFIED Negative Normal NEGATIVE [facility] Comment on above: Performed By: #### G [facility] ####[facility] [place] [address] N.GONORRHEA,AMPLIFI ED Negative Normal NEGATIVE [facility] Comment on above: Performed By: #### G [facility] ####[facility] [place] [address] GC + CHLAMYDIA BY AMPLIFIED DETECTIONon 09-06-2017 Lab Specimen Source Genital cervix Normal U [facility] Comment on above: Performed By: #### G [facility] ####[facility] [place] [address] URINE CULTURE,BACTERIALon URINE CULTURE,BACTERIAL PATIENT: SANTA TAYLOR LOCATION: [facility]#: [id number] : 86 AGE: SEX: F ORDERED BY: COURTNEY HERRERA: URINE COLLECTED: 09/06/17 17:26ANTIBIOTICS AT ENID.: RECEIVED : 09/07/17 09:12SITE: Clean Catch/Voided R E S U L T S URINE CULTURE,BACTERIAL FINAL 09/08/17 08:09 MULTIPLE ORGANISMS PRESENT, PROBABLE CONTAMINATION PLEASE REPEAT CULTURE. Normal [facility] Comment on above: Performed By: #### U [facility] ####[facility] [place] [address] Outpatient Patient Summaryon 03-19-2017 [facility]patient [facility] Normal [facility] Vital Signs Date Time Vital Sign Value Performing Clinician Facility 06-21-2024 23:13-0400 Diastolic Blood Pressure Non-Invasive 61 mm[Hg] [facility] 06-21-2024 23:13-0400 Heart rate 78 /min [facility] 06-21-2024 23:13-0400 Respiratory rate 15 /min [facility] DO [facility] 06-21-2024 23:13-0400 Systolic Blood Pressure Non-Invasive 107 mm[Hg] MARY LOU REICHFIELD DO [facility] 06-21-2024 21:10-0400 Diastolic Blood Pressure Non-Invasive 72 mm[Hg] MARY LOU REICHFIELD DO [facility] 06-21-2024 21:10-0400 Heart rate 78 /min MARY LOU REICHFIELD DO [facility] 06-21-2024 21:10-0400 Respiratory rate 13 /min MARY LOU REICHFIELD DO [facility] 06-21-2024 21:10-0400 Systolic Blood Pressure Non-Invasive 118 mm[Hg] MARY LOU REICHFIELD DO [facility] 06-21-2024 20:33-0400 Body temperature 98.78 [degF] MARY LOU REICHFIELD DO [facility] 06-21-2024 20:18-0400 Diastolic Blood Pressure Non-Invasive 67 mm[Hg] MARY LOU REICHFIELD DO [facility] 06-21-2024 20:18-0400 Heart rate 86 /min MARY LOU REICHFIELD DO [facility] 06-21-2024 20:18-0400 Respiratory rate 15 /min MARY LOU REICHFIELD DO [facility] 06-21-2024 20:18-0400 Systolic Blood Pressure Non-Invasive 124 mm[Hg] MARY LOU REICHFIELD DO [facility] 06-21-2024 19:16-0400 Body temperature 100.58 [degF] MARY LOU REICHFIELD DO [facility] 06-21-2024 19:16-0400 Body weight 109.1 kg [facility] 06-21-2024 19:16-0400 Heart rate 128 /min [facility] 06-06-2024 21:14-[address] ROHIT RIOS MD [facility] 06-06-2024 21:14-[address] ROHIT RIOS MD [facility] 06-06-2024 21:14-0400 Body height 170.[address] ROHIT RIOS MD [facility] 06-06-2024 21:14-0400 Body temperature 98.96 [degF] DR ROHIT RIOS MD [facility] 06-06-2024 21:14-0400 Body weight 109.[address] ROHIT RIOS MD [facility] 06-06-2024 21:14-0400 Diastolic Blood Pressure Non-Invasive 92 mm[Hg] DR ROHIT RIOS MD [facility] 06-06-2024 21:14-0400 Heart rate 107 /min DR ROHIT RIOS MD [facility] 06-06-2024 21:14-0400 Respiratory rate 18 /min DR ROHIT RIOS MD [facility] 06-06-2024 21:14-0400 Systolic Blood Pressure Non-Invasive 151 mm[Hg] DR ROHIT RIOS MD [facility] 05-30-2024 14:47-0400 Diastolic Blood Pressure Non-Invasive 74 mm[Hg] TANG BROCK MD [facility] 05-30-2024 14:47-0400 Heart rate 98 /min TANG BROCK MD [facility] 05-30-2024 14:47-0400 Respiratory rate 16 /min TANG BROCK MD [facility] 05-30-2024 14:47-0400 Systolic Blood Pressure Non-Invasive 131 mm[Hg] TANG BROCK MD [facility] 05-30-2024 14:17-0400 Blood Pressure Location TANG BROCK MD [facility] 05-30-2024 14:17-0400 Diastolic Blood Pressure Non-Invasive 58 mm[Hg] TANG BROCK MD [facility] 05-30-2024 14:17-0400 Heart rate 100 /min TANG BROCK MD [facility] 05-30-2024 14:17-0400 Respiratory rate 15 /min TANG BROCK MD [facility] 05-30-2024 14:17-0400 Systolic Blood Pressure Non-Invasive 139 mm[Hg] TANG BROCK MD [facility] 05-30-2024 12:38-0400 Blood Pressure Location TANG BROCK MD [facility] 05-30-2024 12:38-0400 Body height 170.2 cm TANG BROCK MD [facility] 05-30-2024 12:38-0400 Body temperature 97.7 [degF] TANG BROCK MD [facility] 05-30-2024 12:38-0400 Body weight 111.4 kg TANG BROCK MD [facility] 05-30-2024 12:38-0400 Diastolic Blood Pressure Non-Invasive 58 mm[Hg] TANG BROCK MD [facility] 05-30-2024 12:38-0400 Heart rate 143 /min TANG BROCK MD [facility] 05-30-2024 12:38-0400 Respiratory rate 20 /min TANG BROCK MD [facility] 05-30-2024 12:38-0400 Systolic Blood Pressure Non-Invasive 138 mm[Hg] TANG BROCK MD [facility] 03-27-2024 03:06-0400 Diastolic Blood Pressure Non-Invasive 96 mm[Hg] YIFAN HILL DO [facility] 03-27-2024 03:06-0400 Heart rate 89 /min YIFAN HILL DO [facility] 03-27-2024 03:06-0400 Mean blood pressure 106 mm[Hg] YIFAN HILL DO [facility] 03-27-2024 03:06-0400 Respiratory rate 18 /min YIFAN HILL DO [facility] 03-27-2024 03:06-0400 Systolic Blood Pressure Non-Invasive 135 mm[Hg] YIFAN HILL DO [facility] 03-27-2024 01:58-0400 Diastolic Blood Pressure Non-Invasive 83 mm[Hg] YIFAN HILL DO [facility] 03-27-2024 01:58-0400 Heart rate 90 /min YIFAN HILL DO [facility] 03-27-2024 01:58-0400 Mean blood pressure 96 mm[Hg] YIFAN HILL DO [facility] 03-27-2024 01:58-0400 Respiratory rate 18 /min YIFAN TOMMY DO [facility] 03-27-2024 01:58-0400 Systolic Blood Pressure Non-Invasive 129 mm[Hg] YIFAN HILL DO [facility] 03-27-2024 00:59-0400 Body height 170.2 cm YIFAN TOMMY DO [facility] 03-27-2024 00:59-0400 Body temperature 98.42 [degF] YIFAN SANDERS DO [facility] 03-27-2024 00:59-0400 Body weight 111.4 kg YIFAN SANDERS DO [facility] 03-27-2024 00:59-0400 Diastolic Blood Pressure Non-Invasive 86 mm[Hg] YIFAN HILL DO [facility] 03-27-2024 00:59-0400 Heart rate 93 /min YIFAN HILL DO [facility] 03-27-2024 00:59-0400 Respiratory rate 18 /min YIFAN HILL DO [facility] 03-27-2024 00:59-0400 Systolic Blood Pressure Non-Invasive 134 mm[Hg] YIFAN SANDERS DO [facility] 03-19-2024 21:50-0400 Diastolic Blood Pressure Non-Invasive 74 mm[Hg] DR SANTHOSH DAS MD [facility] 03-19-2024 21:50-0400 Heart rate 92 /min DR SANTHOSH DAS MD [facility] 03-19-2024 21:50-0400 Respiratory rate 16 /min DR SANTHOSH DAS MD [facility] 03-19-2024 21:50-0400 Systolic Blood Pressure Non-Invasive 128 mm[Hg] DR SANTHOSH DAS MD [facility] 03-19-2024 19:00-0400 Body temperature 98.42 [degF] DR SANTHOSH DAS MD [facility] 03-19-2024 19:00-0400 Body weight 111.[address] SANTHOSH DAS MD [facility] 03-19-2024 19:00-0400 Diastolic Blood Pressure Non-Invasive 89 mm[Hg] DR SANTHOSH DAS MD [facility] 03-19-2024 19:00-0400 Heart rate 110 /min DR SANTHOSH DAS MD [facility] 03-19-2024 19:00-0400 Systolic Blood Pressure Non-Invasive 152 mm[Hg] DR SANTHOSH DAS MD [facility] 11-21-2023 08:48-0400 Body height 170.2 cm Jeff Howard PA-C Work Phone: [facility] 11-21-2023 08:48-0400 Body temperature 97.9 [degF] Jeff Lee PA-C Work Phone: [facility] 11-21-2023 08:48-0400 Body weight 112.04 kg Jeff Lee PA-C Work Phone: [facility] 11-21-2023 08:48-0400 Diastolic blood pressure 69 mm[Hg] Jeff Lee PA-C Work Phone: [facility] 11-21-2023 08:48-0400 Heart rate 89 /min Jeff Lee PA-C Work Phone: [facility] 11-21-2023 08:48-0400 Respiratory rate 14 /min Jeff Canton PA-C Work Phone: [facility] 11-21-2023 08:48-0400 Systolic blood pressure 131 mm[Hg] Jeff Canton PA-C Work Phone: [facility] 07-22-2023 19:21-0500 Body temperature 100.04 [degF] DR EDILIA WELLS DO [facility] 07-22-2023 19:21-0500 Diastolic Blood Pressure Non-Invasive [address] EDILIA WELLS DO [facility] 07-22-2023 19:21-0500 Heart rate 102 /min DR EDILIA WELLS DO [facility] 07-22-2023 19:21-0500 Respiratory rate 18 /min DR EDILIA WELLS DO [facility] 07-22-2023 19:21-0500 Systolic Blood Pressure Non-Invasive [address] EDILIA WELLS DO [facility] 07-21-2023 17:07-0500 Body temperature 98.96 [degF] DR EDILIA WELLS DO [facility] 07-21-2023 17:07-0500 Diastolic Blood Pressure Non-Invasive [address] YEBOAH KELLENJULIO CESAR DO [facility] 07-21-2023 17:07-0500 Heart rate 119 /min DR YEBOAH KELLENJULIO CESAR DO [facility] 07-21-2023 17:07-0500 Respiratory rate 18 /min DR YEBOAH KELLENJULIO CESAR DO [facility] 07-21-2023 17:07-0500 Systolic Blood Pressure Non-Invasive [address] YEBOAH KELLENJULIO CESAR DO [facility] 05-24-2023 08:03-0400 Body height 170.2 cm Sergey Tee MD Work Phone: [facility] [employer] 05-24-2023 08:03-0400 Body mass index (BMI) [Ratio] 37.43 kg/m2 Sergey Tee MD Work Phone: [facility] [employer] 05-24-2023 08:03-0400 Body weight 108.41 kg Sergey Tee MD Work Phone: [facility] [employer] 05-24-2023 08:03-0400 Diastolic blood pressure 85 mm[Hg] Sergey Tee MD Work Phone: [facility] [employer] 05-24-2023 08:03-0400 Heart rate 125 /min Sergey Tee MD Work Phone: [facility] [employer] 05-24-2023 08:03-0400 Systolic blood pressure 137 mm[Hg] Sergey Tee MD Work Phone: [facility] [employer] 12-21-2022 09:29-0400 Body height 170.2 cm Jaimee Garza MD Work Phone: [facility] [employer] 12-21-2022 09:29-0400 Body mass index (BMI) [Ratio] 39.16 kg/m2 Jaimee Garza MD Work Phone: [facility] [employer] 12-21-2022 09:29-0400 Body weight 113.4 kg Jaimee Garza MD Work Phone: [facility] [employer] 12-21-2022 09:29-0400 Diastolic blood pressure 84 mm[Hg] Jaimee Garza MD Work Phone: [facility] [employer] 12-21-2022 09:29-0400 Heart rate 144 /min Jaimee Garza MD Work Phone: [facility] [employer] 12-21-2022 09:29-0400 Systolic blood pressure 154 mm[Hg] Jaimee Garza MD Work Phone: [facility] [employer] 06-24-2022 04:40-0400 Body temperature 99.32 [degF] CHRISTIANO FROMMELT DO [facility] 06-24-2022 04:40-0400 Heart rate 108 /min CHRISTIANO FROMMELT DO [facility] 06-24-2022 04:40-0400 Respiratory rate 20 /min CHRISTIANO FROMMELT DO [facility] 06-24-2022 03:35-0400 Body height 170.2 cm CHRISTIANO FROMMELT DO [facility] 06-24-2022 03:35-0400 Body temperature 102.92 [degF] CHRISTIANO FROMMELT DO [facility] 06-24-2022 03:35-0400 Body weight 113 kg CHRISTIANO FROMMELT DO [facility] 06-24-2022 03:35-0400 Diastolic blood pressure 78 mm[Hg] CHRISTIANO FROMMELT DO [facility] 06-24-2022 03:35-0400 Heart rate 136 /min CHRISTIANO FROMMELT DO [facility] 06-24-2022 03:35-0400 Respiratory rate 20 /min CHRISTIANO FROMMELT DO [facility] 06-24-2022 03:35-0400 Systolic blood pressure 135 mm[Hg] CHRISTIANO FROMMELT DO [facility] 04-03-2022 04:53-0400 Diastolic blood pressure 58 mm[Hg] LEONELA DURESKA DO [facility] 04-03-2022 04:53-0400 Heart rate 105 /min LEONELA DURESKA DO [facility] 04-03-2022 04:53-0400 Mean blood pressure 74 mm[Hg] LEONELA DURESKA DO [facility] 04-03-2022 04:53-0400 Respiratory rate 18 /min LEONELA DURESKA DO [facility] 04-03-2022 04:53-0400 Systolic blood pressure 106 mm[Hg] LEONELA DURESKA DO [facility] 04-03-2022 04:25-0400 Body temperature 99.14 [degF] LEONELA DURESKA DO [facility] 04-03-2022 04:25-0400 Diastolic blood pressure 57 mm[Hg] LEONELA DURESKA DO [facility] 04-03-2022 04:25-0400 Heart rate 110 /min LEONELA DURESKA DO [facility] 04-03-2022 04:25-0400 Mean blood pressure 73 mm[Hg] LEONELA DURESKA DO [facility] 04-03-2022 04:25-0400 Respiratory rate 22 /min LEONELA DURESKA DO [facility] 04-03-2022 04:25-0400 Systolic blood pressure 105 mm[Hg] LEONELA DURESKA DO [facility] 04-03-2022 04:20-0400 Diastolic blood pressure 57 mm[Hg] LEONELA DURESKA DO [facility] 04-03-2022 04:20-0400 Heart rate 122 /min LEONELA DURESKA DO [facility] 04-03-2022 04:20-0400 Mean blood pressure 71 mm[Hg] LEONELA DURESKA DO [facility] 04-03-2022 04:20-0400 Respiratory rate 19 /min LEONELA DURESKA DO [facility] 04-03-2022 04:20-0400 Systolic blood pressure 99 mm[Hg] LEONELA DURESKA DO [facility] 04-03-2022 02:47-0400 Body temperature 102.74 [degF] LEONELA DURESKA DO [facility] 04-03-2022 01:50-0400 Reason For Taking VItal Signs LEONELA DURESKA DO [facility] 04-03-2022 01:01-0400 Body temperature 102.56 [degF] LEONELA DURESKA DO [facility] 04-02-2022 23:12-0400 Heart rate 140 /min LEONELA DURESKA DO [facility] 03-13-2022 08:04-0400 Body height 170.2 cm TANG BROCK MD [facility] 03-13-2022 08:04-0400 Body temperature 98.6 [degF] TANG BROCK MD [facility] 03-13-2022 08:04-0400 Body weight 109.1 kg TANG BROCK MD [facility] 03-13-2022 08:04-0400 Diastolic blood pressure 80 mm[Hg] TANG BROCK MD [facility] 03-13-2022 08:04-0400 Heart rate 114 /min TANG BROCK MD [facility] 03-13-2022 08:04-0400 Respiratory rate 20 /min TANG BROCK MD [facility] 03-13-2022 08:04-0400 Systolic blood pressure 119 mm[Hg] TANG BROCK MD [facility] 08-05-2021 15:11-0500 Diastolic blood pressure 68 mm[Hg] ROHIT REED MD [facility] 08-05-2021 15:11-0500 Heart rate 76 /min ROHIT REED MD [facility] 08-05-2021 15:11-0500 Respiratory rate 16 /min ROHIT REED MD [facility] 08-05-2021 15:11-0500 Systolic blood pressure 128 mm[Hg] ROHIT REED MD [facility] 08-05-2021 13:34-0500 Diastolic blood pressure 81 mm[Hg] ROHIT REED MD [facility] 08-05-2021 13:34-0500 Heart rate 84 /min ROHIT REED MD [facility] 08-05-2021 13:34-0500 Reason For Taking VItal Signs ROHIT REED MD [facility] 08-05-2021 13:34-0500 Respiratory rate 16 /min ROHIT REED MD [facility] 08-05-2021 13:34-0500 Systolic blood pressure 132 mm[Hg] ROHIT REED MD [facility] 08-05-2021 12:59-0500 Body temperature 98.96 [degF] ROHIT REED MD [facility] 08-05-2021 12:59-0500 Diastolic blood pressure 78 mm[Hg] ROHIT REED MD [facility] 08-05-2021 12:59-0500 Heart rate 76 /min ROHIT REED MD [facility] 08-05-2021 12:59-0500 Respiratory rate 16 /min ROHIT REED MD [facility] 08-05-2021 12:59-0500 Systolic blood pressure 131 mm[Hg] ROHIT REED MD [facility] Encounters Encounter Date Encounter Type Care Provider Facility Start: 06-27-2024 End: 06-27-[address] SHIMA PECK MD Facility:[facility] Start: 06-27-2024 End: 06-27-[address] SHIMA PECK MD [facility] Start: 06-27-[address] SHIMA PECK MD F acility:A Start: 06-27-2024 End: 06-27-2024 ambulatory TERESE ERNST [employer] Facility:[facility] Start: 06-27-2024 End: 06-27-2024 Patient encounter procedure TERESE ERNST [employer] [facility] Start: 06-26-2024 End: 06-26-2024 ambulatory MADAY DUMONT [employer] Facility:[facility] Start: 06-26-2024 End: 06-26-2024 Patient encounter procedure MADAY Manish NORM [employer] [facility] Start: 06-21-2024 End: 06-21-2024 Emergency department patient visit MARY LOU KEITH [facility] Start: 06-12-2024 End: 06-16-2024 ambulatory SANTA MAST [employer] [facility] Start: 06-12-2024 End: 06-16-2024 Outreach Lab [facility] MAST [employer] [facility] Start: 06-11-2024 End: 06-11-2024 ambulatory SANTA MAST [employer] Facility[facility] Start: 06-11-2024 End: 06-11-2024 Patient encounter procedure SANTA MAST [employer] [facility] Start: 06-09-2024 End: 06-09-2024 ambulatory TERESE A KLEVER [employer] Facility:[facility] Start: 06-09-2024 End: 06-09-2024 Patient encounter procedure TERESE Hammond KLEVER [employer] [facility] Start: 06-07-2024 End: 06-11-2024 ambulatory TERESE Manish KLEVER [employer] Facility:[facility] Start: 06-07-2024 End: 06-11-2024 Encounter for general adult medical examination without abnormal findings DR ROHIT RIOS MD Facility:[facility] Start: 06-07-2024 End: 06-11-[address] ROHIT RIOS MD [facility] Start: 06-06-2024 End: 06-06-2024 Emergency department patient visit DR ROHIT RIOS MD [facility] Start: 05-30-2024 End: 05-30-2024 Emergency department patient visit TANG BROCK MD [facility] Start: 03-28-2024 End: 03-28-2024 ambulatory TERESE Manish KLEVER [employer] Facility:[facility] Start: 03-28-2024 End: 03-28-2024 Patient encounter procedure TERESE Hammond K[employer] [facility] Start: 03-27-2024 End: 03-27-2024 Emergency department patient visit YIFAN SANDERS DO [facility] Start: 03-19-2024 End: 03-19-2024 Emergency department patient visit DR SANTHOSH DAS MD [facility] Start: 03-19-2024 End: 03-19-2024 ambulatory TERESE ERNST [employer] Facility:[facility] Start: 03-19-2024 End: 03-19-2024 Patient encounter procedure KEVIN TATE [employer] [facility] Start: 11-21-2023 End: 11-21-2023 ambulatory JEFF HOWARD Facility:[facility] Start: 11-21-2023 End: 11-21-2023 Office outpatient visit 25 minutes Jeff COCHRANC Work Phone: [facility] Comment on above: Cutaneous lupus eryt hematosus (Primary Dx); Rash and nonspecific skin eruption; REMA positive; Encounter for smoking cessation counseling Start: 10-15-2023 End: 10-15-2023 ambulatory [facility] Start: 10-15-2023 End: 10-16-2023 ambulatory TERESE ERNST Facility:[facility] Start: 10-15-2023 End: 10-15-2023 Office outpatient visit 25 minutes [facility] [employer] Work Phone: [facility] Comment on above: Seborrheic dermatiti s (Primary Dx); Subacute cutaneous lupus erythematosus Start: 10-02-2023 End: 10-02-2023 ambulatory TERESE ERNST Facility:[facility] Start: 08-30-2023 End: 08-30-2023 ambulatory JORGE DEAN Facility:[facility] Start: 08-17-2023 Telephone encounter Ulysses antonio MD Work Phone: [facility] Comment on above: Appointment Start: 08-09-2023 End: 08-09-2023 ambulatory TERESE ERNST [employer] Facility:[facility] Start: 08-09-2023 End: 08-09-2023 Patient encounter procedure TERESE ERNST [employer] [facility] Start: 08-03-2023 End: 08-07-2023 ambulatory TERESE ERNST [employer] Facility:[facility] Start: 07-22-2023 End: 07-22-2023 Emergency department patient visit DR EDILIA WELLS DO [facility] Start: 07-21-2023 End: 07-21-2023 Emergency department patient visit DR EDILIA WELLS DO [facility] Start: 05-25-2023 Telephone encounter Sergey yan MD Work Phone: [facility] Start: 05-24-2023 End: 05-24-2023 [facility] Start: 05-24-2023 End: 05-24-2023 Office outpatient visit 25 minutes Sergey Tee MD Work Phone: [facility] Comment on above: Positive REMA (antinu clear antibody) (Primary Dx); Subacute cutaneous lupus erythematosus Start: 04-12-2023 End: 04-12-2023 [facility] Start: 04-12-2023 End: 04-12-2023 Office outpatient visit 25 minutes [facility] PA-C Work Phone: [facility] Dermatology Comment on above: Subacute cutaneous l upus erythematosus (Primary Dx); Seborrheic dermatitis Start: 02-27-2023 End: 02-27-2023 Patient encounter procedure TERESE ERNST [employer] [facility] Start: 02-12-2023 End: 02-12-2023 Patient encounter procedure TERESE ERNST [employer] [facility] Start: 02-08-2023 End: 02-08-2023 Patient encounter procedure YOVANI MICHAELS [employer] [facility] Start: 12-21-2022 End: 12-21-2022 ambulatory [facility] Start: 12-21-2022 End: 12-21-2022 Office outpatient visit 15 minutes Jaimee Garza MD Work Phone: [facility] Rheumatology Comment on above: Subacute cutaneous l upus erythematosus (Primary Dx) Start: 12-13-2022 End: 12-13-2022 ambulatory FANNY GARZA [facility] Start: 12-13-2022 End: 12-13-2022 Office outpatient new [facility] Work Phone: [facility] D[facility]atology Comment on above: Seborrheic dermatiti s (Primary Dx); Subacute cutaneous lupus erythematosus Start: 11-21-2022 End: 11-21-2022 ambulatory NOEL WALTERS [facility] Start: 11-21-2022 End: 11-21-2022 Encounter for preprocedural laboratory examination [facility] Start: 06-24-2022 End: 06-24-2022 Emergency department patient visit CHRISTIANO SESAY DO [facility] Start: 06-22-2022 End: 06-22-2022 Patient encounter procedure RADHA QUIJANO [employer] [facility] Start: 06-16-2022 End: 06-20-2022 Outreach Lab RADHA QUIJANO [employer] [facility] Start: 04-02-2022 End: 04-03-2022 Emergency department patient visit LEONELA REBOLLAR DO [facility] Start: 03-13-2022 End: 03-13-2022 Emergency department patient visit TANG BROCK MD [facility] Start: 03-09-2022 End: 03-13-2022 Outreach Lab FESTUS FERGUSON [employer] [facility] Start: 02-10-2022 End: 02-10-2022 Patient encounter procedure NOEL WALTERS [employer] [facility] Start: 11-24-2021 End: 11-24-2021 Patient encounter procedure YOVANI MICHAELS [employer] [facility] Start: 08-15-2021 End: 08-15-2021 Patient encounter procedure NOEL WALTERS [employer] [facility] Start: 08-05-2021 End: 08-05-2021 Emergency department patient visit ROHIT REED MD [facility] Start: 08-21-2018 Patient encounter procedure CLARI UP Facility:[id number] Start: 03-22-2018 Patient encounter JASON Aj acility:UNKNOWN Start: 03-01-2018 End: 03-01-2018 Patient encounter procedure JASON SANDERS [facility] Start: 01-21-2018 Patient encounter JASON Aj acility:UNKNOWN Start: 01-18-2018 End: 01-18-2018 Patient encounter procedure JASON SANDERS [facility] Start: 01-07-2018 Patient encounter procedure Jonelle Tilley Facility:[facility] Start: 11-14-2017 Patient encounter procedure CLARI UP Facility:[id number] Start: 10-03-2017 Patient encounter procedure CLARI UP Facility:[id number] Start: 09-29-2017 End: 09-29-2017 Ambulatory Melonyjohn Baer [facility] Start: 09-29-2017 Emergency department visit high/urgent severity Anita Herrera [facility] Start: 09-06-2017 Ambulatory Anita Herrera [facility] Start: 03-19-2017 End: 03-19-2017 Ambulatory [facility] Facility:[facility] Procedures Date Procedure Procedure Detail Performing Clinician Start: 05-24-2023 C-reactive protein Giancarlo Tee MD Work Phone: Start: 05-24-2023 Sedimentation rate r bc automated Sergey Tee MD Work Phone: Start: 09-10-2014 Tonsillectomy FESTUS ARRIOLAVIJAY [employer] Start: 09-10-2013 Entire gallbladder ( body structure) FESTUS FERGUSON [employer] Plan of Treatment Date Care Activity Detail Author Start: 2048 RSV Immunization age d 60 or older (1 - 1-dose 60+ series) RSV Immunization aged 60 or older (1 - 1-dose 60+ series) [facility] [facility] Start: 2038 Zoster Vaccines (1 o f 2) Zoster Vaccines (1 of 2) [facility] Start: 04-22-2024 End: 04-22-2024 Patient encounter procedure 04/22/2024 2:00 PM EDT Office Visit [facility] Dermatology [address] [facility] [address] [place] [address] Fanny Garza PA-C [address] [facility] [address] [place] [address] [facility] Start: 04-10-2024 DTaP/Tdap/Td Vaccine s (2 - Td or Tdap) DTaP/Tdap/Td Vaccines (2 - Td or Tdap) [facility] Start: 04-10-2024 Urine microalbumin profile DTaP,Tdap,Td Vaccine (2 - Td or Tdap) [facility] Start: 11-13-2023 End: 11-13-2023 Patient encounter procedure 11/13/2023 3:00 PM EST Office Visit [facility] Rheumatology [address] [place] [id number] Jaimee Garza MD [address] [place] [address] [facility] Start: 10-15-2023 End: 10-15-2023 Patient encounter procedure 10/15/2023 2:00 PM EST Office Visit [facility] Dermatology [address] [facility] [address] [place] [phone] Fanny Garza PA-C [address] [facility] [facility] [address] [place], [place] [id number] [facility] Start: 09-10-2023 Depression Assessment Depression Ass [facility] Start: 07-06-2023 End: 05-25-2024 C reactive protein [Mass/volume] in Serum or Plasma C-reactive protein Lab Routine Subacute cutaneous lupus erythematosus Expected: 07/06/2023 (Approximate), Expires: 05/25/[address] [facility] [employer] [facility] Work Phone: Comment on above: Expected: 07/06/2023 (Approximate), Expires: 05/25/2024 Start: 07-06-2023 End: 05-25-2024 Erythrocyte sedimentation rate Sedimentation rate, automated Lab Routine Subacute cutaneous lupus erythematosus Expected: 07/06/2023 (Approximate), [facility] 05[facility]25[facility]: Expected: 07/06/2023 (Approximate), Expires: 05/25/2024 Start: 05-24-2023 End: 05-24-2024 C reactive protein [Mass/volume] in Serum or Plasma C-reactive protein Lab Routine Positive REMA (antinuclear antibody) Expected: 05/24/2023 (Approximate), Expires: 05/24/2024 [facility]: Comment on above: Expected: 05/24/2023 (Approximate), Expires: 05/24/2024 Start: 05-24-2023 End: 05-24-2024 Erythrocyte sedimentation rate Sedimentation rate, automated Lab Routine Positive REMA (antinuclear antibody) Expected: 05/24/2023 (Approximate), Expires: 05/24/2024 [facility] Comment on above: Expected: 05/24/2023 (Approximate), Expires: 05/24/2024 Start: 05-24-2023 End: 05-24-2023 Patient encounter procedure [facility] Start: 05-11-2023 Covid-19 Vaccine () Covid-19 Vaccine () [facility] Start: 05-11-2023 Influenza vaccination [facility] Start: 03-14-2023 End: 03-14-2023 Patient encounter procedure 03/14/2023 Office Visit Dermatology Fanny Garza PA-C [address] [place] [address] [address] [place] [address] [facility] Start: 09-10-2022 Depression Assessment Depression Ass essment [facility] Start: 2018 HPV Testing HPV Testing [facility] Start: 2018 Screening for malign ant neoplasm of cervix [facility] Start: 02-19-2018 Hepatitis B Vaccine (2 of 3 - 19+ 3-dose series) Hepatitis B Vaccine (2 of 3 - 19+ 3-dose series) [facility] Start: 02-19-2018 Hepatitis B Vaccines (2 of 3 - 19+ 3-dose series) Hepatitis B Vaccines (2 of 3 - 19+ 3-dose series) [facility] Start: 02-19-2018 Hepatitis B Vaccines (2 of 3 - 3-dose series) Hepatitis B Vaccines (2 of 3 - 3-dose series) [facility] Start: 02-19-2018 Varicella vaccination Varicell a Vaccines (1 of 2 - 2-dose childhood series) [facility] Start: 2009 Pap Testing Pap Testing [facility] Start: 2009 Screening for malign ant neoplasm of cervix [facility] Start: 2006 HIV Screening HIV Screening [facility] Start: 2006 HIV screening HIV Screening [facility] Start: 2000 Depression Screening Depression Scre ening [facility] Start: 1994 Pneumococcal vaccination Pneumococcal Vaccine (1 of 2 - PCV) [facility] Start: 1994 Pneumococcal Vaccine : Pediatrics (0 to 5 Years) and At-Risk Patients (6 to 64 Years) (1 - PCV) Pneumococcal Vaccine: Pediatrics (0 to 5 Years) and At-Risk Patients (6 to 64 Years) (1 - PCV) [facility] Start: 1994 Pneumococcal Vaccine : Pediatrics (0 to 5 Years) and At-Risk Patients (6 to 64 Years) (1 of 2 - PCV) Pneumococcal Vaccine: Pediatrics (0 to 5 Years) and At-Risk Patients (6 to 64 Years) (1 of 2 - PCV) [facility] Start: 04-19-1989 COVID-19 Vaccine (#1) COVID-19 Vacci ne (#1) [facility] Start: 1988 HIV screening HIV Screening [facility] Start: 1988 Lipid panel Lipid Panel [facility] Start: 1988 Medicare Advantage Annual Wellness Visit (AWV) Medicare Advantage Annual Wellness Visit (AWV) [facility] Immunizations Immunization Date Immunization Notes Care Provider [facility] 05-20-2020 influenza virus vaccine, unspecified formulation Fanny Garza PA-C Work Phone: [facility] 06-30-2018 influenza virus vaccine, unspecified formulation ROHIT REED MD [facility] 01-22-2018 hepatitis B vaccine, adult dosage ROHIT REED MD [facility] 01-22-2018 measles/mumps/rubell a virus vaccine ROHIT REED MD [facility] 04-10-2014 tetanus toxoid, redu gilda diphtheria toxoid, and acellular pertussis vaccine, adsorbed ROHIT REED MD [facility] Payers Date Payer Category Payer Private Health Insurance [id number] 2023 Medicare [id number] 2023 Medicare [id number] 2022 Medicaid [id number] 2022 Medicaid [id number] 2015 Unknown [id number] 1988 Unknown [id number] 2.16. [id number] 1988 Unknown [id number] 2.16. 840.1.570218.3.579.2.356 1988 Unknown [id number] 2.16. 840.1.185563.3.579.2.356 1988 Unknown [id number] 2.16. 840.1.760430.3.579.2.356 1988 Unknown [id number] 2.16.8 40.1.368404.3.579.2.627 1988 Unknown [id number] 2.16.8 40.1.777903.3.579.2.627 1988 Unknown [id number] 2.16.8 40.1.271455.3.579.2.627 1988 Unknown [id number] 2.16.8 40.1.405822.3.579.2.627 1988 Unknown [id number] 2.16.8 40.1.912970.3.579.2.627 1988 Unknown [id number] 2.16.8 40.1.589803.3.579.2.627 1988 Unknown [id number] 2.16.8 40.1.096213.3.579.2.627 1988 Unknown [id number] 2.16.8 40.1.655196.3.579.2.627 1988 Unknown [id number] 2.16.8 40.1.431550.3.579.2.627 1988 Unknown [id number] 2.16.8 40.1.518943.3.579.2.627 1988 Unknown [id number] 2.16.8 40.1.735007.3.579.2.627 1988 Unknown [id number] 2.16.8 40.1.622680.3.579.2.627 1988 Unknown [id number] 2.16.8 40.1.266315.3.579.2.627 1988 Unknown [id number] 2.16.8 40.1.452527.3.579.2.7 1988 Unknown [id number] 2.16.8 40.1.683196.3.579.2.627 1988 Unknown [id number] 2.16.8 40.1.285631.3.579.2.7 1988 Unknown [id number] 2.16.8 40.1.105231.3.579.2.627 1988 Unknown [id number] 2.16.8 40.1.421926.3.579.2.7 1988 Unknown [id number] 2.16.8 40.1.061715.3.579.2.627 1988 Unknown [id number] 2.16.8 40.1.588843.3.579.2.627 1988 Unknown [id number] 2.16.8 40.1.074655.3.579.2.627 1988 Unknown [id number] 2.16.8 40.1.458678.3.579.2.627 Social History Date Type Detail Facility Start: 05-12-2021 Smoker (finding) [facility] Start: 1990 Sex Assigned At Female A [facility] Start: 12-15-2021 Tobacco smoking status Heavy t obacco smoker (finding) [facility] Start: 11-21-2022 End: 11-21-2023 Tobacco smoking status NHIS Smokes tobacco daily [facility] Start: 09-10-2006 History of tobacco use Cigarette Smo ker [facility] Start: 11-21-2022 End: 08-30-2023 Cigarettes smoked current (pack per day) - Reported 1 [facility] Start: 11-21-2022 End: 11-21-2023 Tobacco use and exposure Smokeless tobacco non-user [facility] Start: 12-13-2022 End: 11-21-2023 Alcohol intake Current drinker of alcohol (finding) [facility] Start: 11-21-2022 Alcohol Comment 1-2x yearly, l iquor 1-2 [facility] Start: 1990 Sex Assigned At Not on file [facility] Start: 12-03-2022 End: 04-12-2023 Exposure to SARS-CoV-2 (event) Not sure [facility] Start: 12-21-2022 End: 08-30-2023 Tobacco use panel [facility] Start: 11-20-2022 Sexual orientation Heterosexual (fin ding) [facility] National Score (1-100), lower number is lower risk Not on file [facility] Start: 08-21-2023 Gender identity Identifies as female gender (finding) [facility] NEGATED: Highlighted rowStart: NINF History of tobacco use Passive smoker [facility] Functional Status Date Assessment Result Facility 06-21-2024 Functional Status Assistive Device None A [facility] 06-21-2024 Functional Status Room check performed [facility] 06-21-2024 Functional Status [facility] jimmy [facility] 06-06-2024 Functional Status Standard Safet y ID band on, Allergy Band on, Call device within reach, Bed in low position, Wheels locked, Upper/Half-Length side-rails up, Bedside Cart Locked [facility] 05-30-2024 Functional Status Up ad emmy Marichuy Tor[facility] 03-27-2024 Functional Status Up to bathroom [facility] 03-27-2024 Functional Status [facility] Functional Status Independent Marichuy Toro [facility] 03-19-2024 Functional Status Standard Safet y ID band on, Allergy Band on, Call device within reach, Bed in low position, Wheels locked, Upper/Half-Length side-rails up, Bedside Cart Locked, Safety level maintained [facility] 07-22-2023 Functional Status ID band on, Allergy Band on, Call device within reach, Bed in low position, Wheels locked, Upper/Half-Length side-rails up, Safety level maintained [facility] 07-21-2023 Functional Status Independent Marichuy Toro [facility] 06-24-2022 Functional Status Independent Marichuy Toro [facility] 06-24-2022 Functional Status Resting Marichuy [facility] 04-02-2022 Functional Status Standard Safet y ID band on, Allergy Band on, Call device within reach, Bed in low position, Wheels locked, Upper/Half-Length side-rails up, Phone within reach, personal items within reach, Safety level maintained [facility] 03-13-2022 Functional Status [facility] Status Date Assessment Result Facility 06-21-2024 Mental Status Orientation Oriented x 4 [facility] 06-21-2024 Mental Status [facility] 06-06-2024 Mental Status Orientation Oriented x 4 [facility] 05-30-2024 Mental Status Orientation Oriented x 4 [facility] 05-30-2024 Mental Status [facility] 03-27-2024 Mental Status Orientation Oriented x 4 [facility] 03-27-2024 Mental Status [facility] 03-19-2024 Mental Status Orientation Oriented x 4 [facility] 03-19-2024 Mental Status [facility] 07-22-2023 Mental Status Oriented x 4 [facility] 07-21-2023 Mental Status Orientation Oriented x 4 [facility] 07-21-2023 Mental Status [facility] 06-24-2022 Mental Status Orientation Oriented x 4 [facility] 06-24-2022 Mental Status [facility] 04-02-2022 Mental Status Orientation Oriented x 4 [facility] 03-13-2022 Mental Status Orientation Oriented x 4 [facility] Clinical Notes 08-05-2021 to 06-27-2024 Jeff Sanchez PA-C - 11/21/2023 8:59 AM EDTFanny Garza PA-C - 10/15/2023 2:00 PM ESTTelephone Encounter - Ana Ontiveros - 08/17/2023 1:37 PM ESTRadiologyLaboratoryRadiology Note Date & Type Note Facility 06-27-2024 Note . MICRO - Microbiology PROCEDURE: Blood Culture (bacterial) [*1] SOURCE: Blood BODY SITE: COLLECTED DATE/TIME: 06/21/2024 19:49 EDT RECEIVED DATE/TIME: 06/22/2024 13:00 EDT START DATE/TIME: 06/22/2024 13:00 EDT FREE TEXT SOURCE: FINAL REPORTS Final Report [] Verified Date/Time/Personnel: 06/27/2024 13:59 EDT Blood Culture: No Growth at 5 days. PRELIMINARY REPORTS Preliminary Report [] Verified Date/Time/Personnel: 06/22/2024 13:59 EDT Culture has been received in lab and is no growth to date. Routine cultures are held for 5 days. Performing Locations *1: This test was performed at: [facility], [address] [place] [address], [id number] , [facility] 06-27-2024 Note . MICRO - Microbiology PROCEDURE: Blood Culture (bacterial) [*1] SOURCE: Blood BODY SITE: COLLECTED DATE/TIME: 06/21/2024 20:14 EDT RECEIVED DATE/TIME: 06/22/2024 12:59 EDT START DATE/TIME: 06/22/2024 13:00 EDT FREE TEXT SOURCE: FINAL REPORTS Final Report [] Verified Date/Time/Personnel: 06/27/2024 13:59 EDT Blood Culture: No Growth at 5 days. PRELIMINARY REPORTS Preliminary Report [] Verified Date/Time/Personnel: 06/22/2024 13:59 EDT Culture has been received in lab and is no growth to date. Routine cultures are held for 5 days. Performing Locations *1: This test was performed at: [address], [facility] , [facility] 06-24-2024 Note . MICRO - Microbiology PROCEDURE: Urine Culture [O1 *1] SOURCE: Urine BODY SITE: COLLECTED DATE/TIME: 06/21/2024 20:14 EDT RECEIVED DATE/TIME: 06/22/2024 13:21 EDT START DATE/TIME: 06/22/2024 13:21 EDT FREE TEXT SOURCE: FINAL REPORTS Final Report [] Verified Date/Time/Personnel: 06/24/2024 13:14 EDT >100,000 cfu/ml Mixed growth consistent with normal urogenital estrellita. Also includes >100,000 cfu/ml Group B Beta Hemolytic Strep (Strep agalactiae) Sensitivity testing is not recommended for one of the following reasons: 1. Established susceptibility patterns are available or 2. Interpretative criteria are not available. PRELIMINARY REPORTS Preliminary Report [] Verified Date/Time/Personnel: 06/23/2024 10:39 EDT Culture results pending. Order Comments O1: Urine Culture Added by Discern Performing Locations *1: This test was performed at: [address], [facility] , [facility] 06-22-2024 Hospital Discharge instructions Patient Education 06/21/2024 23:11:14 Bladder Infection, Female (Adult) Bladder Infection, Female (Adult) Urine is normally doesn't have any bacteria in it. But bacteria can get into the urinary tract from the skin around the rectum. Or they can travel in the blood from elsewhere in the body. Once they are in your urinary tract, they can cause infection in the urethra (urethritis), the bladder (cystitis), or the kidneys (pyelonephritis). The most common place for an infection is in the bladder. This is called a bladder infection. This is one of the most common infections in women. Most bladder infections are easily treated. They are not serious unless the infection spreads to the kidney. The phrases bladder infection, UTI, and cystitis are often used to describe the same thing. But they are not always the same. Cystitis is an inflammation of the bladder. The most common cause of cystitis is an infection. Symptoms The infection causes inflammation in the urethra and bladder. This causes many of the symptoms. The most common symptoms of a bladder infection are: Pain or burning when urinating Having to urinate more often than usual Urgent need to urinate Only a small amount of urine comes out Blood in urine Abdominal discomfort. This is usually in the lower abdomen above the pubic bone. Cloudy urine Strong- or bad-smelling urine Unable to urinate (urinary retention) Unable to hold urine in (urinary incontinence) Fever Loss of appetite Confusion (in older adults) Causes Bladder infections are not contagious. You can't get one from someone else, from a toilet seat, or from sharing a bath. The most common cause of bladder infections is bacteria from the bowels. The bacteria get onto the skin around the opening of the urethra. From there, they can get into the urine and travel up to the bladder, causing inflammation and infection. This usually happens because of: Wiping improperly after urinating. Always wipe from front to back. Bowel incontinence Procedures such as having a catheter inserted Older age Not emptying your bladder. This can allow bacteria a chance to grow in your urine. Dehydration Constipation Sex Use of a diaphragm for control Treatment Bladder infections are diagnosed by a urine test. They are treated with antibiotics and usually clear up quickly without complications. Treatment helps prevent a more serious kidney infection. Medicines Medicines can help in the treatment of a bladder infection: Take antibiotics until they are used up, even if you feel better. It is important to finish them to make sure the infection has cleared. You can use acetaminophen or ibuprofen for pain, fever, or discomfort, unless another medicine was prescribed. If you have chronic liver or kidney disease, talk with your healthcare provider before using these medicines. Also talk with your provider if you've ever had a stomach ulcer or gastrointestinal bleeding, or are taking blood-thinner medicines. If you are given phenazopydridine to reduce burning with urination, it will cause your urine to become a bright orange color. This can stain clothing. Care and prevention These self-care steps can help prevent future infections: Drink plenty of fluids to prevent dehydration and flush out your bladder. Do this unless you must restrict fluids for other health reasons, or your doctor told you not to. Proper cleaning after going to the bathroom is important. Wipe from front to back after using the toilet to prevent the spread of bacteria. Urinate more often. Don't try to hold urine in for a long time. Wear loose-fitting clothes and cotton underwear. Avoid tight-fitting pants. Improve your diet and prevent constipation. Eat more fresh fruit and vegetables, and fiber, and less junk and fatty foods. Avoid sex until your symptoms are gone. Avoid caffeine, alcohol, and spicy foods. These can irritate your bladder. Urinate right after intercourse to flush out your bladder. If you use control pills and have frequent bladder infections, discuss it with your doctor. Follow-up care Call your healthcare provider if all symptoms are not gone after 3 days of treatment. This is especially important if you have repeat infections. If a culture was done, you will be told if your treatment needs to be changed. If directed, you can call to find out the results. If X-rays were done, you will be told if the results will affect your treatment. Call 911 Call 911 if any of the following occur: Trouble breathing Hard to wake up or confusion Fainting or loss of consciousness Rapid heart rate When to seek medical advice Call your healthcare provider right away if any of these occur: Fever of 100.4 F (38.0 C) or higher, or as directed by your healthcare provider Symptoms are not better by the third day of treatment Back or belly (abdominal) pain that gets worse Repeated vomiting, or unable to keep medicine down Weakness or dizziness Vaginal discharge Pain, redness, or swelling in the outer vaginal area (labia) [id number] [employer]. [address] [place] [address]. All rights reserved. This information is not intended as a substitute for professional medical care. Always follow your healthcare professional's instructions. 06/21/2024 23:11:10 Hypokalemia Hypokalemia Hypokalemia means a low level of potassium in the blood. This most often occurs in people who take water pills (diuretics). It can also occur because of severe vomiting or diarrhea. You may also have it if you take laxatives for long periods of time. It sometimes happens if you have low magnesium (hypomagnesemia). If you have this, your healthcare provider will treat the low magnesium first. A mild case of hypokalemia usually causes no symptoms. It is only found with blood testing. More severe potassium loss causes overall weakness, muscle or abdominal cramps, rapid or irregular heartbeats (heart palpitations), low blood pressure, and muscle weakness. Home care Take any potassium supplements as prescribed. Eat foods rich in potassium. The highest amount is found in avocado, baked potatoes, spinach, cantaloupe, cod, halibut, salmon, and scallops. White, red, or corado beans are also very good sources. A modest amount of potassium is found in orange juice, bananas, carrots, and tomato juice. If you take certain types of diuretics, you will also need to take potassium supplements. If you take a diuretic, discuss potassium supplements with your doctor. Follow-up care Follow up with your healthcare provider for a repeat blood test within the next week, or as advised by our staff. When to seek medical advice Call your healthcare provider right away if any of the following occur: Increased weakness, fatigue, or muscle cramps Dizziness Call 911 Call 911 if any of the following occur: Irregular heartbeat, extra beats, or very fast heart rate Loss of consciousness [employer]. [address] [place] [address]. All rights reserved. This information is not intended as a substitute for professional medical care. Always follow your healthcare professional's instructions. 06/21/2024 19:38:51 Chest Pain, Uncertain Cause Uncertain Causes of Chest Pain Chest pain can happen for a number of reasons. Sometimes the cause can't be determined. If your condition does not seem serious, and your pain does not appear to be coming from your heart, your healthcare provider may recommend watching it closely. Sometimes the signs of a serious problem take more time to appear. Many problems not related to your heart can cause chest pain. These include: Musculoskeletal. Costochondritis is an inflammation of the tissues around the ribs that can occur from trauma or overuse injuries, or a strain of the muscles of the chest wall Respiratory. Pneumonia, collapsed lung (pneumothorax), or inflammation of the lining of the chest and lungs (pleurisy) Gastrointestinal. Esophageal reflux, heartburn, ulcers, or gallbladder disease Anxiety and panic disorders Nerve compression and inflammation Rare miscellaneous problems such as aortic aneurysm (a swelling of the large artery coming out of the heart) or pulmonary embolism (a blood clot in the lungs) Home care After your visit, follow these recommendations: Rest today and avoid strenuous activity. Take any prescribed medicine as directed. Be aware of any recurrent chest pain and notice any changes Follow-up care Follow up with your healthcare provider if you do not start to feel better within 24 hours, or as advised. Call 911 Call 911 if any of these occur: A change in the type of pain: if it feels different, becomes more severe, lasts longer, or begins to spread into your shoulder, arm, neck, jaw or back Shortness of breath or increased pain with breathing Weakness, dizziness, or fainting Rapid heart beat Crushing sensation in your chest When to seek medical advice Call your healthcare provider right away if any of the following occur: Cough with dark colored sputum (phlegm) or blood Fever of 100.4 F (38 C) or higher, or as directed by your healthcare provider Swelling, pain or redness in one leg [id number] [employer]. [address] [place] [address], [place] [address]. All rights reserved. This information is not intended as a substitute for professional medical care. Always follow your healthcare professional's instructions. Follow Up Care 06/21/2024 19:08:24 With:SHIMA PECK MD Address: [address] [place] [address] [address] [phone] When:2-4 days With:Go to emergency room if symptoms worsen Address:Unknown When:2-4 days With:TERESE ERNST Address: [address] [place] [address] [phone] When:2-4 days [facility] 06-21-2024 Note Discharge Instructions Thank you for allowing [facility] to assist you with your healthcare needs. The following is important discharge information regarding your hospital visit. Diagnosis from Today's Visit Chest pain Hypokalemia UTI - Urinary tract infection What to Do Next Instructions from Your Care Team Take Keflex as prescribed for UTI. Follow-up with your primary care provider. Would recommend repeat check of your potassium within the next week. Follow-up with Dr Peck/[facility] for chest pain/tachycardia. No qualifying data available. Post Acute Orders No qualifying data available. You Need to Schedule the Following Appointments Follow Up with SHIMA PECK MD When:Within 2-4 days Where:[address] [facility] [place] [address]- [phone] Follow Up with Go to emergency room if symptoms worsen When:Within 2-4 days Follow Up with TERESE ERNST When:Within 2-4 days Where:[address] [place] [address]- [phone] Allergies Cipro LaMICtal Hives Trileptal clindamycin Hives Medications Please ask your primary doctor or pharmacist before taking any other medication not listed, including over the counter drugs, herbal medications, vitamins and or supplements as they may interact with your home medications. What How Much When Why Instructions Last Dose New cephalexin (cephalexin 500 mg oral capsule) 1 cap by mouth Four (4) times a day Duration: 10 Days Printed Prescription Unchanged cariprazine (Vraylar 4.5 mg oral capsule) 1 cap by mouth Once a day Duration: 30 Days Unchanged clobetasol topical (Temovate 0.05% topical cream) See instructions Vulvar irritation apply a thin film 2-3 times per week. Unchanged dicyclomine (dicyclomine 10 mg oral capsule) 1 cap by mouth Four (4) times a day Duration: 7 Days Unchanged ferrous sulfate (ferrous sulfate 325 mg (65 mg elemental iron) oral delayed release tablet) 1 tab(s) by mouth Once a day Iron deficiency anemia Duration: 90 Days Unchanged fluticasone nasal (fluticasone 50 mcg/ inh NASAL spray) 2 spray(s) each nostril Once a day Bilateral serous otitis media Duration: 30 Days shake well before using Unchanged herbal/ nutritional product (Probiotic) Unchanged metoprolol (Metoprolol Tartrate 25 mg oral tablet) 1 tab(s) by mouth Two (2) times a day Tachycardia Duration: 90 Days Unchanged omeprazole by mouth Once a day Unchanged potassium chloride (potassium chloride 20 mEq oral tablet, extended release) 1 tab(s) by mouth Once a day Duration: 5 Days Please take this list to your next doctor s visit. Bring all medications you take, including over the counter medications, herbals and other supplements with you to your doctor s visit. Patients and families are reminded to discard old lists and to update any records with all medication providers or retail pharmacies. Education Materials Bladder Infection, Female (Adult) Urine is normally doesn't have any bacteria in it. But bacteria can get into the urinary tract from the skin around the rectum. Or they can travel in the blood from elsewhere in the body. Once they are in your urinary tract, they can cause infection in the urethra (urethritis), the bladder (cystitis), or the kidneys (pyelonephritis). The most common place for an infection is in the bladder. This is called a bladder infection. This is one of the most common infections in women. Most bladder infections are easily treated. They are not serious unless the infection spreads to the kidney. The phrases bladder infection, UTI, and cystitis are often used to describe the same thing. But they are not always the same. Cystitis is an inflammation of the bladder. The most common cause of cystitis is an infection. Symptoms The infection causes inflammation in the urethra and bladder. This causes many of the symptoms. The most common symptoms of a bladder infection are: Pain or burning when urinating Having to urinate more often than usual Urgent need to urinate Only a small amount of urine comes out Blood in urine Abdominal discomfort. This is usually in the lower abdomen above the pubic bone. Cloudy urine Strong- or bad-smelling urine Unable to urinate (urinary retention) Unable to hold urine in (urinary incontinence) Fever Loss of appetite Confusion (in older adults) Causes Bladder infections are not contagious. You can't get one from someone else, from a toilet seat, or from sharing a bath. The most common cause of bladder infections is bacteria from the bowels. The bacteria get onto the skin around the opening of the urethra. From there, they can get into the urine and travel up to the bladder, causing inflammation and infection. This usually happens because of: Wiping improperly after urinating. Always wipe from front to back. Bowel incontinence Procedures such as having a catheter inserted Older age Not emptying your bladder. This can allow bacteria a chance to grow in your urine. Dehydration Constipation Sex Use of a diaphragm for control Treatment Bladder infections are diagnosed by a urine test. They are treated with antibiotics and usually clear up quickly without complications. Treatment helps prevent a more serious kidney infection. Medicines Medicines can help in the treatment of a bladder infection: Take antibiotics until they are used up, even if you feel better. It is important to finish them to make sure the infection has cleared. You can use acetaminophen or ibuprofen for pain, fever, or discomfort, unless another medicine was prescribed. If you have chronic liver or kidney disease, talk with your healthcare provider before using these medicines. Also talk with your provider if you've ever had a stomach ulcer or gastrointestinal bleeding, or are taking blood-thinner medicines. If you are given phenazopydridine to reduce burning with urination, it will cause your urine to become a bright orange color. This can stain clothing. Care and prevention These self-care steps can help prevent future infections: Drink plenty of fluids to prevent dehydration and flush out your bladder. Do this unless you must restrict fluids for other health reasons, or your doctor told you not to. Proper cleaning after going to the bathroom is important. Wipe from front to back after using the toilet to prevent the spread of bacteria. Urinate more often. Don't try to hold urine in for a long time. Wear loose-fitting clothes and cotton underwear. Avoid tight-fitting pants. Improve your diet and prevent constipation. Eat more fresh fruit and vegetables, and fiber, and less junk and fatty foods. Avoid sex until your symptoms are gone. Avoid caffeine, alcohol, and spicy foods. These can irritate your bladder. Urinate right after intercourse to flush out your bladder. If you use control pills and have frequent bladder infections, discuss it with your doctor. Follow-up care Call your healthcare provider if all symptoms are not gone after 3 days of treatment. This is especially important if you have repeat infections. If a culture was done, you will be told if your treatment needs to be changed. If directed, you can call to find out the results. If X-rays were done, you will be told if the results will affect your treatment. Call 911 Call 911 if any of the following occur: Trouble breathing Hard to wake up or confusion Fainting or loss of consciousness Rapid heart rate When to seek medical advice Call your healthcare provider right away if any of these occur: Fever of 100.4 F (38.0 C) or higher, or as directed by your healthcare provider Symptoms are not better by the third day of treatment Back or belly (abdominal) pain that gets worse Repeated vomiting, or unable to keep medicine down Weakness or dizziness Vaginal discharge Pain, redness, or swelling in the outer vaginal area (labia) [phone] [employer]. [address] [place] [address]. All rights reserved. This information is not intended as a substitute for professional medical care. Always follow your healthcare professional's instructions. Hypokalemia Hypokalemia means a low level of potassium in the blood. This most often occurs in people who take water pills (diuretics). It can also occur because of severe vomiting or diarrhea. You may also have it if you take laxatives for long periods of time. It sometimes happens if you have low magnesium (hypomagnesemia). If you have this, your healthcare provider will treat the low magnesium first. A mild case of hypokalemia usually causes no symptoms. It is only found with blood testing. More severe potassium loss causes overall weakness, muscle or abdominal cramps, rapid or irregular heartbeats (heart palpitations), low blood pressure, and muscle weakness. Home care Take any potassium supplements as prescribed. Eat foods rich in potassium. The highest amount is found in avocado, baked potatoes, spinach, cantaloupe, cod, halibut, salmon, and scallops. White, red, or corado beans are also very good sources. A modest amount of potassium is found in orange juice, bananas, carrots, and tomato juice. If you take certain types of diuretics, you will also need to take potassium supplements. If you take a diuretic, discuss potassium supplements with your doctor. Follow-up care Follow up with your healthcare provider for a repeat blood test within the next week, or as advised by our staff. When to seek medical advice Call your healthcare provider right away if any of the following occur: Increased weakness, fatigue, or muscle cramps Dizziness Call 911 Call 911 if any of the following occur: Irregular heartbeat, extra beats, or very fast heart rate Loss of consciousness [phone] [employer] [place] [address]. All rights reserved. This information is not intended as a substitute for professional medical care. Always follow your healthcare professional's instructions. Uncertain Causes of Chest Pain Chest pain can happen for a number of reasons. Sometimes the cause can't be determined. If your condition does not seem serious, and your pain does not appear to be coming from your heart, your healthcare provider may recommend watching it closely. Sometimes the signs of a serious problem take more time to appear. Many problems not related to your heart can cause chest pain. These include: Musculoskeletal. Costochondritis is an inflammation of the tissues around the ribs that can occur from trauma or overuse injuries, or a strain of the muscles of the chest wall Respiratory. Pneumonia, collapsed lung (pneumothorax), or inflammation of the lining of the chest and lungs (pleurisy) Gastrointestinal. Esophageal reflux, heartburn, ulcers, or gallbladder disease Anxiety and panic disorders Nerve compression and inflammation Rare miscellaneous problems such as aortic aneurysm (a swelling of the large artery coming out of the heart) or pulmonary embolism (a blood clot in the lungs) Home care After your visit, follow these recommendations: Rest today and avoid strenuous activity. Take any prescribed medicine as directed. Be aware of any recurrent chest pain and notice any changes Follow-up care Follow up with your healthcare provider if you do not start to feel better within 24 hours, or as advised. Call 911 Call 911 if any of these occur: A change in the type of pain: if it feels different, becomes more severe, lasts longer, or begins to spread into your shoulder, arm, neck, jaw or back Shortness of breath or increased pain with breathing Weakness, dizziness, or fainting Rapid heart beat Crushing sensation in your chest When to seek medical advice Call your healthcare provider right away if any of the following occur: Cough with dark colored sputum (phlegm) or blood Fever of 100.4 F (38 C) or higher, or as directed by your healthcare provider Swelling, pain or redness in one leg [phone] [employer]. [address] [place] [address]. All rights reserved. This information is not intended as a substitute for professional medical care. Always follow your healthcare professional's instructions. Additional Information VACCINATE! IT SAVES LIVES! Members of the community who have not yet received the COVID-19 vaccine and would like to receive it can visit one of [facility] vaccine clinics. There are many vaccine clinic locations within the [facility]. For locations and available times, please visit [email or web address] It is important to note that some COVID mobile vaccine clinics are held outdoors and may be canceled in rainy or stormy conditions. To learn more about pediatric vaccinations (ages 5-11), we invite you to visit the [facility] webpage. [email or web address] To learn more about the COVID-19 vaccine, we invite you to visit the CDC website for a list of frequently asked questions. https://www.cdc.gov/coronavirus/2 019-ncov/vaccines/faq.html [facility] Patient Portal Access Instructions: Stay connected with your healthcare team and access your personal medical information anytime with the [facility] Patient Portal. If you would like a full copy of your medical records please contact the [facility] Medical Records Department Sunday through Sunday between 8a.m. and 4:30p.m. Please follow the directions below to access the portal: 1.Access the email account you provided upon registration to the [facility].2.Look for an invitation email from [facility].3.Open the email and access the invitation link: Accept Invitation to [facility]4.Fill in the required servin to create your account. Sign into [email or web address] with your username and password that you created in the above steps to stay up to date. You can then view a summary of results, a summary of your visits, and the ability to download your summaries to your computer or send the information securely to a physician. Remember that your healthcare information is confidential, so carefully consider who you will allow to register on the [employer] Patient Portal for access to your information. You can also access the [employer] Patient Portal on the [employer] gifty. Simply click on Health Records under Health Data and then click on the [employer] logo. HOW TO SAFELY DISPOSE OF PRESCRIPTION MEDICATIONS Please use one of the following methods to safely dispose of your unused medications. 1.Use a drug disposal kit: the drug disposal pouch allows you to safely discard your old and unused drugs. Ask your nurse to give you one when you are discharged.2.Visit a local take-back location: Many local pharmacies and police departments have programs that collect old and unwanted prescription drugs. Call your local pharmacy or go to http://Windeln.de.Nutzvieh24/8G7Uo0v to find one close to you.3.Make use of household items: Use cat litter or old coffee grounds to dispose medications if other options are not available. Mix your drugs with these household products, seal them in an airtight container and throw it into the garbage. Call [facility]: [phone] to be sure your drugs can be disposed of in this way. Some medicines may require a different approach.4.Never flush your medications down the toilet. IF YOU HAVE BEEN PRESCRIBED AN OPIOIDS FOR PAIN If you have been prescribed an opioid (such as hydrocodone, oxycodone or morphine), it is critical to understand the possible side effects and risks of opioid pain medications. Even when taken as directed, opioids can have several side effects including: Tolerance, meaning you might need to take more of a medication for the same pain relief. Nausea, vomiting and/or constipation. Sleepiness, dizziness, dry mouth, confusion, depression or itching. Physical dependence, meaning you have withdrawal symptoms when a medication is stopped ? this can develop within a few days. KNOW YOUR RESPONSIBILITIES It is important to know exactly how much and how often to take the opioid pain medications you are prescribed. Never take opioids in higher amounts or more often than prescribed. Do not combine opioids with alcohol or other drugs that cause drowsiness, such as benzodiazepines, also known as benzos, including diazepam and alprazolam, muscle relaxants or sleep aids. Never sell or share prescription opioids. This is illegal. Store opioids in a secure place and out of reach of others (including children, family, friends and visitors). The last page(s) of this document has been signed and retained as a CHART COPY Signatures Patient Education Materials Bladder Infection, Female (Adult) Hypokalemia Chest Pain, Uncertain Cause Medication Leaflets My discharge plan and instructions have been reviewed and explained to me and I,SANTA TAYLOR understand my current condition and have read and understand these discharge instructions. I have received a written copy of the plan/instructions. If I have questions, I am aware that I should contact my doctor. 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 The lungs are clear without evidence of focal consolidation, mass, pleural effusion, or pneumothorax. The cardiomediastinal silhouette is unremarkable. The bones and soft tissues are unremarkable. IMPRESSION: No radiographic evidence of acute cardiopulmonary disease. Interpreted by: Darren Abbott MD Preliminary Report By: Darren Abbott MD Electronically signed By Darren Abbott MD Dictated Date: 06/21/2024 8:41:55 PM Prelim Date: 06/21/2024 8:42:07 PM Sign Date: 06/21/2024 8:42:07 PM Ordering Provider: MARY LOU KEITH [facility] 06-21-2024 Note Sinus tachycardia Electronic Signature: GUILLERMOMERYMARY LOU 06/21/2024 19:41:33 [facility] 06-09-2024 Note ORIGINAL EXAMINATION: COMPLETE ABDOMINAL ULTRASOUND 06/09/2024 7:11 am COMPARISON: None. HISTORY: ORDERING SYSTEM PROVIDED HISTORY: Reason for Exam: chronic diarrhea, nausea, elevated heart rate and blood pressures. FINDINGS: LIVER: The liver demonstrates diffuse increased echogenicity without evidence of intrahepatic biliary ductal dilatation. BILIARY SYSTEM: The gallbladder surgically absent. Common bile duct is within normal limits measuring 4.0 mm. KIDNEYS: The kidneys are unremarkable in appearance without evidence of hydronephrosis. Right and left kidneys measure 10.7 x 5.7 x 4.2 cm, and 11.8 x 5.3 x 5.3 cm respectively. There is appropriate renal cortical thickness and echotexture without shadowing stone or hydronephrosis. PANCREAS: Visualized portions of the pancreas are unremarkable. SPLEEN: The spleen is unremarkable in appearance. Spleen is within normal limits in size. IVC: The IVC is patent. AORTA: Aorta is patent without aneurysm. OTHER: No evidence of ascites. IMPRESSION: 1. Previous cholecystectomy. 2. Fatty infiltration of the liver. Interpreted by: Sam Dodge DO Preliminary Report By: Sam Dodge DO Electronically signed By Sam Dodge DO Dictated Date: 06/09/2024 10:38:56 AM Prelim Date: 06/09/2024 10:40:14 AM Sign Date: 06/09/2024 10:40:14 AM Ordering Provider: TERESE ERNST [facility] 06-08-2024 Note . MICRO - Microbiology PROCEDURE: Fecal Leukocytes [*1] SOURCE: Stool BODY SITE: COLLECTED DATE/TIME: 06/07/2024 11:33 EDT RECEIVED DATE/TIME: 06/08/2024 13:06 EDT START DATE/TIME: 06/08/2024 13:06 EDT FREE TEXT SOURCE: FINAL REPORTS Final Report [] Verified Date/Time/Personnel: 06/08/2024 13:50 EDT Microscopy: Fecal Leukocytes Absent From our data, approximately 50% of enteroinvasive bacterial pathogens will not be associated with stool WBC's. Performing Locations *1: This test was performed at: [facility], [address] [place] [address], [phone] , [place] [facility] 06-07-2024 Hospital Discharge instructions Patient Education 06/06/2024 23:01:15 Hypokalemia Hypokalemia Hypokalemia means a low level of potassium in the blood. This most often occurs in people who take water pills (diuretics). It can also occur because of severe vomiting or diarrhea. You may also have it if you take laxatives for long periods of time. It sometimes happens if you have low magnesium (hypomagnesemia). If you have this, your healthcare provider will treat the low magnesium first. A mild case of hypokalemia usually causes no symptoms. It is only found with blood testing. More severe potassium loss causes overall weakness, muscle or abdominal cramps, rapid or irregular heartbeats (heart palpitations), low blood pressure, and muscle weakness. Home care Take any potassium supplements as prescribed. Eat foods rich in potassium. The highest amount is found in avocado, baked potatoes, spinach, cantaloupe, cod, halibut, salmon, and scallops. White, red, or corado beans are also very good sources. A modest amount of potassium is found in orange juice, bananas, carrots, and tomato juice. If you take certain types of diuretics, you will also need to take potassium supplements. If you take a diuretic, discuss potassium supplements with your doctor. Follow-up care Follow up with your healthcare provider for a repeat blood test within the next week, or as advised by our staff. When to seek medical advice Call your healthcare provider right away if any of the following occur: Increased weakness, fatigue, or muscle cramps Dizziness Call 911 Call 911 if any of the following occur: Irregular heartbeat, extra beats, or very fast heart rate Loss of consciousness [phone] [employer] [place] [address], [place] [address]. All rights reserved. This information is not intended as a substitute for professional medical care. Always follow your healthcare professional's instructions. 06/06/2024 23:01:12 Diarrhea, Unknown Cause Diarrhea with Uncertain Cause (Adult) Diarrhea is when stools are loose and watery. This can be caused by: Viral infections Bacterial infections Food poisoning Parasites Irritable bowel syndrome (IBS) Inflammatory bowel diseases such as ulcerative colitis, Crohn's disease, and celiac disease Food intolerance, such as to lactose, the sugar found in milk and milk products Reaction to medicines like antibiotics, laxatives, cancer drugs, and antacids Along with diarrhea, you may also have: Abdominal pain and cramping Nausea and vomiting Loss of bowel control Fever and chills Bloody stools In some cases, antibiotics may help to treat diarrhea. You may have a stool sample test. This is done to see what is causing your diarrhea, and if antibiotics will help treat it. The results of a stool sample test may take up to 2 days. The healthcare provider may not give you antibiotics until he or she has the stool test results. Diarrhea can cause dehydration. This is the loss of too much water and other fluids from the body. When this occurs, body fluid must be replaced. This can be done with oral rehydration solutions. Oral rehydration solutions are available at drugstores and grocery stores without a prescription. Sports drinks are not the best choice if you are very dehydrated. They have too much sugar and not enough electrolytes. Home care Follow all instructions given by your healthcare provider. Rest at home for the next 24 hours, or until you feel better. Avoid caffeine, tobacco, and alcohol. These can make diarrhea, cramping, and pain worse. If taking medicines: Ihec-atu-innkkoh nausea and diarrhea medicines are generally OK unless you experience fever or blood stool. Check with your doctor first in those circumstances. You may use acetaminophen or NSAID medicines like ibuprofen or naproxen to reduce pain and fever. Don t use these if you have chronic liver or kidney disease, or ever had a stomach ulcer or gastrointestinal bleeding. Don't use NSAID medicines if you are already taking one for another condition (like arthritis) or are on daily aspirin therapy (such as for heart disease or after a stroke). Talk with your healthcare provider first. If antibiotics were prescribed, be sure you take them until they are finished. Don t stop taking them even when you feel better. Antibiotics must be taken as a full course. To prevent the spread of illness: Remember that washing with soap and water and using alcohol-based optical designer is the best way to prevent the spread of infection. Dry your hands with a single use towel (like a paper towel). Clean the toilet after each use. Wash your hands before eating. Wash your hands before and after preparing food. Keep in mind that people with diarrhea or vomiting should not prepare food for others. Wash your hands after using cutting boards, countertops, and knives that have been in contact with raw foods. Wash and then peel fruits and vegetables. Keep uncooked meats away from cooked and ndggk-ea-nwp foods. Use a food thermometer when cooking. Cook poultry to at least 165 F (74 C). Cook ground meat (beef, veal, pork, vasquez) to at least 160 F (71 C). Cook fresh beef, veal, vasquez, and pork to at least 145 F (63 C). Don t eat raw or undercooked eggs (poached or wandy side up), poultry, meat, or unpasteurized milk and juices. Food and drinks The main goal while treating vomiting or diarrhea is to prevent dehydration. This is done by taking small amounts of liquids often. Keep in mind that liquids are more important than food right now. Drink only small amounts of liquids at a time. Don t force yourself to eat, especially if you are having cramping, vomiting, or diarrhea. Don t eat large amounts at a time, even if you are hungry. If you eat, avoid fatty, greasy, spicy, or fried foods. Don t eat dairy foods or drink milk if you have diarrhea. These can make diarrhea worse. During the first 24 hours you can try: Oral rehydration solutions. Sports drinks may be used if you are not too dehydrated and are otherwise healthy. Soft drinks without caffeine Carroll betina Water (plain or flavored) Decaf tea or coffee Clear broth, consomm , or bouillon Gelatin, popsicles, or frozen fruit juice bars The second 24 hours, if you are feeling better, you can add: Hot cereal, plain toast, bread, rolls, or crackers Plain noodles, rice, mashed potatoes, chicken noodle soup, or rice soup Unsweetened canned fruit (no pineapple) Bananas As you recover: Limit fat intake to less than 15 grams per day. Don t eat margarine, butter, oils, mayonnaise, sauces, gravies, fried foods, peanut butter, meat, poultry, or fish. Limit fiber. Don t eat raw or cooked vegetables, fresh fruits except bananas, or bran cereals. Limit caffeine and chocolate. Limit dairy. Don t use spices or seasonings except salt. Go back to your normal diet over time, as you feel better and your symptoms improve. If the symptoms come back, go back to a simple diet or clear liquids. Follow-up care Follow up with your healthcare provider, or as advised. If a stool sample was taken or cultures were done, call the healthcare provider for the results as instructed. Call 911 Call 911 if you have any of these symptoms: Trouble breathing Confusion Extreme drowsiness or trouble walking Loss of consciousness Rapid heart rate Chest pain Stiff neck Seizure When to seek medical advice Call your healthcare provider right away if any of these occur: Abdominal pain that gets worse Constant lower right abdominal pain Continued vomiting and inability to keep liquids down Diarrhea more than 5 times a day Blood in vomit or stool Dark urine or no urine for 8 hours, dry mouth and tongue, tiredness, weakness, or dizziness Drowsiness New rash You don t get better in 2 to 3 days Fever of 100.4 F (38 C) or higher, or as directed by your healthcare provider [id number] [employer]. [address] [place] [address]. All rights reserved. This information is not intended as a substitute for professional medical care. Always follow your healthcare professional's instructions. 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 The following is important discharge information regarding your hospital visit. Diagnosis from Today's Visit Diarrhea Hypokalemia What to Do Next Instructions from Your Care Team No qualifying data available. Post Acute Orders No qualifying data available. You Need to Schedule the Following Appointments Follow Up with TERESE ERNST When:Within 2-4 days Where:[address] [facility] [phone] Allergies Cipro LaMICtal Hives Trileptal clindamycin Hives Medications Please ask your primary doctor or pharmacist before taking any other medication not listed, including over the counter drugs, herbal medications, vitamins and or supplements as they may interact with your home medications. What How Much When Why Instructions Last Dose New potassium chloride (potassium chloride 20 mEq oral tablet, extended release) 1 tab(s) by mouth Once a day Duration: 5 Days Printed Prescription Unchanged cariprazine (Vraylar 4.5 mg oral capsule) 1 cap by mouth Once a day Duration: 30 Days Unchanged clobetasol topical (Temovate 0.05% topical cream) See instructions Vulvar irritation apply a thin film 2-3 times per week. Unchanged ferrous sulfate (ferrous sulfate 325 mg (65 mg elemental iron) oral delayed release tablet) 1 tab(s) by mouth Once a day Iron deficiency anemia Duration: 90 Days Unchanged fluticasone nasal (fluticasone 50 mcg/ inh NASAL spray) 2 spray(s) each nostril Once a day Bilateral serous otitis media Duration: 30 Days shake well before using Unchanged herbal/ nutritional product (Probiotic) Unchanged metoprolol (Metoprolol Tartrate 25 mg oral tablet) 1 tab(s) by mouth Two (2) times a day Tachycardia Duration: 90 Days Unchanged omeprazole by mouth Once a day Please take this list to your next doctor s visit. Bring all medications you take, including over the counter medications, herbals and other supplements with you to your doctor s visit. Patients and families are reminded to discard old lists and to update any records with all medication providers or retail pharmacies. Education Materials Hypokalemia Hypokalemia means a low level of potassium in the blood. This most often occurs in people who take water pills (diuretics). It can also occur because of severe vomiting or diarrhea. You may also have it if you take laxatives for long periods of time. It sometimes happens if you have low magnesium (hypomagnesemia). If you have this, your healthcare provider will treat the low magnesium first. A mild case of hypokalemia usually causes no symptoms. It is only found with blood testing. More severe potassium loss causes overall weakness, muscle or abdominal cramps, rapid or irregular heartbeats (heart palpitations), low blood pressure, and muscle weakness. Home care Take any potassium supplements as prescribed. Eat foods rich in potassium. The highest amount is found in avocado, baked potatoes, spinach, cantaloupe, cod, halibut, salmon, and scallops. White, red, or corado beans are also very good sources. A modest amount of potassium is found in orange juice, bananas, carrots, and tomato juice. If you take certain types of diuretics, you will also need to take potassium supplements. If you take a diuretic, discuss potassium supplements with your doctor. Follow-up care Follow up with your healthcare provider for a repeat blood test within the next week, or as advised by our staff. When to seek medical advice Call your healthcare provider right away if any of the following occur: Increased weakness, fatigue, or muscle cramps Dizziness Call 911 Call 911 if any of the following occur: Irregular heartbeat, extra beats, or very fast heart rate Loss of consciousness [phone] [employer] [place] [address]. All rights reserved. This information is not intended as a substitute for professional medical care. Always follow your healthcare professional's instructions. Diarrhea with Uncertain Cause (Adult) Diarrhea is when stools are loose and watery. This can be caused by: Viral infections Bacterial infections Food poisoning Parasites Irritable bowel syndrome (IBS) Inflammatory bowel diseases such as ulcerative colitis, Crohn's disease, and celiac disease Food intolerance, such as to lactose, the sugar found in milk and milk products Reaction to medicines like antibiotics, laxatives, cancer drugs, and antacids Along with diarrhea, you may also have: Abdominal pain and cramping Nausea and vomiting Loss of bowel control Fever and chills Bloody stools In some cases, antibiotics may help to treat diarrhea. You may have a stool sample test. This is done to see what is causing your diarrhea, and if antibiotics will help treat it. The results of a stool sample test may take up to 2 days. The healthcare provider may not give you antibiotics until he or she has the stool test results. Diarrhea can cause dehydration. This is the loss of too much water and other fluids from the body. When this occurs, body fluid must be replaced. This can be done with oral rehydration solutions. Oral rehydration solutions are available at drugstores and grocery stores without a prescription. Sports drinks are not the best choice if you are very dehydrated. They have too much sugar and not enough electrolytes. Home care Follow all instructions given by your healthcare provider. Rest at home for the next 24 hours, or until you feel better. Avoid caffeine, tobacco, and alcohol. These can make diarrhea, cramping, and pain worse. If taking medicines: Zgin-oau-gcqyoiz nausea and diarrhea medicines are generally OK unless you experience fever or blood stool. Check with your doctor first in those circumstances. You may use acetaminophen or NSAID medicines like ibuprofen or naproxen to reduce pain and fever. Don t use these if you have chronic liver or kidney disease, or ever had a stomach ulcer or gastrointestinal bleeding. Don't use NSAID medicines if you are already taking one for another condition (like arthritis) or are on daily aspirin therapy (such as for heart disease or after a stroke). Talk with your healthcare provider first. If antibiotics were prescribed, be sure you take them until they are finished. Don t stop taking them even when you feel better. Antibiotics must be taken as a full course. To prevent the spread of illness: Remember that washing with soap and water and using alcohol-based optical designer is the best way to prevent the spread of infection. Dry your hands with a single use towel (like a paper towel). Clean the toilet after each use. Wash your hands before eating. Wash your hands before and after preparing food. Keep in mind that people with diarrhea or vomiting should not prepare food for others. Wash your hands after using cutting boards, countertops, and knives that have been in contact with raw foods. Wash and then peel fruits and vegetables. Keep uncooked meats away from cooked and eqakr-zp-gsh foods. Use a food thermometer when cooking. Cook poultry to at least 165 F (74 C). Cook ground meat (beef, veal, pork, vasquez) to at least 160 F (71 C). Cook fresh beef, veal, vasquez, and pork to at least 145 F (63 C). Don t eat raw or undercooked eggs (poached or wandy side up), poultry, meat, or unpasteurized milk and juices. Food and drinks The main goal while treating vomiting or diarrhea is to prevent dehydration. This is done by taking small amounts of liquids often. Keep in mind that liquids are more important than food right now. Drink only small amounts of liquids at a time. Don t force yourself to eat, especially if you are having cramping, vomiting, or diarrhea. Don t eat large amounts at a time, even if you are hungry. If you eat, avoid fatty, greasy, spicy, or fried foods. Don t eat dairy foods or drink milk if you have diarrhea. These can make diarrhea worse. During the first 24 hours you can try: Oral rehydration solutions. Sports drinks may be used if you are not too dehydrated and are otherwise healthy. Soft drinks without caffeine Carroll betina Water (plain or flavored) Decaf tea or coffee Clear broth, consomm , or bouillon Gelatin, popsicles, or frozen fruit juice bars The second 24 hours, if you are feeling better, you can add: Hot cereal, plain toast, bread, rolls, or crackers Plain noodles, rice, mashed potatoes, chicken noodle soup, or rice soup Unsweetened canned fruit (no pineapple) Bananas As you recover: Limit fat intake to less than 15 grams per day. Don t eat margarine, butter, oils, mayonnaise, sauces, gravies, fried foods, peanut butter, meat, poultry, or fish. Limit fiber. Don t eat raw or cooked vegetables, fresh fruits except bananas, or bran cereals. Limit caffeine and chocolate. Limit dairy. Don t use spices or seasonings except salt. Go back to your normal diet over time, as you feel better and your symptoms improve. If the symptoms come back, go back to a simple diet or clear liquids. Follow-up care Follow up with your healthcare provider, or as advised. If a stool sample was taken or cultures were done, call the healthcare provider for the results as instructed. Call 911 Call 911 if you have any of these symptoms: Trouble breathing Confusion Extreme drowsiness or trouble walking Loss of consciousness Rapid heart rate Chest pain Stiff neck Seizure When to seek medical advice Call your healthcare provider right away if any of these occur: Abdominal pain that gets worse Constant lower right abdominal pain Continued vomiting and inability to keep liquids down Diarrhea more than 5 times a day Blood in vomit or stool Dark urine or no urine for 8 hours, dry mouth and tongue, tiredness, weakness, or dizziness Drowsiness New rash You don t get better in 2 to 3 days Fever of 100.4 F (38 C) or higher, or as directed by your healthcare provider [phone] [employer]. [address] [place] [address], [place] [address]. All rights reserved. This information is not intended as a substitute for professional medical care. Always follow your healthcare professional's instructions. Additional Information VACCINATE! IT SAVES LIVES! Members of the community who have not yet received the COVID-19 vaccine and would like to receive it can visit one of [facility] vaccine clinics. There are many vaccine clinic locations within the [facility]. For locations and available times, please visit [email or web address] It is important to note that some COVID mobile vaccine clinics are held outdoors and may be canceled in rainy or stormy conditions. To learn more about pediatric vaccinations (ages 5-11), we invite you to visit the [facility] webpage. [email or web address]/pa [email or web address] munp-[email or web address]-[email or web address].html To learn more about the COVID-19 vaccine, we invite you to visit the CDC website for a list of frequently asked questions. https://www.cdc.gov/coronavirus/2 019-ncov/vaccines/faq.html [facility] Patient Portal Access Instructions: Stay connected with your healthcare team and access your personal medical information anytime with the [facility] Patient Portal. If you would like a full copy of your medical records please contact the [facility] Medical Records Department Sunday through Sunday between 8a.m. and 4:30p.m. Please follow the directions below to access the portal: 1.Access the email account you provided upon registration to the hospital.2.Look for an invitation email from [facility].3.Open the email and access the invitation link: Accept Invitation to [facility]4.Fill in the required servin to create your account. Sign into [email or web address] with your username and password that you created in the above steps to stay up to date. You can then view a summary of results, a summary of your visits, and the ability to download your summaries to your computer or send the information securely to a physician. Remember that your healthcare information is confidential, so carefully consider who you will allow to register on the [employer] [employer] Patient Portal for access to your information. You can also access the [employer] Patient Portal on the [employer] gifty. Simply click on Health Records under Health Data and then click on the [employer] logo. HOW TO SAFELY DISPOSE OF PRESCRIPTION MEDICATIONS Please use one of the following methods to safely dispose of your unused medications. 1.Use a drug disposal kit: the drug disposal pouch allows you to safely discard your old and unused drugs. Ask your nurse to give you one when you are discharged.2.Visit a local take-back location: Many local pharmacies and police departments have programs that collect old and unwanted prescription drugs. Call your local pharmacy or go to http://Windeln.de.Nutzvieh24/6D3Yj8c to find one close to you.3.Make use of household items: Use cat litter or old coffee grounds to dispose medications if other options are not available. Mix your drugs with these household products, seal them in an airtight container and throw it into the garbage. Call [facility]: [phone] to be sure your drugs can be disposed of in this way. Some medicines may require a different approach.4.Never flush your medications down the toilet. IF YOU HAVE BEEN PRESCRIBED AN OPIOIDS FOR PAIN If you have been prescribed an opioid (such as hydrocodone, oxycodone or morphine), it is critical to understand the possible side effects and risks of opioid pain medications. Even when taken as directed, opioids can have several side effects including: Tolerance, meaning you might need to take more of a medication for the same pain relief. Nausea, vomiting and/or constipation. Sleepiness, dizziness, dry mouth, confusion, depression or itching. Physical dependence, meaning you have withdrawal symptoms when a medication is stopped ? this can develop within a few days. KNOW YOUR RESPONSIBILITIES It is important to know exactly how much and how often to take the opioid pain medications you are prescribed. Never take opioids in higher amounts or more often than prescribed. Do not combine opioids with alcohol or other drugs that cause drowsiness, such as benzodiazepines, also known as benzos, including diazepam and alprazolam, muscle relaxants or sleep aids. Never sell or share prescription opioids. This is illegal. Store opioids in a secure place and out of reach of others (including children, family, friends and visitors). The last page(s) of this document has been signed and retained as a CHART COPY Signatures Patient Education Materials Hypokalemia Diarrhea, Unknown Cause Medication Leaflets My discharge plan and instructions have been reviewed and explained to me and I,SANTA TAYLOR understand my current condition and have read and understand these discharge instructions. I have received a written copy of the plan/instructions. If I have questions, I am aware that I should contact my doctor. 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 Multiplanar reformatted images are provided for review. Automated exposure control, iterative reconstruction, and/or weight based adjustment of the mA/kV was utilized to reduce the radiation dose to as low as reasonably achievable. COMPARISON: None. HISTORY: ORDERING SYSTEM PROVIDED HISTORY: Reason for Exam: Tachycardia, fever, diarrhea, abdominal discomfort pain FINDINGS: Lower Chest: No focal consolidation. Organs: No acute findings. Cholecystectomy. GI/Bowel: Fluid in the proximal colon. Nondilated appendix. Pelvis: Unremarkable. Peritoneum/Retroperitoneum: Nonaneurysmal abdominal aorta. No enlarged lymph nodes. Bones/Soft Tissues: No acute osseous abnormality. IMPRESSION: Fluid in the proximal colon, which can be seen in diarrhea. Interpreted by: Abdiaziz Blanchard Preliminary Report By: Abdiaziz Blanchard Electronically signed By Abdiaziz Blanchard Dictated Date: 06/06/2024 10:20:12 PM Prelim Date: 06/06/2024 10:24:18 PM Sign Date: 06/06/2024 10:24:18 PM Ordering Provider: ROHIT RIOS [facility] 06-06-2024 Note Sinus rhythm Abnormal inferior Q waves Electronic Signature: MD GABRIEL, ROHIT PERRY 06/06/2024 23:07:02 [facility] 05-30-2024 Hospital Discharge instructions Patient Education 05/30/2024 14:33:14 Dehydration (Adult) Dehydration (Adult) Dehydration occurs when your body loses too much fluid. This may be the result of prolonged vomiting or diarrhea, excessive sweating, or a high fever. It may also happen if you don t drink enough fluid when you re sick or out in the heat. Misuse of diuretics (water pills) can also be a cause. Symptoms include thirst and decreased urine output. You may also feel dizzy, weak, fatigued, or very drowsy. The diet described below is usually enough to treat dehydration. In some cases, you may need medicine. Home care Drink at least 12 8-ounce glasses of fluid every day to resolve the dehydration. Fluid may include water; orange juice; lemonade; apple, grape, or cranberry juice; clear fruit drinks; electrolyte replacement and sports drinks; and teas and coffee without caffeine. Don't drink alcohol. If you have been diagnosed with a kidney disease, ask your doctor how much and what types of fluids you should drink to prevent dehydration. If you have kidney disease, fluid can build up in the body. This can be dangerous to your health. If you have a fever, muscle aches, or a headache as a result of a cold or flu, you may take acetaminophen or ibuprofen, unless another medicine was prescribed. If you have chronic liver or kidney disease, or have ever had a stomach ulcer or gastrointestinal bleeding, talk with your healthcare provider before using these medicines. Don't take aspirin if you are younger than 18 and have a fever. Aspirin raises the chance for severe liver injury. Follow-up care Follow up with your healthcare provider, or as advised. When to seek medical advice Call your healthcare provider right away if any of these occur: Continued vomiting Frequent diarrhea (more than 5 times a day); blood (red or black color) or mucus in diarrhea Blood in vomit or stool Swollen abdomen or increasing abdominal pain Weakness, dizziness, or fainting Unusual drowsiness or confusion Reduced urine output or extreme thirst Fever of 100.4 F (38 C) or higher 5366-0387 [employer]. [address] [place] [address]. All rights reserved. This information is not intended as a substitute for professional medical care. Always follow your healthcare professional's instructions. Follow Up Care 05/30/2024 12:31:14 With:TERESE ERNST Address: [address] [place] [phone] When:2-4 days [facility] 05-30-2024 Note Discharge Instructions Thank you for allowing [facility] to assist you with your healthcare needs. The following is important discharge information regarding your hospital visit. Diagnosis from Today's Visit Dehydration Tachycardia What to Do Next Instructions from Your Care Team It is recommended that you follow-up with your primary care physician. If you do not have one, we will provide you with a referral or referral number. Should you have any worsening in your symptoms or overall condition please return to the hospital. This may include but is not limited to symptoms such as fever, chills, chest pain, shortness of breath, nausea, vomiting. No qualifying data available. Post Acute Orders No qualifying data available. You Need to Schedule the Following Appointments Follow Up with TERESE ERNST When:Within 2-4 days Where:[address] [place] [phone] Allergies Cipro LaMICtal Hives Trileptal clindamycin Hives Medications Please ask your primary doctor or pharmacist before taking any other medication not listed, including over the counter drugs, herbal medications, vitamins and or supplements as they may interact with your home medications. What How Much When Why Instructions Last Dose Unchanged albuterol (albuterol MDI (90 mcg/ inh) CFC free inhalation aerosol) 2 puff(s) by inhalation Every 6 hours as needed for as needed for wheezing Duration: 14 Days Unchanged cariprazine (Vraylar 4.5 mg oral capsule) 1 cap by mouth Once a day Duration: 30 Days Unchanged cariprazine (Vraylar) by mouth Once a day Unchanged clobetasol topical (Temovate 0.05% topical cream) See instructions Vulvar irritation apply a thin film 2-3 times per week. Unchanged ferrous sulfate (ferrous sulfate 325 mg (65 mg elemental iron) oral delayed release tablet) 1 tab(s) by mouth Once a day Iron deficiency anemia Duration: 90 Days Unchanged fluticasone nasal (fluticasone 50 mcg/ inh NASAL spray) 2 spray(s) each nostril Once a day Bilateral serous otitis media Duration: 30 Days shake well before using Unchanged herbal/ nutritional product (Probiotic) Unchanged metoprolol (Metoprolol Tartrate 25 mg oral tablet) 1 tab(s) by mouth Two (2) times a day Tachycardia Chest pain Duration: 90 Days Unchanged nitrofurantoin by mouth Unchanged omeprazole by mouth Once a day Please take this list to your next doctor s visit. Bring all medications you take, including over the counter medications, herbals and other supplements with you to your doctor s visit. Patients and families are reminded to discard old lists and to update any records with all medication providers or retail pharmacies. Education Materials Dehydration (Adult) Dehydration occurs when your body loses too much fluid. This may be the result of prolonged vomiting or diarrhea, excessive sweating, or a high fever. It may also happen if you don t drink enough fluid when you re sick or out in the heat. Misuse of diuretics (water pills) can also be a cause. Symptoms include thirst and decreased urine output. You may also feel dizzy, weak, fatigued, or very drowsy. The diet described below is usually enough to treat dehydration. In some cases, you may need medicine. Home care Drink at least 12 8-ounce glasses of fluid every day to resolve the dehydration. Fluid may include water; orange juice; lemonade; apple, grape, or cranberry juice; clear fruit drinks; electrolyte replacement and sports drinks; and teas and coffee without caffeine. Don't drink alcohol. If you have been diagnosed with a kidney disease, ask your doctor how much and what types of fluids you should drink to prevent dehydration. If you have kidney disease, fluid can build up in the body. This can be dangerous to your health. If you have a fever, muscle aches, or a headache as a result of a cold or flu, you may take acetaminophen or ibuprofen, unless another medicine was prescribed. If you have chronic liver or kidney disease, or have ever had a stomach ulcer or gastrointestinal bleeding, talk with your healthcare provider before using these medicines. Don't take aspirin if you are younger than 18 and have a fever. Aspirin raises the chance for severe liver injury. Follow-up care Follow up with your healthcare provider, or as advised. When to seek medical advice Call your healthcare provider right away if any of these occur: Continued vomiting Frequent diarrhea (more than 5 times a day); blood (red or black color) or mucus in diarrhea Blood in vomit or stool Swollen abdomen or increasing abdominal pain Weakness, dizziness, or fainting Unusual drowsiness or confusion Reduced urine output or extreme thirst Fever of 100.4 F (38 C) or higher 2120-1301 [employer]. [address] [place] [address]. All rights reserved. This information is not intended as a substitute for professional medical care. Always follow your healthcare professional's instructions. Additional Information VACCINATE! IT SAVES LIVES! Members of the community who have not yet received the COVID-19 vaccine and would like to receive it can visit one of [facility] vaccine clinics. There are many vaccine clinic locations within the [facility]. For locations and available times, please visit [email or web address] [email or web address] It is important to note that some COVID mobile vaccine clinics are held outdoors and may be canceled in rainy or stormy conditions. To learn more about pediatric vaccinations (ages 5-11), we invite you to visit the [facility] webpage. https://www.[facility].org/pa ges/2302-Juqel-Xdqulofkznl-Freque wyxk-Ziprg-Wevxvmhfm.html To learn more about the COVID-19 vaccine, we invite you to visit the CDC website for a list of frequently asked questions. https://www.cdc.gov/coronavirus/2 019-ncov/vaccines/faq.html [facility] Patient Portal Access Instructions: Stay connected with your healthcare team and access your personal medical information anytime with the [facility] Patient Portal. If you would like a full copy of your medical records please contact the [facility] Medical Records Department Sunday through Sunday between 8a.m. and 4:30p.m. Please follow the directions below to access the portal: 1.Access the email account you provided upon registration to [facility].2.Look for an invitation email from [facility].3.Open the email and access the invitation link: Accept Invitation to [facility]4.Fill in the required servin to create your account. Sign into www.USMD with your username and password that you created in the above steps to stay up to date. You can then view a summary of results, a summary of your visits, and the ability to download your summaries to your computer or send the information securely to a physician. Remember that your healthcare information is confidential, so carefully consider who you will allow to register on the [facility] Patient Portal for access to your information. You can also access the [facility] Patient Portal on the [employer] g[employer]ty. Simply click on Health Records under Health Data and then click on the [employer] logo. HOW TO SAFELY DISPOSE OF PRESCRIPTION MEDICATIONS Please use one of the following methods to safely dispose of your unused medications. 1.Use a drug disposal kit: the drug disposal pouch allows you to safely discard your old and unused drugs. Ask your nurse to give you one when you are discharged.2.Visit a local take-back location: Many local pharmacies and police departments have programs that collect old and unwanted prescription drugs. Call your local pharmacy or go to http://bit.Nutzvieh24/1W9Rs7g to find one close to you.3.Make use of household items: Use cat litter or old coffee grounds to dispose medications if other options are not available. Mix your drugs with these household products, seal them in an airtight container and throw it into the garbage. Call [facility]: [phone] to be sure your drugs can be disposed of in this way. Some medicines may require a different approach.4.Never flush your medications down the toilet. IF YOU HAVE BEEN PRESCRIBED AN OPIOIDS FOR PAIN If you have been prescribed an opioid (such as hydrocodone, oxycodone or morphine), it is critical to understand the possible side effects and risks of opioid pain medications. Even when taken as directed, opioids can have several side effects including: Tolerance, meaning you might need to take more of a medication for the same pain relief. Nausea, vomiting and/or constipation. Sleepiness, dizziness, dry mouth, confusion, depression or itching. Physical dependence, meaning you have withdrawal symptoms when a medication is stopped ? this can develop within a few days. KNOW YOUR RESPONSIBILITIES It is important to know exactly how much and how often to take the opioid pain medications you are prescribed. Never take opioids in higher amounts or more often than prescribed. Do not combine opioids with alcohol or other drugs that cause drowsiness, such as benzodiazepines, also known as benzos, including diazepam and alprazolam, muscle relaxants or sleep aids. Never sell or share prescription opioids. This is illegal. Store opioids in a secure place and out of reach of others (including children, family, friends and visitors). The last page(s) of this document has been signed and retained as a CHART COPY Signatures Patient Education Materials Dehydration (Adult) Medication Leaflets My discharge plan and instructions have been reviewed and explained to me and IBRADY KRISTA D understand my current condition and have read and understand these discharge instructions. I have received a written copy of the plan/instructions. If I have questions, I am aware that I should contact my doctor. 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 The following is important discharge information regarding your hospital visit. Diagnosis from Today's Visit Dehydration Tachycardia What to Do Next Instructions from Your Care Team It is recommended that you follow-up with your primary care physician. If you do not have one, we will provide you with a referral or referral number. Should you have any worsening in your symptoms or overall condition please return to the hospital. This may include but is not limited to symptoms such as fever, chills, chest pain, shortness of breath, nausea, vomiting. No qualifying data available. Post Acute Orders No qualifying data available. You Need to Schedule the Following Appointments Follow Up with TERESE ERNST When:Within 2-4 days Where:[address] [facility] [place] [phone] [phone] Allergies Cipro LaMICtal Hives Trileptal clindamycin Hives Medications Please ask your primary doctor or pharmacist before taking any other medication not listed, including over the counter drugs, herbal medications, vitamins and or supplements as they may interact with your home medications. What How Much When Why Instructions Last Dose Unchanged albuterol (albuterol MDI (90 mcg/ inh) CFC free inhalation aerosol) 2 puff(s) by inhalation Every 6 hours as needed for as needed for wheezing Duration: 14 Days Unchanged cariprazine (Vraylar 4.5 mg oral capsule) 1 cap by mouth Once a day Duration: 30 Days Unchanged cariprazine (Vraylar) by mouth Once a day Unchanged clobetasol topical (Temovate 0.05% topical cream) See instructions Vulvar irritation apply a thin film 2-3 times per week. Unchanged ferrous sulfate (ferrous sulfate 325 mg (65 mg elemental iron) oral delayed release tablet) 1 tab(s) by mouth Once a day Iron deficiency anemia Duration: 90 Days Unchanged fluticasone nasal (fluticasone 50 mcg/ inh NASAL spray) 2 spray(s) each nostril Once a day Bilateral serous otitis media Duration: 30 Days shake well before using Unchanged herbal/ nutritional product (Probiotic) Unchanged metoprolol (Metoprolol Tartrate 25 mg oral tablet) 1 tab(s) by mouth Two (2) times a day Tachycardia Chest pain Duration: 90 Days Unchanged nitrofurantoin by mouth Unchanged omeprazole by mouth Once a day Please take this list to your next doctor s visit. Bring all medications you take, including over the counter medications, herbals and other supplements with you to your doctor s visit. Patients and families are reminded to discard old lists and to update any records with all medication providers or retail pharmacies. Education Materials Dehydration (Adult) Dehydration occurs when your body loses too much fluid. This may be the result of prolonged vomiting or diarrhea, excessive sweating, or a high fever. It may also happen if you don t drink enough fluid when you re sick or out in the heat. Misuse of diuretics (water pills) can also be a cause. Symptoms include thirst and decreased urine output. You may also feel dizzy, weak, fatigued, or very drowsy. The diet described below is usually enough to treat dehydration. In some cases, you may need medicine. Home care Drink at least 12 8-ounce glasses of fluid every day to resolve the dehydration. Fluid may include water; orange juice; lemonade; apple, grape, or cranberry juice; clear fruit drinks; electrolyte replacement and sports drinks; and teas and coffee without caffeine. Don't drink alcohol. If you have been diagnosed with a kidney disease, ask your doctor how much and what types of fluids you should drink to prevent dehydration. If you have kidney disease, fluid can build up in the body. This can be dangerous to your health. If you have a fever, muscle aches, or a headache as a result of a cold or flu, you may take acetaminophen or ibuprofen, unless another medicine was prescribed. If you have chronic liver or kidney disease, or have ever had a stomach ulcer or gastrointestinal bleeding, talk with your healthcare provider before using these medicines. Don't take aspirin if you are younger than 18 and have a fever. Aspirin raises the chance for severe liver injury. Follow-up care Follow up with your healthcare provider, or as advised. When to seek medical advice Call your healthcare provider right away if any of these occur: Continued vomiting Frequent diarrhea (more than 5 times a day); blood (red or black color) or mucus in diarrhea Blood in vomit or stool Swollen abdomen or increasing abdominal pain Weakness, dizziness, or fainting Unusual drowsiness or confusion Reduced urine output or extreme thirst Fever of 100.4 F (38 C) or higher 8303-9104 [employer]. [address] [place] [address]. All rights reserved. This information is not intended as a substitute for professional medical care. Always follow your healthcare professional's instructions. Additional Information VACCINATE! IT SAVES LIVES! Members of the community who have not yet received the COVID-19 vaccine and would like to receive it can visit one of [facility] vaccine clinics. There are many vaccine clinic locations within the [facility]. For locations and available times, please visit [email or web address] [email or web address] It is important to note that some COVID mobile vaccine clinics are held outdoors and may be canceled in rainy or stormy conditions. To learn more about pediatric vaccinations (ages 5-11), we invite you to visit the [employer] webpage. https://www.Blockchains.org/pa ges/6237-Vebuh-Zwjkmojophy-Freque adsm-Glufw-Gmdminijk.html To learn more about the COVID-19 vaccine, we invite you to visit the CDC website for a list of frequently asked questions. https://www.cdc.gov/coronavirus/2 019-ncov/vaccines/faq.html [facility] Patient Portal Access Instructions: Stay connected with your healthcare team and access your personal medical information anytime with the [facility] Patient Portal. If you would like a full copy of your medical records please contact the [facility] Medical Records Department Sunday through Sunday between 8a.m. and 4:30p.m. Please follow the directions below to access the portal: 1.Access the email account you provided upon registration to [facility].2.Look for an invitation email from [facility].3.Open the email and access the invitation link: Accept Invitation to [facility]4.Fill in the required servin to create your account. Sign into www.USMD with your username and password that you created in the above steps to stay up to date. You can then view a summary of results, a summary of your visits, and the ability to download your summaries to your computer or send the information securely to a physician. Remember that your healthcare information is confidential, so carefully consider who you will allow to register on the [facility] Patient Portal for access to your information. You can also access the [employer] [employer] Patient Portal on the [employer]. Simply click on Health Records under Health Data and then click on the [employer] logo. HOW TO SAFELY DISPOSE OF PRESCRIPTION MEDICATIONS Please use one of the following methods to safely dispose of your unused medications. 1.Use a drug disposal kit: the drug disposal pouch allows you to safely discard your old and unused drugs. Ask your nurse to give you one when you are discharged.2.Visit a local take-back location: Many local pharmacies and police departments have programs that collect old and unwanted prescription drugs. Call your local pharmacy or go to http://Windeln.de.Nutzvieh24/3S8Yq2t to find one close to you.3.Make use of household items: Use cat litter or old coffee grounds to dispose medications if other options are not available. Mix your drugs with these household products, seal them in an airtight container and throw it into the garbage. Call [facility]: [phone] to be sure your drugs can be disposed of in this way. Some medicines may require a different approach.4.Never flush your medications down the toilet. IF YOU HAVE BEEN PRESCRIBED AN OPIOIDS FOR PAIN If you have been prescribed an opioid (such as hydrocodone, oxycodone or morphine), it is critical to understand the possible side effects and risks of opioid pain medications. Even when taken as directed, opioids can have several side effects including: Tolerance, meaning you might need to take more of a medication for the same pain relief. Nausea, vomiting and/or constipation. Sleepiness, dizziness, dry mouth, confusion, depression or itching. Physical dependence, meaning you have withdrawal symptoms when a medication is stopped ? this can develop within a few days. KNOW YOUR RESPONSIBILITIES It is important to know exactly how much and how often to take the opioid pain medications you are prescribed. Never take opioids in higher amounts or more often than prescribed. Do not combine opioids with alcohol or other drugs that cause drowsiness, such as benzodiazepines, also known as benzos, including diazepam and alprazolam, muscle relaxants or sleep aids. Never sell or share prescription opioids. This is illegal. Store opioids in a secure place and out of reach of others (including children, family, friends and visitors). The last page(s) of this document has been signed and retained as a CHART COPY Signatures Patient Education Materials Dehydration (Adult) Medication Leaflets My discharge plan and instructions have been reviewed and explained to me and I,SANTA TAYLOR Masha understand my current condition and have read and understand these discharge instructions. I have received a written copy of the plan/instructions. If I have questions, I am aware that I should contact my doctor. 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: Relationship to Patient: ____ Witness Name/Signature: Date/Time: [facility] 05-30-2024 Note Sinus tachycardia Ventricular premature complex Aberrant complex Electronic Signature: TANG BROCK MD 05/30/2024 12:56:35 [facility] 04-03-2024 Evaluation + Plan note Future Scheduled TestsThyroid Stimulating Hormone 04/03/24Free T4 04/03/24 [facility] 03-27-2024 Hospital Discharge instructions Patient Education 03/27/2024 02:59:41 Cocaine: Getting Help Cocaine: Getting Help If you are addicted to cocaine, you can get better. It means learning how to build a life with no drugs. The first step is getting help. The next is stopping the cycle of drug abuse. Then a plan to fight relapses is needed. You'll need long-term support to stay drug-free. The steps to treating addiction Get help from a professional drug dependency counselor. This type of counselor helps a person see their drug addiction more clearly. They can also help family members deal with the user s drug addiction. Have a professional evaluation with a healthcare provider or psychologist who specializes in addiction. This helps assess your needs and plan a course of action. Start professional treatment. This type of treatment may be inpatient or outpatient. It may take place in a hospital or treatment center. It involves group or individual therapy. In some cases, medical treatment is needed. Find self-help groups. These give support to help you stay free of drugs. They help you identify drug use triggers and make lifestyle changes that keep you away from cocaine. An example of this type of group is Cocaine Anonymous. See the blue box for contact details. The road to recovery Drug-free living is the goal of the recovery process. Cocaine addiction is a long-lasting illness that can come back again and again. You may relapse. You may have a constant urge to go back to using. You may think, This time I ll keep it under control. But, you'll need continued support to remain drug-free. Helpful websites For more information, go to: National [place] on Drug Abuse www.drugabuse.gov/patients-famili es National [place] on Alcoholism and Drug Dependence, Inc. (NCADD) www.ncadd.org Substance Abuse and Mental Health Services Administration findtreatment.[facility].gov Cocaine Anonymous www.Coridea.org Smart Recovery www.smartrecovery.org 4846-[address] [employer] [place] [address]. All rights reserved. This information is not intended as a substitute for professional medical care. Always follow your healthcare professional's instructions. 03/27/2024 02:59:36 Chest Pain, Noncardiac Noncardiac Chest Pain Based on your visit today, the healthcare provider doesn t know what is causing your chest pain. In most cases, people who come to the emergency department with chest pain don t have a problem with their heart. Instead, the pain is caused by other conditions. It's important for the healthcare team to be sure you are not having a life threatening cause for chest pain such as a heart attack, blood clot in the lungs, collapsed lung, ruptured esophagus, or tearing of the aorta. Once these major causes have been ruled out, you may have further evaluation for non-heart causes of chest pain. These may be problems with the lungs, muscles, bones, digestive tract, nerves, or mental health. Lung problems Inflammation around the lungs (pleurisy) Collapsed lung (pneumothorax) Fluid around the lungs (pleural effusion) Lung cancer (a rare cause of chest pain) Muscle or bone problems Inflamed cartilage between the ribs (costochondritis) Fibromyalgia Rheumatoid arthritis Chest wall strain Digestive system problems Reflux Stomach ulcer Spasms of the esophagus Gall stones Gallbladder inflammation Mental health conditions Panic or anxiety attacks Emotional distress Your condition doesn t seem serious and your pain doesn t appear to be coming from your heart. But sometimes the signs of a serious problem take more time to appear. Watch for the warning signs listed below. Home care Follow these guidelines when caring for yourself at home: Rest today and avoid strenuous activity. Take any prescribed medicine as directed. Follow-up care Follow up with your healthcare provider, or as advised, if you don t start to feel better within 24 hours. When to seek medical advice Call your healthcare provider right away if any of these occur: A change in the type of pain. Call if it feels different, becomes more serious, lasts longer, or begins to spread into your shoulder, arm, neck, jaw, or back. Shortness of breath You feel more pain when you breathe Cough with dark-colored mucus or blood Weakness, dizziness, or fainting Fever of 100.4 F (38 C) or higher, or as directed by your healthcare provider Swelling, pain, or redness in one leg [id number] [place] [address]. All rights reserved. This information is not intended as a substitute for professional medical care. Always follow your healthcare professional's instructions. Follow Up Care 03/27/2024 00:53:21 With:Go to emergency room if symptoms worsen Address:Unknown When:2-4 days With:TERESE ERNST APRN-[facility] Address: [address] [place] [address] Physicians [place], [place] [id number] [phone] When:2-4 days [facility] 03-27-2024 Note Discharge Instructions Thank you for allowing [facility] to assist you with your healthcare needs. The following is important discharge information regarding your hospital visit. Diagnosis from Today's Visit Chest pain Cocaine abuse What to Do Next Instructions from Your Care Team Please follow-up for echocardiogram as scheduled. Abstain from further cocaine use. Return to the ED with any new or worsening symptoms. No qualifying data available. Post Acute Orders No qualifying data available. You Need to Schedule the Following Appointments Follow Up with Go to emergency room if symptoms worsen When:Within 2-4 days Follow Up with TERESE ERNST When:Within 2-4 days Where:[address] [facility] [place] [address]- [phone] Allergies Cipro LaMICtal Hives Trileptal clindamycin Hives Medications Please ask your primary doctor or pharmacist before taking any other medication not listed, including over the counter drugs, herbal medications, vitamins and or supplements as they may interact with your home medications. What How Much When Why Instructions Last Dose Unchanged albuterol (albuterol MDI (90 mcg/ inh) CFC free inhalation aerosol) 2 puff(s) by inhalation Every 6 hours as needed for as needed for wheezing Duration: 14 Days Unchanged cariprazine (Vraylar 4.5 mg oral capsule) 1 cap by mouth Once a day Duration: 30 Days Unchanged clobetasol topical (Temovate 0.05% topical cream) See instructions Vulvar irritation apply a thin film 2-3 times per week. Unchanged fluticasone nasal (fluticasone 50 mcg/ inh NASAL spray) 2 spray(s) each nostril Once a day Bilateral serous otitis media Duration: 30 Days shake well before using Unchanged metoprolol (Metoprolol Tartrate 25 mg oral tablet) 1 tab(s) by mouth Two (2) times a day Tachycardia Chest pain Please take this list to your next doctor s visit. Bring all medications you take, including over the counter medications, herbals and other supplements with you to your doctor s visit. Patients and families are reminded to discard old lists and to update any records with all medication providers or retail pharmacies. Education Materials Cocaine: Getting Help If you are addicted to cocaine, you can get better. It means learning how to build a life with no drugs. The first step is getting help. The next is stopping the cycle of drug abuse. Then a plan to fight relapses is needed. You'll need long-term support to stay drug-free. The steps to treating addiction Get help from a professional drug dependency counselor. This type of counselor helps a person see their drug addiction more clearly. They can also help family members deal with the user s drug addiction. Have a professional evaluation with a healthcare provider or psychologist who specializes in addiction. This helps assess your needs and plan a course of action. Start professional treatment. This type of treatment may be inpatient or outpatient. It may take place in a hospital or treatment center. It involves group or individual therapy. In some cases, medical treatment is needed. Find self-help groups. These give support to help you stay free of drugs. They help you identify drug use triggers and make lifestyle changes that keep you away from cocaine. An example of this type of group is Cocaine Anonymous. See the blue box for contact details. The road to recovery Drug-free living is the goal of the recovery process. Cocaine addiction is a long-lasting illness that can come back again and again. You may relapse. You may have a constant urge to go back to using. You may think, This time I ll keep it under control. But, you'll need continued support to remain drug-free. Helpful websites For more information, go to: National [place] on Drug Abuse www.drugabuse.gov/patients-famili es National [place] on Alcoholism and Drug Dependence, Inc. (NCADD) www.ncadd.org Substance Abuse and Mental Health Services Administration findtreatment.[facility].gov Cocaine Anonymous www.Coridea.org Smart Recovery www.smartrecovery.org 2409-[address] [place] [address], [place] [address]. All rights reserved. This information is not intended as a substitute for professional medical care. Always follow your healthcare professional's instructions. Noncardiac Chest Pain Based on your visit today, the healthcare provider doesn t know what is causing your chest pain. In most cases, people who come to the emergency department with chest pain don t have a problem with their heart. Instead, the pain is caused by other conditions. It's important for the healthcare team to be sure you are not having a life threatening cause for chest pain such as a heart attack, blood clot in the lungs, collapsed lung, ruptured esophagus, or tearing of the aorta. Once these major causes have been ruled out, you may have further evaluation for non-heart causes of chest pain. These may be problems with the lungs, muscles, bones, digestive tract, nerves, or mental health. Lung problems Inflammation around the lungs (pleurisy) Collapsed lung (pneumothorax) Fluid around the lungs (pleural effusion) Lung cancer (a rare cause of chest pain) Muscle or bone problems Inflamed cartilage between the ribs (costochondritis) Fibromyalgia Rheumatoid arthritis Chest wall strain Digestive system problems Reflux Stomach ulcer Spasms of the esophagus Gall stones Gallbladder inflammation Mental health conditions Panic or anxiety attacks Emotional distress Your condition doesn t seem serious and your pain doesn t appear to be coming from your heart. But sometimes the signs of a serious problem take more time to appear. Watch for the warning signs listed below. Home care Follow these guidelines when caring for yourself at home: Rest today and avoid strenuous activity. Take any prescribed medicine as directed. Follow-up care Follow up with your healthcare provider, or as advised, if you don t start to feel better within 24 hours. When to seek medical advice Call your healthcare provider right away if any of these occur: A change in the type of pain. Call if it feels different, becomes more serious, lasts longer, or begins to spread into your shoulder, arm, neck, jaw, or back. Shortness of breath You feel more pain when you breathe Cough with dark-colored mucus or blood Weakness, dizziness, or fainting Fever of 100.4 F (38 C) or higher, or as directed by your healthcare provider Swelling, pain, or redness in one leg [id number] [employer]. [address] [place] [address]. All rights reserved. This information is not intended as a substitute for professional medical care. Always follow your healthcare professional's instructions. Additional Information VACCINATE! IT SAVES LIVES! Members of the community who have not yet received the COVID-19 vaccine and would like to receive it can visit one of [facility] vaccine clinics. There are many vaccine clinic locations within the [facility]. For locations and available times, please visit www.gettheshot.coronavirus.[place].g ov/. It is important to note that some COVID mobile vaccine clinics are held outdoors and may be canceled in rainy or stormy conditions. To learn more about pediatric vaccinations (ages 5-11), we invite you to visit the [facility] webpage. https://www.[facility].org/pa ges/5749-Eqava-Rycummdasiw-Freque acbg-Lzisr-Ynvwjgwvw.html To learn more about the COVID-19 vaccine, we invite you to visit the CDC website for a list of frequently asked questions. https://www.cdc.gov/coronavirus/2 019-ncov/vaccines/faq.html [facility] Patient Portal Access Instructions: Stay connected with your healthcare team and access your personal medical information anytime with the [facility] Patient Portal. If you would like a full copy of your medical records please contact the [facility] Medical Records Department Sunday through Sunday between 8a.m. and 4:30p.m. Please follow the directions below to access the portal: 1.Access the email account you provided upon registration to the [facility].2.Look for an invitation email from [facility].3.Open the email and access the invitation link: Accept Invitation to [facility].Fill in the required servin to create your account. Sign into www.USMD with your username and password that you created in the above steps to stay up to date. You can then view a summary of results, a summary of your visits, and the ability to download your summaries to your computer or send the information securely to a physician. Remember that your healthcare information is confidential, so carefully consider who you will allow to register on the [facility] Patient Portal for access to your information. You can also access the [facility] Patient Portal on the [employer] gifty. Simply click on Health Records under Health Data and then click on the [employer] logo. HOW TO SAFELY DISPOSE OF PRESCRIPTION MEDICATIONS Please use one of the following methods to safely dispose of your unused medications. 1.Use a drug disposal kit: the drug disposal pouch allows you to safely discard your old and unused drugs. Ask your nurse to give you one when you are discharged.2.Visit a local take-back location: Many local pharmacies and police departments have programs that collect old and unwanted prescription drugs. Call your local pharmacy or go to http://bit.ly/4M0Ef6b to find one close to you.3.Make use of household items: Use cat litter or old coffee grounds to dispose medications if other options are not available. Mix your drugs with these household products, seal them in an airtight container and throw it into the garbage. Call [facility]: [phone] to be sure your drugs can be disposed of in this way. Some medicines may require a different approach.4.Never flush your medications down the toilet. IF YOU HAVE BEEN PRESCRIBED AN OPIOIDS FOR PAIN If you have been prescribed an opioid (such as hydrocodone, oxycodone or morphine), it is critical to understand the possible side effects and risks of opioid pain medications. Even when taken as directed, opioids can have several side effects including: Tolerance, meaning you might need to take more of a medication for the same pain relief. Nausea, vomiting and/or constipation. Sleepiness, dizziness, dry mouth, confusion, depression or itching. Physical dependence, meaning you have withdrawal symptoms when a medication is stopped ? this can develop within a few days. KNOW YOUR RESPONSIBILITIES It is important to know exactly how much and how often to take the opioid pain medications you are prescribed. Never take opioids in higher amounts or more often than prescribed. Do not combine opioids with alcohol or other drugs that cause drowsiness, such as benzodiazepines, also known as benzos, including diazepam and alprazolam, muscle relaxants or sleep aids. Never sell or share prescription opioids. This is illegal. Store opioids in a secure place and out of reach of others (including children, family, friends and visitors). The last page(s) of this document has been signed and retained as a CHART COPY Signatures Patient Education Materials Cocaine: Getting Help Chest Pain, Noncardiac Medication Leaflets My discharge plan and instructions have been reviewed and explained to me and IBARDY KRISTA D understand my current condition and have read and understand these discharge instructions. I have received a written copy of the plan/instructions. If I have questions, I am aware that I should contact my doctor. 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 No focal consolidation or pulmonary edema. No pleural effusion or visible pneumothorax. No acute osseous abnormality. IMPRESSION: No acute radiographic finding. Preliminary Report was Dictated by a Resident Interpreted by: Farshad Mitchell MD Preliminary Report By: Diego Blake Electronically signed By Farshad Mitchell MD Dictated Date: 03/27/2024 2:20:44 AM Prelim Date: 03/27/2024 2:21:30 AM Sign Date: 03/27/2024 3:15:47 AM Ordering Provider: YIFAN SANDERS [facility] 03-27-2024 Note Sinus rhythm Abnormal inferior Q waves Electronic Signature: YIFAN SANDERS DO 03/27/2024 02:10:13 [facility] 03-19-2024 Hospital Discharge instructions Patient Education 03/19/2024 21:22:43 Cocaine And Crack Abuse Cocaine and Crack Abuse Cocaine is typically snorted or injected intravenously (IV). Crack is made from cocaine. It can be smoked, causing a more potent effect. Cocaine causes a very powerful psychological and physiological dependence. Once you have a dependence, you will do just about anything to get the drug and recreate the feeling it produces. This can increase your risk for any of the following: Overdose that may lead to Loss of your job, your home, your family Accidental injuries to yourself or others while you are under the influence of the drug (in a car or at home) Arrest, conviction, and residential sentence for possession of an illegal substance or for driving under the influence Medically, cocaine can affect every organ in your body. It can cause: Chest pain, arrhythmia (abnormal heart beating), heart attack, heart failure Severe headache, seizures, loss of consciousness, stroke Anxiety, psychosis, confusion, paranoia, hallucinations Nasal damage (from snorting) Nausea, abdominal pain, loss of appetite Chronic bronchitis (from smoking), shortness of breath It can place you at higher risk of HIV infection, Hepatitis B or C, heart infection (from IV use and/or risky sexual behavior while intoxicated) Kidney failure Home care The following suggestions will help you care for yourself at home: Admit you have a drug problem. Ask for help from your family and close friends. Seek psychotherapy or counseling if depression or anxiety is a problem for you. Join a self-help group for drug abuse. Avoid friends who abuse drugs themselves or tempt you to continue abusing the drug. Eat a balanced diet and begin a regular exercise program. If you continue to use IV cocaine, decrease your risk of receiving or spreading infection by: Only using sterile equipment Do not reuse or share equipment Clean the skin before injecting Follow-up care Follow up with your doctor, or as advised. Contact one of the resources below for help: National [place] on Alcoholism and Drug Dependence 612-339-TFMR www.ncadd.org Narcotics Anonymous www.na.org National Alcohol and Substance Abuse Information Center (can tell you about the drug treatment programs in your area) 616.324.6756 www.addictioncareBerry White.[employer] Call 911 Call 911 if any of these occur: Seizure Hard time breathing or slow, irregular breathing Chest pain Sudden weakness on one side of your body or sudden trouble speaking Very drowsy or trouble awakening Rapid heart rate When to seek medical advice Call your healthcare provider right away if any of these occur: Agitation, anxiety, unable to sleep Unintended weight loss (more than 10 to 15 pounds over 6 months) Hallucination, severe depression, thoughts of harming yourself or another Fever of 100.4 F (38 C) or higher, or as directed by your health care provider Redness, pain, or swelling at an injection site Loss of vision or decreased vision 5868-7905 [employer]. [address] [place] [address]. All rights reserved. This information is not intended as a substitute for professional medical care. Always follow your healthcare professional's instructions. 03/19/2024 21:22:37 Chest Pain, Uncertain Cause Uncertain Causes of Chest Pain Chest pain can happen for a number of reasons. Sometimes the cause can't be determined. If your condition does not seem serious, and your pain does not appear to be coming from your heart, your healthcare provider may recommend watching it closely. Sometimes the signs of a serious problem take more time to appear. Many problems not related to your heart can cause chest pain. These include: Musculoskeletal. Costochondritis is an inflammation of the tissues around the ribs that can occur from trauma or overuse injuries, or a strain of the muscles of the chest wall Respiratory. Pneumonia, collapsed lung (pneumothorax), or inflammation of the lining of the chest and lungs (pleurisy) Gastrointestinal. Esophageal reflux, heartburn, ulcers, or gallbladder disease Anxiety and panic disorders Nerve compression and inflammation Rare miscellaneous problems such as aortic aneurysm (a swelling of the large artery coming out of the heart) or pulmonary embolism (a blood clot in the lungs) Home care After your visit, follow these recommendations: Rest today and avoid strenuous activity. Take any prescribed medicine as directed. Be aware of any recurrent chest pain and notice any changes Follow-up care Follow up with your healthcare provider if you do not start to feel better within 24 hours, or as advised. Call 911 Call 911 if any of these occur: A change in the type of pain: if it feels different, becomes more severe, lasts longer, or begins to spread into your shoulder, arm, neck, jaw or back Shortness of breath or increased pain with breathing Weakness, dizziness, or fainting Rapid heart beat Crushing sensation in your chest When to seek medical advice Call your healthcare provider right away if any of the following occur: Cough with dark colored sputum (phlegm) or blood Fever of 100.4 F (38 C) or higher, or as directed by your healthcare provider Swelling, pain or redness in one leg [id number] [employer]. [address] [place] [address]. All rights reserved. This information is not intended as a substitute for professional medical care. Always follow your healthcare professional's instructions. Follow Up Care 03/19/2024 18:48:26 With:CARRI CAGLE Address: [address] [facility] [place] [address] [phone] Business (1) [address] [facility] [address] [place] [address] [phone] Business (1) When:2-4 days With:TERESE ERNST Address: [address] [place] [phone] When:2-4 days Comments:Return to ED if symptoms worsen [facility] 03-19-2024 Note Discharge Instructions Thank you for allowing [facility] to assist you with your healthcare needs. The following is important discharge information regarding your hospital visit. Diagnosis from Today's Visit Chest pain Chest pain Cocaine abuse What to Do Next Instructions from Your Care Team No qualifying data available. Post Acute Orders No qualifying data available. You Need to Schedule the Following Appointments Follow Up with CARRI CAGLE When:Within 2-4 days Where:[address] [facility] [place] [address]- [phone] Business (1) [address] [facility] [address] [place] [address] [phone] Business (1) Follow Up with TERESE ERNST When:Within 2-4 days Where:[address] [place] [address] [phone] Additional Information: Return to ED if symptoms worsen Allergies Cipro LaMICtal Hives Trileptal clindamycin Hives Medications Please ask your primary doctor or pharmacist before taking any other medication not listed, including over the counter drugs, herbal medications, vitamins and or supplements as they may interact with your home medications. What How Much When Why Instructions Last Dose Unchanged albuterol (albuterol MDI (90 mcg/ inh) CFC free inhalation aerosol) 2 puff(s) by inhalation Every 6 hours as needed for as needed for wheezing Duration: 14 Days Unchanged beclomethasone (Qvar Redihaler 40 mcg/ inh inhalation aerosol) 1 puff(s) by inhalation Two (2) times a day Duration: 30 Days Unchanged cariprazine (Vraylar 4.5 mg oral capsule) 1 cap by mouth Once a day Duration: 30 Days Unchanged clobetasol topical (Temovate 0.05% topical cream) See instructions Vulvar irritation apply a thin film 2-3 times per week. Unchanged fluticasone nasal (fluticasone 50 mcg/ inh NASAL spray) 2 spray(s) each nostril Once a day Bilateral serous otitis media Duration: 30 Days shake well before using Please take this list to your next doctor s visit. Bring all medications you take, including over the counter medications, herbals and other supplements with you to your doctor s visit. Patients and families are reminded to discard old lists and to update any records with all medication providers or retail pharmacies. Education Materials Cocaine and Crack Abuse Cocaine is typically snorted or injected intravenously (IV). Crack is made from cocaine. It can be smoked, causing a more potent effect. Cocaine causes a very powerful psychological and physiological dependence. Once you have a dependence, you will do just about anything to get the drug and recreate the feeling it produces. This can increase your risk for any of the following: Overdose that may lead to Loss of your job, your home, your family Accidental injuries to yourself or others while you are under the influence of the drug (in a car or at home) Arrest, conviction, and residential sentence for possession of an illegal substance or for driving under the influence Medically, cocaine can affect every organ in your body. It can cause: Chest pain, arrhythmia (abnormal heart beating), heart attack, heart failure Severe headache, seizures, loss of consciousness, stroke Anxiety, psychosis, confusion, paranoia, hallucinations Nasal damage (from snorting) Nausea, abdominal pain, loss of appetite Chronic bronchitis (from smoking), shortness of breath It can place you at higher risk of HIV infection, Hepatitis B or C, heart infection (from IV use and/or risky sexual behavior while intoxicated) Kidney failure Home care The following suggestions will help you care for yourself at home: Admit you have a drug problem. Ask for help from your family and close friends. Seek psychotherapy or counseling if depression or anxiety is a problem for you. Join a self-help group for drug abuse. Avoid friends who abuse drugs themselves or tempt you to continue abusing the drug. Eat a balanced diet and begin a regular exercise program. If you continue to use IV cocaine, decrease your risk of receiving or spreading infection by: Only using sterile equipment Do not reuse or share equipment Clean the skin before injecting Follow-up care Follow up with your doctor, or as advised. Contact one of the resources below for help: National [place] on Alcoholism and Drug Dependence 547-738-HVCV www.ncadd.org Narcotics Anonymous www.na.org National Alcohol and Substance Abuse Information Center (can tell you about the drug treatment programs in your area) 250.947.5240 www.addictioncareBerry White.BiOxyDyn Call 911 Call 911 if any of these occur: Seizure Hard time breathing or slow, irregular breathing Chest pain Sudden weakness on one side of your body or sudden trouble speaking Very drowsy or trouble awakening Rapid heart rate When to seek medical advice Call your healthcare provider right away if any of these occur: Agitation, anxiety, unable to sleep Unintended weight loss (more than 10 to 15 pounds over 6 months) Hallucination, severe depression, thoughts of harming yourself or another Fever of 100.4 F (38 C) or higher, or as directed by your health care provider Redness, pain, or swelling at an injection site Loss of vision or decreased vision [id number] [employer]. [address] [place] [address]. All rights reserved. This information is not intended as a substitute for professional medical care. Always follow your healthcare professional's instructions. Uncertain Causes of Chest Pain Chest pain can happen for a number of reasons. Sometimes the cause can't be determined. If your condition does not seem serious, and your pain does not appear to be coming from your heart, your healthcare provider may recommend watching it closely. Sometimes the signs of a serious problem take more time to appear. Many problems not related to your heart can cause chest pain. These include: Musculoskeletal. Costochondritis is an inflammation of the tissues around the ribs that can occur from trauma or overuse injuries, or a strain of the muscles of the chest wall Respiratory. Pneumonia, collapsed lung (pneumothorax), or inflammation of the lining of the chest and lungs (pleurisy) Gastrointestinal. Esophageal reflux, heartburn, ulcers, or gallbladder disease Anxiety and panic disorders Nerve compression and inflammation Rare miscellaneous problems such as aortic aneurysm (a swelling of the large artery coming out of the heart) or pulmonary embolism (a blood clot in the lungs) Home care After your visit, follow these recommendations: Rest today and avoid strenuous activity. Take any prescribed medicine as directed. Be aware of any recurrent chest pain and notice any changes Follow-up care Follow up with your healthcare provider if you do not start to feel better within 24 hours, or as advised. Call 911 Call 911 if any of these occur: A change in the type of pain: if it feels different, becomes more severe, lasts longer, or begins to spread into your shoulder, arm, neck, jaw or back Shortness of breath or increased pain with breathing Weakness, dizziness, or fainting Rapid heart beat Crushing sensation in your chest When to seek medical advice Call your healthcare provider right away if any of the following occur: Cough with dark colored sputum (phlegm) or blood Fever of 100.4 F (38 C) or higher, or as directed by your healthcare provider Swelling, pain or redness in one leg [id number] [employer]. [address] [place] [address], [place] [address]. All rights reserved. This information is not intended as a substitute for professional medical care. Always follow your healthcare professional's instructions. Additional Information VACCINATE! IT SAVES LIVES! Members of the community who have not yet received the COVID-19 vaccine and would like to receive it can visit one of [facility] vaccine clinics. There are many vaccine clinic locations within the [facility]. For locations and available times, please visit [email or web address] [email or web address] It is important to note that some COVID mobile vaccine clinics are held outdoors and may be canceled in rainy or stormy conditions. To learn more about pediatric vaccinations (ages 5-11), we invite you to visit the [facility] webpage. https://www.[facility].org/pa ges/7677-Cyqgp-Hwmqyfshxxy-Freque ztvd-Pnrza-Tflbtevbe.html To learn more about the COVID-19 vaccine, we invite you to visit the CDC website for a list of frequently asked questions. https://www.cdc.gov/coronavirus/2 019-ncov/vaccines/faq.html [facility] Patient Portal Access Instructions: Stay connected with your healthcare team and access your personal medical information anytime with the [facility] Patient Portal. If you would like a full copy of your medical records please contact the [facility] Medical Records Department Sunday through Sunday between 8a.m. and 4:30p.m. Please follow the directions below to access the portal: 1.Access the email account you provided upon registration to the [facility].2.Look for an invitation email from [facility].3.Open the email and access the invitation link: Accept Invitation to [facility]4.Fill in the required servin to create your account. Sign into [email or web address] with your username and password that you created in the above steps to stay up to date. You can then view a summary of results, a summary of your visits, and the ability to download your summaries to your computer or send the information securely to a physician. Remember that your healthcare information is confidential, so carefully consider who you will allow to register on the [facility] Patient Portal for access to your information. You can also access the [facility] Patient Portal on the [facility]. Simply click on Health Records under Health Data and then click on the [employer] logo. HOW TO SAFELY DISPOSE OF PRESCRIPTION MEDICATIONS Please use one of the following methods to safely dispose of your unused medications. 1.Use a drug disposal kit: the drug disposal pouch allows you to safely discard your old and unused drugs. Ask your nurse to give you one when you are discharged.2.Visit a local take-back location: Many local pharmacies and police departments have programs that collect old and unwanted prescription drugs. Call your local pharmacy or go to http://Windeln.de.Nutzvieh24/6Y1Rd1r to find one close to you.3.Make use of household items: Use cat litter or old coffee grounds to dispose medications if other options are not available. Mix your drugs with these household products, seal them in an airtight container and throw it into the garbage. Call [facility]: [phone] to be sure your drugs can be disposed of in this way. Some medicines may require a different approach.4.Never flush your medications down the toilet. IF YOU HAVE BEEN PRESCRIBED AN OPIOIDS FOR PAIN If you have been prescribed an opioid (such as hydrocodone, oxycodone or morphine), it is critical to understand the possible side effects and risks of opioid pain medications. Even when taken as directed, opioids can have several side effects including: Tolerance, meaning you might need to take more of a medication for the same pain relief. Nausea, vomiting and/or constipation. Sleepiness, dizziness, dry mouth, confusion, depression or itching. Physical dependence, meaning you have withdrawal symptoms when a medication is stopped ? this can develop within a few days. KNOW YOUR RESPONSIBILITIES It is important to know exactly how much and how often to take the opioid pain medications you are prescribed. Never take opioids in higher amounts or more often than prescribed. Do not combine opioids with alcohol or other drugs that cause drowsiness, such as benzodiazepines, also known as benzos, including diazepam and alprazolam, muscle relaxants or sleep aids. Never sell or share prescription opioids. This is illegal. Store opioids in a secure place and out of reach of others (including children, family, friends and visitors). The last page(s) of this document has been signed and retained as a CHART COPY Signatures Patient Education Materials Cocaine And Crack Abuse Chest Pain, Uncertain Cause Medication Leaflets My discharge plan and instructions have been reviewed and explained to me and IBRADY KRISTA D understand my current condition and have read and understand these discharge instructions. I have received a written copy of the plan/instructions. If I have questions, I am aware that I should contact my doctor. 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 The following is important discharge information regarding your hospital visit. Diagnosis from Today's Visit Chest pain Chest pain Cocaine abuse What to Do Next Instructions from Your Care Team No qualifying data available. Post Acute Orders No qualifying data available. You Need to Schedule the Following Appointments Follow Up with CARRI CAGLE When:Within 2-4 days Where:[address] [facility] [place] [address]- [phone] Business (1) [address] [facility] [place] [address] [phone] Business (1) Follow Up with TERESE ERNST When:Within 2-4 days Where:[address] [place] [address] [phone] Additional Information: Return to ED if symptoms worsen Allergies Cipro LaMICtal Hives Trileptal clindamycin Hives Medications Please ask your primary doctor or pharmacist before taking any other medication not listed, including over the counter drugs, herbal medications, vitamins and or supplements as they may interact with your home medications. What How Much When Why Instructions Last Dose Unchanged albuterol (albuterol MDI (90 mcg/ inh) CFC free inhalation aerosol) 2 puff(s) by inhalation Every 6 hours as needed for as needed for wheezing Duration: 14 Days Unchanged beclomethasone (Qvar Redihaler 40 mcg/ inh inhalation aerosol) 1 puff(s) by inhalation Two (2) times a day Duration: 30 Days Unchanged cariprazine (Vraylar 4.5 mg oral capsule) 1 cap by mouth Once a day Duration: 30 Days Unchanged clobetasol topical (Temovate 0.05% topical cream) See instructions Vulvar irritation apply a thin film 2-3 times per week. Unchanged fluticasone nasal (fluticasone 50 mcg/ inh NASAL spray) 2 spray(s) each nostril Once a day Bilateral serous otitis media Duration: 30 Days shake well before using Please take this list to your next doctor s visit. Bring all medications you take, including over the counter medications, herbals and other supplements with you to your doctor s visit. Patients and families are reminded to discard old lists and to update any records with all medication providers or retail pharmacies. Education Materials Cocaine and Crack Abuse Cocaine is typically snorted or injected intravenously (IV). Crack is made from cocaine. It can be smoked, causing a more potent effect. Cocaine causes a very powerful psychological and physiological dependence. Once you have a dependence, you will do just about anything to get the drug and recreate the feeling it produces. This can increase your risk for any of the following: Overdose that may lead to Loss of your job, your home, your family Accidental injuries to yourself or others while you are under the influence of the drug (in a car or at home) Arrest, conviction, and residential sentence for possession of an illegal substance or for driving under the influence Medically, cocaine can affect every organ in your body. It can cause: Chest pain, arrhythmia (abnormal heart beating), heart attack, heart failure Severe headache, seizures, loss of consciousness, stroke Anxiety, psychosis, confusion, paranoia, hallucinations Nasal damage (from snorting) Nausea, abdominal pain, loss of appetite Chronic bronchitis (from smoking), shortness of breath It can place you at higher risk of HIV infection, Hepatitis B or C, heart infection (from IV use and/or risky sexual behavior while intoxicated) Kidney failure Home care The following suggestions will help you care for yourself at home: Admit you have a drug problem. Ask for help from your family and close friends. Seek psychotherapy or counseling if depression or anxiety is a problem for you. Join a self-help group for drug abuse. Avoid friends who abuse drugs themselves or tempt you to continue abusing the drug. Eat a balanced diet and begin a regular exercise program. If you continue to use IV cocaine, decrease your risk of receiving or spreading infection by: Only using sterile equipment Do not reuse or share equipment Clean the skin before injecting Follow-up care Follow up with your doctor, or as advised. Contact one of the resources below for help: National [place] on Alcoholism and Drug Dependence 137-546-RDPG www.ncadd.org Narcotics Anonymous www.na.org National Alcohol and Substance Abuse Information Center (can tell you about the drug treatment programs in your area) 442.536.4544 www.addictioncareoptions.com Call 911 Call 911 if any of these occur: Seizure Hard time breathing or slow, irregular breathing Chest pain Sudden weakness on one side of your body or sudden trouble speaking Very drowsy or trouble awakening Rapid heart rate When to seek medical advice Call your healthcare provider right away if any of these occur: Agitation, anxiety, unable to sleep Unintended weight loss (more than 10 to 15 pounds over 6 months) Hallucination, severe depression, thoughts of harming yourself or another Fever of 100.4 F (38 C) or higher, or as directed by your health care provider Redness, pain, or swelling at an injection site Loss of vision or decreased vision [employer]. [address] [place] [address]. All rights reserved. This information is not intended as a substitute for professional medical care. Always follow your healthcare professional's instructions. Uncertain Causes of Chest Pain Chest pain can happen for a number of reasons. Sometimes the cause can't be determined. If your condition does not seem serious, and your pain does not appear to be coming from your heart, your healthcare provider may recommend watching it closely. Sometimes the signs of a serious problem take more time to appear. Many problems not related to your heart can cause chest pain. These include: Musculoskeletal. Costochondritis is an inflammation of the tissues around the ribs that can occur from trauma or overuse injuries, or a strain of the muscles of the chest wall Respiratory. Pneumonia, collapsed lung (pneumothorax), or inflammation of the lining of the chest and lungs (pleurisy) Gastrointestinal. Esophageal reflux, heartburn, ulcers, or gallbladder disease Anxiety and panic disorders Nerve compression and inflammation Rare miscellaneous problems such as aortic aneurysm (a swelling of the large artery coming out of the heart) or pulmonary embolism (a blood clot in the lungs) Home care After your visit, follow these recommendations: Rest today and avoid strenuous activity. Take any prescribed medicine as directed. Be aware of any recurrent chest pain and notice any changes Follow-up care Follow up with your healthcare provider if you do not start to feel better within 24 hours, or as advised. Call 911 Call 911 if any of these occur: A change in the type of pain: if it feels different, becomes more severe, lasts longer, or begins to spread into your shoulder, arm, neck, jaw or back Shortness of breath or increased pain with breathing Weakness, dizziness, or fainting Rapid heart beat Crushing sensation in your chest When to seek medical advice Call your healthcare provider right away if any of the following occur: Cough with dark colored sputum (phlegm) or blood Fever of 100.4 F (38 C) or higher, or as directed by your healthcare provider Swelling, pain or redness in one leg [employer]. [address] [place] [address]. All rights reserved. This information is not intended as a substitute for professional medical care. Always follow your healthcare professional's instructions. Additional Information VACCINATE! IT SAVES LIVES! Members of the community who have not yet received the COVID-19 vaccine and would like to receive it can visit one of [facility] vaccine clinics. There are many vaccine clinic locations within the [facility]. For locations and available times, please visit [email or web address] [email or web address] It is important to note that some COVID mobile vaccine clinics are held outdoors and may be canceled in rainy or stormy conditions. To learn more about pediatric vaccinations (ages 5-11), we invite you to visit the [facility] webpage. https://www.[email or web address].org/pa ges/9686-Wiwuz-Jvmsiirwrou-Freque ffaf-Jnqcy-Adbizhyaq.html To learn more about the COVID-19 vaccine, we invite you to visit the CDC website for a list of frequently asked questions. https://www.cdc.gov/coronavirus/2 019-ncov/vaccines/faq.html [facility] Patient Portal Access Instructions: Stay connected with your healthcare team and access your personal medical information anytime with the [facility] Patient Portal. If you would like a full copy of your medical records please contact the [facility] Medical Records Department Sunday through Sunday between 8a.m. and 4:30p.m. Please follow the directions below to access the portal: 1.Access the email account you provided upon registration to the hospital.2.Look for an invitation email from [facility].3.Open the email and access the invitation link: Accept Invitation to [facility]4.Fill in the required servin to create your account. Sign into [email or web address] with your username and password that you created in the above steps to stay up to date. You can then view a summary of results, a summary of your visits, and the ability to download your summaries to your computer or send the information securely to a physician. Remember that your healthcare information is confidential, so carefully consider who you will allow to register on the [facility] Patient Portal for access to your information. You can also access the [facility] Patient Portal on the [facility]. Simply click on Health Records under Health Data and then click on the [employer] logo. HOW TO SAFELY DISPOSE OF PRESCRIPTION MEDICATIONS Please use one of the following methods to safely dispose of your unused medications. 1.Use a drug disposal kit: the drug disposal pouch allows you to safely discard your old and unused drugs. Ask your nurse to give you one when you are discharged.2.Visit a local take-back location: Many local pharmacies and police departments have programs that collect old and unwanted prescription drugs. Call your local pharmacy or go to http://Windeln.de.Nutzvieh24/6U9Gp8p to find one close to you.3.Make use of household items: Use cat litter or old coffee grounds to dispose medications if other options are not available. Mix your drugs with these household products, seal them in an airtight container and throw it into the garbage. Call [facility]: [phone] to be sure your drugs can be disposed of in this way. Some medicines may require a different approach.4.Never flush your medications down the toilet. IF YOU HAVE BEEN PRESCRIBED AN OPIOIDS FOR PAIN If you have been prescribed an opioid (such as hydrocodone, oxycodone or morphine), it is critical to understand the possible side effects and risks of opioid pain medications. Even when taken as directed, opioids can have several side effects including: Tolerance, meaning you might need to take more of a medication for the same pain relief. Nausea, vomiting and/or constipation. Sleepiness, dizziness, dry mouth, confusion, depression or itching. Physical dependence, meaning you have withdrawal symptoms when a medication is stopped ? this can develop within a few days. KNOW YOUR RESPONSIBILITIES It is important to know exactly how much and how often to take the opioid pain medications you are prescribed. Never take opioids in higher amounts or more often than prescribed. Do not combine opioids with alcohol or other drugs that cause drowsiness, such as benzodiazepines, also known as benzos, including diazepam and alprazolam, muscle relaxants or sleep aids. Never sell or share prescription opioids. This is illegal. Store opioids in a secure place and out of reach of others (including children, family, friends and visitors). The last page(s) of this document has been signed and retained as a CHART COPY Signatures Patient Education Materials Cocaine And Crack Abuse Chest Pain, Uncertain Cause Medication Leaflets My discharge plan and instructions have been reviewed and explained to me and I,BRADY SANTA Masha understand my current condition and have read and understand these discharge instructions. I have received a written copy of the plan/instructions. If I have questions, I am aware that I should contact my doctor. 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 No focal consolidation or pulmonary edema. No pneumothorax or pleural effusion. No acute osseous abnormalities. IMPRESSION: No acute radiographic findings. I have personally reviewed the images of this examination and agree with the resident's findings and interpretation. Interpreted by: Sam Gar MD Preliminary Report By: Honey Valentin Electronically signed By Sam Gar MD Dictated Date: 03/19/2024 4:17:20 PM Prelim Date: 03/19/2024 4:23:34 PM Sign Date: 03/19/2024 4:23:34 PM Ordering Provider: KEVIN TATE [facility] 11-21-2023 Note HNO ID: [id number] Author: JEFF HOAWRD PA-C Service: ? Author Type: Physician Director Of Student Financial Aid Type: Progress Notes Filed: 11/21/2023 09:41 Note Text: [facility] Arthritis and Rheumatology [address] [place] [address] Subjective Last OV: 10/02/23 HPI: Santa Taylor is a 33 year old female who presents for follow up of rash, +REMA. She continues to see dermatology at [facility]. Previously was seeing [facility], but didn't like seeing them - had a bad experience there. On topical therapy with dermatology. Does help some, but doesn't control it. Has been okay over the last month or two. She is off Plaquenil, has been off for at least 6 months. She has no rashes today. Still with skin irritation, but no rashes. Redness from her very first rash on her arms resolved. Patient denies intermittent history of serositis, Raynaud?s, lymphadenopathy, pleurisy, pericarditis, inflammatory joint disease, miscarriages, DVTs, hematuria, hemoptysis, chondritis, dry eyes/mouth/vagina, ocular/oral/nasal ulcers. Rheumatologic disease history: 10/02/23 virtual Seen by jamie cortez. Diagnosed with lupus 2018 (presented with rash which started with sun burn) and been on Plaquenil. Issues with nose, scalp, groin, given steroid creams. Photosensitive. She had a skin biopsy. Not sure of the results but was told once she had SCLE. She had another biopsy in groin area inflammation . Notes reviewed from derm which also mentions - Hidradenitis suppurativa , seborrheic dermatitis. Recurrent ear infections. External usually. Saw ENT. Was told she has eczema and leads to ear infections. Denies joint pain. Other than right foot plantar fasciitis. Low vit d Family h/o autoimmune disease - grandmother and father with arthritis, father with raynaud's phenomenon, possible psoriasis Smoking - active Interval Review of Systems CONSTITUTIONAL: Recent Weight change: No Fever: No EENT: Dryness in eyes: No Dryness of mouth: No Oral ulcers: No CARDIOVASCULAR: Pain in chest: No RESPIRATORY: Shortness of breath: No Cough: No GASTROINTESTINAL: Nausea: No Vomiting: No Changes in bowel movements: No Heartburn: No MUSCULOSKELETAL: Per HPI INTEGUMENTARY: Rash: No NEUROLOGICAL SYSTEM: Headaches: No All other ROS reviewed, pertinent positives in HPI PAST MEDICAL HISTORY Diagnosis Date Depression PAST SURGICAL HISTORY Procedure Laterality Date CHOLECYSTECTOMY TONSILLECTOMY HX History Review: I have reviewed and modified as needed, the following during this visit: Allergies, Past Medical History, Past Surgical History, Past Family History, Past Social History. Physical Exam BP 131/69 Pulse 89 Temp 36.6 ?C (97.9 ?F) (Temporal) Resp 14 Ht 170.2 cm (5' 7 ) Wt 112 kg (247 lb) LMP 11/14/2023 (Approximate) BMI 38.69 kg/m? GENERAL: Well appearing, alert, comfortable, in no acute distress, well-hydrated, well nourished. HEENT: Negative for external ears normal. Canals are clear. Eye Exam normal. External nose normal, no nasal ulcer or throat ulcer. NECK: NECK Supple, no adenopathy CARDIAC: regular rate and rhythm, No murmur asculated., and Equal peripheral pulses RESPIRATORY: Lungs clear to auscultation. No wheezing, rhonchi, rales NEURO: Motor and sensory exam normal MOTOR: Normal; including tone, gait, stressed gait, power and coordination. SKIN: Negative for alopecia, skin rash, malar rash, skin lesion, skin ulcer, pits, thickening, color changes, telangiectasias, nail changes, nail ridging, nail pitting, onycholysis MUSCULOSKELETAL: no synovitis or swelling, no tenderness, full ROM of extremities Recent Lab Results: Serologies / biopsy: 10/15/2023 G6PD: 15.6 TPMT: 27.3 Hep B and Hep C - negative REMA 1:160, SSA 7.1 Neg anti ds DNA, Sm, BUSINESS SUPPORT LIAISON, C3, C4, khoa-1, APLS, QIG, hep C, ANCA, RF, CCP 06/2019 Rheum consult [facility] note: SKIN, LEFT FOREARM, PUNCH - VACUOLAR INTERFACE DERMATITIS WITH INCREASED DERMAL MUCIN Comment: This cutaneous pattern of injury is most supportive of a connective tissue disease such as systemic lupus erythematosus, subacute cutaneous lupus erythematosus, or dermatomyositis. Classic histologic features of polymorphous light eruption including a deep perivascular inflammatory infiltrate and prominent papillary dermal edema are not identified. Morphological features of porphyria are not identified. If the patient's symptoms persist or worsen, a repeat biopsy is recommended. 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 GMS STAIN FOR FUNGUS IS NEGATIVE NEGATIVE FOR DYSPLASIA OR MALIGNANCY. No results found for: WBC , RBC , HB , HCT , PLT No results found for: CREAT , CA , ALKPHOS , (more content not included)... [facility] 11-21-2023 History of Present illness Narrative Images from the original note were not included. [facility]ritis [facility] Rhe[facility]ology Jeff Howard [address] [place] [address] Subjective Last OV: 10/02/23 HPI: Santa Taylor is a 33 year old female who presents for follow up of rash, +REMA. She continues to see dermatology at [facility]. Previously was seeing [facility] [employer], but didn't like seeing them - had a bad experience there. On topical therapy with dermatology. Does help some, but doesn't control it. Has been okay over the last month or two. She is off Plaquenil, has been off for at least 6 months. She has no rashes today. Still with skin irritation, but no rashes. Redness from her very first rash on her arms resolved. Patient denies intermittent history of serositis, Raynaud s, lymphadenopathy, pleurisy, pericarditis, inflammatory joint disease, miscarriages, DVTs, hematuria, hemoptysis, chondritis, dry eyes/mouth/vagina, ocular/oral/nasal ulcers. Rheumatologic disease history: 10/02/23 virtual Seen by jamie cortez. Diagnosed with lupus 2018 (presented with rash which started with sun burn) and been on Plaquenil. Issues with nose, scalp, groin, given steroid creams. Photosensitive. She had a skin biopsy. Not sure of the results but was told once she had SCLE. She had another biopsy in groin area inflammation . Notes reviewed from derm which also mentions - Hidradenitis suppurativa , seborrheic dermatitis. Recurrent ear infections. External usually. Saw ENT. Was told she has eczema and leads to ear infections. Denies joint pain. Other than right foot plantar fasciitis. Low vit d Family h/o autoimmune disease - grandmother and father with arthritis, father with raynaud's phenomenon, possible psoriasis Smoking - active Interval Review of Systems CONSTITUTIONAL: Recent Weight change: No Fever: No EENT: Dryness in eyes: No Dryness of mouth: No Oral ulcers: No CARDIOVASCULAR: Pain in chest: No RESPIRATORY: Shortness of breath: No Cough: No GASTROINTESTINAL: Nausea: No Vomiting: No Changes in bowel movements: No Heartburn: No MUSCULOSKELETAL: Per HPI INTEGUMENTARY: Rash: No NEUROLOGICAL SYSTEM: Headaches: No All other ROS reviewed, pertinent positives in HPI PAST MEDICAL HISTORY Diagnosis Date Depression PAST SURGICAL HISTORY Procedure Laterality Date CHOLECYSTECTOMY TONSILLECTOMY HX History Review: I have reviewed and modified as needed, the following during this visit: Allergies, Past Medical History, Past Surgical History, Past Family History, Past Social History. Physical Exam BP 131/69 Pulse 89 Temp 36.6 C (97.9 F) (Temporal) Resp 14 Ht 170.2 cm (5' 7 ) Wt 112 kg (247 lb) LMP 11/14/2023 (Approximate) BMI 38.69 kg/m GENERAL: Well appearing, alert, comfortable, in no acute distress, well-hydrated, well nourished. HEENT: Negative for external ears normal. Canals are clear. Eye Exam normal. External nose normal, no nasal ulcer or throat ulcer. NECK: NECK Supple, no adenopathy CARDIAC: regular rate and rhythm, No murmur asculated., and Equal peripheral pulses RESPIRATORY: Lungs clear to auscultation. No wheezing, rhonchi, rales NEURO: Motor and sensory exam normal MOTOR: Normal; including tone, gait, stressed gait, power and coordination. SKIN: Negative for alopecia, skin rash, malar rash, skin lesion, skin ulcer, pits, thickening, color changes, telangiectasias, nail changes, nail ridging, nail pitting, onycholysis MUSCULOSKELETAL: no synovitis or swelling, no tenderness, full ROM of extremities Recent Lab Results: Serologies / biopsy: 10/15/2023 G6PD: 15.6 TPMT: 27.3 Hep B and Hep C - negative REMA 1:160, SSA 7.1 Neg anti ds DNA, Sm, BUSINESS SUPPORT LIAISON, C3, C4, khoa-1, APLS, QIG, hep C, ANCA, RF, CCP 06/2019 Rheum consult [facility] note: SKIN, LEFT FOREARM, PUNCH - VACUOLAR INTERFACE DERMATITIS WITH INCREASED DERMAL MUCIN Comment: This cutaneous pattern of injury is most supportive of a connective tissue disease such as systemic lupus erythematosus, subacute cutaneous lupus erythematosus, or dermatomyositis. Classic histologic features of polymorphous light eruption including a deep perivascular inflammatory infiltrate and prominent papillary dermal edema are not identified. Morphological features of porphyria are not identified. If the patient's symptoms persist or worsen, a repeat biopsy is recommended. 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 GMS STAIN FOR FUNGUS IS NEGATIVE NEGATIVE FOR DYSPLASIA OR MALIGNANCY. 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 She has been on hydroxychloroquine without much relief. She also reports a rash over her scalp and groin area. She had 2 skin biopsies - which are listed above. While cutaneous lupus and other autoimmune diseases like psoriasis is possible she does not seem to be having any systemic symptoms. Other immunosuppressive agents can be considered - like dapsone or methotrexate. She is currently not having any rashes, so would hold off starting any new systemic therapies. Continue close follow up with dermatology. Recommend re-biopsy with next flare. Smoking cessation discussed at length with the patient. She will need to follow up with PCP to discuss options to help her quit smoking. Follow up: 3 months Continue low gluten, low sugar diet Jeff Howard PA-C documented in this encounter [facility] 10-15-2023 History of Present illness Narrative DATE OF SERVICE: 10/15/2023 PATIENT NAME: Santa Taylor : 1990 AGE: 32 y.o. CLINIC NUMBER: [id number] Visit type: Established patient Chief Complaint Patient presents with Seborrheic Dermatitis (LMS) Subjective HISTORY OF PRESENT ILLNESS: This is a 32 y.o. female who presents for evaluation of Lupus; last seen 04/12/23. Tx: Clobetasol ointment BID/prn flares and Flonase prn flares for issues inside nose. Pt was also currently taking Plaquenil 400 mg daily-Pt states she is seeing a different Client Engagement Manager who states she does not think her skin issues are Lupus, so she had her stop this a couple months ago. Pt states her skin flares come and go. Pt states her Rheum mentioned possibly starting methotrexate. Skin is currently under control with no flaring. Elan derm of scalp. Tx: Ketoconazole shampoo 3x week. Pt states she ran out if this, but feels this does help when she has it. Pt states she has been having recurrent ear infections that start on the outside of the ear and leads to an actual ear infection. Pt states she does see ENT for this who prescribed Clobetasol ointment with improvement of symptoms. Review of Systems Orders Placed This Encounter Medications ketoconazole (NIZOral) 2 % shampoo Sig: Use to wash the scalp 3 to 4 times weekly allowing to sit 3 minutes before rinsing. May use regular shampoo and condition after. Dispense: 120 mL Refill: 3 clobetasol (Temovate) 0.05 % external solution Sig: Apply to affected areas on scalp BID x 6 weeks Stop using when clear. Repeat as needed for flares. Do not use on face, armpits, groin. Dispense: 50 mL Refill: 2 There were no vitals filed for this visit. PHYSICAL EXAM GENERAL APPEARANCE: Alert & oriented x3, pleasant. Well developed, well nourished. PSYCH: appropriate mood and affect DERMATOLOGY: (all measurements are in cm, unless otherwise noted) 1. Seborrheic dermatitis Scalp No current flares [x]Chronic []Acute [x]Stable []Flaring/Exacerbation - Educated and reassured. Treatment options, risks, benefits, and expectations reviewed. Start: - Ketoconazole 2% shampoo- Use to wash the scalp 3 to 4 times weekly allowing to sit 3 minutes before rinsing. May use regular shampoo and condition after. - Clobetasol 0.05% solution- Apply to affected areas on scalp BID x 6 weeks Stop using when clear. Repeat as needed for flares. Do not use on face, armpits, groin. Related Medications clobetasol (Temovate) 0.05 % ointment Apply to affected areas BID x 2 weeks Stop using when clear. Repeat as needed for flares. Do not use on face, armpits, groin. ketoconazole (NIZOral) 2 % shampoo Use to wash the scalp 3 to 4 times weekly allowing to sit 3 minutes before rinsing. May use regular shampoo and condition after. clobetasol (Temovate) 0.05 % external solution Apply to affected areas on scalp BID x 6 weeks Stop using when clear. Repeat as needed for flares. Do not use on face, armpits, groin. 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 Treatment options, risks, benefits, and expectations reviewed. Patient advised to contact office if skin flares before next follow up in order to re-biopsy and confirm diagnosis. Recommend continuing to follow with rheumatology. Patient expresses understanding and is agreeable to plan. Continue: - Clobetasol 0.05% ointment BID/PRN flares - Flonase PRN for flares to the nostrils. Related Medications clobetasol (Temovate) 0.05 % ointment Apply to affected areas BID x 2 weeks Stop using when clear. Repeat as needed for flares. Do not use on face, armpits, groin. hydroxychloroquine (Plaquenil) 200 MG tablet 400 mg daily Follow up in about 6 months (around 04/14/2024) for Lupus f/u. Fanny Garza PA-C 10/15/23 1:58 PM REFERRING MD: documented in this encounter [facility] 10-02-2023 Note HNO ID: [id number] Author: KEISHA GONCALVES MD Service: ? Author Type: Physician Type: Progress Notes Filed: 10/03/2023 14:13 Note Text: VIRTUAL VISIT PROGRESS NOTE This is a virtual visit using [employer] Video Visit. It required patient-provider interaction for the medical decision making as documented below. I have communicated my name and active licensure. The patient's identity and physical location were verified at the time of this visit. Either the patient or their legal client account representative has been informed of the risks and benefits of -- and alternatives to -- treatment through a remote evaluation and consents to proceed with the evaluation remotely. Santa Taylor is a 32 year old female seen for positive REMA. Seen by rheum jamie ridley. Diagnosed with lupus 2018 (presented with rash which started with sun burn) and been on Plaquenil. Issues with nose, scalp, groin, given steroid creams. Photosensitive. She had a skin biopsy. Not sure of the results but was told once she had SCLE. She had another biopsy in groin area inflammation . Notes reviewed from derm which also mentions - Hidradenitis suppurativa , seborrheic dermatitis. Recurrent ear infections. External usually. Saw ENT. Was told she has eczema and leads to ear infections. Denies joint pain. Other than right foot plantar fasciitis. Low vit d Family h/o autoimmune disease - grandmother and father with arthritis, father with raynaud's phenomenon, possible psoriasis Smoking - active Rheumatology REVIEW OF SYSTEMS: Constitutional: Recent Weight Change: No Fatigue: No Fever: No Night sweats: No Heent: Alopecia: No H/o Inflammatory eye disease (iritis/scleritis): No Hearing loss: No Frequent sinusitis: No Oral ulcers: No Sicca: No Parotid swelling: No Hoarseness: No Dysphagia: No Heme/lymph: Lymphadenopathy: No Hematological abnormalities (anemia, thrombocytopenia, leukopenia): No Abnormal bleeding: No Skin: Malar or discoid lesions: No Photosensitivity: YES Other rashes: YES Raynaud's phenomenon: No Hives: No Tightness: No Nodules/bumps: No Easy Bruising: No Nail changes: No H/o psoriasis: No Gastroenterology: Nausea: YES Vomiting: no Change in bowel movements: YES diarrhea s/p helen Heartburn: No Respiratory: Dry cough/SOB: No Cardiovascular: Pain in chest: No Musculoskeletal: Per HPI Genitourinary: Vaginal dryness: No Rash/ulcers: No Neurological: Headaches: No Sensitivity or pain of hands and/or feet: No Psychiatry: Anxiety: YES on meds Depression: YES on meds Poor sleep: No Bipolar II disease H/o loss: No H/o thrombosis: No Increased susceptibility to infection: No HISTORY REVIEWED (electronic chart updated): PAST MEDICAL HISTORY Diagnosis Date Depression PAST SURGICAL HISTORY Procedure Laterality Date CHOLECYSTECTOMY TONSILLECTOMY HX FAMILY HISTORY Problem Relation Age of Onset No Family History No Family History Colon Cancer/Polyps Social History Tobacco Use Smoking status: Every Day Smokeless tobacco: Never Substance Use Topics Alcohol use: Yes Drug use: No Current Outpatient Medications Medication Sig VRAYLAR 3 mg capsule Take 1 capsule by mouth every afternoon. Cholecalciferol, Vitamin D3, 25 mcg (1,000 unit) cap Take by mouth as directed. clobetasol (TEMOVATE) 0.05 % ointment Apply to affected areas BID x 2 weeks Stop using when clear. Repeat as needed for flares. Do not use on face, armpits, groin. fluticasone (FLONASE) 50 mcg/actuation nasal spray inhale 2 sprays into each nostril at bedtime (Patient not taking: Reported on 08/30/2023) ketoconazole (NIZORAL) 2 % shampoo WASH SCALP 3 TO 4 TIMES PER WEEK. ALLOW TO SIT FOR 3 MINUTES BEFO... (REFER TO PRESCRIPTION NOTES). multivit,thx,calcium,iron,mins (MULTIVITAMIN AND MINERAL ORAL) Take by mouth. No current facility-administered medications for this visit. ALLERGIES Allergen Reactions Lamotrigine Hives, Mental Status Change, Other: See Comments, Rash Developed full body rash/hives 7 days after starting medication Developed full body rash/hives 7 days after starting medication Azathioprine Other: See Comments Other reaction(s): Other (See Comments) Severe pain/flu like sx Severe pain/flu like sx Severe pain/flu like sx Severe pain/flu like sx Ciprofloxacin Hives Clindamycin Hives, Other: See Comments Other reaction(s): Hives Crary Hives Oxcarbazepine Other: See Comments, Hives REVIEW OF SYSTEMS: All other ROS: negative As noted in HPI PHYSICAL EXAMINATION: VIDEO EXAM: (if completed, performed via video enabled technology) GENERAL: alert and appropriate, in no distress, well-hydrated, well nourished, and happy, smiling, interactive REMA 1:160, SSA 7.1 Neg anti ds DNA, Sm, BUSINESS SUPPORT LIAISON, C3, C4, khoa-1, APLS, QIG, hep C, ANCA, RF, CCP ASSESSMENT: (R21) Rash and nonspecific skin eruption (primary encoun (more content not included)... [facility] 09-03-2023 Note HNO ID: [id number] Author: Jorge Dean MD Service: ? Author Type: Physician Type: Progress Notes Filed: 09/03/2023 4:53 PM Note Text: [place]: Santa Taylor is a 32 year old, White, female who presents, I am here about my ears . She has a couple of years of ear problems. She was seen at Dr. Brown's office and had a normal audiogram. She describes getting dry, irritated skin and sometimes fluid leakage from both ear canals. She has a similar problem with dry cracked skin in her nostrils (intermittently). She has been treated with oral antibiotics, oral steroids and occasionally eardrops. Her PCP has diagnosed her with acute otitis media. She does not have general bleeding or bruising problems and does not use aspirin or blood thinners. SUBJECTIVE: I reviewed the allergies, medications, problem list, PMH/PSH, FmHx and SocHx as documented in Epic chart. PHYSICAL EXAM: VS: BP 136/88 Pulse 112 Resp 16 Ht 170.2 cm (5' 7 ) Wt 112.9 kg (249 lb) LMP 01/14/2018 (Exact Date) BMI 39.00 kg/m? CONST/MS: The patient appears to be in NAD and has a normal voice quality. H/F/N: The facial strength is normal. There are no palpable salivary gland, thyroid or neck masses. Ears: The external ears and canals are without lesions, but the left erin has red dry skin and the left canal has red dry skin while the right canal has slightly dry skin. Each TM is intact and mobile on pneumatic otoscopy. Nose: The external nose has both nostrils with red dry cracked skin. The nasal mucosa appears slightly dry on nasal speculum exam. The septum is nonobstructive. The IT are not hypertrophic. OC/OP: The upper lip has a benign-appearing nevus. The gums are without lesions. The tongue/oral mucosa is healthy. The hard/soft palate, tonsil fossa and posterior pharynx are without lesions. The teeth have some crowns and fillings. FRESH FOODS CLERK: The mirror exam is without obvious lesion. HP/LX: The mirror exam is without obvious lesion hypopharynx but the epiglottis blocked view of the larynx. OBJECTIVE: I reviewed the PCP notes. ASSESSMENT AND PLAN: I counseled the patient about the differential diagnosis, natural course, treatment options and answered their questions for 1. Chronic eczematoid otitis externa of both ears - ICD9: 380.23, ICD10: H60.8X3 (primary diagnosis) 2. Nasal vestibulitis - ICD9: 478.19, ICD10: J34.89 3. Dry nose - ICD9: 478.19, ICD10: J34.89 She was counseled to use nasal saline gel and nasal saline spray for the dry mucosa. She was counseled to use a small amount of the clobetasol ointment she has at home daily in the ears and in the nostrils. She may stop using it in the nostrils once they feel better but should continue to use it in the ears once a week. Return in about 2 months (around 10/31/2023) for Ears, Nose. Jorge Dean MD 50 minutes Total time including preparation, obtaining/reviewing history, exam, interpreting results, ordering, counseling/education, referring/communicating and documentation. Created using voice recognition software, some errors may have occurred. Corrections may be performed at a later date. [facility] 08-17-2023 Miscellaneous Notes Called patient and left message to call back. Ana Conner ----- Message from Sylvia Guadarrama sent at 08/17/2023 1:10 PM EST ----- Regarding: Rheu/NEW/ Lupus / wants a second opinion Contact: Patient has been identified by name and Date of (Y/N): y Patient: Santa Taylor Date of : 1990 Provider for this encounter: NEW Reason for the call/escalation: Patient Diagnosed with Lupus would like a second opinion currently a [facility] Patient / Per question we ask I am unable to schedule/ Please reach out Was Patient Referred to 911/Seek Emergency Treatment (Y/N): n Did Patient Agree (Y/N): n Was An Attempt Made To Transfer The Patient To The Office (Y/N): n Were You Able To Reach Someone At The Office (Y/N): n If Yes - Patient Was Transferred To (Caregivers Name): n If No - Which [facility] Leadership Lab Tech Did You Speak With Regarding This Patient: n Was an appointment scheduled (Y/N): n Reason patient was requesting visit (RFV/signs and symptoms/diagnosis) : Diagnosed with Lupus would like a second opinion Person calling if other than patient: n Return call to if other than patient: n Best contact number: [phone] Thank you, Sylvia Guadarrama August 17, 2023 1:10 PM documented in this encounter [facility] 08-09-2023 Note ORIGINAL EXAMINATION: MRI OF THE BRAIN WITHOUT AND WITH CONTRAST 08/09/2023 3:21 pm TECHNIQUE: Multiplanar multisequence MRI of the head/brain was performed without and with the administration of intravenous contrast. COMPARISON: CT facial 02/27/2021, CT sinuses 02/08/2023. HISTORY: ORDERING SYSTEM PROVIDED HISTORY: Reason for Exam: Worst headache of life, persistent headaches x 1 months FINDINGS: INTRACRANIAL STRUCTURES/VENTRICLES: There is no acute infarct. No mass effect or midline shift. No evidence of an acute intracranial hemorrhage. The ventricles and sulci are normal in size and configuration. The sellar/suprasellar regions appear unremarkable. The normal signal voids within the major intracranial vessels appear maintained. No abnormal focus of enhancement is seen within the brain. ORBITS: The visualized portion of the orbits demonstrate no acute abnormality. SINUSES: Mild mucosal thickening of the maxillary sinuses and ethmoidal air cells. Nonspecific opacification of the bilateral mastoid air cells, right greater than left. BONES/SOFT TISSUES: The bone marrow signal intensity appears normal. The soft tissues demonstrate no acute abnormality. IMPRESSION: No acute intracranial abnormality. Right greater than left bilateral mastoid air cell effusion. I have personally reviewed the images of this examination and agree with the resident's findings and interpretation. Interpreted by: Han Chambers MD Preliminary Report By: Arash Edmond Electronically signed By Han Chambers MD Dictated Date: 08/09/2023 3:23:34 PM Prelim Date: 08/09/2023 3:56:43 PM Sign Date: 08/09/2023 3:56:43 PM Ordering Provider: [facility] [facility] Hospital Discharge instructions Patient Education 07/22/2023 19:52:57 Otitis Media, Antibiotic Treatment (Adult) Middle Ear Infection (Adult) You have an infection of the middle ear, the space behind the eardrum. This is also called acute otitis media (AOM). Sometimes it is caused by the common cold. This is because congestion can block the internal passage (eustachian tube) that drains fluid from the middle ear. When the middle ear fills with fluid, bacteria can grow there and cause an infection. Oral antibiotics are used to treat this illness, not ear drops. Symptoms usually start to improve within 1 to 2 days of treatment. Home care The following are general care guidelines: Finish all of the antibiotic medicine given, even though you may feel better after the first few days. You may use ewmz-jem-hbbgqdj medicine, such as acetaminophen or ibuprofen, to control pain and fever, unless something else was prescribed. If you have chronic liver or kidney disease or have ever had a stomach ulcer or gastrointestinal bleeding, talk with your healthcare provider before using these medicines. Do not give aspirin to anyone under 18 years of age who has a fever. It may cause severe illness or . Follow-up care Follow up with your healthcare provider, or as advised, in 2 weeks if all symptoms have not gotten better, or if hearing doesn't go back to normal within 1 month. When to seek medical advice Call your healthcare provider right away if any of these occur: Ear pain gets worse or does not improve after 3 days of treatment Unusual drowsiness or confusion Neck pain, stiff neck, or headache Fluid or blood draining from the ear canal Fever of 100.4 F (38 C) or as advised Seizure [id number] [employer]. [address] [place] [id number]. All rights reserved. This information is not intended as a substitute for professional medical care. Always follow your healthcare professional's instructions. Follow Up Care 07/22/2023 19:02:28 With:TERESE ERNST Address: [address] [place] [phone] When:2-4 days [facility] 07-22-2023 Note Discharge Instructions Thank you for allowing [facility] to assist you with your healthcare needs. The following is important discharge information regarding your hospital visit. Diagnosis from Today's Visit Body aches Fever Headache What to Do Next Instructions from Your Care Team No qualifying data available. Post Acute Orders No qualifying data available. You Need to Schedule the Following Appointments Follow Up with TERESE ERNST When Within 2-4 days Where: [address] [place] [phone] Allergies Cipro Trileptal clindamycin (Hives) Medications Please ask your primary doctor or pharmacist before taking any other medication not listed, including over the counter drugs, herbal medications, vitamins and or supplements as they may interact with your home medications. What How Much When Why Instructions Last Dose New amoxicillin (amoxicillin 875 mg oral tablet) 1 tab(s) by mouth Two (2) times a day Duration: 7 Days Take with a probiotic Printed Prescription Unchanged acetaminophen (acetaminophen 500 mg oral tablet) 2 tab(s) by mouth Three (3) times a day as needed for pain or fever Unchanged busPIRone (busPIRone 7.5 mg oral tablet) 1 tab(s) by mouth Two (2) times a day Duration: 30 Days Unchanged cariprazine (Vraylar 4.5 mg oral capsule) 1 cap by mouth Once a day Duration: 30 Days Unchanged clobetasol topical (Temovate 0.05% topical cream) See instructions Vulvar irritation apply a thin film 2-3 times per week. Unchanged FLUoxetine (FLUoxetine 20 mg oral capsule) 3 cap by mouth Once a day Unchanged fluticasone nasal (fluticasone proprionate NASAL 50 mcg/ spray) 2 spray(s) each nostril Once a day (in the morning) Unchanged gabapentin (gabapentin 300 mg oral capsule) 1 cap by mouth Two (2) times a day Unchanged hydroxychloroquine (Plaquenil 200 mg oral tablet) 2 tab(s) by mouth Once a day Unchanged ondansetron (ondansetron 4 mg oral tablet, disintegrating) 1 tab(s) by mouth Every 8 hours Duration: 3 Days Unchanged predniSONE (prednisone 10mg tab (TAPER)) Taper 40-30-20-10 x 3 days each dose by mouth Once a day Cutaneous lupus erythematosus Duration: 12 Days Take with food/ meal Please take this list to your next doctor s visit. Bring all medications you take, including over the counter medications, herbals and other supplements with you to your doctor s visit. Patients and families are reminded to discard old lists and to update any records with all medication providers or retail pharmacies. Education Materials Middle Ear Infection (Adult) You have an infection of the middle ear, the space behind the eardrum. This is also called acute otitis media (AOM). Sometimes it is caused by the common cold. This is because congestion can block the internal passage (eustachian tube) that drains fluid from the middle ear. When the middle ear fills with fluid, bacteria can grow there and cause an infection. Oral antibiotics are used to treat this illness, not ear drops. Symptoms usually start to improve within 1 to 2 days of treatment. Home care The following are general care guidelines: Finish all of the antibiotic medicine given, even though you may feel better after the first few days. You may use gxuo-qew-rfilcly medicine, such as acetaminophen or ibuprofen, to control pain and fever, unless something else was prescribed. If you have chronic liver or kidney disease or have ever had a stomach ulcer or gastrointestinal bleeding, talk with your healthcare provider before using these medicines. Do not give aspirin to anyone under 18 years of age who has a fever. It may cause severe illness or . Follow-up care Follow up with your healthcare provider, or as advised, in 2 weeks if all symptoms have not gotten better, or if hearing doesn't go back to normal within 1 month. When to seek medical advice Call your healthcare provider right away if any of these occur: Ear pain gets worse or does not improve after 3 days of treatment Unusual drowsiness or confusion Neck pain, stiff neck, or headache Fluid or blood draining from the ear canal Fever of 100.4 F (38 C) or as advised Seizure [id number] [employer]. [address] [place] [address], [place] [address]. All rights reserved. This information is not intended as a substitute for professional medical care. Always follow your healthcare professional's instructions. Additional Information VACCINATE! IT SAVES LIVES! Members of the community who have not yet received the COVID-19 vaccine and would like to receive it can visit one of [facility] vaccine clinics. There are many vaccine clinic locations within the [facility]. For locations and available times, please visit [email or web address] It is important to note that some COVID mobile vaccine clinics are held outdoors and may be canceled in rainy or stormy conditions. To learn more about pediatric vaccinations (ages 5-11), we invite you to visit the [employer] webpage. https://[email or web address]/pa [email or web address]-Difyr-Gsbswoswvtj-Freque nwzn-Yhglq-Pwsstlule.html To learn more about the COVID-19 vaccine, we invite you to visit the CDC website for a list of frequently asked questions. https://www.cdc.gov/coronavirus/2 019-ncov/vaccines/faq.html [facility] Patient Portal Access Instructions: Stay connected with your healthcare team and access your personal medical information anytime with the [facility] Patient Portal. If you would like a full copy of your medical records please contact the [facility] Medical Records Department Sunday through Sunday between 8a.m. and 4:30p.m. Please follow the directions below to access the portal: 1.Access the email account you provided upon registration to the hospital.2.Look for an invitation email from [facility].3.Open the email and access the invitation link: Accept Invitation to [facility]4.Fill in the required servin to create your account. Sign into [email or web address] with your username and password that you created in the above steps to stay up to date. You can then view a summary of results, a summary of your visits, and the ability to download your summaries to your computer or send the information securely to a physician. Remember that your healthcare information is confidential, so carefully consider who you will allow to register on the [employer] [employer] Patient Portal for access to your information. You can also access the [employer] Patient Portal on the [employer] gifty. Simply click on Health Records under Health Data and then click on the [employer] logo. HOW TO SAFELY DISPOSE OF PRESCRIPTION MEDICATIONS Please use one of the following methods to safely dispose of your unused medications. 1.Use a drug disposal kit: the drug disposal pouch allows you to safely discard your old and unused drugs. Ask your nurse to give you one when you are discharged.2.Visit a local take-back location: Many local pharmacies and police departments have programs that collect old and unwanted prescription drugs. Call your local pharmacy or go to http://Windeln.de.Nutzvieh24/1B1Vt1c to find one close to you.3.Make use of household items: Use cat litter or old coffee grounds to dispose medications if other options are not available. Mix your drugs with these household products, seal them in an airtight container and throw it into the garbage. Call [facility]: [phone] to be sure your drugs can be disposed of in this way. Some medicines may require a different approach.4.Never flush your medications down the toilet. IF YOU HAVE BEEN PRESCRIBED AN OPIOIDS FOR PAIN If you have been prescribed an opioid (such as hydrocodone, oxycodone or morphine), it is critical to understand the possible side effects and risks of opioid pain medications. Even when taken as directed, opioids can have several side effects including: Tolerance, meaning you might need to take more of a medication for the same pain relief. Nausea, vomiting and/or constipation. Sleepiness, dizziness, dry mouth, confusion, depression or itching. Physical dependence, meaning you have withdrawal symptoms when a medication is stopped ? this can develop within a few days. KNOW YOUR RESPONSIBILITIES It is important to know exactly how much and how often to take the opioid pain medications you are prescribed. Never take opioids in higher amounts or more often than prescribed. Do not combine opioids with alcohol or other drugs that cause drowsiness, such as benzodiazepines, also known as benzos, including diazepam and alprazolam, muscle relaxants or sleep aids. Never sell or share prescription opioids. This is illegal. Store opioids in a secure place and out of reach of others (including children, family, friends and visitors). The last page(s) of this document has been signed and retained as a CHART COPY Signatures Patient Education Materials Otitis Media, Antibiotic Treatment (Adult) Medication Leaflets My discharge plan and instructions have been reviewed and explained to me and I,POLINAZAKJohn SANTA D understand my current condition and have read and understand these discharge instructions. I have received a written copy of the plan/instructions. If I have questions, I am aware that I should contact my doctor. 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 The following is important discharge information regarding your hospital visit. Diagnosis from Today's Visit Body aches What to Do Next Instructions from Your Care Team No qualifying data available. Post Acute Orders No qualifying data available. You Need to Schedule the Following Appointments Follow Up with TERESE ERNST When Within 2-4 days Where: [address] [facility] [place] [address] [phone] Allergies Cipro Trileptal clindamycin (Hives) Medications Please ask your primary doctor or pharmacist before taking any other medication not listed, including over the counter drugs, herbal medications, vitamins and or supplements as they may interact with your home medications. What How Much When Why Instructions Last Dose New ondansetron (ondansetron 4 mg oral tablet, disintegrating) 1 tab(s) by mouth Every 8 hours Duration: 3 Days Printed Prescription Unchanged acetaminophen (acetaminophen 500 mg oral tablet) 2 tab(s) by mouth Three (3) times a day as needed for pain or fever Unchanged busPIRone (busPIRone 7.5 mg oral tablet) 1 tab(s) by mouth Two (2) times a day Duration: 30 Days Unchanged cariprazine (Vraylar 4.5 mg oral capsule) 1 cap by mouth Once a day Duration: 30 Days Unchanged clobetasol topical (Temovate 0.05% topical cream) See instructions Vulvar irritation apply a thin film 2-3 times per week. Unchanged FLUoxetine (FLUoxetine 20 mg oral capsule) 3 cap by mouth Once a day Unchanged fluticasone nasal (fluticasone proprionate NASAL 50 mcg/ spray) 2 spray(s) each nostril Once a day (in the morning) Unchanged gabapentin (gabapentin 300 mg oral capsule) 1 cap by mouth Two (2) times a day Unchanged hydroxychloroquine (Plaquenil 200 mg oral tablet) 2 tab(s) by mouth Once a day Unchanged predniSONE (prednisone 10mg tab (TAPER)) Taper 40-30-20-10 x 3 days each dose by mouth Once a day Cutaneous lupus erythematosus Duration: 12 Days Take with food/ meal Please take this list to your next doctor s visit. Bring all medications you take, including over the counter medications, herbals and other supplements with you to your doctor s visit. Patients and families are reminded to discard old lists and to update any records with all medication providers or retail pharmacies. Education Materials Viral Syndrome (Adult) A viral illness may cause a number of symptoms such as fever. Other symptoms depend on the part of the body that the virus affects. If it settles in your nose, throat, and lungs, it may cause cough, sore throat, congestion, runny nose, headache, earache and other ear symptoms, or shortness of breath. If it settles in your stomach and intestinal tract, it may cause nausea, vomiting, cramping, and diarrhea. Sometimes it causes generalized symptoms like aching all over, feeling tired, loss of energy, or loss of appetite. A viral illness usually lasts anywhere from several days to several weeks, but sometimes it lasts longer. In some cases, a more serious infection can look like a viral syndrome in the first few days of the illness. You may need another exam and additional tests to know the difference. Watch for the warning signs listed below for when to seek medical advice. Home care Follow these guidelines for taking care of yourself at home: If symptoms are severe, rest at home for the first 2 to 3 days. Stay away from cigarette smoke - both your smoke and the smoke from others. You may use emei-trp-ofzpkme acetaminophen or ibuprofen for fever, muscle aching, and headache, unless another medicine was prescribed for this. If you have chronic liver or kidney disease or ever had a stomach ulcer or gastrointestinal bleeding, talk with your healthcare provider before using these medicines. No one who is younger than 18 and ill with a fever should take aspirin. It may cause severe disease or . Your appetite may be poor, so a light diet is fine. Avoid dehydration by drinking 8 to 12, 8-ounce glasses of fluids each day. This may include water; orange juice; lemonade; apple, grape, and cranberry juice; clear fruit drinks; electrolyte replacement and sports drinks; and decaffeinated teas and coffee. If you have been diagnosed with a kidney disease, ask your healthcare provider how much and what types of fluids you should drink to prevent dehydration. If you have kidney disease, drinking too much fluid can cause it build up in the your body and be dangerous to your health. Cdwn-haa-zlqpdwh remedies won't shorten the length of the illness but may be helpful for symptoms such as cough, sore throat, nasal and sinus congestion, or diarrhea. Don't use decongestants if you have high blood pressure. Follow-up care Follow up with your healthcare provider if you do not improve over the next week. Call 911 Call 911 if any of the following occur: Convulsion Feeling weak, dizzy, or like you are going to faint Chest pain, or more than mild shortness of breath When to seek medical advice Call your healthcare provider right away if any of these occur: Cough with lots of colored sputum (mucus) or blood in your sputum Chest pain, shortness of breath, wheezing, or trouble breathing Severe headache; face, neck, or ear pain Severe, constant pain in the lower right side of your belly (abdominal) Continued vomiting (can t keep liquids down) Frequent diarrhea (more than 5 times a day); blood (red or black color) or mucus in diarrhea Feeling weak, dizzy, or like you are going to faint Extreme thirst Fever of 100.4 F (38 C) or higher, or as directed by your healthcare provider [id number] [employer]. [address] [place] [address], [place] [address]. All rights reserved. This information is not intended as a substitute for professional medical care. Always follow your healthcare professional's instructions. Additional Information VACCINATE! IT SAVES LIVES! Members of the community who have not yet received the COVID-19 vaccine and would like to receive it can visit one of [facility] vaccine clinics. There are many vaccine clinic locations within the [facility]. For locations and available times, please visit [email or web address] [email or web address] It is important to note that some COVID mobile vaccine clinics are held outdoors and may be canceled in rainy or stormy conditions. To learn more about pediatric vaccinations (ages 5-11), we invite you to visit the [facility] webpage. https://www.Blockchains.org/pa ges/2025-Eepnu-Jfywlshjdkr-Freque ghvr-Xnvuj-Fltthbmzq.html To learn more about the COVID-19 vaccine, we invite you to visit the CDC website for a list of frequently asked questions. https://www.cdc.gov/coronavirus/2 019-ncov/vaccines/faq.html [facility] Patient Portal Access Instructions: Stay connected with your healthcare team and access your personal medical information anytime with the [facility] Patient Portal. If you would like a full copy of your medical records please contact the [facility] Medical Records Department Sunday through Sunday between 8a.m. and 4:30p.m. Please follow the directions below to access the portal: 1.Access the email account you provided upon registration to the hospital.2.Look for an invitation email from [facility].3.Open the email and access the invitation link: Accept Invitation to [facility]4.Fill in the required servin to create your account. Sign into [email or web address] with your username and password that you created in the above steps to stay up to date. You can then view a summary of results, a summary of your visits, and the ability to download your summaries to your computer or send the information securely to a physician. Remember that your healthcare information is confidential, so carefully consider who you will allow to register on the [employer] [employer] Patient Portal for access to your information. You can also access the [employer] Patient Portal on the [employer] gifty. Simply click on Health Records under Health Data and then click on the [employer] logo. HOW TO SAFELY DISPOSE OF PRESCRIPTION MEDICATIONS Please use one of the following methods to safely dispose of your unused medications. 1.Use a drug disposal kit: the drug disposal pouch allows you to safely discard your old and unused drugs. Ask your nurse to give you one when you are discharged.2.Visit a local take-back location: Many local pharmacies and police departments have programs that collect old and unwanted prescription drugs. Call your local pharmacy or go to http://Windeln.de.Nutzvieh24/5U9Sx0o to find one close to you.3.Make use of household items: Use cat litter or old coffee grounds to dispose medications if other options are not available. Mix your drugs with these household products, seal them in an airtight container and throw it into the garbage. Call [facility]: [phone] to be sure your drugs can be disposed of in this way. Some medicines may require a different approach.4.Never flush your medications down the toilet. IF YOU HAVE BEEN PRESCRIBED AN OPIOIDS FOR PAIN If you have been prescribed an opioid (such as hydrocodone, oxycodone or morphine), it is critical to understand the possible side effects and risks of opioid pain medications. Even when taken as directed, opioids can have several side effects including: Tolerance, meaning you might need to take more of a medication for the same pain relief. Nausea, vomiting and/or constipation. Sleepiness, dizziness, dry mouth, confusion, depression or itching. Physical dependence, meaning you have withdrawal symptoms when a medication is stopped ? this can develop within a few days. KNOW YOUR RESPONSIBILITIES It is important to know exactly how much and how often to take the opioid pain medications you are prescribed. Never take opioids in higher amounts or more often than prescribed. Do not combine opioids with alcohol or other drugs that cause drowsiness, such as benzodiazepines, also known as benzos, including diazepam and alprazolam, muscle relaxants or sleep aids. Never sell or share prescription opioids. This is illegal. Store opioids in a secure place and out of reach of others (including children, family, friends and visitors). The last page(s) of this document has been signed and retained as a CHART COPY Signatures Patient Education Materials Viral Syndrome (Adult) Medication Leaflets My discharge plan and instructions have been reviewed and explained to me and I,SANTA TAYLOR understand my current condition and have read and understand these discharge instructions. I have received a written copy of the plan/instructions. If I have questions, I am aware that I should contact my doctor. 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 Other symptoms depend on the part of the body that the virus affects. If it settles in your nose, throat, and lungs, it may cause cough, sore throat, congestion, runny nose, headache, earache and other ear symptoms, or shortness of breath. If it settles in your stomach and intestinal tract, it may cause nausea, vomiting, cramping, and diarrhea. Sometimes it causes generalized symptoms like aching all over, feeling tired, loss of energy, or loss of appetite. A viral illness usually lasts anywhere from several days to several weeks, but sometimes it lasts longer. In some cases, a more serious infection can look like a viral syndrome in the first few days of the illness. You may need another exam and additional tests to know the difference. Watch for the warning signs listed below for when to seek medical advice. Home care Follow these guidelines for taking care of yourself at home: If symptoms are severe, rest at home for the first 2 to 3 days. Stay away from cigarette smoke - both your smoke and the smoke from others. You may use ftba-rmf-xbbonxj acetaminophen or ibuprofen for fever, muscle aching, and headache, unless another medicine was prescribed for this. If you have chronic liver or kidney disease or ever had a stomach ulcer or gastrointestinal bleeding, talk with your healthcare provider before using these medicines. No one who is younger than 18 and ill with a fever should take aspirin. It may cause severe disease or . Your appetite may be poor, so a light diet is fine. Avoid dehydration by drinking 8 to 12, 8-ounce glasses of fluids each day. This may include water; orange juice; lemonade; apple, grape, and cranberry juice; clear fruit drinks; electrolyte replacement and sports drinks; and decaffeinated teas and coffee. If you have been diagnosed with a kidney disease, ask your healthcare provider how much and what types of fluids you should drink to prevent dehydration. If you have kidney disease, drinking too much fluid can cause it build up in the your body and be dangerous to your health. Znrm-bil-[id number] remedies won't shorten the length of the illness but may be helpful for symptoms such as cough, sore throat, nasal and sinus congestion, or diarrhea. Don't use decongestants if you have high blood pressure. Follow-up care Follow up with your healthcare provider if you do not improve over the next week. Call 911 Call 911 if any of the following occur: Convulsion Feeling weak, dizzy, or like you are going to faint Chest pain, or more than mild shortness of breath When to seek medical advice Call your healthcare provider right away if any of these occur: Cough with lots of colored sputum (mucus) or blood in your sputum Chest pain, shortness of breath, wheezing, or trouble breathing Severe headache; face, neck, or ear pain Severe, constant pain in the lower right side of your belly (abdominal) Continued vomiting (can t keep liquids down) Frequent diarrhea (more than 5 times a day); blood (red or black color) or mucus in diarrhea Feeling weak, dizzy, or like you are going to faint Extreme thirst Fever of 100.4 F (38 C) or higher, or as directed by your healthcare provider [phone] [employer]. [address] [place] [address], [place] [address]. All rights reserved. This information is not intended as a substitute for professional medical care. Always follow your healthcare professional's instructions. Follow Up Care 07/21/2023 16:58:50 With:TERESE ERNST Address: [address] [facility] [place] [address] [phone] When:2-4 days [facility] 07-21-2023 SARS-CoV-2 (COVID-19) RNA JESIKA+probe Ql (Nph) Negative *NA* (07/21/23 6:01 PM) AO Auto Urine SS 05-25-2023 Note Addended by: Maxine MENDOZA on: 05/25/2023 02:59 PM Modules accepted: Orders [facility] 05-25-2023 Note Addended by: Maxine MENDOZA on: 05/25/2023 02:59 PM Modules accepted: Orders [facility] 05-25-2023 Note Addended by: Maxine MENDOZA on: 05/25/2023 02:59 PM Modules accepted: Orders [facility] 05-25-2023 Telephone encounter Note Orders entered. [facility] 05-25-2023 Miscellaneous Notes Addended by: ANA MENDOZA on: 05/25/2023 02:59 PM Modules accepted: Orders Orders entered. Please submit order for repeat ESR, CRP in 6 weeks documented in this encounter [facility] 05-25-2023 Telephone encounter Note Please submit order for repeat ESR, CRP in 6 weeks [employer] Work Phone: 05-24-2023 History of Present illness Narrative CHIEF COMPLAINT: follow up subacute cutaneous lupus HPI: REMA+, SS-A+; no sicca symptoms; skin improved with hydroxychloroquine; she has 3 concerns today: 1. Recurrent sinusitis, requiring frequent antibiotics and steroids; CT reportedly nondiagnostic and previous ANCA neg; 2. Vulvar irritation, not ulcers and not related to hidradenitis suppurativa; LE[employer] ENG[employer]ER evaluation negative for infection, treated with topical corticosteroids; 3. Pain/swelling lower leg and rt heel; Doppler negative for DVT ROS: + depression and anxiety Allergies Allergen Reactions Lamotrigine Hives and Rash Developed full body rash/hives 7 days after starting medication Azathioprine Other reaction(s): Other (See Comments) Severe pain/flu like sx Severe pain/flu like sx Ciprofloxacin Hives Other reaction(s): AOF Clindamycin Other reaction(s): Hives Crary Hives Oxcarbazepine Fever and Hives Current Outpatient Medications Medication Sig Dispense Refill busPIRone (Buspar) 7.5 MG tablet Take by mouth 2 times daily. Cariprazine HCl (Vraylar) 4.5 MG capsule Take by mouth daily. clobetasol (Temovate) 0.05 % ointment Apply to affected areas BID x 2 weeks Stop using when clear. Repeat as needed for flares. Do not use on face, armpits, groin. 60 g 3 FLUoxetine (PROzac) 20 MG capsule Take 20 mg by mouth daily. W/ 40mg =60mg FLUoxetine (PROzac) 40 MG capsule Take 40 mg by mouth daily. W/ 20mg = 60mg gabapentin (Neurontin) 300 MG capsule Take 300 mg by mouth 2 times daily. hydroxychloroquine (Plaquenil) 200 MG tablet 400 mg daily 60 tablet 4 ketoconazole (NIZOral) 2 % shampoo Use to wash the scalp 3 to 4 times weekly allowing to sit 3 minutes before rinsing. May use regular shampoo and condition after. 120 mL 3 No current facility-administered medications for this visit. OBJECTIVE: WT 239 lbs; no malar rash; no alopecia; no oral/nasal lesions; no parotid enlargement; no cervical lymphadenopathy; joints without swelling; rt heel is tender ; no Achilles tenderness Visit Vitals BP 137/85 (BP Location: Right arm, Patient Position: Sitting, BP Cuff Size: Large adult long) Pulse (!) 125 ASSESSMENT: 1. Subacute cutaneous lupus; sensitive evaluation for systemic lupus erythematosus and other connective tissue disease markers March was negative 2. Recurrent sinusitis; ANCA negative 3. Vulvar irritation; doubt Behcet's 4. Hidradenitis suppurativa; pt reports lesions much improved 5. Rt heel pain c/w plantar fasciitis PLAN: discussed stretching and icing for plantar fasciitis; discussed good arch support; no flip flops Orders Placed This Encounter Procedures C-reactive protein Standing Status: Future Number of Occurrences: 1 Standing Expiration Date: 05/24/2024 Sedimentation rate, automated Standing Status: Future Number of Occurrences: 1 Standing Expiration Date: 05/24/2024 documented in this encounter [facility] [employer] 05-24-2023 History of Present illness Narrative CHIEF COMPLAINT: follow up subacute cutaneous lupus HPI: REMA+, SS-A+; no sicca symptoms; skin improved with hydroxychloroquine; she has 3 concerns today: 1. Recurrent sinusitis, requiring frequent antibiotics and steroids; CT reportedly nondiagnostic and previous ANCA neg; 2. Vulvar irritation, not ulcers and not related to hidradenitis suppurativa; [employer]ER evaluation negative for infection, treated with topical corticosteroids; 3. Pain/swelling lower leg and rt heel; Doppler negative for DVT ROS: + depression and anxiety Allergies Allergen Reactions Lamotrigine Hives and Rash Developed full body rash/hives 7 days after starting medication Azathioprine Other reaction(s): Other (See Comments) Severe pain/flu like sx Severe pain/flu like sx Ciprofloxacin Hives Other reaction(s): AOF Clindamycin Other reaction(s): Hives Crary Hives Oxcarbazepine Fever and Hives Current Outpatient Medications Medication Sig Dispense Refill busPIRone (Buspar) 7.5 MG tablet Take by mouth 2 times daily. Cariprazine HCl (Vraylar) 4.5 MG capsule Take by mouth daily. clobetasol (Temovate) 0.05 % ointment Apply to affected areas BID x 2 weeks Stop using when clear. Repeat as needed for flares. Do not use on face, armpits, groin. 60 g 3 FLUoxetine (PROzac) 20 MG capsule Take 20 mg by mouth daily. W/ 40mg =60mg FLUoxetine (PROzac) 40 MG capsule Take 40 mg by mouth daily. W/ 20mg = 60mg gabapentin (Neurontin) 300 MG capsule Take 300 mg by mouth 2 times daily. hydroxychloroquine (Plaquenil) 200 MG tablet 400 mg daily 60 tablet 4 ketoconazole (NIZOral) 2 % shampoo Use to wash the scalp 3 to 4 times weekly allowing to sit 3 minutes before rinsing. May use regular shampoo and condition after. 120 mL 3 No current facility-administered medications for this visit. OBJECTIVE: WT 239 lbs; no malar rash; no alopecia; no oral/nasal lesions; no parotid enlargement; no cervical lymphadenopathy; joints without swelling; rt heel is tender ; no Achilles tenderness Visit Vitals BP 137/85 (BP Location: Right arm, Patient Position: Sitting, BP Cuff Size: Large adult long) Pulse (!) 125 ASSESSMENT: 1. Subacute cutaneous lupus; extensive evaluation for systemic lupus erythematosus and other connective tissue disease markers November was negative 2. Recurrent sinusitis; ANCA negative 3. Vulvar irritation; doubt Behcet's 4. Hidradenitis suppurativa; pt reports lesions much improved 5. Rt heel pain c/w plantar fasciitis PLAN: discussed stretching and icing for plantar fasciitis; discussed good arch support; no flip flops Orders Placed This Encounter Procedures C-reactive protein Standing Status: Future Number of Occurrences: 1 Standing Expiration Date: 05/24/2024 Sedimentation rate, automated Standing Status: Future Number of Occurrences: 1 Standing Expiration Date: 05/24/2024 documented in this encounter [facility] 04-12-2023 History of Present illness Narrative DATE OF SERVICE: 04/12/2023 PATIENT NAME: Santa Taylor : 1990 AGE: 32 y.o. CLINIC NUMBER: [id number] Visit type: Established patient Chief Complaint Patient presents with Seborrheic Dermatitis (PKN) Subjective HISTORY OF PRESENT ILLNESS: This is a 32 y.o. female who presents for evaluation of seborrheic dermatitis; last seen 12/13/2022. F/u-seborrheic dermatitis to the scalp; Improved since last visit. Currently treating with: ketoconazole 2% shampoo 3x/week. Denies current or recent flares. Denies redness, flaking, scaling. Denies itching, burning, pain. Denies needing refills at this time. Follow up subacute cutaneous lupus erythematosus; slightly improved since last visit. Currently treating with clobetasol 0.05% ointment BID PRN. Pt states the medication helps initially when she gets a flare but the flares continue to come and go. Admits flare to the groin area. Pt is also currently taking Plaquenil 400 mg daily. C/o irritation to the bilateral nostrils x 8 months. Pt states that it becomes dry and sometimes scabs over. Pt expresses previous treatment with mupirocin ointment, oral antihistamine, clobetasol ointment with no improvement. Pt states the clobetasol calmed it down the most but it never goes away. Pt has had oral steroids in the past that temporarily clears it up. Are you , trying to become or ? No History of pacemaker/ defibrillator? No History of HIV/ Hep C? No Allergies to Lidocaine, Epinephrine, Latex or Adhesive? No Review of Systems There were no vitals filed for this visit. PHYSICAL EXAM GENERAL APPEARANCE: Alert & oriented x3, pleasant. Well developed, well nourished. PSYCH: appropriate mood and affect DERMATOLOGY: (all measurements are in cm, unless otherwise noted) 1. Subacute cutaneous lupus erythematosus Generalized, Left Nasal Vestibule, Pubic, Right Nasal Vestibule No current flaring [x]Chronic []Acute [x]Stable []Flaring/Exacerbation Educated and reassured. Treatment options, risks, benefits, and expectations reviewed. No current flaring but continues to flare frequently. Discussed possible low dose oral prednisone daily in order to better control symptoms. Will discuss with rheumatology/ PCP to initiate. Patient expresses understanding and is agreeable to plan. Continue: -clobetasol 0.05% ointment BID PRN -Flonase PRN for flares to the nostrils. Patient is already prescribed this by another provider. Related Medications clobetasol (Temovate) 0.05 % ointment Apply to affected areas BID x 2 weeks Stop using when clear. Repeat as needed for flares. Do not use on face, armpits, groin. hydroxychloroquine (Plaquenil) 200 MG tablet 400 mg daily 2. Seborrheic dermatitis Generalized, Scalp Clear on exam today [x]Chronic []Acute [x]Stable []Flaring/Exacerbation Educated and reassured. Treatment options, risks, benefits, and expectations reviewed. Continue: -ketoconazole 2% shampoo 3x/week Related Medications ketoconazole (NIZOral) 2 % shampoo Use to wash the scalp 3 to 4 times weekly allowing to sit 3 minutes before rinsing. May use regular shampoo and condition after. clobetasol (Temovate) 0.05 % ointment Apply to affected areas BID x 2 weeks Stop using when clear. Repeat as needed for flares. Do not use on face, armpits, groin. Follow up in about 6 months (around 10/13/2023) for cutaneous lupus and elan derm f/u. Fanny Garza PA-C 04/12/23 8:22 AM REFERRING MD: documented in this encounter [facility] 02-27-2023 Evaluation + Plan note Diagnostic Tests PendingCytoplasmic Neutro. Antibody 02/27/23 Future Scheduled TestsCT Sinus 09/18/22 [facility] 02-12-2023 Evaluation + Plan note Future Scheduled TestsC-Reactive Protein 02/12/23Urinalysis 02/12/23Complete Blood Count 02/12/23Cytoplasmic Neutro. Antibody 02/12/23Albumin/Creatinine Ratio, Random Urine 02/12/23Sedimentation Rate Automated 02/12/23Complete Metabolic Panel 02/12/23CT Sinus 09/18/22 [facility] 12-21-2022 History of Present illness Narrative [facility]ATOLOGY[facility] Visit type: New patient Reason for Visit: Follow-up (Discuss tx options) Assessment and Plan Santa Taylor is a 32 y.o. female patient with a history of subacute cutaneous lupus, hidradenitis suppurativa, bipolar who presents for evaluation of autoimmune disease. Patient established care with me on 11-21-2022 Patient developed a skin rash in 2018. 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 The cutaneous pattern of injury is most part of connective tissue disease. I referred the patient to dermatology. she does have some signs of active cutaneous lupus on the face, especially since getting a sunburn this week. I explained to her that photoprotection is the #1 treatment for cutaneous lupus, prevention is luciano. She should be using sunblock every 2 hours. She should use sunblock even when inside and in the car when UV radiation is coming through the windows. Today I discussed with the patient about the risks and benefits of starting hydroxychloroquine Start hydroxychloroquine 400 mg daily Blood counts show mild anemia. Hemoglobin 11.5, normal is 12.0. White blood cell count and platelets normal. Kidney, liver function, normal. Vitamin D is low, patient should take 4000 units daily over the counter. REMA 1-1 60 and SSA 7.1 markers are positive, these ones are commonly associated with cutaneous lupus. Patient currently does not fulfill signs of systemic lupus though. Leal, Leal [employer] SUPPORT LIAISON, SSB, SCL 70, centromere, dsDNA, RF, CCP, ANCA, C3, C4 chromatin negative, Khoa 1, antiphospholipid antibodies #nutrition counseling - eat mostly whole foods and plant based foods # Plaquenil counseling possible side effects of plaquenil (hydroxychloroquine). Possible side effects include: headaches, dizziness, rash, decreased appetite, cardiac arrhythmia, nausea/vomiting/diarrhea, low blood counts, liver dysfunction, allergic reaction, arrhythmia, myopathy (muscle weakness), ear ringing, eye cornea changes, eye retinal toxicity (<1% risk, this is dose related and we dose the medication safely based on patient's weight, we also recommend annual eye exams to screen for any eye changes). Schedule eye exam in 6 months, let your eye doctor know that you are back on the hydroxychloroquine so they can do the extra retina testing Follow up Keep May follow-up. The encounter diagnosis was Subacute cutaneous lupus erythematosus. No orders of the defined types were placed in this encounter. All results were reviewed with the patient. All questions were answered. Patient stated understanding of assessment and plan. Patient in agreement with plan. Risks, benefits, treatment options discussed. Subjective HPI Patient states she went out in the sun recently got a sunburn. She was not good about the photoprotection. She has redness on her face, arms. I told her to use organic aloe vera. I discussed the importance of sun protection as the #1 treatment for cutaneous lupus. She states her heart rate has been fast since getting the sunburn. I told her it important to also use sunblock even when inside, because UV radiation comes through the windows. Patient states in the past she has been on CellCept and azathioprine, but has had side effects to those. She has previously tolerated hydroxychloroquine very well. Patient states in middle school she was told she had a murmur, an echo was normal Allergies Allergen Reactions Lamotrigine Hives and Rash Developed full body rash/hives 7 days after starting medication Azathioprine Other reaction(s): Other (See Comments) Severe pain/flu like sx Severe pain/flu like sx Ciprofloxacin Hives Other reaction(s): AOF Clindamycin Other reaction(s): Hives Crary Hives Oxcarbazepine Fever and Hives Outpatient Medications Prior to Visit Medication Sig Dispense Refill busPIRone (Buspar) 7.5 MG tablet Take by mouth 2 times daily. Cariprazine HCl (Vraylar) 4.5 MG capsule Take by mouth daily. clobetasol (Temovate) 0.05 % ointment Apply to affected areas BID x 2 weeks Stop using when clear. Repeat as needed for flares. Do not use on face, armpits, groin. 60 g 3 FLUoxetine (PROzac) 20 MG capsule Take 20 mg by mouth daily. FLUoxetine (PROzac) 40 MG capsule Take 40 mg by mouth daily. gabapentin (Neurontin) 300 MG capsule Take 300 mg by mouth 2 times daily. ketoconazole (NIZOral) 2 % shampoo Use to wash the scalp 3 to 4 times weekly allowing to sit 3 minutes before rinsing. May use regular shampoo and condition after. 120 mL 3 No facility-administered medications prior to visit. Past Medical History: Diagnosis Date Anemia Desquamative dermatitis Hidradenitis suppurativa Social History Tobacco Use Smoking status: Every Day Packs/day: 1.00 Types: Cigarettes Start date: 2006 Smokeless tobacco: Never Substance Use Topics Alcohol use: Yes Comment: 1-2x yearly, liquor 1-2 Past Surgical History: Procedure Laterality Date CHOLECYSTECTOMY TONSILLECTOMY (HISTORICAL) Family History Problem Relation Name Age of Onset Hearing loss Brother Danielito REVIEW OF SYSTEMS: CONSTITUTIONAL: Admits: [] Weight Loss [] Fever [] Frequent Night Sweats OPHTHALMOLOGIC: Admits: [] Glaucoma [] History or Current Inflammatory Eye Disease [] Cataracts ENT: Admits: [x] Oral/Nasal Ulcers [] epistaxis [] Recurrent Sinusitis [] Dry Eyes [] Dry mouth CARDIOVASCULAR: Admits: [x] Chest pain [] Pericarditis/Pleuritis [] Palpitations [x] Edema RESPIRATORY: Admits: [] hemoptysis [] Dyspnea on Exertion [] Cough [] Wheezing GASTROINTESTINAL: Admits: [] Bloody Stool [] Diarrhea [] Vomitting GENITOURINARY: Admits: [] Blood in urine [] Genital Ulcers [] Burning/pain with urination MUSCULOSKELETAL: Admits: [] Muscle Pain [] Joint Pain INTEGUMENTARY: Admits: [] Skin changes [] Sclerodactyly [] Raynauds [] Photosensitivity [] Alopecia NEUROLOGIC: Admits: [] Recurrent Headaches [] Limb Weakness [] Numbness/Tingling PSYCHIATRIC: Admits: [] Insomnia [x] Depression [x] Anxiety ENDOCRINE: Admits: [] Thyroid abnormalities HEMATOLOGY/LYMPH: Admits: [] Notable Swollen Lymph Nodes [x] History of Cytopenias [] Bruising tendency [] History of DVT/PE All non checked boxes, patient denies. All other 10 point ROS reviewed and negative. Objective BP (!) 154/84 (BP Location: Right arm, Patient Position: Sitting, BP Cuff Size: Large adult long) Pulse (!) 144 Ht 5' 7 (1.702 m) Wt 250 lb (113 kg) BMI 39.16 kg/m Physical Exam Constitutional: BP (!) 154/84 (BP Location: Right arm, Patient Position: Sitting, BP Cuff Size: Large adult long) Pulse (!) 144 Ht 5' 7 (1.702 m) Wt 250 lb (113 kg) BMI 39.16 kg/m : reviewed Comfortable, pleasant, no acute distress Eyes: Conjunctiva clear and moist, eyelids without lesions. Extraocular movements fully intact. Respiratory: Inspiratory and expiratory effort normal. Clear to auscultation bilaterally. No crackles or wheezes. Cardiovascular: Palpation of heart reveals normal PMI. Auscultation: Heart rate fast today, soft systolic murmur heard at pulmonic area No edema of extremities Dermatologic: Inspection and palpation of skin and subcutaneous tissue of all four extremities with redness on the cheeks, redness around the ears, redness on the arms Nailfold capillary exam normal Psychiatric: Normal affect. Judgement/insight intact. Musculoskeletal: Neck: Full ROM. no swelling.No tenderness, Shoulder: Bilateral full active ROM.no swelling. No tenderness, Elbows: Full ROM. no swelling, No tenderness, Wrists: Full ROM. no swelling, No tenderness, Hands: Full ROM. no swelling, No tenderness, Hips: Normal strength no swelling, No tenderness, Knees: Normal ROM, no swelling, No tenderness, Feet: Full ROM. no swelling, No tenderness, Ankles: Normal ROM,no swelling, No tenderness, Spine: No spinous process tenderness. No sacroiliac joint tenderness. Data Reviewed and Summarized Labs: Lab Results Component Value Date WBC 7.3 11/21/2022 HGB 11.5 (L) 11/21/2022 HCT 37.4 11/21/2022 MCV 66.7 (L) 11/21/2022 PLT 296 11/21/2022 Lab Results Component Value Date CREATININE 0.60 11/21/2022 BUN 9 11/21/2022 CO2 25 11/21/2022 Lab Results Component Value Date ALT 18 11/21/2022 AST 17 11/21/2022 ALKPHOS 93 11/21/2022 BILITOT 0.2 11/21/2022 No results found for: SEDRATE No results found for: CRP Imaging/Testing: Jaimee Garza MD This note was created with the assistance of a speech recognition program. While intending to generate a timely document that accurately reflects the content of the visit, no guarantee can be provided that every grammatical or spelling mistake has been or will be identified or corrected. Thank you for your understanding. On this date December 21, 2022 I have spent 20 minutes reviewing previous notes, test results and face to face with the patient discussing the diagnosis and importance of compliance with the treatment plan as well as documenting on the day of the visit. An electronic signature was used to authenticate this note. --Jaimee Garza MD RHEUMATOLOGY documented in this encounter [facility] 12-21-2022 Instructions Jaimee Garza MD - 12/21/2022 9:30 AM EDT Start hydroxychloroquine 2 tablets daily Schedule eye exam in 6 months, let your eye doctor know that you are back on the hydroxychloroquine so they can do the extra retina testing # Plaquenil counseling possible side effects of plaquenil (hydroxychloroquine). Possible side effects include: headaches, dizziness, rash, decreased appetite, cardiac arrhythmia, nausea/vomiting/diarrhea, low blood counts, liver dysfunction, allergic reaction, arrhythmia, myopathy (muscle weakness), ear ringing, eye cornea changes, eye retinal toxicity (<1% risk, this is dose related and we dose the medication safely based on patient's weight, we also recommend annual eye exams to screen for any eye changes). documented in this encounter [facility] 12-13-2022 History of Present illness Narrative DATE OF SERVICE: 12/13/2022 PATIENT NAME: Santa Taylor : 1990 AGE: 32 y.o. 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 female who presents for evaluation of a skin lesion. C/o-rash located on the nose and groin x one year. Patient states the rash is dry, crusty, and painful on the inside of her nostrils. It also happens to her ears, but denies flares to the ears today. Admits itching to the ears only- not flared today. Admits bleeding, pain to nose, denies itching. Denies changes in size, shape, color. Admits previous treatment- doxycyline 100 mg, mupirocin ointment, PO prednisone tapers, clobetasol ointment. Pt admits some improvement with all but it continues to come back. Pt has also tried antifungals with no improvement. Pt has biopsy proven subacute cutaneous lupus in 2018, follows with [facility] Rheumatology. Are you , trying to become or ? No History of pacemaker/ defibrillator? No History of HIV/ Hep C? No Allergies to Lidocaine, Epinephrine, Latex or Adhesive? No Social History: Born/raised in [facility]. Excessive sun exposure: Yes Boated regularly: No Worked on farmed or life skills instructor: No Used tanning beds: No Patient does wear SPF. Patient does use additional sun protection measures. REVIEW OF SYSTEMS: General/Constitutional Feels well; denies h/o fatigue, weight change, night sweats, fevers or chills. Lymphatic Denies swollen lymph nodes. Dermatologic As per HPI; denies new rashes, itching, hair loss, skin or nail changes. There were no vitals filed for this visit. GENERAL APPEARANCE:?Alert & oriented x3, pleasant. Well developed, well nourished. PSYCH: appropriate mood and affect 1. Seborrheic dermatitis Diffuse scaling [x]Chronic []Acute []Stable [x]Flaring/Exacerbation Educated and reassured. Treatment options, risks, benefits, and expectations reviewed. Start: -ketoconazole 2% shampoo: Use to wash the scalp 3 to 4 times weekly allowing to sit 3 minutes before rinsing. May use regular shampoo and condition after. Related Medications ketoconazole (NIZOral) 2 % shampoo Use to wash the scalp 3 to 4 times weekly allowing to sit 3 minutes before rinsing. May use regular shampoo and condition after. clobetasol (Temovate) 0.05 % ointment Apply to affected areas BID x 2 weeks Stop using when clear. Repeat as needed for flares. Do not use on face, armpits, groin. 2. Subacute cutaneous lupus erythematosus Erythematous patch [x]Chronic []Acute []Stable [x]Flaring/Exacerbation Educated and reassured. Treatment options, risks, benefits, and expectations reviewed. Start: -clobetasol 0.05% ointment: Apply to affected areas BID x 2 weeks Stop using when clear. Repeat as needed for flares. Do not use on face, armpits, groin. Related Procedures [facility] Related Medications clobetasol (Temovate) 0.05 % ointment Apply to affected areas BID x 2 weeks Stop using when clear. Repeat as needed for flares. Do not use on face, armpits, groin. Orders Placed This Encounter Medications ketoconazole (NIZOral) 2 % shampoo Sig: Use to wash the scalp 3 to 4 times weekly allowing to sit 3 minutes before rinsing. May use regular shampoo and condition after. Dispense: 120 mL Refill: 3 clobetasol (Temovate) 0.05 % ointment Sig: Apply to affected areas BID x 2 weeks Stop using when clear. Repeat as needed for flares. Do not use on face, armpits, groin. Dispense: 60 g Refill: 3 Follow up in about 3 months (around 03/14/2023) for cutaneous lupus, elan derm f/u. Fanny Garza PA-C 12/13/22 4:49 PM REFERRING MD: Will Garcia / [place] [id number] documented in this encounter [facility] 11-21-2022 Note Labs today Dermatology referral [facility] 09-18-2022 Evaluation + Plan note Future Scheduled TestsCT Sinus 09/18/22 [facility] 06-24-2022 Hospital Discharge instructions Patient Education 06/24/2022 04:36:30 External Ear Infection (Adult) External Ear Infection (Adult) External otitis (also called swimmer s ear ) is an infection in the ear canal. It is often caused by bacteria or fungus. It can occur a few days after water gets trapped in the ear canal (from swimming or bathing). It can also occur after cleaning too deeply in the ear canal with a cotton swab or other object. Sometimes, hair care products get into the ear canal and cause this problem. Symptoms can include pain, fever, itching, redness, drainage, or swelling of the ear canal. Temporary hearing loss may also occur. Home care Do not try to clean the ear canal. This can push pus and bacteria deeper into the canal. Use prescribed ear drops as directed. These help reduce swelling and fight the infection. If an ear wick was placed in the ear canal, apply drops right onto the end of the wick. The wick will draw the medicine into the ear canal even if it is swollen closed. A cotton ball may be loosely placed in the outer ear to absorb any drainage. You may use acetaminophen or ibuprofen to control pain, unless another medicine was prescribed. Note: If you have chronic liver or kidney disease or ever had a stomach ulcer or GI bleeding, talk to your healthcare provider before taking any of these medicines. Do not allow water to get into your ear when bathing. Also, don't swim until the infection has cleared. Prevention Keep your ears dry. This helps lower the risk of infection. Dry your ears with a towel or humanities division chair after getting wet. Also, use ear plugs when swimming. Do not stick any objects in the ear to remove wax. If you feel water trapped in your ear, use ear drops right away. You can get these drops over the counter at most drugstores. They work by removing water from the ear canal. Follow-up care Follow up with your healthcare provider in 1 week, or as advised. When to seek medical advice Call your healthcare provider right away if any of these occur: Ear pain becomes worse or doesn t improve after 3 days of treatment Redness or swelling of the outer ear occurs or gets worse Headache Painful or stiff neck Drowsiness or confusion Fever of 100.4 F (38 C) or higher, or as directed by your healthcare provider Seizure [phone] [employer]. [address] [place] [address], [place] [address]. All rights reserved. This information is not intended as a substitute for professional medical care. Always follow your healthcare professional's instructions. Follow Up Care 06/24/2022 03:26:26 With:MICHELLE CHIANG DO Address: [address] [place] [address] [place] [phone] When:2-4 days [facility] 06-24-2022 Note Discharge Instructions Thank you for allowing [facility] to assist you with your healthcare needs. The following is important discharge information regarding your hospital visit. Diagnosis from Today's Visit Otitis externa Fever What to Do Next Instructions from Your Care Team No qualifying data available. Post Acute Orders No qualifying data available. You Need to Schedule the Following Appointments Follow Up with MICHELLE CHIANG DO When Within 2-4 days Where: [address] [place] [phone] Allergies Cipro Trileptal clindamycin (Hives) Medications Please ask your primary doctor or pharmacist before taking any other medication not listed, including over the counter drugs, herbal medications, vitamins and or supplements as they may interact with your home medications. What How Much When Why Instructions Last Dose New ofloxacin otic (ofloxacin 0.3% otic solution) 5 Drops Left ear Two (2) times a day Otitis externa Duration: 10 Days Printed Prescription Unchanged acetaminophen (acetaminophen 500 mg oral tablet) 2 tab(s) by mouth Three (3) times a day as needed for pain or fever Unchanged busPIRone (busPIRone 7.5 mg oral tablet) 1 tab(s) by mouth Two (2) times a day Duration: 30 Days Unchanged cariprazine (Vraylar 4.5 mg oral capsule) 1 cap by mouth Once a day Duration: 30 Days Unchanged clobetasol topical (Temovate 0.05% topical cream) See instructions Vulvar irritation apply a thin film 2-3 times per week. Unchanged FLUoxetine (FLUoxetine 20 mg oral capsule) 3 cap by mouth Once a day Unchanged gabapentin (gabapentin 300 mg oral capsule) 1 cap by mouth Two (2) times a day Unchanged hydrocortisone topical (hydrocortisone 2.5% topical cream) See instructions Skin irritation Topical BID to affected area x14 days apply in a thin film to the affected skin and rub in gently and completely Unchanged levocetirizine (levocetirizine 5 mg oral tablet) 0.5 tab(s) by mouth Daily at bedtime Please take this list to your next doctor s visit. Bring all medications you take, including over the counter medications, herbals and other supplements with you to your doctor s visit. Patients and families are reminded to discard old lists and to update any records with all medication providers or retail pharmacies. Medication Leaflets ofloxacin otic (oh FLOCKS a sin [place] tic) Floxin Otic What is the most important information I should know about ofloxacin otic? Follow all directions on your medicine label and package. Tell each of your healthcare providers about all your medical conditions, allergies, and all medicines you use. What is ofloxacin otic? Ofloxacin is an antibiotic that treats infections caused by bacteria. Ofloxacin otic (for the ear) is used to treat infections of the ear canal in adults and children who are at least 6 months old. Ofloxacin otic is used in adults and children at least 1 year old to treat an inner ear infection (also called otitis media). Ofloxacin otic may be used on a long-term basis to treat an infection that causes a hole in the ear drum (ruptured ear drum) in adults and children who are at least 12 years old. Ofloxacin may also be used for purposes not listed in this medication guide. What should I discuss with my healthcare provider before using ofloxacin otic? You should not use this medicine if you are allergic to ofloxacin or similar antibiotics, such as ciprofloxacin (Cipro), gatifloxacin (Tequin), levofloxacin (Levaquin), lomefloxacin (Maxaquin), moxifloxacin (Avelox), or norfloxacin (Noroxin). FDA category C. It is not known whether ofloxacin otic will harm an unborn baby. Tell your doctor if you are or plan to become while using this medicine. It is not known whether this medicine passes into breast milk or if it could harm a nursing baby. You should not breast-feed while using this medicine. Do not give this medicine to a child without medical advice. How should I use ofloxacin otic? Follow all directions on your prescription label. Do not use this medicine in larger or smaller amounts or for longer than recommended. Shake the medicine well just before each use. You may warm the medicine before use by holding the bottle in your hand for 1 or 2 minutes. Using cold ear drops can cause dizziness. To use the ear drops: Lie down or tilt your head with your ear facing upward. Open the ear canal by gently pulling your ear back, or pulling downward on the earlobe when giving this medicine to a child. Hold the dropper upside down over your ear and drop the correct number of drops into the ear. Stay lying down or with your head tilted for at least 5 minutes. You may use a small piece of cotton to plug the ear and keep the medicine from draining out. If the patient being treated has ear tubes, the doctor may recommend gently pressing the tragus (part of the ear in front of the opening of the ear canal) four to five times in a pumping motion after administration of the drops. This may allow the drops to pass through the tubes into the middle ear. Follow the doctor's instructions. Do not touch the dropper tip or place it directly in your ear. It may become contaminated. Wipe the tip with a clean tissue but do not wash with water or soap. Use this medicine for the full prescribed length of time. Your symptoms may improve before the infection is completely cleared. Skipping doses may also increase your risk of further infection that is resistant to antibiotics. Call your doctor if your symptoms do not improve after 7 days of treatment, or if you have new symptoms. Store at room temperature away from moisture, heat, and light. Throw away any unused medicine after your treatment is finished. What happens if I miss a dose? Use the missed dose as soon as you remember. Skip the missed dose if it is almost time for your next scheduled dose. Do not use extra medicine to make up the missed dose. What happens if I overdose? An overdose of this medicine is not expected to be dangerous. Seek emergency medical attention or call the Poison Help line at if anyone has accidentally swallowed the medication. What should I avoid while taking ofloxacin otic? This medicine is for use only in the ears. Avoid getting the medicine in your eyes, mouth, and nose, or on your lips. Rinse with water if this medicine gets in or on these areas. Do not use other ear medications unless your doctor tells you to. What are the possible side effects of ofloxacin otic? Get emergency medical help if you have any of these signs of an allergic reaction: hives, rash, itching; slow heart rate, weak pulse, fainting; difficult breathing, slow breathing (breathing may stop); swelling of your face, lips, tongue, or throat. Stop using this medicine and call your doctor at once if you have: the first sign of any skin rash, no matter how mild; or ear drainage, discharge, or worsening pain. Common side effects may include: headache; dizziness; or mild ear pain or itching after using the ear drops. This is not a complete list of side effects and others may occur. Call your doctor for medical advice about side effects. You may report side effects to FDA at 3-548-LLP-5556. What other drugs will affect ofloxacin otic? It is not likely that other drugs you take orally or inject will have an effect on ofloxacin used in the ears. But many drugs can interact with each other. Tell each of your healthcare providers about all medicines you use, including prescription and lzuw-jld-pylrsqq medicines, vitamins, and herbal products. Where can I get more information? Your pharmacist can provide more information about ofloxacin otic. Remember, keep this and all other medicines out of the reach of children, never share your medicines with others, and use this medication only for the indication prescribed. Every effort has been made to ensure that the information provided by [employer]. ('[employer]') is accurate, up-to-date, and complete, but no guarantee is made to that effect. Drug information contained herein may be time sensitive. [employer] information has been compiled for use by healthcare practitioners and consumers in the [place] and therefore [employer] does not warrant that uses outside of the [place] are appropriate, unless specifically indicated otherwise. [employer] drug information does not endorse drugs, diagnose patients or recommend therapy. [employer] drug information is an informational resource designed to assist licensed healthcare practitioners in caring for their patients and/or to serve consumers viewing this service as a supplement to, and not a substitute for, the expertise, skill, knowledge and judgment of healthcare practitioners. The absence of a warning for a given drug or drug combination in no way should be construed to indicate that the drug or drug combination is safe, effective or appropriate for any given patient. [employer] does not assume any responsibility for any aspect of healthcare administered with the aid of information [employer] provides. The information contained herein is not intended to cover all possible uses, directions, precautions, warnings, drug interactions, allergic reactions, or adverse effects. If you have questions about the drugs you are taking, check with your doctor, nurse or pharmacist. Copyright 2406-0688 [employer]. Version: 2.01. Revision Date: 02/13/2014. Education Materials External Ear Infection (Adult) External otitis (also called swimmer s ear ) is an infection in the ear canal. It is often caused by bacteria or fungus. It can occur a few days after water gets trapped in the ear canal (from swimming or bathing). It can also occur after cleaning too deeply in the ear canal with a cotton swab or other object. Sometimes, hair care products get into the ear canal and cause this problem. Symptoms can include pain, fever, itching, redness, drainage, or swelling of the ear canal. Temporary hearing loss may also occur. Home care Do not try to clean the ear canal. This can push pus and bacteria deeper into the canal. Use prescribed ear drops as directed. These help reduce swelling and fight the infection. If an ear wick was placed in the ear canal, apply drops right onto the end of the wick. The wick will draw the medicine into the ear canal even if it is swollen closed. A cotton ball may be loosely placed in the outer ear to absorb any drainage. You may use acetaminophen or ibuprofen to control pain, unless another medicine was prescribed. Note: If you have chronic liver or kidney disease or ever had a stomach ulcer or GI bleeding, talk to your healthcare provider before taking any of these medicines. Do not allow water to get into your ear when bathing. Also, don't swim until the infection has cleared. Prevention Keep your ears dry. This helps lower the risk of infection. Dry your ears with a towel or humanities division chair after getting wet. Also, use ear plugs when swimming. Do not stick any objects in the ear to remove wax. If you feel water trapped in your ear, use ear drops right away. You can get these drops over the counter at most drugstores. They work by removing water from the ear canal. Follow-up care Follow up with your healthcare provider in 1 week, or as advised. When to seek medical advice Call your healthcare provider right away if any of these occur: Ear pain becomes worse or doesn t improve after 3 days of treatment Redness or swelling of the outer ear occurs or gets worse Headache Painful or stiff neck Drowsiness or confusion Fever of 100.4 F (38 C) or higher, or as directed by your healthcare provider Seizure [phone] [employer]. [address] [place] [address], [place] [address]. All rights reserved. This information is not intended as a substitute for professional medical care. Always follow your healthcare professional's instructions. Additional Information VACCINATE! IT SAVES LIVES! Members of the community who have not yet received the COVID-19 vaccine and would like to receive it can visit one of [facility] vaccine clinics. There are many vaccine clinic locations within the [facility]. For locations and available times, please visit [email or web address]. It is important to note that some COVID mobile vaccine clinics are held outdoors and may be canceled in rainy or stormy conditions. To learn more about pediatric vaccinations (ages 5-11), we invite you to visit the [employer] webpage. [email or web address] To learn more about the COVID-19 vaccine, we invite you to visit the [place] website for a list of frequently asked questions. [email or web address] [email or web address] [facility] Patient Portal Access Instructions: Stay connected with your healthcare team and access your personal medical information anytime with the [facility] Patient Portal. If you would like a full copy of your medical records please contact the [facility] Medical Records Department Sunday through Sunday between 8a.m. and 4:30p.m. Please follow the directions below to access the portal: 1.Access the email account you provided upon registration to the [facility].2.Look for an invitation email from [facility].3.Open the email and access the invitation link: Accept Invitation to [facility]4.Fill in the required servin to create your account. Sign into [email or web address] with your username and password that you created in the above steps to stay up to date. You can then view a summary of results, a summary of your visits, and the ability to download your summaries to your computer or send the information securely to a physician. Remember that your healthcare information is confidential, so carefully consider who you will allow to register on the [facility] Patient Portal for access to your information. You can also access the [facility] Patient Portal on the [employer]. Simply click on Health Records under Health Data and then click on the [employer] logo. HOW TO SAFELY DISPOSE OF PRESCRIPTION MEDICATIONS Please use one of the following methods to safely dispose of your unused medications. 1.Use a drug disposal kit: the drug disposal pouch allows you to safely discard your old and unused drugs. Ask your nurse to give you one when you are discharged.2.Visit a local take-back location: Many local pharmacies and police departments have programs that collect old and unwanted prescription drugs. Call your local pharmacy or go to http://Windeln.de.Nutzvieh24/1C9Jy1w to find one close to you.3.Make use of household items: Use cat litter or old coffee grounds to dispose medications if other options are not available. Mix your drugs with these household products, seal them in an airtight container and throw it into the garbage. Call [facility]: [phone] to be sure your drugs can be disposed of in this way. Some medicines may require a different approach.4.Never flush your medications down the toilet. IF YOU HAVE BEEN PRESCRIBED AN OPIOIDS FOR PAIN If you have been prescribed an opioid (such as hydrocodone, oxycodone or morphine), it is critical to understand the possible side effects and risks of opioid pain medications. Even when taken as directed, opioids can have several side effects including: Tolerance, meaning you might need to take more of a medication for the same pain relief. Nausea, vomiting and/or constipation. Sleepiness, dizziness, dry mouth, confusion, depression or itching. Physical dependence, meaning you have withdrawal symptoms when a medication is stopped ? this can develop within a few days. KNOW YOUR RESPONSIBILITIES It is important to know exactly how much and how often to take the opioid pain medications you are prescribed. Never take opioids in higher amounts or more often than prescribed. Do not combine opioids with alcohol or other drugs that cause drowsiness, such as benzodiazepines, also known as benzos, including diazepam and alprazolam, muscle relaxants or sleep aids. Never sell or share prescription opioids. This is illegal. Store opioids in a secure place and out of reach of others (including children, family, friends and visitors). The last page(s) of this document has been signed and retained as a CHART COPY Signatures Patient Education Materials External Ear Infection (Adult) Medication Leaflets ofloxacin otic My discharge plan and instructions have been reviewed and explained to me and I,BRADY SANTA Masha understand my current condition and have read and understand these discharge instructions. I have received a written copy of the plan/instructions. If I have questions, I am aware that I should contact my doctor. 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 Hypersensitivity Drug reaction secondary to Trileptal, initial concern for neuroleptic malignant syndrome however her fever has resolved so this is less likely. 2. Diffuse maculopapular erythematous rash, likely secondary to drug reaction 3. Urinary tract infection 4. History of bipolar disorder, anxiety, lupus. 5. Tobacco abuse Plan: 1. Admit patient to surgical intensive care unit. Tylenol was given for fever. This is resolved. Obviously will hold all psych medications for now including Trileptal. 2. Blood and urine cultures were drawn at [facility]. Continue IV Rocephin for likely urinary tract infection. 3. Initiate Solu-Medrol 40 mg IV every 6 hours. 4. Consult derrick follower. Has a history of lupus and has been referred but not seen by derrick follower yet. 5. Consult psychiatry for assistance with medication. 6. Heparin 5000 units subcu 3 times daily for DVT prophylaxis 7. Regular diet 8. Full code Plan of care discussed with Dr. Mckeon. Future Appointments Appointment Date:05/24/2022 03:00:00 PM Scheduled Provider:NOEL WALTERS Location:[facility] Appointment Type:PC OV Diagnostic Tests Pending * Urine Culture 04/03/22 Future Scheduled Tests Radiology* XR Chest 2 Views (PA & Lateral) 11/24/21 [facility] 07-25-2022 History and physical note Date of Service 04/03/2022 Chief Complaint pt c/o feeling hot and flushed,. upon eval pt has a fevver and tachy. pt states she hasnt been around [facility]. started a new medication 1 week ago for bipolar History of Present Illness Santa is a 31-year-old female with a past medical history of bipolar 2 disorder, anxiety, lupus and 1 pack/day smoker who presented to [facility] last night with complaints of shaking chills, flushing in her face, bloodshot eyes and numbness to her fingertips. She reported this was a sudden onset that started around 9 PM last night. On arrival to [place] [facility] she was febrile with a temperature of 38.9, heart rate 114, BP 134/88, breathing 20, 99% on room air. She denies any cough, congestion, fever, sick contacts, or recent travel. She reports that she was started on Trileptal approximately 10 days ago by her psychiatrist. At [place], she was found to have a diffuse erythematous rash.Her white blood cell count was 8.2 with a eosinophil of 0.1. Her lactic acid was normal at 1.1, WDI224 and troponin negative. Her fever did increase up to 39.3 and she was given 650 mg Tylenol, 1 mgAtivan IV, 3 L normal saline and 2 g ceftriaxone. Her UA showed large leuk esterase, loaded WBCs and 3+ bacteria. She denies urinary urgency, frequency and dysuria. Dr. Mckeon recommended giving dantrolene at [facility] however this medication was not available at the outside hospital. She also tells me that she was hospitalized approximately 2 years ago with a fever and diffuse rashlikely secondary to Lamictal. She was hospitalized at that time for 3 days with a fever and was placed on steroids. She lives in [facility] at the times we do not have these records. She also reports that she has a history of lupus. She was recently diagnosed with a raised red erythematous rash in her groin that was biopsied. She reports her biopsy results showed reactive hyperplasia and was diagnosed with a lupus flare. She was started on steroid cream that she is supposed to use 2-3 times a week to the groin. She has a history of bipolar II disorder and is on multiple medications including Vraylar, BuSpar, Prozac, Seroquel, and recently started on Trileptal. She follows with apsychiatrist Dr. Maday Dumont from [facility]. Arrival to [place], she is afebrile with a temperature of 36.9, heart rate 109, blood pressure 113/72, 18 and 100% on room air. She is alert and oriented no acute distress. She does have a diffuse erythematous rash that is noted on her face, ears, trunk, back, arms and legs. Her sclera are bloodshot as well. Review of Systems Constitutional: Denies any changes in weight. Denies any fever, chills, sweats. Eyes: Reports noticing bloodshot eyes. Denies any changes in vision. No drainage. Ears, Nose, Mouth, and Throat: Denies any earache, runny nose. Denies any sore throat. Cardiovascular: Denies any chest pain. No palpitations. Denies PND. No orthopnea. Respiratory: Denies any shortness of breath at rest or exertion. No cough or wheezing. Gastrointestinal: Denies nausea, vomiting, diarrhea. Denies abdominal pain. Genitourinary: Denies any frequency, hematuria. No dysuria. Musculoskeletal: Denies any joint pain or swelling. Denies any muscle aches. Skin: New erythematous rash noted to her face, trunk arms and legs. Neurological: Initially reported numbness of her fingertips but this has resolved. Denies any weakness, any change in level of consciousness. Psychiatric: Reports a history of bipolar II disorder. She is actively under the care of a psychiatrist Dr. Dumont from [facility]. Denies depression. Denies insomnia. Denies any homocidal or suicidal thoughts. Endocrine: Denies any cold or heat intolerance. No polyuria. No polydipsia. Hematological/Lymphatic: Denies any lypmhedema. No easy bruising. Physical Exam Vitals and Measurements T: 37.3 C (Oral) TMIN: 37.3 C (Oral) TMAX: 39.3 C (Oral) HR: 105(Monitored) RR: 18 BP: 106/58 SpO2:97% No qualifying data available. General: Alert, awake, oriented x3 no acute distress Head: Normocephalic, atraumatic ENT: PERRLA, eyes: Sclera erythematous, oral: Mucous membranes moist Neck: Supple, no JVD Cardiac: Regular rate and rhythm, normal S1-S2, no murmur, rubs, or gallops Respiratory: Lungs clear, resps easy, nonlabored Abdomen: Soft, nontender, normoactive bowel sounds Musculoskeletal: No joint deformities, no muscle tenderness Extremities: 2+ pulses, no edema Neurological: A&Ox3, no focal deficits Skin: Warm & dry, skin intact, diffuse macular erythematous rash noted to face, ears, chest, abdomen, back, arms and legs. She also has an erythematous raised rash noted to bilateral groin. Lab Results 04/03 00:06 WBC: 8.2 Hgb: 12.0 Hct: 37.1 Platelet: 255 Neutrophil %: 91.0 H Glucose Level: 120 H Sodium Level: 138 Potassium Level: 3.4 L BUN: 8 Creatinine Lvl (s): 1.05 H UA: Showed large leuk esterase, loaded WBC, 3+ bacteria. CPK 111 Lactic acid 1.1 Troponin negative TSH 0.54, COVID-19 PCR negative Imaging Results and Diagnostics XR Chest 1 View Result Date: April 03, 2022 Verified By: FARSHAD MITCHELL MD CLINICAL STATEMENT: IMPRESSION: No acute findings. a EKG EC04/03/22: Sinus tachycardia...rate> 99 Probable inferior infarct, old...Q>35mS, II III aVF Compared to ECG at 05/09/2021 19:28:09 Compared to ECG at 05/09/2021 19:28:09 Compared to ECG at 05/09/2021 19:28:09 Electronic Signature: LEONELA REBOLLAR DO 04/03/2022 00:58:34 Assessment/Plan Assessment: 1. Hypersensitivity Drug reaction secondary to Trileptal, initial concern for neuroleptic malignantsyndrome however her fever has resolved so this is less likely. 2. Diffuse maculopapular erythematous rash, likely secondary to drug reaction 3. Urinary tract infection 4. History of bipolar disorder, anxiety, lupus. 5. Tobacco abuse Plan: 1. Admit patient to surgical intensive care unit. Tylenol was given for fever. This is resolved. Obviously will hold all psych medications for now including Trileptal. 2. Blood and urine cultures were drawn at [facility]. Continue IV Rocephin for likely urinary tract infection. 3. Initiate Solu-Medrol 40 mg IV every 6 hours. 4. Consult derrick follower. Has a history of lupus and has been referred but not seen by derrick follower yet. 5. Consult psychiatry for assistance with medication. 6. Heparin 5000 units subcu 3 times daily for DVT prophylaxis 7. Regular diet 8. Full code Plan of care discussed with Dr. Mckeon. Problem List/Past Medical History Bipolar II Disorder Anxiety Lupus Drug reaction to Lamictal Smoker Procedure/Surgical History Excision of tonsil: 2014 Entire gallbladder: 2013 Medications Home Medications (6) Active busPIRone 7.5 mg oral tablet 7.5 mg = 1 tab(s), Oral, BID PROzac 40 mg oral capsule 40 mg = 1 cap(s), Oral, qDay QUEtiapine 50 mg oral tablet 50 mg = 1 tab(s), Oral, BID Temovate 0.05% topical cream 1 gifty, Topical, BID Temovate 0.05% topical cream See Instructions Vraylar 4.5 mg oral capsule 4.5 mg = 1 cap(s), Oral, qDay Allergies Cipro clindamycin (Hives) Social History Smoking Status - 01/02/2018 Current every day smoker Alcohol Use: Current., 01/02/2018 Home/Environment Domestic Concerns: None., 03/09/2022 Nutrition/Health Caffeine intake amount: pop daily, 2-3 cans., 05/12/2021 Sexual Sexually active: Yes. Current partners: 1., 03/09/2022 Substance Abuse Use: Past., 05/12/2021 Tobacco Nicotine Use: 10 or more cigarettes (1/2 pack or more)/day in last 30 days. Type: Cigarettes., 12/15/2021 1 pack/day smoker, for 16 years. No alcohol or other substance use. 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 Family History Heart disease: Grandparent. Immunizations hepatitis B adult vaccine: 1 unknown unit (01/22/18) measles/mumps/rubella virus vaccine: 0.5 unknown unit (01/22/18) tetanus/diphth/pertuss (Tdap) adult/adol: 0 unknown unit (04/10/14) She did receive her COVID-vaccine but did not receive a booster Code Status Code Status - Ordered -- 04/03/22 4:22:00 EDT, Full Code, Constant Order Digitally Signed by COLTEN JIMENEZ on 04/03/2022 08:33 AM Digitally Signed by JACQUELYN MCKEON MD [facility]07-25-2022 Note ORIGINAL EXAMINATION: ONE XRAY VIEW OF THE CHEST04/03/2022 12:34 am CHEST ONE VIEW AP/PA COMPARISON: None HISTORY: ORDERING SYSTEM PROVIDED HISTORY: Reason for Exam: palpitations FINDINGS: The cardiomediastinal silhouette is normal in appearance. No consolidation, pleural effusion, or vascular congestion is seen. The osseous structures are intact. IMPRESSION: No acute findings. Interpreted by: Farshad Mitchell MD Preliminary Report By: Farshad Mitchell MD Electronically signed By Farshad Mitchell MD Dictated Date: 04/03/2022 12:55:10 AM Prelim Date: 04/03/2022 12:55:32 AM Sign Date: 04/03/2022 12:55:32 AM Ordering Provider: LEONELA REBOLLAR [facility]07-25-2022 Note ORIGINAL EXAMINATION: ONE XRAY VIEW OF THE CHEST04/03/2022 12:34 am CHEST ONE VIEW AP/PA COMPARISON: None HISTORY: ORDERING SYSTEM PROVIDED HISTORY: Reason for Exam: palpitations FINDINGS: The cardiomediastinal silhouette is normal in appearance. No consolidation, pleural effusion, or vascular congestion is seen. The osseous structures are intact. IMPRESSION: No acute findings. Interpreted by: Farshad Mitchell MD Preliminary Report By: Farshad Mitchell MD Electronically signed By Farshad Mitchell MD Dictated Date: 04/03/2022 12:55:10 AM Prelim Date: 04/03/2022 12:55:32 AM Sign Date: 04/03/2022 12:55:32 AM Ordering Provider: [facility]07-24-2022 SARS-CoV-2 (COVID-19) RNA JESIKA+probe Ql (Nph)Negative (04/02/22 11:52 PM)AO Auto Urine [id number] Hospital Discharge instructions Patient Education 03/13/2022 08:17:58 First Aid: Bleeding First Aid: Bleeding External bleeding occurs when the body s protective skin is broken. In severe cases, blood loss mayplace the victim s life in danger. Direct pressure and elevation usually stops bleeding, even the childers of blood from an artery. Call 911 if you can t stop the bleeding or the victim shows signs of shock. Step 1. Apply direct pressure Put on gloves or use other protection to avoid contact with the victim s blood. Press directly on the wound with a clean gauze patch or cloth. Keep the pressure constant for at least 5 minutes. This allows the blood to clot (thicken), preventing additional bleeding. Don't lift the bandage to check on the bleeding until at least 5 minutes have passed. Step 2. Elevate the injury Raise the wound above heart level, if possible, to reduce blood flow to the injury. If a bone is broken, immobilize the joints above and below the break before elevating the wound. Pinch off nosebleeds Reassure the person with the nosebleed and tell him or her to do the following: Pinch the nostrils below the bone. Tip the person's head slightly forward and sit quietly, maintaining pressure on the nose for at least 5 minutes. Don't tilt the person's head backward. This may cause blood to run backward into the person's mouthand throat. Don't destroy the clot by blowing or rubbing nose after the bleeding stops. Bleeding: How much is too much? The victim s age, body size, and overall health all help determine when bleeding becomes serious. Concentrate on the victim s condition and appearance not on the amount of blood lost. Bleeding from head wounds and nose bleeds can be dramatic while still being safe. Watch the victim for signs of shock. If any shock symptoms appear, blood loss is a threat to life. Pale, clammy skin Racing pulse Confusion or unconsciousness Pulsing, spurting bleeding that can't be stopped with direct pressure [id number] [employer]. [address] [place] [address], [place] [address]. All rights reserved. This information is not intended as a substitute for professional medical care. Always follow yourhealthcare professional's instructions. Follow Up Care 03/13/2022 07:54:34 With:NOEL WALTERS Address: [address] [place] [phone] When:2-4 days [facility] 07-04-2022 Note Discharge Instructions Thank you for allowing [place] to assist you with your healthcare needs. The following is importantdischarge information regarding your hospital visit. Diagnosis from Today's Visit Wound reevaluation with or without suture removal What to Do Next Instructions from Your Care Team No qualifying data available. Post Acute Orders No qualifying data available. You Need to Schedule the Following Appointments Follow Up with NOEL WALTERS When Within 2-4 days Where: [address] [place] [phone] Allergies Cipro clindamycin (Hives) Medications Please ask your primary doctor or pharmacist before taking any other medication not listed, including over the counter drugs, herbal medications, vitamins and or supplements as they may interact withyour home medications. What How Much When Why Instructions Last Dose Unchanged busPIRone (busPIRone 7.5 mg oral tablet) 1 tab(s) by mouth Two (2) times a day Duration: 30 Days Unchanged cariprazine (Vraylar 4.5 mg oral capsule) 1 cap by mouth Once a day Duration: 30 Days Unchanged clobetasol topical (Temovate 0.05% topical cream) 1 application Topical Two (2) times a day Vulvar edema Vulvar irritation apply a thin film apply twice per day for two weeks Do not apply to open skin Unchanged FLUoxetine (PROzac 40 mg oral capsule) 1 cap by mouth Once a day Unchanged QUEtiapine (QUEtiapine 50 mg oral tablet) 1 tab(s) by mouth Two (2) times a day Please take this list to your next doctor s visit. Bring all medications you take, including over the counter medications, herbals and other supplements with you to your doctor s visit. Patients and families are reminded to discard old lists and to update any records with all medication providers or retail pharmacies. Education Materials First Aid: Bleeding External bleeding occurs when the body s protective skin is broken. In severe cases, blood loss mayplace the victim s life in danger. Direct pressure and elevation usually stops bleeding, even the childers of blood from an artery. Call 911 if you can t stop the bleeding or the victim shows signs of shock. Step 1. Apply direct pressure Put on gloves or use other protection to avoid contact with the victim s blood. Press directly on the wound with a clean gauze patch or cloth. Keep the pressure constant for at least 5 minutes. This allows the blood to clot (thicken), preventing additional bleeding. Don't lift the bandage to check on the bleeding until at least 5 minutes have passed. Step 2. Elevate the injury Raise the wound above heart level, if possible, to reduce blood flow to the injury. If a bone is broken, immobilize the joints above and below the break before elevating the wound. Pinch off nosebleeds Reassure the person with the nosebleed and tell him or her to do the following: Pinch the nostrils below the bone. Tip the person's head slightly forward and sit quietly, maintaining pressure on the nose for at least 5 minutes. Don't tilt the person's head backward. This may cause blood to run backward into the person's mouthand throat. Don't destroy the clot by blowing or rubbing nose after the bleeding stops. Bleeding: How much is too much? The victim s age, body size, and overall health all help determine when bleeding becomes serious. Concentrate on the victim s condition and appearance not on the amount of blood lost. Bleeding from head wounds and nose bleeds can be dramatic while still being safe. Watch the victim for signs of shock. If any shock symptoms appear, blood loss is a threat to life. Pale, clammy skin Racing pulse Confusion or unconsciousness Pulsing, spurting bleeding that can't be stopped with direct pressure [id number] [employer]. [address] [place] [address], [place] [address]. All rights reserved. This information is not intended as a substitute for professional medical care. Always follow yourhealthcare professional's instructions. Additional Information VACCINATE! IT SAVES LIVES! Members of the community who have not yet received the COVID-19 vaccine and would like to receive it can visit one of [facility] vaccine clinics. There are many vaccine clinic locations within the [facility]. For locations and available times, please visit [email or web address]. It is important to note that some COVID mobile vaccine clinics are held outdoors and may be canceled in rainy orstormy conditions. To learn more about pediatric vaccinations (ages 5-11), we invite you to visit the [facility] webpage. [email or web address] learn more about the COVID-19 vaccine, we invite you to visit the [place] website for a list of frequently asked questions. [email or web address] [facility] Patient Portal Access Instructions: Stay connected with your healthcare team and access your personal medical information anytime with the [facility] Patient Portal. If you would like a full copy of your medical records please contact the [facility] Medical Records Department Sunday through Sunday between 8a.m. and 4:30p.m. Please follow the directions below to access the portal: 1.Access the email account you provided upon registration to the [facility].2.Look for an invitation email from [facility].3.Open the email and access the invitation link: Accept Invitation to [facility]4.Fill in the required servin to create your account. Sign into [email or web address] with your username and password that you created in the above steps to stay up to date. You can then view a summary of results, a summary of your visits, and the ability to download your summaries to your computer or send the information securely to a physician. Remember that your healthcare information is confidential, so carefully consider who you will allow to register on the [facility] Patient Portal for access to your information. You can also access the [facility] Patient Portal on the [employer]. Simply click on Health Records under [facility] and then click on the [employer] logo. HOW TO SAFELY DISPOSE OF PRESCRIPTION MEDICATIONS Please use one of the following methods to safely dispose of your unused medications. 1.Use a drug disposal kit: the drug disposal pouch allows you to safely discard your old and unuseddrugs. Ask your nurse to give you one when you are discharged.2.Visit a local take-back location: Many local pharmacies and police departments have programs that collect old and unwanted prescriptiondrugs. Call your local pharmacy or go to http://Windeln.de.Nutzvieh24/8Z5Qi0a to find one close to you.3.Make use of household items: Use cat litter or old coffee grounds to dispose medications if other options arenot available. Mix your drugs with these household products, seal them in an airtight container andthrow it into the garbage. Call [facility]: [phone] to be sure your drugs can be disposed of in this way. Some medicines may require a different approach.4.Never flush your medications down the toilet. IF YOU HAVE BEEN PRESCRIBED AN OPIOIDS FOR PAIN If you have been prescribed an opioid (such as hydrocodone, oxycodone or morphine), it is critical to understand the possible side effects and risks of opioid pain medications. Even when taken as directed, opioids can have several side effects including: Tolerance, meaning you might need to take more of a medication for the same pain relief. Nausea, vomiting and/or constipation. Sleepiness, dizziness, dry mouth, confusion, depression or itching. Physical dependence, meaning you have withdrawal symptoms when a medication is stopped ? this can develop within a few days. KNOW YOUR RESPONSIBILITIES It is important to know exactly how much and how often to take the opioid pain medications you are prescribed. Never take opioids in higher amounts or more often than prescribed. Do not combine opioids with alcohol or other drugs that cause drowsiness, such as benzodiazepines, also known as benzos,including diazepam and alprazolam, muscle relaxants or sleep aids. Never sell or share prescriptionopioids. This is illegal. Store opioids in a secure place and out of reach of others (including children, family, friends and visitors). The last page(s) of this document has been signed and retained as a CHART COPY Signatures Patient Education Materials First Aid: Bleeding Medication Leaflets My discharge plan and instructions have been reviewed and explained to me and I,SANTA TAYLOR understand my current condition and have read and understand these discharge instructions. I have received a written copy of the plan/instructions. If I have questions, I am aware that I should contact my doctor. 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 It means a pocket of pus has formed at thetip of a tooth root in your jaw bone. If the infection isn t treated, it can appear as a swelling on the gum near the tooth. More serious infections spread to the face. This causes your face to swell(cellulitis). This is a very serious condition. Once the swelling begins, it can spread quickly. A dental abscess usually starts with a crack or cavity in a tooth. The pain is often made worse by drinking hot or cold beverages, or biting on hard foods. The pain may spread from the tooth to your ear or the area of your jaw on the same side. Home care Follow these tips when caring for yourself at home: Don't have hot and cold foods and drinks. Your tooth may be sensitive to changes in temperature. Don t chew on the side of the infected tooth. If your tooth is chipped or cracked, or if there is a large open cavity, put oil of cloves directlyon the tooth to relieve pain. You can buy oil of cloves at drugstores. Some pharmacies carry an uiut-lsb-qmwlwel toothache kit. This contains a paste that you can put on the exposed tooth to make it less sensitive. Put a cold pack on your jaw over the sore area to help reduce pain. You may use wyju-qwq-jdmwhbn medication to ease pain, unless another medicine was prescribed. If you have chronic liver or kidney disease, talk with your health care provider before using acetaminophen or ibuprofen. Also talk with your provider if you ve had a stomach ulcer or GI bleeding. An antibiotic will be prescribed. Take it exactly as directed. Don t miss any doses. Follow-up care Follow up with your dentist or an oral surgeon as advised. Severe cases of cellulitis must be checked again within 24 hours. Once an infection occurs in a tooth, it will continue to be a problem until the infection is drained. This is done through surgery or a root canal. Or you may need to have your tooth pulled. Call 911 Call 911 if any of these occur: Swelling spreads to the upper half of your face or neck You eyelids begin to swell shut Unusual drowsiness Headache or a stiff neck Weakness or fainting Difficulty swallowing or breathing When to seek medical advice Call your healthcare provider right away if any of these occur: Pain gets worse or spreads to your neck Fever of 100.4 F (38 C) or higher, or as directed by your healthcare provider [phone] [employer]. [address] [place] [address]. All rights reserved. This information is not intended as a substitute for professional medical care. Always follow yourhealthcare professional's instructions. Follow Up Care 08/05/2021 12:52:26 With:dentist Address: When:2-4 days With:NOEL WALTERS Address: [address] [facility] [facility] [place] [address]- [phone] When:2-4 days [facility] Evaluation + Plan note Future Appointments Appointment Date:12/21/2021 10:50:00 AM Scheduled Provider:NOEL WALTERS Location:[facility] Appointment Type:PC OV [facility] Evaluation + Plan note Future Appointments Appointment Date:08/17/2021 08:30:00 AM Scheduled Provider:NOEL WALTERS Location:[facility] Appointment Type:PC OV Follow Up Appointment Date:12/21/2021 10:50:00 AM Scheduled Provider:NOEL WALTERS Location:[facility] Appointment Type:PC OV [facility] Evaluation + Plan note Future Appointments Appointment Date:12/21/2021 10:50:00 AM Scheduled Provider:NOEL WALTERS Location:[facility] Appointment Type:PC OV Future Scheduled Tests Radiology* XR Chest 2 Views (PA & Lateral) 11/24/21 [facility] Evaluation + Plan note Future Appointments Appointment Date:02/22/2022 03:00:00 PM Scheduled Provider:NOEL WALTERS Location:[facility] Appointment Type:PC OV Future Scheduled Tests Radiology* XR Chest 2 Views (PA & Lateral) 11/24/21 [facility] Evaluation + Plan note Future Appointments Appointment Date:03/21/2022 09:15:00 AM Scheduled Provider:FESTUS FERGUSON Location: [facility] Appointment Type:WH OV Appointment Date:05/24/2022 03:00:00 PM Scheduled Provider:NOEL WALTERS Location:[facility] Appointment Type:PC OV Future Scheduled Tests Radiology* XR Chest 2 Views (PA & Lateral) 11/24/21 [facility] Evaluation + Plan note Future Appointments Appointment Date:02/12/2023 01:15:00 PM Scheduled Provider: Location:[facility] Appointment Type:VL - Venous US/Doppler One Leg (for DVT) Future Scheduled Tests Radiology* CT Sinus 09/18/22 [facility] evaluation + Plan note Future Appointments Appointment Date:03/21/2024 01:00:00 PM Scheduled Provider:TERESE ERNST Location:[facility] Appointment Type:PC OV [facility] Evaluation + Plan note Future Appointments Appointment Date:03/28/2024 01:00:00 PM Scheduled Provider: Location:[facility] Appointment Type:Echo - Echocardiogram Adult Appointment Date:04/02/2024 09:30:00 AM Scheduled Provider:TERESE ERNST APRN-KEITH Location:[facility] Appointment Type:PC OV [facility] Evaluation + Plan note Future Appointments Appointment Date:04/02/2024 09:30:00 AM Scheduled Provider:TERESE ERNST Location:[facility] Appointment Type: OV [facility] Evaluation + Plan note Future Appointments Appointment Date:06/09/2024 07:00:00 AM Scheduled Provider: Location:[facility] Appointment Type:US Abdomen Complete Future Scheduled Tests Laboratory* Thyroid Stimulating Hormone 04/03/24 * Free T4 04/03/24 Radiology* US Abdomen Complete 06/09/24 [facility] Evaluation + Plan note Future Appointments Appointment Date:06/11/2024 01:30:00 PM Scheduled Provider:SANTA ESCOBEDO APRN-KEITH Location:[facility] Appointment Type:PC OV ED Follow Up [facility] Evaluation + Plan note Future Appointments Appointment Date:09/15/2024 02:00:00 PM Scheduled Provider:TERESE ERNST APRN-KEITH Location:[facility] Appointment Type:PC OV Diagnostic Tests Pending * Ova + Parasite Exam 06/07/24 Future Scheduled Tests Laboratory* Clostridium difficile (PCR) 06/11/24 [facility] Evaluation + Plan note Future Appointments Appointment Date:09/15/2024 02:00:00 PM Scheduled Provider:TERESE ERNST APRNGENNARO Location:[facility] Appointment Type:PC OV Future Scheduled Tests Laboratory* Clostridium difficile (PCR) 06/11/24 [facility] Evaluation + Plan note Future Appointments Appointment Date:06/27/2024 10:15:00 AM Scheduled Provider: Location:[facility] Appointment Type:CV FRESH FOODS CLERK Appointment Date:09/15/2024 02:00:00 PM Scheduled Provider:TERESE ERNST Location:[facility] Appointment Type:PC OV [facility] Evaluation + Plan note Future Appointments Appointment Date:06/27/2024 10:15:00 AM Scheduled Provider: Location:[facility] Appointment Type:CV FRESH FOODS CLERK Appointment Date:09/15/2024 02:00:00 PM Scheduled Provider:TERESE ERNST Location:[facility] Appointment Type:PC OV Diagnostic Tests Pending * Blood Culture (bacterial) 06/21/24 * Blood Culture (bacterial) 06/21/24 * Urine Culture 06/21/24 [facility] Evaluation + Plan note Future Appointments Appointment Date:06/27/2024 10:15:00 AM Scheduled Provider:WALKER PECK Location:[facility] Appointment Type:CV FRESH FOODS CLERK Appointment Date:09/15/2024 02:00:00 PM Scheduled Provider:TERESE ERNST Location:[facility] Appointment Type:PC OV Future Scheduled Tests Laboratory* Basic Metabolic Panel 06/24/24 [facility] Evaluation + Plan note Future Appointments Appointment Date:09/15/2024 02:00:00 PM Scheduled Provider:TERESE ERNST Location:[facility] Appointment Type:PC OV Appointment Date:09/30/2024 08:30:00 AM Scheduled Provider: Location:CT Appointment Type:yyCT Coronary Extracardiac Appointment Date:09/30/2024 10:30:00 AM Scheduled Provider: Location:CT Appointment Type:*CT Coronary Angiography w+w/o Contrast Future Scheduled Tests Laboratory* Basic Metabolic Panel 09/27/24 * Magnesium Level 09/27/24 Radiology* CT Coronary Angiography w+w/o Contrast 09/30/24 * CT Coronary Extracardiac 09/30/24 [facility] evalukgfxn + Plan note Future Appointments Appointment Date:09/15/2024 02:00:00 PM Scheduled Provider:TERESE ERNST Location:[facility] Appointment Type:PC OV Appointment Date:09/30/2024 08:30:00 AM Scheduled Provider: Location:CT Appointment Type:yyCT Coronary Extracardiac Appointment Date:09/30/2024 10:30:00 AM Scheduled Provider: Location:CT Appointment Type:*CT Coronary Angiography w+w/o Contrast Diagnostic Tests Pending * Aldosterone/Renin Ratio 06/27/24 * 5-HIAA, Plasma 06/27/24 Future Scheduled Tests Laboratory* Basic Metabolic Panel 09/27/24 * Magnesium Level 09/27/24 Radiology* CT Coronary Angiography w+w/o Contrast 09/30/24 * CT Coronary Extracardiac 09/30/24 [facility] evaluation note* Diagnosis Seborrheic dermatitis- Primary Unspecified seborrheic dermatitis Subacute cutaneous lupus erythematosus [facility] Diagnosis Subacute cutaneous lupus erythematosus- Primary [facility] Diagnosis Subacute cutaneous lupus erythematosus- Primary Seborrheic dermatitis Unspecified seborrheic dermatitis [facility]* Diagnosis Positive REMA (antinuclear antibody)- Primary Other and unspecified nonspecific immunological findings Subacute cutaneous lupus erythematosus [facility] Diagnosis Subacute cutaneous lupus erythematosus [facility] Diagnosis Positive REMA (antinuclear antibody)- Primary Other and unspecified nonspecific immunological findings Subacute cutaneous lupus erythematosus [facility]* Diagnosis Seborrheic dermatitis- Primary Unspecified seborrheic dermatitis Subacute cutaneous lupus erythematosus [facility] Diagnosis Cutaneous lupus erythematosus- Primary Lupus erythematosus Rash and nonspecific skin eruption Rash and other nonspecific skin eruption REMA positive Other and unspecified nonspecific immunological findings Encounter for smoking cessation counseling Counseling on substance use and abuse documented in this encounter [facility] course Narrative No data available for this section [facility] Hospital Discharge instructions No data available for this section [facility] Note* LEONELA REBOLLAR DO: SIGN, VERIFY Event Display: EKG [ED AOH] - CV Authored Date: [id number] [facility] Note* SUNNY CALHOUN MD: SIGN, VERIFY Event Display: VL Venous US/Doppler One Leg (for DVT). [facility] Progress note No data available for this section [facility] Summary Purpose Family History No Family History Records FoundNo Family History Records FoundNo Family History Records FoundNo Family History Records FoundNo Family History Records FoundNo Family History Records Found No data available for this section No data available for this section No data available for this section No Family History Records FoundNo Family History Records Found No data available for this section No data available for this section No data available for this section No data available for this section No Family History Records Found No data available for this section No data available for this section No data available for this section No data available for this section No data available for this section No data available for this section No data available for this section No data available for this section No data available for this section No data available for this section No data available for this section No data available for this section No Family History Records FoundNo Family History Records Found Advance Directives No Advanced Directives Records FoundNo Advanced Directives Records FoundNo Advanced Directives Records FoundNo Advanced Directives Records FoundNo Advanced Directives Records FoundNo Advanced Directives Records FoundNo Advanced Directives Records FoundNo Advanced Directives Records FoundNo Advanced Directives Records FoundNo Advanced Directives Records FoundNo Advanced Directives Records Found Additional Source Comments INFORMATION SOURCE (unrecogn ized section and content) DATE CREATED AUTHOR 03/04/2018 [facility] DATE CREATED AUTHOR AUTHOR'S ORGANIZ ATION 03/06/2018 [facility] DATE CREATED AUTHOR AUTHOR'S ORGANIZ ATION 03/23/2018 [facility] DATE CREATED AUTHOR AUTHOR'S ORGANIZ ATION 08/19/2018 [facility] DATE CREATED AUTHOR AUTHOR'S ORGANIZ ATION 08/23/2018 [employer] DATE CREATED AUTHOR AUTHOR'S ORGANIZ ATION 08/24/2018 [facility] DATE CREATED AUTHOR AUTHOR'S ORGANIZ ATION 10/17/2023 [facility] DATE CREATED AUTHOR AUTHOR'S ORGANIZ ATION 11/22/2023 [facility] DATE CREATED AUTHOR AUTHOR'S ORGANIZ ATION 04/02/2024 [facility] ([place]) DATE CREATED AUTHOR AUTHOR'S ORGANIZ ATION 06/29/2024 [facility] DATE CREATED AUTHOR AUTHOR'S ORGANIZ ATION 06/30/2024 [facility] Care Team (unrecognized sect ion and content) Lab Tech Relationship Specialty Start Date End Date Terese Ernst APRN - CNP [address] [place] [address] PCP - General Family Nurse Practitioner 12/13/22 Lab Tech Relationship Specialty Start Date End Date Terese Ernst APRN - CNP [address] [place] [address] PCP - General Family Nurse Practitioner 12/13/22 Lab Tech Relationship Specialty Start Date End Date Terese Ernst APRN - CNP [address] [place] [address] PCP - General Family Nurse Practitioner 12/13/22 Lab Tech Relationship Specialty Start Date End Date Terese Ernst APRN - CNP [address] [place] [address] PCP - General Family Nurse Practitioner 12/13/22 Lab Tech Relationship Specialty Start Date End Date Ana Curiel [address] [place] [phone] PCP - General Family Medicine 02/21/18 Lab Tech Relationship Specialty Start Date End Date Terese Ernst APRN - CNP [address] [place] [id number] PCP - General Family Nurse Practitioner 12/13/22 Lab Tech Relationship Specialty Start Date End Date Terese Ernst CNP [address] [place] [address] PCP - General 08/30/23 Fanny Garza PA-C [address] [place] [address] [place] [address] Physician Director Of Student Financial Aid 10/26/23 Care Team (unrecognized sect ion and content) Care Team Personnel Name: NOEL WALTERS Position: P4 Advanced Practice Nurse Med Service: Active Provider Member Role: Primary Care Physician Address: Address: [address] [place] [address] Care Team Related Persons Name: BARROWCLIFFE, INNA Name: BARROWCLIFFE, INNA Name: BARROWCLIFFE, INNA Name: BARROWCLIFFE, INNA Name: BARROWCLIFFE, INNA Name: BARROWCLIFFE, INNA Name: BARROWCLIFFE, INNA Care Team Personnel Name: NOEL WALTERS Position: P4 Advanced Practice Nurse Med Service: Active Provider Member Role: Primary Care Physician Address: Address: [address] [place] [address] Care Team Related Persons Name: BARROWCLIFFE, INNA Name: BARROWCLIFFE, INNA Name: BARROWCLIFFE, INNA Name: BARROWCLIFFE, INNA Name: BARROWCLIFFE, INNA Name: BARROWCLIFFE, INNA Name: BARROWCLIFFE, INNA Care Team Personnel Name: NOEL WALTERS Position: P4 Advanced Practice Nurse [facility] Service: Active Provider Member Role: Primary Care Physician Address: Address: [address] [place] [address] Care Team Related Persons Name: BARROWCLIFFE, INNA Name: BARROWCLIFFE, INNA Name: BARROWCLIFFE, INNA Name: BARROWCLIFFE, INNA Name: BARROWCLIFFE, INNA Name: BARROWCLIFFE, INNA Name: BARROWCLIFFE, INNA Care Team Personnel Name: NOEL WALTERS Position: P4 Advanced Practice Nurse [facility] Service: Active Provider Member Role: Primary Care Physician Address: Address: [address] [place] [address] Care Team Related Persons Name: BARROWCLIFFE, INNA Name: BARROWCLIFFE, INNA Name: BARROWCLIFFE, INNA Name: BARROWCLIFFE, INNA Name: BARROWCLIFFE, INNA Name: BARROWCLIFFE, INNA Name: BARROWCLIFFE, INNA Care Team Personnel Name: NOEL WALTERS Position: P4 Advanced Practice Nurse [facility] Service: Active Provider Member Role: Primary Care Physician Address: Address: [address] [place] [address] Care Team Related Persons Name: BARROWCLIFFE, INNA Name: BARROWCLIFFE, INNA Name: BARROWCLIFFE, INNA Name: BARROWCLIFFE, INNA Name: BARROWCLIFFE, INNA Name: BARROWCLIFFE, INNA Name: BARROWCLIFFE, INNA Care Team Personnel Name: NOEL WALTERS Position: P4 Advanced Practice Nurse [facility] Service: Active Provider Member Role: Primary Care Physician Address: Address: [address] [place] [address] Care Team Related Persons Name: BARROWCLIFFE, INNA Name: BARROWCLIFFE, INNA Name: BARROWCLIFFE, INNA Name: BARROWCLIFFE, INNA Name: BARROWCLIFFE, INNA Name: BARROWCLIFFE, INNA Name: BARROWCLIFFE, INNA Care Team Personnel Name: NOEL WALTERS ANJU Position: P4 Advanced Practice Nurse Med Service: Active Provider Member Role: Primary Care Physician Address: Address: [address] [place] [address] Care Team Related Persons Name: BARROWCLIFFE, INNA Name: BARROWCLIFFE, INNA Name: BARROWCLIFFE, INNA Name: BARROWCLIFFE, INNA Name: BARROWCLIFFE, INNA Name: BARROWCLIFFE, INNA Name: BARROWCLIFFE, INNA Reason for Visit (unrecogniz ed section and content) Reason Comments 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) Specialty Diagnoses / Procedures Referred By Contac t Referred To Contact Dermatology Diagnoses Subacute cutaneous lupus erythematosus Hidradenitis suppurativa Procedures HI OFFICE/OUTPATIENT [facility] 60-74 MINUTES Jaimee Garza MD [address] [place] [address] [facility] D[facility] [address] [place] [address] [address] [place] [phone] Referral ID Status Reason Start Date Expiration Date Visits Requested Visits Authorized [id number] Pending Review Specialty Services Required 11/21/2022 11/21/2023 1 1 Reason Comments Follow-up Discuss tx options Reason Comments Seborrheic Dermatitis (PKN) Reason Comments Follow-up Reason Comments Appointment Reason Comments Seborrheic Dermatitis (LMS) Reason Comments Positive REMA Source Comments (unrecognize d section and content) In the event this informatio n is protected by the [facility] Confidentiality of Alcohol and Drug Abuse Patient Records regulations: The Federal rules restrict any use of the information to criminally investigate or prosecute any alcohol or drug abuse patient.[facility] the event this information is protected by the Federal Confidentiality of Alcohol and Drug Abuse Patient Records regulations: The Federal rules restrict any use of the information to criminally investigate or prosecute any alcohol or drug abuse patient.[facility] FOR RECORDS PERTAINING TO PATIENTS WHO ARE OR HAVE BEEN ENROLLED IN A CHEMICAL DEPENDENCY/SUBSTANCEABUSE PROGRAM, SOME INFORMATION MAY BE OMITTED. This clinical summary was aggregated from multiple sources. Caution should be exercised in using it in the provision of clinical care. This summary normalizes information from multiple sources, and as a consequence, information in this document may materially change the coding, format and clinical context of patient data. In addition, data may be omitted in some cases. CLINICAL DECISIONS SHOULD BE BASED ON THE PRIMARY CLINICAL RECORDS. [facility] [employer] [facility]. provides no warranty or guarantee of the accuracy or completeness of information in this document.
[2024-07-06 17:07] LABS: Anti-Centromere B Ab <0.2 AI (0.0-0.9); Anti-Chromatin <0.2 AI (0.0-0.9); Anti-Jo <0.2 AI (0.0-0.9); Anti-Scleroderma-70 AB <0.2 AI (0.0-0.9); Anti-dsDNA Ab 1 IU/mL (0-9); Beef 1.88 kU/L (Class III); Chocolate <0.10 kU/L (Class 0); Codfish <0.10 kU/L (Class 0); Corn <0.10 kU/L (Class 0); Egg, Whole <0.10 kU/L (Class 0); Milk (Cow) <0.10 kU/L (Class 0); Mussels <0.10 kU/L (Class 0); Peanut <0.10 kU/L (Class 0); Pork 0.64 kU/L (Class II); RNP Ab <0.2 AI (0.0-0.9); SJOGREN'S Anti-SS-A test 7.7 AI (0.0-0.9); SJOGREN'S Anti-SS-B test < 0.2 AI (0.0-0.9); Salmon <0.10 kU/L (Class 0); Shrimp <0.10 kU/L (Class 0); Smith Ab <0.2 AI (0.0-0.9); Soybean <0.10 kU/L (Class 0); Tuna <0.10 kU/L (Class 0); Wheat <0.10 kU/L (Class 0)
[2024-07-10 11:10] LABS: ACCA 80 units (0-90); ALCA 8 units (0-60); AMCA 79 units (0-100); Albumin 3.7 g/dL (2.9-4.4); Alpha-1-Globulins 0.3 g/dL (0.0-0.4); Cytoplasmic Ab (C-ANCA) <1:20 titer (Neg:<1:20); Endomysial Antibody IgA Negative (Negative); Gamma Globulin 1.6 g/dL (0.4-1.8); Gastrin, Serum 62 pg/mL (0-115); Immunoglobulin A 367 mg/dL (87-352); Immunoglobulin E 54 IU/mL (6-495); Immunoglobulin G 1521 mg/dL (586-1602); Immunoglobulin M 115 mg/dL (26-217); PROEL- TOTAL PROTEIN 7.7 g/dL (6.0-8.5); Perinuclear Ab (P-ANCA) <1:20 titer (Neg:<1:20); gASCA 19 units (0-50); t-Transglutaminase IgA <2 U/mL (0-3)
== END | disposition home or self-care (01) ==
LOC: LAB 14:05
PROVIDERS: PCP Registered Nurse
DX: K58.0 Irritable bowel syndrome with diarrhea (principal)
CPT/HCPCS: 36415; 80053; 82784; 82785; 82941; 83516; 83615; 84165; 85025; 85652; 86003; 86005; 86036; 86037; 86140; 86225; 86235; 86255; 86334; 86671

== ENCOUNTER → 2024-07-03 | Outpatient (CLI) | payer MEDICARE, SELFPAY | END | disposition home or self-care (01) | LOC: LABSPEC 09:51 | PROVIDERS: PCP Registered Nurse | DX: K58.0 Irritable bowel syndrome with diarrhea (principal); D64.9 Anemia, unspecified | CPT/HCPCS: 82274; 83630; 87493 ==

== ENCOUNTER → 2024-07-31 | Outpatient (CLI) | payer MEDICARE, SELFPAY ==
--- NOTE | 2024-07-31 13:00 | NM_ITS ---
CLINICAL: 33-year-old female with history of abdominal bloating. SEMI-SOLID PHASE 99m Tc SULFUR COLLOID GASTRIC EMPTYING STUDY COMPARISON: None available FINDINGS: The patient was administered 1.1 mCi of 99m Tc sulfur colloid mixed with oatmeal and consumed per os. Image acquisitions in the anterior-posterior projections were obtained for 60 minutes. There is prompt visualization of the stomach. There is no gastroesophageal reflux identified. The T ? linear fit was calculated to be 49.78 minutes, (Normal: 12-56 minutes). NM/Gastric Emptying Study IMPRESSION: 1. NORMAL 99m Tc sulfur colloid semi-solid phase (oatmeal) gastric emptying imaging examination. A. There is normal and preserved semi-solid phase gastric emptying compared to normal controls. (Elvira et al, J Nucl Med Tech 38: 186, 2010). Electronically Signed: Ti Daniels DO at 8:13 EST ,
== END | disposition home or self-care (01) ==
LOC: NM 12:59
PROVIDERS: PCP Registered Nurse
DX: K58.0 Irritable bowel syndrome with diarrhea (principal)
CPT/HCPCS: 78264; A9541

== ENCOUNTER → 2024-10-03 | Outpatient (CLI) | payer OTHER, SELFPAY ==
[2024-10-03 14:59] LABS: ALB/GLOB Ratio 0.7 RATIO (0.9-2.4); AST(SGOT) 39 U/L (15-37); Alanine Aminotransfer ALT/SGPT 48 U/L (13-56); Albumin, Serum 3.4 g/dL (3.2-5.0); Alkaline Phosphatase 118 U/L (45-117); Anion Gap 6 (5-15); BUN 14 mg/dL (7-18); BUN/Creat Ratio 19.6 RATIO (10-20); Chloride 106 mmol/L (98-107); Creatinine, Serum 0.72 mg/dL (0.55-1.02); EST Glomerular Filtration Rate 98 mL/min (>60); Est Glom Filt Rate - Afr Amer 119 mL/min (>60); Glucose 130 mg/dL (74-106); Potassium 3.7 mmol/L (3.5-5.1); Protein, Total 8.4 g/dL (6.4-8.2); Sodium Level 139 mmol/L (136-145)
== END | disposition home or self-care (01) ==
LOC: LAB 13:26
PROVIDERS: PCP Registered Nurse; Referring Provider Student in an Organized Health Care Education/Training Program; Visit Provider Student in an Organized Health Care Education/Training Program
DX: R74.8 Abnormal levels of other serum enzymes (principal)
CPT/HCPCS: 36415; 80053

== ENCOUNTER → 2024-10-16 | Outpatient (CLI) | payer MEDICARE, SELFPAY ==
--- NOTE | 2024-10-16 07:06 | US_ITS ---
PROCEDURE: ABD LIMITED W/ ELASTOGRAPHY REASON FOR EXAM: Fatty infiltration of the liver. COMPARISON: None. TECHNIQUE: Right upper quadrant abdominal ultrasound. [facility] ElastQ Imaging shear wave elastography for non-invasive assessment of liver tissue stiffness. [employer] EPIQ Elite. FINDINGS: LIVER: Size: Borderline hepatomegaly. Length: 17.1 cm Echotexture: Diffusely echogenic suggesting fatty infiltration Contour: Normal Lesions: None identified Elastography: EQI Med: 5.5 kPa EQI Med Anand: 1.34 m/s IQR/Med: 20 %* GALLBLADDER: Surgically absent. COMMON BILE DUCT: Normal 3 mm. PANCREAS: Normal Visualized portions of the right kidney are unremarkable. No right upper quadrant ascites. US/ABD Limited w/ Elastography IMPRESSION: NO TO MILD HEPATIC FIBROSIS Reference Values: SRU <1.37 m/s (5.7kPa): No to mild fibrosis 1.37 m/s - 2.2 m/s: Moderate to severe fibrosis >2.2 m/s (15kPa): Significant fibrosis / cirrhosis METAVIR Score F2 or higher: 1.34 m/s (5.7kPa) F3 or higher: 1.55 m/s (7.3kPa) F4: 1.80 m/s (10kPa) * If the IQR/Med is >30%, the variance in the measurements is a large and the a ccuracy of the measurement may be in question. Reading Location: [id number]
== END | disposition home or self-care (01) ==
LOC: US 07:06
PROVIDERS: PCP Registered Nurse; Referring Provider Student in an Organized Health Care Education/Training Program; Visit Provider Student in an Organized Health Care Education/Training Program
DX: R74.8 Abnormal levels of other serum enzymes (principal)
CPT/HCPCS: 76705; 76981